=== PATIENT | male | born 1945 | race Caucasian/White ===

== ENCOUNTER 2018-08-06 15:07 | Inpatient (IN) | payer MEDICARE ==
[2018-08-06 15:28] LABS: Glucose,Whole Blood 68 mg/dL (75-99)
[2018-08-06] MEDS ORDERED: IPRATROPIUM-ALBUTEROL 3 ML NEB INHALATION STA (17:17)
[2018-08-06 17:49] LABS: ALT 26 U/L (21-72); AST 19 U/L (17-59); Albumin 4.3 g/dL (3.5-5.0); Alkaline Phosphatase 93 U/L (38-126); Anion Gap 7 mmol/L; Blood Urea Nitrogen 16 mg/dL (9-20); Carbon Dioxide 31 mmol/L (22-30); Chloride 102 mmol/L (98-107); Glucose 88 mg/dL (74-99); Lipase 58 U/L (23-300); Potassium 4.2 mmol/L (3.5-5.1); Sodium 140 mmol/L (137-145); Total Bilirubin 0.4 mg/dL (0.2-1.3); Total Protein 6.8 g/dL (6.3-8.2)
--- NOTE | 2018-08-06 17:56 | XR ---
EXAMINATION TYPE: XR chest 2V DATE OF EXAM: 08/06/2018 COMPARISON: 03/21/2017 HISTORY: Short of breath TECHNIQUE: Frontal and lateral views of the chest are obtained. FINDINGS: Heart is normal. Lungs are clear of consolidation. There is pulmonary hyperinflation. Ther e is multilevel thoracic vertebroplasty. There are no hilar masses. Mediastinum is normal. IMPRESSION: COPD. No acute lung disease. No change compared to old exam.
[2018-08-06 18:02] LABS: Basophils # (A) 0.1 k/uL (0-0.2); Basophils % (A) 1 %; Eosinophils # (A) 0.1 k/uL (0-0.7); Eosinophils % (A) 1 %; HCT 43.7 % (39.0-53.0); HGB 13.4 gm/dL (13.0-17.5); Hypochromasia Slight; Lymphocytes # (A) 1.6 k/uL (1.0-4.8); Lymphocytes % (A) 13 %; MCH 24.8 pg (25.0-35.0); MCHC 30.8 g/dL (31.0-37.0); MCV 80.5 fL (80.0-100.0); Mean Platelet Volume 7.2; Monocytes # (A) 0.6 k/uL (0-1.0); Monocytes % (A) 5 %; Neutrophils # (A) 9.4 k/uL (1.3-7.7); Neutrophils % (A) 79 %; Platelet Count 326 k/uL (150-450); RBC 5.42 m/uL (4.30-5.90); RDW 14.4 % (11.5-15.5); WBC 11.8 k/uL (3.8-10.6)
[2018-08-06 18:21] LABS: INR 0.9 (<1.2); Partial Thromboplastin Time 22.2 sec (22.0-30.0); Prothrombin Time 9.6 sec (9.0-12.0)
--- NOTE | 2018-08-06 19:37 | CT ---
EXAMINATION TYPE: CT abdomen pelvis w con DATE OF EXAM: 08/06/2018 COMPARISON: 05/10/2015 HISTORY: Abdominal pain and difficulty breathing. CT DLP: 1064.3 mGycm Automated exposure control for dose reduction was used. TECHNIQUE: Helical acquisition of images was performed from the lung bases through the pelvis. CONTRAST: Performed without Oral Contrast and with IV Contrast, patient injected with 100ml mL of Isovue 300. FINDINGS: Lung bases are clear. There is no pleural effusion. Heart size is normal. There is no pericardial eff usion. Liver shows no focal defect. Gallbladder appears normal. There is no pancreatic mass. Spleen a ppears normal. Stomach appears normal. There is no adrenal mass. Kidneys show satisfactory contrast opacification. There is 3 mm calculus interpolar left kidney. Ther e is no hydronephrosis. There is no retroperitoneal adenopathy. There is 1.5 cm cortical cyst anterio r right kidney. Ureters are not dilated. Abdominal aorta is atheromatous. Bladder distends smoothly. Prostate is enlarged and measures 5.5 cm with calcification. There is no inguinal hernia. There is no evidence of a pelvic mass. There is no free fluid. There are a few sigmoid diverticula. There is no sign of diverticulitis. There is no mesenteric edema. There is no ascites. Appendix appears normal. T here is broad-based umbilical hernia contains fat. There is no free air. There is no evidence of a sofya wel obstruction. There are some spondylotic changes in the lower lumbar spine. I see no bony destructive process. Ther e is no lumbar compression fracture. Abdominal aorta is atheromatous. IMPRESSION: NONOBSTRUCTING SMALL LEFT RENAL CALCULUS. NO SIGN OF ACUTE ABDOMEN AND PELVIS. NORMAL APPENDIX. NO AD VERSE CHANGE COMPARED TO OLD EXAM. ENLARGED PROSTATE.
--- NOTE | 2018-08-06 19:51 | ED ---
SOB HPI - General Chief Complaint: Shortness of Breath Stated Complaint: Abd Pain, Diff Breathing Time Seen by Provider: 08/06/18 16:40 Source: patient, family Mode of arrival: ambulatory Limitations: no limitations - History of Present Illness Initial Comments: The patient is a 73-year-old male who presents to the emergency department with complaint of shortness of breath. The patient was seen and Dr. Saenz's office earlier today for rectal bleeding. The patient admits to having dark, black stools for the past 3 months. His primary care physician did recommend that he have laboratory studies drawn. He was provided with a prescription and told to go over to the hospital for draw. The patient arrived to the outpatient lab and began having extreme exertional shortness of breath. He does have a history of COPD and is on 2 L of oxygen all times. States his breathing has been gradually getting worse over the past few days. He has production of thick white sputum. He denies any fevers, chills, rigors, nausea or vomiting. He denies hemoptysis, chest pain or chest palpitations. He has been using his nebulizer as directed without improvement. He denies a history of congestive heart failure. Denies lower extremity swelling. The staff at the outpatient lab called Dr. Saenz's office and they recommended that he go to the emergency room for admission. He denies a ripping or tearing sensation to his back. Does admit to abdominal cramping especially in the left lower quadrant. He denies hematochezia. Denies changes in his urination to include dysuria, hematuria or difficulty voiding. There are no other alleviating, precipitating or modifying factors. - Related Data Home Medications Medication Instructions Recorded Confirmed Albuterol Inhaler [Ventolin Hfa 2 puff INHALATION RT-Q4H PRN 12/14/14 05/10/15 Inhaler] Budesonide-Formot 160-4.5 Mcg 2 puff INHALATION RT-BID 12/14/14 05/10/15 [Symbicort 160-4.5 Mcg Inhaler] Theophylline 12 Hour [Gurmeet-Dur] 200 mg PO BID 12/14/14 05/10/15 Tiotropium 18 Mcg/Puff [Spiriva] 1 puff INHALATION RT-DAILY 12/14/14 05/10/15 predniSONE 5 mg PO BID 12/14/14 05/10/15 Ergocalciferol [Vitamin D2 50,000 unit PO ROBLES 05/10/15 05/10/15 (DRISDOL)] Multivit-Mins/Iron/Folic/Lycop 1 tab PO DAILY 05/10/15 05/10/15 [Centrum Men's Tablet] Previous Rx's Medication Instructions Recorded Bisacodyl [Dulcolax] 5 mg PO DAILY #20 tablet. 05/11/15 Allergies Allergy/AdvReac Type Severity Reaction Status Date / Time No Known Allergies Allergy Verified 05/10/15 12:01 Review of Systems ROS Statement: Those systems with pertinent positive or pertinent negative responses have been documented in the HPI. ROS Other: All systems not noted in ROS Statement are negative. Past Medical History Past Medical History: COPD, CVA/TIA, GERD/Reflux, Myocardial Infarction ([place]), Pneumonia Additional Past Medical History / Comment(s): back problems - pulled lumbar muscles (40years ago), Ct abdomen 12/04 for abdominal pain Last Myocardial Infarction Date:: 2011 History of Any Multi-Drug Resistant Organisms: None Reported Additional Past Surgical History / Comment(s): left index finger surgery Past Anesthesia/Blood Transfusion Reactions: No Reported Reaction Past Psychological History: Depression Smoking Status: Former smoker Past Alcohol Use History: None Reported Past Drug Use History: None Reported - Past Family History Mother Family Medical History: Diabetes Mellitus General Exam Limitations: no limitations General appearance: alert, in no apparent distress, anxious Head exam: Present: atraumatic, normocephalic, normal inspection Eye exam: Present: normal appearance, PERRL, EOMI. Absent: scleral icterus, conjunctival injection, periorbital swelling ENT exam: Present: normal exam, mucous membranes moist Neck exam: Present: normal inspection. Absent: tenderness, meningismus, lymphadenopathy Respiratory exam: Present: wheezes, decreased breath sounds, prolonged expiratory. Absent: respiratory distress, rales, rhonchi, stridor Cardiovascular Exam: Present: normal rhythm, tachycardia, normal heart sounds, other (No lower extremity edema). Absent: systolic murmur, diastolic murmur, rubs, gallop, clicks GI/Abdominal exam: Present: soft, normal bowel sounds. Absent: distended, tenderness, guarding, rebound, rigid Extremities exam: Present: normal inspection, full ROM, normal capillary refill. Absent: tenderness, pedal edema, joint swelling, calf tenderness Back exam: Present: normal inspection Neurological exam: Present: alert, oriented X3, CN II-XII intact Psychiatric exam: Present: normal affect, normal mood Skin exam: Present: warm, dry, intact, normal color. Absent: rash Course Vital Signs 08/06/18 08/06/18 08/06/18 15:19 17:36 18:03 Temperature 97.7 F Pulse Rate 102 H 108 H Respiratory 20 22 Rate Blood Pressure 146/72 O2 Sat by Pulse 95 Oximetry 08/06/18 08/06/18 08/06/18 18:11 19:08 21:04 Temperature Pulse Rate 108 H 117 H 99 Respiratory 22 18 Rate Blood Pressure 169/85 144/81 O2 Sat by Pulse 95 96 Oximetry 08/06/18 22:03 Temperature 98.1 F Pulse Rate 100 Respiratory 22 Rate Blood Pressure 142/92 O2 Sat by Pulse 95 Oximetry Procedures - Stool Hemoccult Hemoccult result: negative Medical Decision Making - Medical Decision Making The patient was seen by myself. He was placed into room 9. He is hooked to continuous pulse ox and cardiac monitoring. A 12-lead EKG was performed. The patient is provided with a DuoNeb breathing treatment, 125 mg of Solu-Medrol and 1 g of magnesium. I did recommend laboratory studies. The patient is sent for a chest x-ray. I also recommended a CT of the patient's abdomen due to his reported rectal bleeding. A rectal exam was performed and demonstrated no gross blood. Upon return results I did discuss them with the patient. I did discuss the diagnosis, differential and treatment options. Due to the patient's respiratory insufficiency, I did recommend admission to the hospital for continued DuoNeb breathing treatment and steroids. The patient did agree to this. I did call and discussed the case with Dr. Walters. He did accept admission of the patient. Bridging orders were placed. The patient's home medications cannot be verified. The patient was transported to floor in stable condition - Differential Diagnosis Daily exacerbation of COPD, tracheobronchitis, sinus tachycardia - Lab Data Result diagrams: 08/06/18 17:01 08/06/18 17:01 Lab Results 08/06/18 08/06/18 08/06/18 Range/Units 15:25 17:01 17:01 WBC 11.8 H (3.8-10.6) k/uL RBC 5.42 (4.30-5.90) m/uL Hgb 13.4 (13.0-17.5) gm/dL Hct 43.7 (39.0-53.0) % MCV 80.5 (80.0-100.0) fL MCH 24.8 L (25.0-35.0) pg MCHC 30.8 L (31.0-37.0) g/dL RDW 14.4 (11.5-15.5) % Plt Count 326 (150-450) k/uL Neutrophils % 79 % Lymphocytes % 13 % Monocytes % 5 % Eosinophils % 1 % Basophils % 1 % Neutrophils # 9.4 H (1.3-7.7) k/uL Lymphocytes # 1.6 (1.0-4.8) k/uL Monocytes # 0.6 (0-1.0) k/uL Eosinophils # 0.1 (0-0.7) k/uL Basophils # 0.1 (0-0.2) k/uL Hypochromasia Slight PT (9.0-12.0) sec INR (<1.2) APTT (22.0-30.0) sec Sodium 140 (137-145) mmol/L Potassium 4.2 (3.5-5.1) mmol/L Chloride 102 (98-107) mmol/L Carbon Dioxide 31 H (22-30) mmol/L Anion Gap 7 mmol/L BUN 16 (9-20) mg/dL Creatinine 0.87 (0.66-1.25) mg/dL Est GFR (CKD-EPI)AfAm >90 (>60 ml/min/1.73 sqM) Est GFR (CKD-EPI)NonAf 86 (>60 ml/min/1.73 sqM) Glucose 88 (74-99) mg/dL POC Glucose (mg/dL) 68 L (75-99) mg/dL POC Glu Portal Administrator ID [place], [place] Plasma Lactic Acid Brent (0.7-2.0) mmol/L Calcium 10.0 (8.4-10.2) mg/dL Total Bilirubin 0.4 (0.2-1.3) mg/dL AST 19 (17-59) U/L ALT 26 (21-72) U/L Alkaline Phosphatase 93 (38-126) U/L Troponin I (0.000-0.034) ng/mL NT-Pro-B Natriuret Pep pg/mL Total Protein 6.8 (6.3-8.2) g/dL Albumin 4.3 (3.5-5.0) g/dL Lipase 58 (23-300) U/L Stool Occult Blood (Negative) Blood Type Blood Type Confirm Blood Type Recheck Antibody Screen Spec Expiration Date 08/06/18 08/06/18 08/06/18 Range/Units 17:01 17:01 17:01 WBC (3.8-10.6) k/uL RBC (4.30-5.90) m/uL Hgb (13.0-17.5) gm/dL Hct (39.0-53.0) % MCV (80.0-100.0) fL MCH (25.0-35.0) pg MCHC (31.0-37.0) g/dL RDW (11.5-15.5) % Plt Count (150-450) k/uL Neutrophils % % Lymphocytes % % Monocytes % % Eosinophils % % Basophils % % Neutrophils # (1.3-7.7) k/uL Lymphocytes # (1.0-4.8) k/uL Monocytes # (0-1.0) k/uL Eosinophils # (0-0.7) k/uL Basophils # (0-0.2) k/uL Hypochromasia PT 9.6 (9.0-12.0) sec INR 0.9 (<1.2) APTT 22.2 (22.0-30.0) sec Sodium (137-145) mmol/L Potassium (3.5-5.1) mmol/L Chloride (98-107) mmol/L Carbon Dioxide (22-30) mmol/L Anion Gap mmol/L BUN (9-20) mg/dL Creatinine (0.66-1.25) mg/dL Est GFR (CKD-EPI)AfAm (>60 ml/min/1.73 sqM) Est GFR (CKD-EPI)NonAf (>60 ml/min/1.73 sqM) Glucose (74-99) mg/dL POC Glucose (mg/dL) (75-99) mg/dL POC Glu Portal Administrator ID Plasma Lactic Acid Brent (0.7-2.0) mmol/L Calcium (8.4-10.2) mg/dL Total Bilirubin (0.2-1.3) mg/dL AST (17-59) U/L ALT (21-72) U/L Alkaline Phosphatase (38-126) U/L Troponin I <0.012 (0.000-0.034) ng/mL NT-Pro-B Natriuret Pep 64 pg/mL Total Protein (6.3-8.2) g/dL Albumin (3.5-5.0) g/dL Lipase (23-300) U/L Stool Occult Blood (Negative) Blood Type Blood Type Confirm Blood Type Recheck Antibody Screen Spec Expiration Date 08/06/18 08/06/18 08/06/18 Range/Units 17:01 17:01 17:05 WBC (3.8-10.6) k/uL RBC (4.30-5.90) m/uL Hgb (13.0-17.5) gm/dL Hct (39.0-53.0) % MCV (80.0-100.0) fL MCH (25.0-35.0) pg MCHC (31.0-37.0) g/dL RDW (11.5-15.5) % Plt Count (150-450) k/uL Neutrophils % % Lymphocytes % % Monocytes % % Eosinophils % % Basophils % % Neutrophils # (1.3-7.7) k/uL Lymphocytes # (1.0-4.8) k/uL Monocytes # (0-1.0) k/uL Eosinophils # (0-0.7) k/uL Basophils # (0-0.2) k/uL Hypochromasia PT (9.0-12.0) sec INR (<1.2) APTT (22.0-30.0) sec Sodium (137-145) mmol/L Potassium (3.5-5.1) mmol/L Chloride (98-107) mmol/L Carbon Dioxide (22-30) mmol/L Anion Gap mmol/L BUN (9-20) mg/dL Creatinine (0.66-1.25) mg/dL Est GFR (CKD-EPI)AfAm (>60 ml/min/1.73 sqM) Est GFR (CKD-EPI)NonAf (>60 ml/min/1.73 sqM) Glucose (74-99) mg/dL POC Glucose (mg/dL) (75-99) mg/dL POC Glu Portal Administrator ID Plasma Lactic Acid Brent 1.1 (0.7-2.0) mmol/L Calcium (8.4-10.2) mg/dL Total Bilirubin (0.2-1.3) mg/dL AST (17-59) U/L ALT (21-72) U/L Alkaline Phosphatase (38-126) U/L Troponin I (0.000-0.034) ng/mL NT-Pro-B Natriuret Pep pg/mL Total Protein (6.3-8.2) g/dL Albumin (3.5-5.0) g/dL Lipase (23-300) U/L Stool Occult Blood (Negative) Blood Type O Positive Blood Type Confirm O Positive Blood Type Recheck CABO Indicated Antibody Screen NEGATIVE Spec Expiration Date 08/09/2018 - 230008/06/18 Range/Units 19:50 WBC (3.8-10.6) k/uL RBC (4.30-5.90) m/uL Hgb (13.0-17.5) gm/dL Hct (39.0-53.0) % MCV (80.0-100.0) fL MCH (25.0-35.0) pg MCHC (31.0-37.0) g/dL RDW (11.5-15.5) % Plt Count (150-450) k/uL Neutrophils % % Lymphocytes % % Monocytes % % Eosinophils % % Basophils % % Neutrophils # (1.3-7.7) k/uL Lymphocytes # (1.0-4.8) k/uL Monocytes # (0-1.0) k/uL Eosinophils # (0-0.7) k/uL Basophils # (0-0.2) k/uL Hypochromasia PT (9.0-12.0) sec INR (<1.2) APTT (22.0-30.0) sec Sodium (137-145) mmol/L Potassium (3.5-5.1) mmol/L Chloride (98-107) mmol/L Carbon Dioxide (22-30) mmol/L Anion Gap mmol/L BUN (9-20) mg/dL Creatinine (0.66-1.25) mg/dL Est GFR (CKD-EPI)AfAm (>60 ml/min/1.73 sqM) Est GFR (CKD-EPI)NonAf (>60 ml/min/1.73 sqM) Glucose (74-99) mg/dL POC Glucose (mg/dL) (75-99) mg/dL POC Glu Portal Administrator ID Plasma Lactic Acid Brent (0.7-2.0) mmol/L Calcium (8.4-10.2) mg/dL Total Bilirubin (0.2-1.3) mg/dL AST (17-59) U/L ALT (21-72) U/L Alkaline Phosphatase (38-126) U/L Troponin I (0.000-0.034) ng/mL NT-Pro-B Natriuret Pep pg/mL Total Protein (6.3-8.2) g/dL Albumin (3.5-5.0) g/dL Lipase (23-300) U/L Stool Occult Blood Negative (Negative) Blood Type Blood Type Confirm Blood Type Recheck Antibody Screen Spec Expiration Date - EKG Data -: EKG Interpreted by Me EKG Comments: EKG demonstrates a sinus tachycardia with a ventricular rate of 110. TN interval 162. QRS 74. QTC 438. No acute ST segment elevations or depressions concerning for ischemic changes. - Radiology Data Radiology results: report reviewed Chest x-ray demonstrates no acute process Disposition Clinical Impression: COPD exacerbation Disposition: ADMITTED IP TO THIS HOSP Condition: Stable Is patient prescribed a controlled substance at d/c from ED?: No Decision to Admit Reason: Admit from EC Decision Date: 08/06/18 Decision Time: 21:18
[2018-08-06] MEDS ORDERED: methylPREDNISolone SOD SUCCI 125 MG/2 ML VIAL IV STA (20:02)
[2018-08-06] MEDS ORDERED: MAGNESIUM SULFATE-D5W PMX 1 GM in DEXTROSE/WATER 1 100ML.BAG IVPB ONE (20:03)
[2018-08-06] MEDS ORDERED: NALOXONE 0.4 MG/ML 1 ML VIAL IV PRN (20:04)
[2018-08-07] MEDS: IPRATROPIUM-ALBUTEROL 3 ML NEB INHALATION SCH ×4 (07:51→19:17)
[2018-08-07] MEDS ORDERED: POLYETHYLENE GLYCOL 3350 17 GM POWD.PACK PO PRN (11:57)
[2018-08-07] MEDS ORDERED: predniSONE 20 MG TAB PO SCH (12:00)
[2018-08-07] MEDS: PANTOPRAZOLE 40 MG TABLET PO SCH (12:25)
[2018-08-07] MEDS: METOPROLOL SUCCINATE (ER) 25 MG TAB.ER.24H PO SCH (12:26)
[2018-08-07] MEDS: ACETAMINOPHEN TAB 325 MG TAB PO PRN (12:39)
--- NOTE | 2018-08-07 14:22 | P.CNPUL ---
History of Present Illness Consult date: 08/07/18 Requesting physician: Slivino Wlaters Reason for consult: dyspnea, cough, other Chief complaint: Acute exacerbation of COPD, shortness of breath, coughing, melanotic stools History of present illness: This is a 73-year-old white male patient with history of severe end-stage COPD with baseline FEV1 of 18% of predicted, with chronic hypoxemic respiratory failure, previous episodes of pneumonia, myocardial infarction, CVA/TIA, GERD/reflux, or murmur smoker, who has been passing melanotic stools. Patient follows with the [facility] system, and was supposed to undergo colonoscopy, and he saw Dr. Saenz yesterday on 08/06/2018 for pulmonary clearance for the procedure. However he was experiencing increased shortness of breath, cough, chest congestion, wheezing, and in view of his acute exacerbation of COPD, he was sent in for inpatient treatment. Patient was also having increased left lower abdominal quadrant tenderness, he has no umbilical hernia which has been increasingly tender. He wears oxygen on the regular basis, he is on maintenance dose of prednisone 5 mg daily, is on a combination of Symbicort, Spiriva, Pro- Air, Theophylline on the regular basis. Chest x-ray was completed and showed COPD, no acute lung disease. CT of abdomen and pelvis with contrast was completed and showed nonobstructive small left renal calculus, no sign of acute abdomen and pelvis, normal appendix, enlarged prostate, normal appendix. Lab work showed white blood cell count of 11.8, hemoglobin of 13.4, electrolytes and renal profile were unremarkable with CO2 slightly elevated at 31, proBNP was 64, troponin was negative 1, stool for occult blood was negative. Hemodynamics patient is stable, he is dyspneic with normal conversation, but no acute distress, denied any fever or chills. He is on 2 L of oxygen with a pulse ox of 93-97%, lung sounds are positive for diminished breath sounds, with diffuse wheezes and prolonged expiration. Review of Systems All systems: negative Constitutional: Denies chills, Denies fever Eyes: denies blurred vision, denies pain Ears, nose, mouth and throat: Denies headache, Denies sore throat Cardiovascular: Denies chest pain, Denies shortness of breath Respiratory: Reports congestion, Reports dyspnea, Reports home oxygen, Reports respiratory infections, Reports wheezing, Denies cough Gastrointestinal: Reports abdominal pain, Reports bloating, Reports melena, De nies diarrhea, Denies nausea, Denies vomiting Musculoskeletal: Denies myalgias Integumentary: Denies pruritus, Denies rash Neurological: Denies numbness, Denies weakness Psychiatric: Denies anxiety, Denies depression Endocrine: Denies fatigue, Denies weight change Past Medical History Past Medical History: COPD, CVA/TIA, GERD/Reflux, Myocardial Infarction ([place]), Pneumonia Additional Past Medical History / Comment(s): back problems - pulled lumbar muscles (40years ago), Ct abdomen 12/04 for abdominal pain Last Myocardial Infarction Date:: 2011 History of Any Multi-Drug Resistant Organisms: None Reported Past Surgical History: Back Surgery Additional Past Surgical History / Comment(s): left index finger surgery Past Anesthesia/Blood Transfusion Reactions: No Reported Reaction Past Psychological History: Depression Smoking Status: Former smoker Past Alcohol Use History: None Reported Past Drug Use History: None Reported - Past Family History Mother Family Medical History: Diabetes Mellitus Medications and Allergies Home Medications Medication Instructions Recorded Confirmed Type Albuterol Inhaler [Ventolin Hfa 2 puff INHALATION RT-Q4H PRN 12/14/14 08/07/18 History Inhaler] Budesonide-Formot 160-4.5 Mcg 2 puff INHALATION RT-BID 12/14/14 08/07/18 History [Symbicort 160-4.5 Mcg Inhaler] Tiotropium 18 Mcg/Puff [Spiriva] 1 puff INHALATION RT-DAILY 12/14/14 08/07/18 History predniSONE 5 mg PO DAILY 12/14/14 08/07/18 History Ergocalciferol [Vitamin D2 50,000 unit PO ROBLES 05/10/15 08/07/18 History (DRISDOL)] Albuterol Nebulized [Ventolin 2.5 mg INHALATION RT-Q4H PRN 08/07/18 08/07/18 History Nebulized] Aspirin EC [Ecotrin] 325 mg PO DAILY 08/07/18 08/07/18 History Atorvastatin [Lipitor] 20 mg PO HS 08/07/18 08/07/18 History Fluticasone Nasal [place] [Flonase 1 spray EA NOSTRIL BID 08/07/18 08/07/18 History Nasal [place]] Metoprolol Succinate [Toprol XL] 25 mg PO DAILY 08/07/18 08/07/18 History Omeprazole 20 mg PO DAILY 08/07/18 08/07/18 History Theophylline 24 Hour [Gurmeet-24] 400 mg PO DAILY 08/07/18 08/07/18 History Allergies Allergy/AdvReac Type Severity Reaction Status Date / Time No Known Allergies Allergy Verified 08/07/18 08:26 Physical Exam Vitals: Vital Signs Temp Pulse Pulse Resp BP BP Pulse Ox 08/07/18 11:11 104 H 08/07/18 11:03 106 H 08/07/18 08:05 100 08/07/18 07:53 104 H 08/07/18 06:59 97.7 F 98 16 169/89 93 L 08/07/18 01:21 97.8 F 99 16 131/77 97 08/06/18 22:38 98.0 F 101 H 16 159/87 97 08/06/18 22:03 98.1 F 100 22 142/92 95 08/06/18 21:04 99 18 144/81 96 08/06/18 19:08 117 H 22 169/85 95 08/06/18 18:11 108 H 08/06/18 18:03 108 H 08/06/18 17:36 22 08/06/18 15:19 97.7 F 102 H 20 146/72 95 Intake and Output 08/06/18 08/07/18 08/07/18 22:59 06:59 14:59 Intake Total 420 Output Total 550 Balance -550 420 Intake: Oral 420 Output: Urine 550 Other: Voiding Method Toilet Urinal Weight 79.379 kg GENERAL EXAM: Alert, pleasant, 73-year-old white male on 2 L of oxygen with a pulse ox of 93% with moderate conversational dyspnea, comfortable in no apparent distress. HEAD: Normocephalic/atraumatic. EYES: Normal reaction of pupils, equal size. Conjunctiva pink, sclera white. NOSE: Clear with pink turbinates. THROAT: No erythema or exudates. NECK: No masses, no JVD, no thyroid enlargement, no adenopathy. CHEST: No chest wall deformity. Symmetrical expansion. LUNGS: Equal air entry with decreased breath sounds, and diffuse wheezes CVS: Regular rate and rhythm, normal S1 and S2, no gallops, no murmurs, no rubs ABDOMEN: Soft, nontender. No hepatosplenomegaly, normal bowel sounds, no guarding or rigidity. EXTREMITIES: No clubbing, no edema, no cyanosis, 2+ pulses and upper and lower extremities. MUSCULOSKELETAL: Muscle strength and tone normal. SPINE: No scoliosis or deformity SKIN: No rashes CENTRAL NERVOUS SYSTEM: Alert and oriented -3. No focal deficits, tone is normal in all 4 extremities. PSYCHIATRIC: Alert and oriented -3. Appropriate affect. Intact judgment and insight. Results - Laboratory Findings CBC and BMP: 08/06/18 17:01 08/06/18 17:01 PT/INR, D-dimer PT 9.6 sec (9.0-12.0) 08/06/18 17: INR 0.9 (<1.2) 08/06/18 17:01 Abnormal lab findings: Abnormal Labs 08/06/18 08/06/18 08/06/18 15:25 17:01 17:01 WBC 11.8 H MCH 24.8 L MCHC 30.8 L Neutrophils # 9.4 H Carbon Dioxide 31 H POC Glucose (mg/dL) 68 L - Diagnostic Findings Chest x-ray: report reviewed, image reviewed Additional studies: CT of the abdomen and pelvis reviewed Assessment and Plan Plan: Assessment: #1. Acute exacerbation of chronic obstructive pulmonary disease, chest x-ray did not show focal pneumonia #2. History of recent melanotic stools, and patient was undergoing evaluation for outpatient colonoscopy #3. Severe COPD, with chronic hypoxemic respiratory failure with the underlying FEV1 of 18% of predicted, prednisone dependent #4. Former smoker #5. Previous episodes of pneumonia #6. History myocardial infarction #7. GERD/reflux Plan: We'll continue with IV steroids, Pulmicort, Perforomist, DuoNeb nebulized treatments, we will add oral antibiotics, chest x-ray has been reviewed with Dr. Freeman, did not show any evidence of focal pneumonia, patient will be treated for acute exacerbation of COPD. We'll consult GI service for evaluation of a history of recent GI bleeding. Stool was negative, hemodynamically patient is stable, does have some tenderness in the left lower quadrant, and umbilical hernia tenderness. Results of the CT of abdomen and pelvis have been reviewed. We'll continue to follow and make further recommendations I performed a history & physical examination of the patient and discussed their management with my nurse practitioner, Janie Davidson. I reviewed the nurse practitioner's note and agree with the documented findings and plan of care. Lung sounds are positive for diffuse wheezes throughout the lung piña. The fi ndings and the impression was discussed with the patient. I attest to the documentation by the nurse practitioner. Time with Patient: Greater than 30
[2018-08-07] MEDS ORDERED: IPRATROPIUM-ALBUTEROL 3 ML NEB INHALATION PRN (14:24)
--- NOTE | 2018-08-07 15:43 | P.HPIM ---
History of Present Illness 73-year-old pleasant gentleman came in with complaints of shortness of breath patient does have a history of COPD severe endstage does use 2-3 L of onset at home patient is found to be in COPD exacerbation is significant wheezing was admitted with systemic steroids inhalational treatments. From neurology was consulted. Patient had a history of recent GI bleed. Patient was also complaining of pain in the. [place]- umblical area where he had an umbilical hernia. Patient also company of significant left lower quadrant abdominal pain which improved now no tenderness in that area probably related to constipation although patient moved his bowels yesterday occasionally gets constipated. Patient had a CAT scan of the abdomen which showed nonobstructive small left renal calculus which he may have passed now. Patient denied any orthopnea paroxysmal nocturnal dyspnea does not have any history of CHF quit smoking years ago doesn't have any evidence of pneumonia on the chest x-ray Review of Systems REVIEW OF SYSTEMS: CONSTITUTIONAL: No fever, no malaise, no fatigue. HEENT: No recent visual problems or hearing problems. Denied any sore throat. CARDIOVASCULAR: No chest pain, orthopnea, PND, no palpitations, no syncope. PULMONARY: no hemoptysis. GASTROINTESTINAL: No diarrhea, no nausea, no vomiting. NEUROLOGICAL: No headaches, no weakness, no numbness. HEMATOLOGICAL: Denies any bleeding or petechiae. GENITOURINARY: Denies any burning micturition, frequency, or urgency. MUSCULOSKELETAL/RHEUMATOLOGICAL: Denies any joint pain, swelling, or any muscle pain. ENDOCRINE: Denies any polyuria or polydipsia. The rest of the 14-point review of systems is negative. Past Medical History Past Medical History: COPD, CVA/TIA, GERD/Reflux, Myocardial Infarction ([place]), Pneumonia Additional Past Medical History / Comment(s): back problems - pulled lumbar muscles (40years ago), Ct abdomen 12/04 for abdominal pain Last Myocardial Infarction Date:: 2011 History of Any Multi-Drug Resistant Organisms: None Reported Past Surgical History: Back Surgery Additional Past Surgical History / Comment(s): left index finger surgery Past Anesthesia/Blood Transfusion Reactions: No Reported Reaction Past Psychological History: Depression Smoking Status: Former smoker Past Alcohol Use History: None Reported Past Drug Use History: None Reported - Past Family History Mother Family Medical History: Diabetes Mellitus Medications and Allergies Home Medications Medication Instructions Recorded Confirmed Type Albuterol Inhaler [Ventolin Hfa 2 puff INHALATION RT-Q4H PRN 12/14/14 08/07/18 History Inhaler] Budesonide-Formot 160-4.5 Mcg 2 puff INHALATION RT-BID 12/14/14 08/07/18 History [Symbicort 160-4.5 Mcg Inhaler] Tiotropium 18 Mcg/Puff [Spiriva] 1 puff INHALATION RT-DAILY 12/14/14 08/07/18 History predniSONE 5 mg PO DAILY 12/14/14 08/07/18 History Ergocalciferol [Vitamin D2 50,000 unit PO ROBLES 05/10/15 08/07/18 History (DRISDOL)] Albuterol Nebulized [Ventolin 2.5 mg INHALATION RT-Q4H PRN 08/07/18 08/07/18 History Nebulized] Aspirin EC [Ecotrin] 325 mg PO DAILY 08/07/18 08/07/18 History Atorvastatin [Lipitor] 20 mg PO HS 08/07/18 08/07/18 History Fluticasone Nasal [place] [Flonase 1 spray EA NOSTRIL BID 08/07/18 08/07/18 History Nasal [place]] Metoprolol Succinate [Toprol XL] 25 mg PO DAILY 08/07/18 08/07/18 History Omeprazole 20 mg PO DAILY 08/07/18 08/07/18 History Theophylline 24 Hour [Gurmeet-24] 400 mg PO DAILY 08/07/18 08/07/18 History Allergies Allergy/AdvReac Type Severity Reaction Status Date / Time No Known Allergies Allergy Verified 08/07/18 08:26 Physical Exam Vitals: Vital Signs Temp Pulse Pulse Resp BP BP Pulse Ox 08/07/18 15:06 96 08/07/18 14:37 97.5 F L 92 14 100/48 97 08/07/18 11:11 104 H 08/07/18 11:03 106 H 08/07/18 08:05 100 08/07/18 07:53 104 H 08/07/18 06:59 97.7 F 98 16 169/89 93 L 08/07/18 01:21 97.8 F 99 16 131/77 97 08/06/18 22:38 98.0 F 101 H 16 159/87 97 08/06/18 22:03 98.1 F 100 22 142/92 95 08/06/18 21:04 99 18 144/81 96 08/06/18 19:08 117 H 22 169/85 95 08/06/18 18:11 108 H 08/06/18 18:03 108 H 08/06/18 17:36 22 Intake and Output 08/07/18 08/07/18 08/07/18 06:59 14:59 22:59 Intake Total 660 Output Total 550 Balance -550 660 Intake: Oral 660 Output: Urine 550 Other: Voiding Method Toilet Urinal # Voids 2 PHYSICAL EXAMINATION: GENERAL: The patient is alert and oriented x3, not in any acute distress. Well developed, well nourished. HEENT: Pupils are round and equally reacting to light. EOMI. No scleral icterus. No conjunctival pallor. Normocephalic, atraumatic. No pharyngeal erythema. No thyromegaly. CARDIOVASCULAR: S1 and S2 present. No murmurs, rubs, or gallops. PULMONARY: Significant expiratory wheezing mildly decreased air entry into bilateral lung piña ABDOMEN: Soft, distended minimal tenderness in the left lower quadrant) medical area bowel sounds are sluggish MUSCULOSKELETAL: No joint swelling or deformity. EXTREMITIES: No cyanosis, clubbing, or pedal edema. NEUROLOGICAL: Gross neurological examination did not reveal any focal deficits. SKIN: No rashes. Results CBC & Chem 7: 08/06/18 17:01 08/06/18 17:01 Labs: Abnormal Lab Results - Last 24 Hours (Table) 08/06/18 08/06/18 Range/Units 17:01 17:01 WBC 11.8 H (3.8-10.6) k/uL MCH 24.8 L (25.0-35.0) pg MCHC 30.8 L (31.0-37.0) g/dL Neutrophils # 9.4 H (1.3-7.7) k/uL Carbon Dioxide 31 H (22-30) mmol/L Thrombosis Risk Factor Assmnt - Choose All That Apply Any of the Below Risk Factors Present?: Yes Each Factor Represents 1 point: Abnormal pulmonary function (COPD) Other Risk Factors: Yes Each Risk Factor Represents 2 Points: Age 61-74 years Thrombosis Risk Factor Assessment Total Risk Factor Score: 3 Thrombosis Risk Factor Assessment Level: Moderate Risk Assessment and Plan Plan: -Acute on chronic hypercapnic respiratory failure secondary to COPD exacerbation continue thoughts and support continue systemic steroids inhalational treatments . -Abdominal pain probably secondary to renal stone which he may have passed patient will be treated for constipation as 10 evidence of diverticulitis -Mild periumbilical pain conservative management patient does not appear to have incarcerated hernia -Coronary artery disease Gastroesophageal reflux disease. Patient will need pharmacologic GI as well as DVT prophylaxis
[2018-08-07] MEDS: methylPREDNISolone SOD SUCCI 125 MG/2 ML VIAL IV SCH ×2 (17:04→23:52)
[2018-08-07] MEDS: AZITHROMYCIN 500 MG TAB PO SCH (17:04)
[2018-08-07] MEDS: HEPARIN SODIUM,PORCINE 5,000 UNIT/ML 1 ML VIAL SQ SCH ×2 (17:05→23:52)
[2018-08-07] MEDS: BUDESONIDE 1 MG/2 ML NEBU INHALATION SCH (19:17)
[2018-08-07] MEDS: FORMOTEROL FUMARATE 20 MCG/2 ML NEBU INHALATION SCH (19:17)
[2018-08-07] MEDS ORDERED: SYMBICORT 160-4.5 MCG INHALER INHALATION SCH (20:00)
[2018-08-07] MEDS: ATORVASTATIN 20 MG TAB PO SCH (20:17)
[2018-08-08] MEDS: IPRATROPIUM-ALBUTEROL 3 ML NEB INHALATION SCH ×6 (00:17→20:42)
[2018-08-08] MEDS: methylPREDNISolone SOD SUCCI 125 MG/2 ML VIAL IV SCH ×2 (05:32→18:27)
[2018-08-08] MEDS: BUDESONIDE 1 MG/2 ML NEBU INHALATION SCH ×2 (08:10→20:42)
[2018-08-08] MEDS: FORMOTEROL FUMARATE 20 MCG/2 ML NEBU INHALATION SCH ×2 (08:10→20:42)
[2018-08-08] MEDS: HEPARIN SODIUM,PORCINE 5,000 UNIT/ML 1 ML VIAL SQ SCH ×2 (08:46→15:55)
[2018-08-08] MEDS: PANTOPRAZOLE 40 MG TABLET PO SCH (08:46)
[2018-08-08] MEDS: ASPIRIN 325 MG TAB PO SCH (08:46)
[2018-08-08] MEDS: METOPROLOL SUCCINATE (ER) 25 MG TAB.ER.24H PO SCH (08:46)
[2018-08-08] MEDS: THEOPHYLLINE 24 HOUR 400 MG CAP.ER.24H PO SCH (08:47)
[2018-08-08] MEDS: AZITHROMYCIN 500 MG TAB PO SCH (08:47)
[2018-08-08] MEDS: ACETAMINOPHEN TAB 325 MG TAB PO PRN (08:50)
--- NOTE | 2018-08-08 11:43 | P.CONS ---
History of Present Illness - Reason for Consult Consult date: 08/08/18 Abdominal pain history of melena Requesting physician: Ja Berry - Chief Complaint Shortness of breath abdominal pain - History of Present Illness 73-year-old male admitted with shortness of breath exacerbation of COPD periumbilical abdominal pain and rectal bleeding. Past medical history end- stage COPD O2 dependent. Patient states he was noticing some red tinged blood with his bowel movements over the past week in month with lower abdominal discomfort. He also reports having severe constipation. No history of EGD colonoscopy. CT abdomen nonobstructing small left renal calculus no sign of acute abdomen and pelvis. Normal appendix. Enlarged prostate. Broad-based umbilical hernia containing fat. No free air. No bowel obstruction. Scattered sigmoid d iverticula. Hemoglobin 13.4. White count 11.8. Platelets 326. INR 0.9. LFTs lipase within normal limits. Troponin less than 0.012. BUN 16. Creatinine 0.8. FOBT negative. Review of Systems Constitutional: Denies fever, chills, sweats, weight gain, or loss. HEENT: Negative for migraines, blurred vision or loss, earaches, drainage, tinnitus, oral mucosal lesions, dysphagia, or odynophagia. Cardiac: Negative for chest pain, arrhythmias, or palpitation. Respiratory: Positive for shortness of breath, denies hemoptysis, cough, or sputum production. Gastrointestinal: See HPI for pertinent findings. Genitourinary: Negative for hematuria, urgency, frequency, polyuria, dysuria, or penile discharge. Musculoskeletal: Negative for muscle aches, swelling, arthritis, and arthralgias. Neurologic: Negative for stroke or TIA. Endocrine: Negative for thyroid problems. Skin: Negative for rash or itching. Psychiatric: Negative history for depression and anxiety Past Medical History Past Medical History: COPD, CVA/TIA, GERD/Reflux, Myocardial Infarction ([place]), Pneumonia Additional Past Medical History / Comment(s): back problems - pulled lumbar muscles (40years ago), Ct abdomen 12/04 for abdominal pain Last Myocardial Infarction Date:: 2011 History of Any Multi-Drug Resistant Organisms: None Reported Past Surgical History: Back Surgery Additional Past Surgical History / Comment(s): left index finger surgery Past Anesthesia/Blood Transfusion Reactions: No Reported Reaction Past Psychological History: Depression Smoking Status: Former smoker Past Alcohol Use History: None Reported Past Drug Use History: None Reported - Past Family History Mother Family Medical History: Diabetes Mellitus Medications and Allergies Home Medications Medication Instructions Recorded Confirmed Type Albuterol Inhaler [Ventolin Hfa 2 puff INHALATION RT-Q4H PRN 12/14/14 08/07/18 History Inhaler] Budesonide-Formot 160-4.5 Mcg 2 puff INHALATION RT-BID 12/14/14 08/07/18 History [Symbicort 160-4.5 Mcg Inhaler] Tiotropium 18 Mcg/Puff [Spiriva] 1 puff INHALATION RT-DAILY 12/14/14 08/07/18 History predniSONE 5 mg PO DAILY 12/14/14 08/07/18 History Ergocalciferol [Vitamin D2 50,000 unit PO ROBLES 05/10/15 08/07/18 History (DRISDOL)] Albuterol Nebulized [Ventolin 2.5 mg INHALATION RT-Q4H PRN 08/07/18 08/07/18 History Nebulized] Aspirin EC [Ecotrin] 325 mg PO DAILY 08/07/18 08/07/18 History Atorvastatin [Lipitor] 20 mg PO HS 08/07/18 08/07/18 History Fluticasone Nasal [place] [Flonase 1 spray EA NOSTRIL BID 08/07/18 08/07/18 Histo ry Nasal [place]] Metoprolol Succinate [Toprol XL] 25 mg PO DAILY 08/07/18 08/07/18 History Omeprazole 20 mg PO DAILY 08/07/18 08/07/18 History Theophylline 24 Hour [[place]ur[place]-24] 400 mg PO DAILY 08/07/18 08/07/18 History Allergies Allergy/AdvReac Type Severity Reaction Status Date / Time No Known Allergies Allergy Verified 08/07/18 08:26 Physical Exam Vitals: Vital Signs Temp Pulse Pulse Resp BP Pulse Ox 08/08/18 08:39 86 08/08/18 08:29 84 08/08/18 08:19 84 08/08/18 07:45 97.6 F 82 18 114/61 97 08/08/18 04:27 100 08/08/18 04:03 96 08/08/18 01:07 97.6 F 102 H 19 130/75 96 08/08/18 00:37 104 H 08/08/18 00:17 104 H 08/07/18 19:41 100 08/07/18 19:32 100 08/07/18 19:29 97.6 F 99 16 148/68 97 08/07/18 19:20 98 08/07/18 15:06 96 08/07/18 14:37 97.5 F L 92 14 100/48 97 08/07/18 11:11 104 H 08/07/18 11:03 106 H Intake and Output 08/07/18 08/08/18 08/08/18 22:59 06:59 14:59 Intake Total 240 Balance 240 Intake: Oral 240 Other: Voiding Method Toilet # Voids 1 3 General appearance: The patient is alert, oriented, in no acute distress. HET: Head is normocephalic and atraumatic. Pupils are equal and reactive. Oropharynx is clear without lesions. Neck: Supple without lymphadenopathy. Trachea midline. Heart: S1 S2. Regular rate and rhythm. Lungs: No crackles or wheezes are heard. Diminished bilaterally in bases. Abdomen: Soft, nontender, nondistended with bowel sounds. Reducible umbilical hernia. No peritoneal signs. No palpable organomegaly or masses. Extremities: Normal skin color and turgor. No cyanosis, rash, ulceration, clubbing, or edema. Radial and pedal pulses are 2/4 bilaterally. Neurological: No focal deficits. Strength and sensation are grossly intact. Results CBC & Chem 7: 08/06/18 17:01 08/06/18 17:01 CT scan - abdomen: report reviewed (Dr. Deshpande) Assessment and Plan (1) COPD exacerbation Narrative/Plan: 73-year-old gentleman with a history of severe COPD O2 dependent admitted with exacerbation of abdominal pain with reports of rectal bleeding over the last 1-4 weeks with underlying colonic diverticular disease. Etiology of bleeding is unclear no history of EGD colonoscopy possible colonic diverticular bleeding exacerbated by constipation however underlying neoplasm bleeding AVM cannot be entirely excluded. Upper GI source felt to be less likely but cannot be excluded. Current Visit: Yes Status: Acute Code(s): J44.1 - CHRONIC OBSTRUCTIVE PULMONARY DISEASE W (ACUTE) EXACERBATION SNOMED Code(s): 027682257 (2) Abdominal pain Current Visit: No Status: Acute Code(s): R10.9 - UNSPECIFIED ABDOMINAL PAIN SNOMED Code(s): 24855646 Plan: 1. Continue present medical therapy. Avoid constipation stool softeners daily Senokot-S 2 tabs twice a day. Continue with Protonix daily. EGD colonoscopy was advised and discussed however patient will require a pulmonary clearance before proceeding accordingly. This can be pursued on an outpatient basis per pulmonary input. Thank you for this kind referral and the opportunity to participate in the care of your patient. This consultation was discussed with Dr. Deshpande. The impression and plan of care have been directed as dictated.
--- NOTE | 2018-08-08 13:29 | P.PN ---
Subjective Progress Note Date: 08/08/18 Principal diagnosis: Acute exacerbation of chronic obstructive pulmonary disease This is a 73-year-old white male patient with history of severe end-stage COPD with baseline FEV1 of 18% of predicted, with chronic hypoxemic respiratory failure, previous episodes of pneumonia, myocardial infarction, CVA/TIA, GERD/reflux, or murmur smoker, who has been passing melanotic stools. Patient follows with the [facility], and was supposed to undergo colonoscopy, and he saw Dr. Saenz yesterday on 08/06/2018 for pulmonary clearance for the procedure. However he was experiencing increased shortness of breath, cough, chest congestion, wheezing, and in view of his acute exacerbation of COPD, he was sent in for inpatient treatment. Patient was also having increased left lower abdomi nal quadrant tenderness, he has no umbilical hernia which has been increasingly tender. He wears oxygen on the regular basis, he is on maintenance dose of prednisone 5 mg daily, is on a combination of Symbicort, Spiriva, Pro-Air, Theophylline on the regular basis. Chest x-ray was completed and showed COPD, no acute lung disease. CT of abdomen and pelvis with contrast was completed and showed nonobstructive small left renal calculus, no sign of acute abdomen and pelvis, normal appendix, enlarged prostate, normal appendix. Lab work showed white blood cell count of 11.8, hemoglobin of 13.4, electrolytes and renal profile were unremarkable with CO2 slightly elevated at 31, proBNP was 64, tro ponin was negative 1, stool for occult blood was negative. Hemodynamics patient is stable, he is dyspneic with normal conversation, but no acute distress, denied any fever or chills. He is on 2 L of oxygen with a pulse ox of 93-97%, lung sounds are positive for diminished breath sounds, with diffuse wheezes and prolonged expiration. On 12 08/08/2018 patient seen in follow-up on medical surgical floor. She is awake and alert, in no acute distress, still quite dyspneic with conversation, has frequent coughing, diffuse wheezes bilaterally, he states he is feeling better, but on back to baseline, still quite dyspneic and bronchospastic. He has had no stools since his been admitted. No new blood work done today, hemodynamically patient remains stable. She has been evaluated by the GI se nilsa, please refer to her normal. For now patient is being treated for acute exacerbation of COPD. Objective - Vital Signs Vital signs: Vital Signs Temp 97.6 F 08/08/18 07:45 Pulse 86 08/08/18 11:45 Resp 18 08/08/18 08:46 BP 114/61 08/08/18 07:45 Pulse Ox 97 08/08/18 07:45 Intake & Output 08/07/18 08/08/18 08/08/18 18:59 06:59 18:59 Intake Total 900 Balance 900 Intake: Oral 900 Other: Voiding Method Toilet Toilet # Voids 2 3 - Exam GENERAL EXAM: Alert, pleasant, 73-year-old white male on 2 L of oxygen with a pulse ox of 93% with moderate conversational dyspnea, comfortable in no apparent distress. HEAD: Normocephalic/atraumatic. EYES: Normal reaction of pupils, equal size. Conjunctiva pink, sclera white. NOSE: Clear with pink turbinates. THROAT: No erythema or exudates. NECK: No masses, no JVD, no thyroid enlargement, no adenopathy. CHEST: No chest wall deformity. Symmetrical expansion. LUNGS: Equal air entry with decreased breath sounds, and diffuse wheezes CVS: Regular rate and rhythm, normal S1 and S2, no gallops, no murmurs, no rubs ABDOMEN: Soft, nontender. No hepatosplenomegaly, normal bowel sounds, no guarding or rigidity. EXTREMITIES: No clubbing, no edema, no cyanosis, 2+ pulses and upper and lower extremities. MUSCULOSKELETAL: Muscle strength and tone normal. SPINE: No scoliosis or deformity SKIN: No rashes CENTRAL NERVOUS SYSTEM: Alert and oriented -3. No focal deficits, tone is normal in all 4 extremities. PSYCHIATRIC: Alert and oriented -3. Appropriate affect. Intact judgment and insight. - Labs CBC & Chem 7: 08/06/18 17:01 08/06/18 17:01 Assessment and Plan Plan: Assessment: #1. Acute exacerbation of chronic obstructive pulmonary disease, chest x-ray did not show focal pneumonia #2. History of recent melanotic stools, and patient was undergoing evaluation for outpatient colonoscopy #3. Severe COPD, with chronic hypoxemic respiratory failure with the underlying FEV1 of 18% of predicted, prednisone dependent #4. Former smoker #5. Previous episodes of pneumonia #6. History myocardial infarction #7. GERD/reflux Plan: Continue with breathing treatments, IV steroids, will de-escalate the antibiotics down to just oral Zithromax, continue with Pulmicort and Perforomist. Still quite dyspneic and bronchospastic. No stool since he is been admitted, hemodynamically stable, has been evaluated by GI service, no active bleeding. As long as there is no active bleeding patient remains hemodynamically stable, no need for urgent colonoscopy right now. I performed a history & physical examination of the patient and discussed their management with my nurse practitioner, Janie Cedeño. I reviewed the nurse practitioner's note and agree with the documented findings and plan of care. Lung sounds are positive for diffuse wheezes throughout the lung piña. The findings and the impression was discussed with the patient. I attest to the documentation by the nurse practitioner. Time with Patient: Less than 30
[2018-08-08] MEDS: SENNOSIDES-DOCUSATE SODIUM 1 EACH TAB PO SCH ×2 (14:30→20:06)
--- NOTE | 2018-08-08 15:42 | P.PN ---
Subjective 73-year-old male was admitted the second to COPD exacerbation patient the still quite a bit short of breath more from his baseline is on 3 L of oxygen had couple episodes of dark stools because of gastric which gastric body evaluate the patient patient is already on Protonix. Patient had fairly normal stool today. Patient's IV steroids will be tapered down and patient will not require Rocephin's demise and will be continued. Abdominal pain improved Constitutional: Denied any fatigue denied any fever. Cardio vascular: denied any chest pain, palpitations Gastrointestinal denied any nausea vomiting Pulmonary: As mentioned in HPI Neurologic denied any new focal deficits All inpatient medications were reviewed and appropriate changes in these medications as dictated in the interval history and assessment and plan. Objective - Vital Signs Vital signs: Vital Signs Temp 97.6 F 08/08/18 07:45 Pulse 84 08/08/18 15:34 Resp 18 08/08/18 08:46 BP 114/61 08/08/18 07:45 Pulse Ox 97 08/08/18 07:45 Intake & Output 08/07/18 08/08/18 08/08/18 18:59 06:59 18:59 Intake Total 900 50 Balance 900 50 Intake: Intake, IV Titration 50 Amount cefTRIAXone 1 gm In 50 Sodium Chloride 0.9% 50 ml @ 100 mls/hr IVPB Q24HR [facility] Rx#:[id number] Oral 900 Other: Voiding Method Toilet Toilet # Voids 2 3 - Exam PHYSICAL EXAMINATION: GENERAL: The patient is alert and oriented x3, not in any acute distress. Well developed, well nourished. HEENT: Pupils are round and equally reacting to light. EOMI. No scleral icterus. No conjunctival pallor. Normocephalic, atraumatic. No pharyngeal erythema. No thyromegaly. CARDIOVASCULAR: S1 and S2 present. No murmurs, rubs, or gallops. PULMONARY: Significant expiratory wheezing mildly decreased air entry into bi lateral lung piña ABDOMEN: Soft, distended minimal tenderness in the left lower quadrant) medical area bowel sounds are sluggish MUSCULOSKELETAL: No joint swelling or deformity. EXTREMITIES: No cyanosis, clubbing, or pedal edema. NEUROLOGICAL: Gross neurological examination did not reveal any focal deficits. SKIN: No rashes. - Labs CBC & Chem 7: 08/06/18 17:01 08/06/18 17:01 Assessment and Plan Plan: -Acute on chronic hypercapnic respiratory failure secondary to COPD exacerbation continue thoughts and support continue systemic steroids inhalational treatments. -Abdominal pain probably secondary to renal stone which he may have passed patient will be treated for constipation, no evidence of diverticulitis -Couple episodes of dark stools does not appear to be GI bleed rather I believe it secondary to constipation -Mild periumbilical pain conservative management patient does not appear to have incarcerated hernia -Coronary artery disease Gastroesophageal reflux disease. Patient will need pharmacologic GI as well as DVT prophylaxis
[2018-08-08] MEDS: methylPREDNISolone SOD SUCCI 40 MG/ML 1 ML VIAL IV SCH (20:06)
[2018-08-08] MEDS: ATORVASTATIN 20 MG TAB PO SCH (20:06)
[2018-08-09] MEDS: IPRATROPIUM-ALBUTEROL 3 ML NEB INHALATION SCH ×6 (00:09→19:25)
[2018-08-09] MEDS: HEPARIN SODIUM,PORCINE 5,000 UNIT/ML 1 ML VIAL SQ SCH ×3 (00:24→16:29)
[2018-08-09] MEDS: ACETAMINOPHEN TAB 325 MG TAB PO PRN ×2 (04:37→08:10)
[2018-08-09] MEDS: PANTOPRAZOLE 40 MG TABLET PO SCH (08:06)
[2018-08-09] MEDS: AZITHROMYCIN 500 MG TAB PO SCH (08:07)
[2018-08-09] MEDS: ASPIRIN 325 MG TAB PO SCH (08:07)
[2018-08-09] MEDS: THEOPHYLLINE 24 HOUR 400 MG CAP.ER.24H PO SCH (08:07)
[2018-08-09] MEDS: SENNOSIDES-DOCUSATE SODIUM 1 EACH TAB PO SCH ×2 (08:07→21:05)
[2018-08-09] MEDS: methylPREDNISolone SOD SUCCI 40 MG/ML 1 ML VIAL IV SCH ×2 (08:07→21:05)
[2018-08-09] MEDS: METOPROLOL SUCCINATE (ER) 25 MG TAB.ER.24H PO SCH (08:07)
[2018-08-09] MEDS: BUDESONIDE 1 MG/2 ML NEBU INHALATION SCH ×2 (08:28→19:25)
[2018-08-09] MEDS: FORMOTEROL FUMARATE 20 MCG/2 ML NEBU INHALATION SCH ×2 (08:28→19:25)
--- NOTE | 2018-08-09 11:53 | P.PN ---
Subjective Progress Note Date: 08/09/18 Principal diagnosis: Abdominal pain recent blood in stool Feels well. No abdominal pain. Passing bowel movements. No bleeding. Objective - Vital Signs Vital signs: Vital Signs Temp 97.5 F L 08/09/18 07:29 Pulse 94 08/09/18 08:50 Resp 16 08/09/18 08:00 BP 110/61 08/09/18 07:29 Pulse Ox 97 08/09/18 08:28 Intake & Output 08/08/18 08/09/18 08/09/18 18:59 06:59 18:59 Intake Total 50 450 250 Balance 50 450 250 Intake: Intake, IV Titration 50 Amount cefTRIAXone 1 gm In 50 Sodium Chloride 0.9% 50 ml @ 100 mls/hr IVPB Q24HR [facility] Rx#:[id number] Oral 450 250 Other: Voiding Method Toilet Toilet Toilet # Voids 3 3 - Exam General appearance: The patient is alert, oriented, in no acute distress. HET: Head is normocephalic and atraumatic. Pupils are equal and reactive. O ropharynx is clear without lesions. Neck: Supple without lymphadenopathy. Trachea midline. Heart: S1 S2. Regular rate and rhythm. Lungs: No dimension bases bilaterally. Abdomen: Soft, nontender, nondistended with bowel sounds. No peritoneal signs. No palpable organomegaly or masses. Extremities: Normal skin color and turgor. No cyanosis, rash, ulceration, clubbing, or edema. Radial and pedal pulses are 2/4 bilaterally. Neurological: No focal deficits. Strength and sensation are grossly intact. - Labs CBC & Chem 7: 08/06/18 17:01 08/06/18 17:01 Assessment and Plan (1) COPD exacerbation Narrative/Plan: 73-year-old gentleman with a history of severe COPD O2 dependent admitted with exacerbation of abdominal pain with reports of rectal bleeding over the last 1-4 weeks with underlying colonic diverticular disease. Etiology of bleeding is unclear no history of EGD colonoscopy possible colonic diverticular bleeding exacerbated by constipation however underlying neoplasm bleeding AVM cannot be entirely excluded. Upper GI source felt to be less likely but cannot be excluded. Current Visit: Yes Status: Acute Code(s): J44.1 - CHRONIC OBSTRUCTIVE PULMONARY DISEASE W (ACUTE) EXACERBATION SNOMED Code(s): 004375424 (2) Abdominal pain Current Visit: No Status: Acute Code(s): R10.9 - UNSPECIFIED ABDOMINAL PAIN SNOMED Code(s): 28892736 Plan: 1. Agreeable for discharge. Case was discussed with hand frame surgical elastic knitter Dr. Berry we'll proceed with outpatient endoscopic evaluation. Return to office in 2-3 weeks for reevaluation. Senokot-S 2 tabs daily or 1 tab twice daily for bowel regularity. Avoid constipation. Assessment and plan a care discussed with Dr. Deshpande
--- NOTE | 2018-08-09 13:06 | P.PN ---
Subjective Progress Note Date: 08/09/18 Principal diagnosis: Acute exacerbation of chronic obstructive pulmonary disease This is a 73-year-old white male patient with history of severe end-stage COPD with baseline FEV1 of 18% of predicted, with chronic hypoxemic respiratory failure, previous episodes of pneumonia, myocardial infarction, CVA/TIA, GERD/reflux, or murmur smoker, who has been passing melanotic stools. Patient follows with the [facility], and was supposed to undergo colonoscopy, and he saw Dr. Saenz yesterday on 08/06/2018 for pulmonary clearance for the procedure. However he was experiencing increased shortness of breath, cough, chest congestion, wheezing, and in view of his acute exacerbation of COPD, he was sent in for inpatient treatment. Patient was also having increased left lower abdomi nal quadrant tenderness, he has no umbilical hernia which has been increasingly tender. He wears oxygen on the regular basis, he is on maintenance dose of prednisone 5 mg daily, is on a combination of Symbicort, Spiriva, Pro-Air, Theophylline on the regular basis. Chest x-ray was completed and showed COPD, no acute lung disease. CT of abdomen and pelvis with contrast was completed and showed nonobstructive small left renal calculus, no sign of acute abdomen and pelvis, normal appendix, enlarged prostate, normal appendix. Lab work showed white blood cell count of 11.8, hemoglobin of 13.4, electrolytes and renal profile were unremarkable with CO2 slightly elevated at 31, proBNP was 64, tro ponin was negative 1, stool for occult blood was negative. Hemodynamics patient is stable, he is dyspneic with normal conversation, but no acute distress, denied any fever or chills. He is on 2 L of oxygen with a pulse ox of 93-97%, lung sounds are positive for diminished breath sounds, with diffuse wheezes and prolonged expiration. On 08/08/2018 patient seen in follow-up on medical surgical floor. She is awake and alert, in no acute distress, still quite dyspneic with conversation, has frequent coughing, diffuse wheezes bilaterally, he states he is feeling better, but on back to baseline, still quite dyspneic and bronchospastic. He has had no stools since his been admitted. No new blood work done today, hemodynamically patient remains stable. She has been evaluated by the GI se nilsa, please refer to her normal. For now patient is being treated for acute exacerbation of COPD. On 08/09/2018 patient seen in follow-up. Patient is improving, sound doing much better on today's exam, lung sounds are diminished, with minimal wheezing, patient's had one bowel movement this morning, and he stated he was normal color, brown with no melena or bright red blood. No new labs today, hemodynamically patient is stable. He is on 2 L of oxygen, with pulse ox of 97%, afebrile. Patient was evaluated by GI service, and patient has had no active bleeding, no plans for colonoscopy right now Objective - Vital Signs Vital signs: Vital Signs Temp 97.5 F L 08/09/18 07:29 Pulse 92 08/09/18 12:10 Resp 16 08/09/18 08:00 BP 110/61 08/09/18 07:29 Pulse Ox 97 08/09/18 08:28 Intake & Output 08/08/18 08/09/18 08/09/18 18:59 06:59 18:59 Intake Total 50 450 250 Balance 50 450 250 Intake: Intake, IV Titration 50 Amount cefTRIAXone 1 gm In 50 Sodium Chloride 0.9% 50 ml @ 100 mls/hr IVPB Q24HR [facility] Rx#:[id number] Oral 450 250 Other: Voiding Method Toilet Toilet Toilet # Voids 3 3 - Exam GENERAL EXAM: Alert, pleasant, 73-year-old white male on 2 L of oxygen with a pulse ox of 93% with moderate conversational dyspnea, comfortable in no apparent distress. HEAD: Normocephalic/atraumatic. EYES: Normal reaction of pupils, equal size. Conjunctiva pink, sclera white. NOSE: Clear with pink turbinates. THROAT: No erythema or exudates. NECK: No masses, no JVD, no thyroid enlargement, no adenopathy. CHEST: No chest wall deformity. Symmetrical expansion. LUNGS: Equal air entry with decreased breath sounds, and minimal wheezes CVS: Regular rate and rhythm, normal S1 and S2, no gallops, no murmurs, no rubs ABDOMEN: Soft, nontender. No hepatosplenomegaly, normal bowel sounds, no guardi ng or rigidity. EXTREMITIES: No clubbing, no edema, no cyanosis, 2+ pulses and upper and lower extremities. MUSCULOSKELETAL: Muscle strength and tone normal. SPINE: No scoliosis or deformity SKIN: No rashes CENTRAL NERVOUS SYSTEM: Alert and oriented -3. No focal deficits, tone is normal in all 4 extremities. PSYCHIATRIC: Alert and oriented -3. Appropriate affect. Intact judgment and insight. - Labs CBC & Chem 7: 08/06/18 17:01 08/06/18 17:01 Assessment and Plan Plan: Assessment: #1. Acute exacerbation of chronic obstructive pulmonary disease, chest x-ray did not show focal pneumonia #2. History of recent melanotic stools, and patient was undergoing evaluation for outpatient colonoscopy #3. Severe COPD, with chronic hypoxemic respiratory failure with the underlying FEV1 of 18% of predicted, prednisone dependent #4. Former smoker #5. Previous episodes of pneumonia #6. History myocardial infarction #7. GERD/reflux Plan: We'll continue with current medical treatment, patient is improving, less dyspneic and bronchospastic, no signs of active bleeding, hemodynamically patient remains stable, no fever or chills, from pulmonary perspective patient could be considered for discharge home today. I performed a history & physical examination of the patient and discussed their management with my nurse practitioner, Janie Cedeño. I reviewed the nurse practitioner's note and agree with the documented findings and plan of care. Lung sounds are positive for diffuse wheezes throughout the lung piña. The findings and the impression was discussed with the patient. I attest to the documentation by the nurse practitioner. Time with Patient: Less than 30
--- NOTE | 2018-08-09 15:12 | P.PN ---
Subjective 73-year-old male was admitted the second to COPD exacerbation patient the still quite a bit short of breath more from his baseline is on 3 L of oxygen had couple episodes of dark stools because of gastric which gastric body evaluate the patient patient is already on Protonix. Patient had fairly normal stool today. Patient's IV steroids will be tapered down and patient will not require Rocephin's demise and will be continued. Abdominal pain improved. 08/09/2018 No evidence of GI bleed at this time patient will undergo screening colonoscopy as an outpatient. Patient wanted to go home feels better but the there is very barely a minimal air movement and patient gets easily winded upon ambulation because of which have a living will benefit from one more day of hospitalization. Constitutional: Denied any fatigue denied any fever. Cardio vascular: denied any chest pain, palpitations Gastrointestinal denied any nausea vomiting Pulmonary: As mentioned in HPI Neurologic denied any new focal deficits All inpatient medications were reviewed and appropriate changes in these medications as dictated in the interval history and assessment and plan. Objective - Vital Signs Vital signs: Vital Signs Temp 97.5 F L 08/09/18 07:29 Pulse 92 08/09/18 12:10 Resp 16 08/09/18 08:00 BP 110/61 08/09/18 07:29 Pulse Ox 97 08/09/18 08:28 Intake & Output 08/08/18 08/09/18 08/09/18 18:59 06:59 18:59 Intake Total 50 450 250 Balance 50 450 250 Intake: Intake, IV Titration 50 Amount cefTRIAXone 1 gm In 50 Sodium Chloride 0.9% 50 ml @ 100 mls/hr IVPB Q24HR [facility] Rx#:[id number] Oral 450 250 Other: Voiding Method Toilet Toilet Toilet # Voids 3 3 - Exam PHYSICAL EXAMINATION: GENERAL: The patient is alert and oriented x3, not in any acute distress. Well developed, well nourished. HEENT: Pupils are round and equally reacting to light. EOMI. No scleral icterus. No conjunctival pallor. Normocephalic, atraumatic. No pharyngeal erythema. No thyromegaly. CARDIOVASCULAR: S1 and S2 present. No murmurs, rubs, or gallops. PULMONARY: There is no wheezing but significantly limited air entry into bilateral lung piña ABDOMEN: Soft, distended minimal tenderness in the left lower quadrant) medical area bowel sounds are sluggish MUSCULOSKELETAL: No joint swelling or deformity. EXTREMITIES: No cyanosis, clubbing, or pedal edema. NEUROLOGICAL: Gross neurological examination did not reveal any focal deficits. SKIN: No rashes. - Labs CBC & Chem 7: 08/06/18 17:01 08/06/18 17:01 Assessment and Plan Plan: -Acute on chronic hypercapnic respiratory failure secondary to COPD exacerbation continue thoughts and support continue systemic steroids inhalational treatment s. -Abdominal pain probably secondary to renal stone which he may have passed patient was treated for constipation had bowel movements. -Couple episodes of dark stools does not appear to be GI bleed rather I believe it secondary to constipation -Mild periumbilical pain conservative management patient does not appear to have incarcerated hernia -Coronary artery disease Gastroesophageal reflux disease. Patient will need pharmacologic GI as well as DVT prophylaxis
[2018-08-09] MEDS: ATORVASTATIN 20 MG TAB PO SCH (21:05)
[2018-08-10] MEDS: IPRATROPIUM-ALBUTEROL 3 ML NEB INHALATION SCH ×4 (00:22→11:09)
[2018-08-10] MEDS: HEPARIN SODIUM,PORCINE 5,000 UNIT/ML 1 ML VIAL SQ SCH ×2 (00:28→07:42)
[2018-08-10] MEDS: ACETAMINOPHEN TAB 325 MG TAB PO PRN ×2 (00:28→07:46)
[2018-08-10] MEDS: BUDESONIDE 1 MG/2 ML NEBU INHALATION SCH (07:15)
[2018-08-10] MEDS: FORMOTEROL FUMARATE 20 MCG/2 ML NEBU INHALATION SCH (07:15)
[2018-08-10] MEDS: METOPROLOL SUCCINATE (ER) 25 MG TAB.ER.24H PO SCH (07:40)
[2018-08-10] MEDS: AZITHROMYCIN 500 MG TAB PO SCH (07:40)
[2018-08-10] MEDS: THEOPHYLLINE 24 HOUR 400 MG CAP.ER.24H PO SCH (07:40)
[2018-08-10] MEDS: methylPREDNISolone SOD SUCCI 40 MG/ML 1 ML VIAL IV SCH (07:40)
[2018-08-10] MEDS: ASPIRIN 325 MG TAB PO SCH (07:40)
[2018-08-10] MEDS: SENNOSIDES-DOCUSATE SODIUM 1 EACH TAB PO SCH (07:40)
[2018-08-10] MEDS: PANTOPRAZOLE 40 MG TABLET PO SCH (07:40)
[2018-08-10 08:06] VITALS: BP 109/51; RESP 17; TEMP 98.5
[2018-08-10 11:23] VITALS: PULSE 88
--- NOTE | 2018-08-10 13:49 | P.DS ---
Providers Date of admission: 08/08/18 16:11 Attending physician: Silvino Walters Consults: 08/07/18 12:08 Consult Physician Routine Consulting Provider: Griselda Hatch Consult Reason/Comments: COPD Do you want consulting provider notified?: Yes Primary care physician: [facility] Hospital Course: Patient was not discharged yesterday because of social issues and placement issues. 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. No significant change in her overall clinical condition. PHYSICAL EXAMINATION: GENERAL: The patient is alert and oriented x2, not in any acute distress. Thin built elderly female HEENT: Pupils are round and equally reacting to light. EOMI. No scleral icterus. No conjunctival pallor. Normocephalic, atraumatic. No pharyngeal erythema. No thyromegaly. CARDIOVASCULAR: S1 and S2 present. No murmurs, rubs, or gallops. PULMONARY: Chest is clear to auscultation, no wheezing or crackles. ABDOMEN: Soft, nontender, nondistended, normoactive bowel sounds. No palpable organomegaly. MUSCULOSKELETAL: No joint swelling or deformity. EXTREMITIES: No cyanosis, clubbing, or pedal edema. NEUROLOGICAL: Gross neurological examination did not reveal any focal deficits. Patient has significant edema significant memory deficits more so than her baseline as per the family SKIN: No rashes. 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 -Generalized deconditioning and weakness secondary to her infection along with advanced dementia and age related muscle atrophy patient can continue her vitamin D and calcium supplementation as an outpatient and will obtain physical therapy and occupational therapy consultation. -History of CVA TIA in the past but patient is not on aspirin and a statin, because of her age probably that is appropriate not to be in these medications -Hypothyroidism: Continue with levothyroxine CODE STATUS: DO NOT RESUSCITATE Patient Condition at Discharge: Stable Plan - Discharge Summary New Discharge Prescriptions: New Sennosides-Docusate Sodium [Senokot-S] 2 tab PO DAILY #60 tablet predniSONE 10 mg PO DAILY #30 tab Continue Albuterol Inhaler [Ventolin Hfa Inhaler] 2 puff INHALATION RT-Q4H PRN PRN Reason: Dyspnea Tiotropium 18 Mcg/Puff [Spiriva] 1 puff INHALATION RT-DAILY Budesonide-Formot 160-4.5 Mcg [Symbicort 160-4.5 Mcg Inhaler] 2 puff INHALATION RT-BID predniSONE 5 mg PO DAILY Ergocalciferol [Vitamin D2 (DRISDOL)] 50,000 unit PO ROBLES Theophylline 24 Hour [Gurmeet-24] 400 mg PO DAILY Atorvastatin [Lipitor] 20 mg PO HS Metoprolol Succinate [Toprol XL] 25 mg PO DAILY Aspirin EC [Ecotrin] 325 mg PO DAILY Albuterol Nebulized [Ventolin Nebulized] 2.5 mg INHALATION RT-Q4H PRN PRN Reason: Shortness Of Breath Fluticasone Nasal Sherwood [Flonase Nasal Sherwood] 1 spray EA NOSTRIL BID Omeprazole 20 mg PO DAILY Discharge Medication List Albuterol Inhaler [Ventolin Hfa Inhaler] 2 puff INHALATION RT-Q4H PRN 12/14/14 [History] Budesonide-Formot 160-4.5 Mcg [Symbicort 160-4.5 Mcg Inhaler] 2 puff INHALATION RT-BID 12/14/14 [History] Tiotropium 18 Mcg/Puff [Spiriva] 1 puff INHALATION RT-DAILY 12/14/14 [History] predniSONE 5 mg PO DAILY 12/14/14 [History] Ergocalciferol [Vitamin D2 (DRISDOL)] 50,000 unit PO ROBLES 05/10/15 [History] Albuterol Nebulized [Ventolin Nebulized] 2.5 mg INHALATION RT-Q4H PRN 08/07/18 [History] Aspirin EC [Ecotrin] 325 mg PO DAILY 08/07/18 [History] Atorvastatin [Lipitor] 20 mg PO HS 08/07/18 [History] Fluticasone Nasal Sherwood [Flonase Nasal Sherwood] 1 spray EA NOSTRIL BID 08/07/18 [History] Metoprolol Succinate [Toprol XL] 25 mg PO DAILY 08/07/18 [History] Omeprazole 20 mg PO DAILY 08/07/18 [History] Theophylline 24 Hour [Gurmeet-24] 400 mg PO DAILY 08/07/18 [History] Sennosides-Docusate Sodium [Senokot-S] 2 tab PO DAILY #60 tablet 08/09/18 [Rx] predniSONE 10 mg PO DAILY #30 tab 08/10/18 [Rx] Follow up Appointment(s)/Referral(s): Griselda Hatch MD [STAFF PHYSICIAN] - 1 Week Steven Deshpande MD [STAFF PHYSICIAN] - 08/24/18 12:00 pm [facility],Clinic [Primary Care Provider] - 1-2 days
--- NOTE | 2018-08-10 14:07 | P.PN ---
Subjective Progress Note Date: 08/10/18 Principal diagnosis: Acute exacerbation of chronic obstructive pulmonary disease This is a 73-year-old white male patient with history of severe end-stage COPD with baseline FEV1 of 18% of predicted, with chronic hypoxemic respiratory failure, previous episodes of pneumonia, myocardial infarction, CVA/TIA, GERD/reflux, or murmur smoker, who has been passing melanotic stools. Patient follows with the [place] system, and was supposed to undergo colonoscopy, and he saw Dr. Saenz yesterday on 08/06/2018 for pulmonary clearance for the procedure. However he was experiencing increased shortness of breath, cough, chest congestion, wheezing, and in view of his acute exacerbation of COPD, he was sent in for inpatient treatment. Patient was also having increased left lower abdomi nal quadrant tenderness, he has no umbilical hernia which has been increasingly tender. He wears oxygen on the regular basis, he is on maintenance dose of prednisone 5 mg daily, is on a combination of Symbicort, Spiriva, Pro-Air, Theophylline on the regular basis. Chest x-ray was completed and showed COPD, no acute lung disease. CT of abdomen and pelvis with contrast was completed and showed nonobstructive small left renal calculus, no sign of acute abdomen and pelvis, normal appendix, enlarged prostate, normal appendix. Lab work showed white blood cell count of 11.8, hemoglobin of 13.4, electrolytes and renal profile were unremarkable with CO2 slightly elevated at 31, proBNP was 64, tro ponin was negative 1, stool for occult blood was negative. Hemodynamics patient is stable, he is dyspneic with normal conversation, but no acute distress, denied any fever or chills. He is on 2 L of oxygen with a pulse ox of 93-97%, lung sounds are positive for diminished breath sounds, with diffuse wheezes and prolonged expiration. On 08/08/2018 patient seen in follow-up on medical surgical floor. She is awake and alert, in no acute distress, still quite dyspneic with conversation, has frequent coughing, diffuse wheezes bilaterally, he states he is feeling better, but on back to baseline, still quite dyspneic and bronchospastic. He has had no stools since his been admitted. No new blood work done today, hemodynamically patient remains stable. She has been evaluated by the GI se nilsa, please refer to her normal. For now patient is being treated for acute exacerbation of COPD. On 08/09/2018 patient seen in follow-up. Patient is improving, sound doing much better on today's exam, lung sounds are diminished, with minimal wheezing, patient's had one bowel movement this morning, and he stated he was normal color, brown with no melena or bright red blood. No new labs today, hemodynamically patient is stable. He is on 2 L of oxygen, with pulse ox of 97%, afebrile. Patient was evaluated by GI service, and patient has had no active bleeding, no plans for colonoscopy right now On 08/10/2018 patient seen in follow-up on medical surgical floor. He is resting in bed, still dyspneic with conversation, and exertional, but no acute distress, lung sounds reveal some rales at the bases, overall she is less bronchospastic process admission. Vital signs are stable, no fever or chills, hemodynamically patient is stable, there has been no melanotic stools, no hematemesis, he is on 2 L of oxygen his pulse ox of 97%, no new labs, no new chest x-rays, patient has been treated with a combination of IV steroids, nebulized bronchodilators, theophylline, and empiric antibiotics, he is improving, GI service is not planned and on any urgent colonoscopy at this time, they will follow the patient on an outpatient basis. Objective - Vital Signs Vital signs: Vital Signs Temp 98.5 F 08/10/18 07:00 Pulse 88 08/10/18 11:22 Resp 17 08/10/18 07:00 BP 109/51 08/10/18 07:00 Pulse Ox 97 08/10/18 07:15 Intake & Output 08/09/18 08/10/18 08/10/18 18:59 06:59 18:59 Intake Total 1330 300 Balance 1330 300 Intake: Oral 1330 300 Other: Voiding Method Toilet Toilet # Voids 1 1 - Exam GENERAL EXAM: Alert, pleasant, 73-year-old white male on 2 L of oxygen with a pulse ox of 93% with moderate conversational dyspnea, comfortable in no apparent distress. HEAD: Normocephalic/atraumatic. EYES: Normal reaction of pupils, equal size. Conjunctiva pink, sclera white. NOSE: Clear with pink turbinates. THROAT: No erythema or exudates. NECK: No masses, no JVD, no thyroid enlargement, no adenopathy. CHEST: No chest wall deformity. Symmetrical expansion. LUNGS: Equal air entry with decreased breath sounds, no rales at the bases, no wheezing CVS: Regular rate and rhythm, normal S1 and S2, no gallops, no murmurs, no rubs ABDOMEN: Soft, nontender. No hepatosplenomegaly, normal bowel sounds, no guarding or rigidity. EXTREMITIES: No clubbing, no edema, no cyanosis, 2+ pulses and upper and lower extremities. MUSCULOSKELETAL: Muscle strength and tone normal. SPINE: No scoliosis or deformity SKIN: No rashes CENTRAL NERVOUS SYSTEM: Alert and oriented -3. No focal deficits, tone is normal in all 4 extremities. PSYCHIATRIC: Alert and oriented -3. Appropriate affect. Intact judgment and insight. - Labs CBC & Chem 7: 08/06/18 17:01 08/06/18 17:01 Assessment and Plan Plan: Assessment: #1. Acute exacerbation of chronic obstructive pulmonary disease, chest x-ray did not show focal pneumonia #2. History of recent melanotic stools, and patient was undergoing evaluation for outpatient colonoscopy #3. Severe COPD, with chronic hypoxemic respiratory failure with the underlying FEV1 of 18% of predicted, prednisone dependent #4. Former smoker #5. Previous episodes of pneumonia #6. History myocardial infarction #7. GERD/reflux Plan: Patient remains stable, he continues to improve, still has some dyspnea, especially with exertion, patient recovers well, patient has oxygen and nebulized treatments at home, patient could be considered for discharge home today, on oral course of antibiotics, steroids, he can resume his Symbicort, and Spiriva, he can continue his theophylline. He can follow up with Dr. Saenz in the office next week. I performed a history & physical examination of the patient and discussed their management with my nurse practitioner, Janie Cedeño. I reviewed the nurse practitioner's note and agree with the documented findings and plan of care. Lung sounds are positive for diffuse wheezes throughout the lung piña. The findings and the impression was discussed with the patient. I attest to the documentation by the nurse practitioner. Time with Patient: Less than 30
== END 2018-08-10 15:32 | disposition home or self-care (01) | DRG 190 ==
LOC: EC 15:07 → 4SSUR 21:49 → OBSVTOIN 08-08 16:11
PROVIDERS: ADMIT Internal Medicine; ATTEND Internal Medicine
DX: J44.1 Chronic obstructive pulmonary disease with (acute) exacerbation (principal); J96.21 Acute and chronic respiratory failure with hypoxia; J96.22 Acute and chronic respiratory failure with hypercapnia; K62.5 Hemorrhage of anus and rectum; F32.9 Major depressive disorder, single episode, unspecified; I25.10 Atherosclerotic heart disease of native coronary artery without angina pectoris; K21.9 Gastro-esophageal reflux disease without esophagitis; K42.9 Umbilical hernia without obstruction or gangrene; N20.0 Calculus of kidney; R10.33 Periumbilical pain; K57.30 Diverticulosis of large intestine without perforation or abscess without bleeding; K59.00 Constipation, unspecified; N40.0 Benign prostatic hyperplasia without lower urinary tract symptoms; Z99.81 Dependence on supplemental oxygen; I25.2 Old myocardial infarction; Z79.51 Long term (current) use of inhaled steroids; Z79.82 Long term (current) use of aspirin; Z79.899 Other long term (current) drug therapy; Z83.3 Family history of diabetes mellitus; Z87.891 Personal history of nicotine dependence; Z86.73 Personal history of transient ischemic attack (TIA), and cerebral infarction without residual deficits; Z87.01 Personal history of pneumonia (recurrent)
CPT/HCPCS: 36415; 71046; 74177; 80053; 82272; 83605; 83690; 83880; 84484; 85025; 85610; 85730; 86850; 86900; 86901; 93005; 94640; 94760; 96365; 96375; 99285

== ENCOUNTER 2021-11-15 10:05 | Inpatient (IN) | payer MEDICARE ==
--- NOTE | 2021-11-15 10:24 | ED ---
General Adult HPI - General Chief complaint: Shortness of Breath Stated complaint: SOB Time Seen by Provider: 11/15/21 10:07 Source: patient, EMS, RN notes reviewed, old records reviewed Mode of arrival: EMS Limitations: no limitations - History of Present Illness Initial comments: 76-year-old male presenting with increased dyspnea over the past several days. Patient has history of oxygen dependent COPD. He follows regularly with pulmonology. He states over the past several days he's had increased dyspnea. Denies chest pain. Denies measured fever. He was transported by EMS after and found to be hypoxic. He was placed on CPAP, given albuterol, Atrovent and 125 mg of Solu-Medrol during transport. He was reported in moderate to severe distr ess upon EMS arrival. - Related Data Home Medications Medication Instructions Recorded Confirmed Albuterol Inhaler [Ventolin Hfa 2 puff INHALATION RT-QID PRN 12/14/14 11/15/21 Inhaler] Tiotropium 18 Mcg/Puff [Spiriva] 2 puff INHALATION RT-DAILY 12/14/14 11/15/21 predniSONE 5 mg PO DAILY 12/14/14 11/15/21 Ergocalciferol [Vitamin D2 50,000 unit PO ROBLES 05/10/15 11/15/21 (DRISDOL)] Aspirin EC [Ecotrin] 325 mg PO DAILY 08/07/18 11/15/21 Atorvastatin [Lipitor] 20 mg PO HS 08/07/18 11/15/21 Fluticasone Nasal [place] [Flonase 1 spray EA NOSTRIL BID 08/07/18 11/15/21 Nasal [place]] Metoprolol Succinate [Toprol XL] 25 mg PO DAILY 08/07/18 11/15/21 Omeprazole 20 mg PO DAILY 08/07/18 11/15/21 Theophylline 24 Hour [Gurmeet-24] 400 mg PO DAILY 08/07/18 11/15/21 Ferrous Sulfate [Feosol] 325 mg PO DAILY 11/15/21 11/15/21 Fluticasone Propion/Salmeterol 1 puff INHALATION RT-BID 11/15/21 11/15/21 [Fluticasone-Salmeterol 250-50] Naproxen [EC-Naprosyn] 500 mg PO BID 11/15/21 11/15/21 Sennosides-Docusate Sodium 1 tab PO DAILY 11/15/21 11/15/21 [Senokot-S] bisacodyL [Bisacodyl] 5 mg PO DAILY 11/15/21 11/15/21 methocarbamoL [Methocarbamol] 500 mg PO TID 11/15/21 11/15/21 Allergies Allergy/AdvReac Type Severity Reaction Status Date / Time No Known Allergies Allergy Verified 11/15/21 11:22 Review of Systems ROS Statement: Those systems with pertinent positive or pertinent negative responses have been documented in the HPI. ROS Other: All systems not noted in ROS Statement are negative. Past Medical History Past Medical History: COPD, CVA/TIA, GERD/Reflux, Myocardial Infarction ([place]), Pneumonia Additional Past Medical History / Comment(s): back problems - pulled lumbar muscles (40years ago), Ct abdomen 12/04 for abdominal pain Last Myocardial Infarction Date:: 2011 History of Any Multi-Drug Resistant Organisms: None Reported Past Surgical History: Back Surgery Additional Past Surgical History / Comment(s): left index finger surgery Past Anesthesia/Blood Transfusion Reactions: No Reported Reaction Past Psychological History: Depression Smoking Status: Former smoker Past Alcohol Use History: None Reported Past Drug Use History: None Reported - Past Family History Mother Family Medical History: Diabetes Mellitus General Exam Limitations: no limitations General appearance: alert, in distress Head exam: Present: atraumatic, normocephalic Eye exam: Present: normal appearance, PERRL ENT exam: Present: normal exam Neck exam: Present: normal inspection. Absent: tenderness, meningismus Respiratory exam: Present: respiratory distress, decreased breath sounds Cardiovascular Exam: Present: regular rate, normal rhythm GI/Abdominal exam: Present: soft, distended. Absent: tenderness, guarding Extremities exam: Present: normal inspection, normal capillary refill. Absent: pedal edema Neurological exam: Present: alert, oriented X3, CN II-XII intact. Absent: motor sensory deficit Psychiatric exam: Present: normal affect, normal mood Skin exam: Present: warm, dry, intact. Absent: cyanosis, diaphoretic Course Vital Signs 11/15/21 11/15/21 10:07 11:41 Temperature 97.7 F 98.4 F Pulse Rate 89 73 Respiratory 18 18 Rate Blood Pressure 135/109 133/79 O2 Sat by Pulse 100 94 L Oximetry EKG Findings - EKG Comments: EKG Findings:: EKG: Sinus rhythm rate of 84, GA interval 173, QRS duration 81, QTC 380, no ST segment elevation. Medical Decision Making - Medical Decision Making 76-year-old male with end-stage COPD presenting with increased dyspnea and cough. Patient was placed on CPAP by paramedics for hypoxia. He is somewhat improved upon arrival. He had been given steroids, albuterol Atrovent during transport. No fever. Chest x-ray shows COPD with developing infiltrate. He started on IV antibiotics and continued on IV steroids. He will be admitted to Dr. Antonio with Dr. Hatch on consult. - Lab Data Result diagrams: 11/15/21 10:38 11/15/21 10:38 Lab Results 11/15/21 11/15/21 11/15/21 Range/Units 10:38 10:38 10:38 WBC 8.9 (3.8-10.6) k/uL RBC 5.03 (4.30-5.90) m/uL Hgb 12.5 L (13.0-17.5) gm/dL Hct 40.4 (39.0-53.0) % MCV 80.3 (80.0-100.0) fL MCH 24.8 L (25.0-35.0) pg MCHC 30.9 L (31.0-37.0) g/dL RDW 14.9 (11.5-15.5) % Plt Count 306 (150-450) k/uL MPV 7.5 Neutrophils % 72 % Lymphocytes % 19 % Monocytes % 4 % Eosinophils % 2 % Basophils % 1 % Neutrophils # 6.4 (1.3-7.7) k/uL Lymphocytes # 1.7 (1.0-4.8) k/uL Monocytes # 0.4 (0-1.0) k/uL Eosinophils # 0.1 (0-0.7) k/uL Basophils # 0.1 (0-0.2) k/uL Hypochromasia Marked PT 10.0 (9.0-12.0) sec INR 0.9 (<1.2) APTT 22.0 (22.0-30.0) sec Sodium 140 (137-145) mmol/L Potassium 4.7 (3.5-5.1) mmol/L Chloride 106 (98-107) mmol/L Carbon Dioxide 27 (22-30) mmol/L Anion Gap 7 mmol/L BUN 22 H (9-20) mg/dL Creatinine 0.86 (0.66-1.25) mg/dL Est GFR (CKD-EPI)AfAm >90 (>60 ml/min/1.73 sqM) Est GFR (CKD-EPI)NonAf 84 (>60 ml/min/1.73 sqM) Glucose 107 H (74-99) mg/dL Plasma Lactic Acid Brent (0.7-2.0) mmol/L Calcium 9.0 (8.4-10.2) mg/dL Magnesium 2.0 (1.6-2.3) mg/dL Total Bilirubin 0.4 (0.2-1.3) mg/dL AST 23 (17-59) U/L ALT 17 (4-49) U/L Alkaline Phosphatase 69 (38-126) U/L Total Protein 6.4 (6.3-8.2) g/dL Albumin 3.8 (3.5-5.0) g/dL 11/15/21 Range/Units 10:38 WBC (3.8-10.6) k/uL RBC (4.30-5.90) m/uL Hgb (13.0-17.5) gm/dL Hct (39.0-53.0) % MCV (80.0-100.0) fL MCH (25.0-35.0) pg MCHC (31.0-37.0) g/dL RDW (11.5-15.5) % Plt Count (150-450) k/uL MPV Neutrophils % % Lymphocytes % % Monocytes % % Eosinophils % % Basophils % % Neutrophils # (1.3-7.7) k/uL Lymphocytes # (1.0-4.8) k/uL Monocytes # (0-1.0) k/uL Eosinophils # (0-0.7) k/uL Basophils # (0-0.2) k/uL Hypochromasia PT (9.0-12.0) sec INR (<1.2) APTT (22.0-30.0) sec Sodium (137-145) mmol/L Potassium (3.5-5.1) mmol/L Chloride (98-107) mmol/L Carbon Dioxide (22-30) mmol/L Anion Gap mmol/L BUN (9-20) mg/dL Creatinine (0.66-1.25) mg/dL Est GFR (CKD-EPI)AfAm (>60 ml/min/1.73 sqM) Est GFR (CKD-EPI)NonAf (>60 ml/min/1.73 sqM) Glucose (74-99) mg/dL Plasma Lactic Acid Brent 1.1 (0.7-2.0) mmol/L Calcium (8.4-10.2) mg/dL Magnesium (1.6-2.3) mg/dL Total Bilirubin (0.2-1.3) mg/dL AST (17-59) U/L ALT (4-49) U/L Alkaline Phosphatase (38-126) U/L Total Protein (6.3-8.2) g/dL Albumin (3.5-5.0) g/dL Critical Care Time Critical Care Time: Yes Total Critical Care Time: 35 Disposition Clinical Impression: COPD exacerbation, Community acquired pneumonia Disposition: ADMITTED IP TO THIS HOSP Condition: Stable Is patient prescribed a controlled substance at d/c from ED?: No Referrals: Keven Cardona MD [Primary Care Provider] - 1-2 days Time of Disposition: 11:48
[2021-11-15] MEDS ORDERED: ACETAMINOPHEN TAB 500 MG TAB PO STA (10:50)
[2021-11-15 10:58] LABS: INR 0.9 (<1.2)
--- NOTE | 2021-11-15 10:58 | XR ---
EXAMINATION TYPE: XR chest 2V DATE OF EXAM: 11/15/2021 COMPARISON: 08/06/2018 HISTORY: 76-year-old male shortness of breath, difficulty breathing TECHNIQUE: AP and lateral views FINDINGS: Heart normal size. Mild atherosclerotic arch calcifications. Pulmonary vasculature within normal limi ts. Mild patchy right lower lung opacity. Some additional patchy left basilar opacity. Hyperinflation . No pleural effusion. Vertebroplasty change at 3 levels in the upper third thoracic spine. IMPRESSION: COPD and patchy bibasilar areas of atelectasis or scarring. Densities are slightly increased. Correla te with patient's symptoms to exclude some underlying infiltrate.
[2021-11-15 11:00] LABS: Basophils # (A) 0.1 k/uL (0-0.2); Basophils % (A) 1 %; Eosinophils # (A) 0.1 k/uL (0-0.7); Eosinophils % (A) 2 %; HCT 40.4 % (39.0-53.0); HGB 12.5 gm/dL (13.0-17.5); Hypochromasia Marked; Lymphocytes # (A) 1.7 k/uL (1.0-4.8); Lymphocytes % (A) 19 %; MCH 24.8 pg (25.0-35.0); MCHC 30.9 g/dL (31.0-37.0); MCV 80.3 fL (80.0-100.0); Mean Platelet Volume 7.5; Monocytes # (A) 0.4 k/uL (0-1.0); Monocytes % (A) 4 %; Neutrophils # (A) 6.4 k/uL (1.3-7.7); Neutrophils % (A) 72 %; Platelet Count 306 k/uL (150-450); RBC 5.03 m/uL (4.30-5.90); RDW 14.9 % (11.5-15.5); WBC 8.9 k/uL (3.8-10.6)
[2021-11-15 11:17] LABS: ALT 17 U/L (4-49); AST 23 U/L (17-59); African American GFR (CKD) >90 (>60 ml/min/1.73 sqM); Albumin 3.8 g/dL (3.5-5.0); Alkaline Phosphatase 69 U/L (38-126); Anion Gap 7 mmol/L; Blood Urea Nitrogen 22 mg/dL (9-20); Carbon Dioxide 27 mmol/L (22-30); Chloride 106 mmol/L (98-107); Glucose 107 mg/dL (74-99); Non-African American GFR(CKD) 84 (>60 ml/min/1.73 sqM); Potassium 4.7 mmol/L (3.5-5.1); Sodium 140 mmol/L (137-145); Total Bilirubin 0.4 mg/dL (0.2-1.3); Total Protein 6.4 g/dL (6.3-8.2)
[2021-11-15] MEDS ORDERED: IPRATROPIUM-ALBUTEROL 3 ML NEB INHALATION PRN (11:45)
[2021-11-15] MEDS ORDERED: NALOXONE 0.4 MG/ML 1 ML VIAL IVP PRN (11:45)
[2021-11-15] MEDS ORDERED: cefTRIAXone IN SWFI 1,000 MG/10 ML SYRINGE IVP STA (11:46)
[2021-11-15] MEDS ORDERED: AZITHROMYCIN 500 MG in SODIUM CHLORIDE 0.9% 250 ML IVPB STA (11:46)
[2021-11-15] MEDS ORDERED: IPRATROPIUM-ALBUTEROL 3 ML NEB INHALATION SCH (12:00)
[2021-11-15] MEDS: methylPREDNISolone SOD SUCCI 125 MG/2 ML VIAL IV SCH ×2 (12:40→17:32)
[2021-11-15] MEDS: FORMOTEROL FUMARATE 20 MCG/2 ML NEBU INHALATION SCH ×3 (15:28→20:07)
[2021-11-15] MEDS: BUDESONIDE 1 MG/2 ML NEBU INHALATION SCH ×3 (15:28→20:08)
[2021-11-15] MEDS: IPRATROPIUM-ALBUTEROL 3 ML NEB INHALATION SCH ×4 (15:29→23:57)
[2021-11-15] MEDS: HYDROcodone/APAP 5-325MG 1 EACH TAB PO PRN (16:32)
[2021-11-15] MEDS: methocarbamoL 500 MG TAB PO SCH (16:32)
[2021-11-15] MEDS: ENOXAPARIN 40 MG/0.4 ML SYRINGE SQ SCH (16:33)
--- NOTE | 2021-11-15 16:52 | P.HPIM ---
History of Present Illness H&P Date: 11/15/21 Chief Complaint: Short of breath This is a very pleasant 76-year-old patient who follows with Dr. Cardona. Chronic stable medical conditions include GERD, prior DC, arthritis, GERD, home oxygen 2 L. Patient is chronically short of breath and symptoms have been progressively getting worse. More so in the last 24 hours. Significant short of breath. Wheezing. Has a cough with some thick sputum. Appetite is fair. No edema. Able to walk up to about 50 steps. Gets easily exhausted. Also has been experiencing some chest pressure feels like his previous DC. Sometimes pain goes to his jaw. Even at rest. Given all these symptoms decided to come in. Review of systems: GEN.: Tired EYES: None HEENT: None NECK: None RESPIRATORY: As above CARDIOVASCULAR: As above GASTROINTESTINAL: None GENITOURINARY: None MUSCULOSKELETAL: Joint pains LYMPHATICS: None HEMATOLOGICAL: None PSYCHIATRY: Bit anxious NEUROLOGICAL: None Past medical history to include: COPD, home oxygen 2 L, GERD, DC, back problems, Social history: Lives with the partner called and. Smoked a pack a day for about 53 years stopped about 8 years ago. 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 Family history: Diabetes Physical examination: VITAL SIGNS: 97.9, 77, 18, 105/69, 98% on 2 L GENERAL: BMI 25.8, reclining in bed, awake short of breath. EYES: Pupils equal. Conjunctiva normal. HEENT: External appearance of nose and ears normal, oral cavity grossly normal. NECK: JVD not raised; masses not palpable. HEART: First and second heart sounds are normal; no edema. LUNGS: Respiratory rate increased, exercise 3 muscles are working, not able to speak in full sentences,; decreased breath sounds, prolonged expiration and wheezing. ABDOMEN: Soft, nontender, liver spleen not palpable, no masses palpable. PSYCH: Alert and oriented x3; mood and affect anxiousl. MUSCULOSKELETAL:No Clubbing/cyanosis;muscles-grossly intact NEUROLOGICAL: Cranial nerves grossly intact; no facial asymmetry, power and sensation grossly intact. LYMPHATICS: No lymph nodes palpable in the axilla and neck INVESTIGATIONS, reviewed in the clinical context: EKG tracing personally reviewed by me-normal sinus rhythm, rate 84. Chest x-ray film personally reviewed by me-possible basilar infiltrate. Hyperinflation. White count 8.9 hemoglobin 12.5 platelets 306 potassium 4.7 creatinine 0.86 Assessment and plan: -Acute severe COPD exacerbation in a prior smoker, chronically steroid dependent Prednisone 5 mg daily at home DuoNeb every 4, IV Solu-Medrol, nebulized Pulmicort, Perforomist -Bilateral patchy pneumonia suspected gram-negative organism IV ceftriaxone -Chronic hypoxic respiratory failure secondary to COPD Home oxygen 2 L -Acute on chronic medical debility from underlying COPD -Possible unstable angina in a patient with prior DC Seizure troponin. 2-D echocardiogram. Consult cardiology telemetry. -CAD with a prior history of DC Toprol-XL, Lipitor, aspirin -GERD Omeprazole -Chronic low back pain from arthritis Methocarbamol Serial cardiac enzymes. Aspirin, beta osiris. Telemetry. 2-D echocardiogram. Consult pulmonary. Consult cardiology. Discussed with patient. DuoNeb. IV and nebulized steroids. Perforomist. IV ceftriaxone Past Medical History Past Medical History: COPD, CVA/TIA, GERD/Reflux, Myocardial Infarction ([place]), Pneumonia Additional Past Medical History / Comment(s): back problems - pulled lumbar muscles (40years ago), Ct abdomen 12/04 for abdominal pain Last Myocardial Infarction Date:: 2011 History of Any Multi-Drug Resistant Organisms: None Reported Past Surgical History: Back Surgery Additional Past Surgical History / Comment(s): left index finger surgery Past Anesthesia/Blood Transfusion Reactions: No Reported Reaction Past Psychological History: Depression Smoking Status: Former smoker Past Alcohol Use History: None Reported Past Drug Use History: None Reported - Past Family History Mother Family Medical History: Diabetes Mellitus Medications and Allergies Home Medications Medication Instructions Recorded Confirmed Type Albuterol Inhaler [Ventolin Hfa 2 puff INHALATION RT-QID PRN 12/14/14 11/15/21 History Inhaler] Tiotropium 18 Mcg/Puff [Spiriva] 2 puff INHALATION RT-DAILY 12/14/14 11/15/21 History predniSONE 5 mg PO DAILY 12/14/14 11/15/21 History Ergocalciferol [Vitamin D2 50,000 unit PO ROBLES 05/10/15 11/15/21 History (DRISDOL)] Aspirin EC [Ecotrin] 325 mg PO DAILY 08/07/18 11/15/21 History Atorvastatin [Lipitor] 20 mg PO HS 08/07/18 11/15/21 History Fluticasone Nasal [place] [Flonase 1 spray EA NOSTRIL BID 08/07/18 11/15/21 History Nasal [place]] Metoprolol Succinate [Toprol XL] 25 mg PO DAILY 08/07/18 11/15/21 History Omeprazole 20 mg PO DAILY 08/07/18 11/15/21 History Theophylline 24 Hour [[place]-24] 400 mg PO DAILY 08/07/18 11/15/21 History Ferrous Sulfate [Feosol] 325 mg PO DAILY 11/15/21 11/15/21 History Fluticasone Propion/Salmeterol 1 puff INHALATION RT-BID 11/15/21 11/15/21 History [Fluticasone-Salmeterol 250-50] Naproxen [EC-Naprosyn] 500 mg PO BID 11/15/21 11/15/21 History Sennosides-Docusate Sodium 1 tab PO DAILY 11/15/21 11/15/21 History [Senokot-S] bisacodyL [Bisacodyl] 5 mg PO DAILY 11/15/21 11/15/21 History methocarbamoL [Methocarbamol] 500 mg PO TID 11/15/21 11/15/21 History Allergies Allergy/AdvReac Type Severity Reaction Status Date / Time No Known Allergies Allergy Verified 11/15/21 11:22 Physical Exam Vitals: Vital Signs Temp Pulse Resp BP Pulse Ox 11/15/21 15:50 97 11/15/21 15:37 85 11/15/21 15:36 82 11/15/21 15:29 88 95 11/15/21 14:14 87 18 106/60 99 11/15/21 13:15 90 11/15/21 13:04 90 11/15/21 12:25 97.9 F 77 18 105/69 98 11/15/21 11:41 98.4 F 73 18 133/79 94 L 11/15/21 10:07 97.7 F 89 18 135/109 100 Intake and Output 11/15/21 11/15/21 11/15/21 06:59 14:59 22:59 Other: Weight 83.915 kg Results CBC & Chem 7: 11/15/21 10:38 11/15/21 10:38 Labs: Abnormal Lab Results - Last 24 Hours (Table) 11/15/21 11/15/21 Range/Units 10:38 10:38 Hgb 12.5 L (13.0-17.5) gm/dL MCH 24.8 L (25.0-35.0) pg MCHC 30.9 L (31.0-37.0) g/dL BUN 22 H (9-20) mg/dL Glucose 107 H (74-99) mg/dL
[2021-11-15] MEDS ORDERED: ATORVASTATIN 20 MG TAB PO SCH (21:00)
[2021-11-16] MEDS: NAPROXEN 250 MG TAB PO SCH ×3 (00:18→21:44)
[2021-11-16] MEDS: methocarbamoL 500 MG TAB PO SCH ×4 (00:19→21:44)
[2021-11-16] MEDS: methylPREDNISolone SOD SUCCI 125 MG/2 ML VIAL IV SCH ×4 (00:20→16:57)
[2021-11-16] MEDS: IPRATROPIUM-ALBUTEROL 3 ML NEB INHALATION SCH ×6 (03:45→23:47)
[2021-11-16] MEDS: HYDROcodone/APAP 5-325MG 1 EACH TAB PO PRN ×2 (03:56→12:44)
[2021-11-16] MEDS ORDERED: METOPROLOL SUCCINATE (ER) 25 MG TAB.ER.24H PO SCH (09:00)
[2021-11-16] MEDS: BUDESONIDE 1 MG/2 ML NEBU INHALATION SCH ×2 (09:22→21:05)
[2021-11-16] MEDS: FORMOTEROL FUMARATE 20 MCG/2 ML NEBU INHALATION SCH ×2 (09:22→21:05)
--- NOTE | 2021-11-16 10:03 | CA ---
Transthoracic Echo Report Name: Pasquale Haney Age: 76 Gender: M : 1945 Exam Date: 11/16/2021 08:13 Exam Location: [facility] Ht (in): 71 Wt (lb): 185 Ordering Physician: Isra Antonio MD Attending/Referring Phys: Activated Sludge Operator Jessica Calles RDCS Procedure CPT: Indications: Chest Pain Cardiac Hx: Copd Technical Quality: Technically difficult study Contrast 1: Lumason Total Dose (mL): 1 Contrast 2: Total Dose (mL): MEASUREMENTS (Male / Female) Normal Values 2D ECHO LV Diastolic Diameter PLAX 3.6 cm 4.2 - 5.9 / 3.9 - 5.3 cm LV Systolic Diameter PLAX 1.6 cm IVS Diastolic Thickness 1.2 cm 0.6 - 1.0 / 0.6 - 0.9 cm LVPW Diastolic Thickness 1.4 cm 0.6 - 1.0 / 0.6 - 0.9 cm LV Relative Wall Thickness 0.7 DOPPLER MV Area PHT 8.1 cm??? MR Peak Velocity 102.5 cm/s MR Peak Gradient 4.2 mmHg Mitral E Point Velocity 101.7 cm/s Mitral A Point Velocity 58.0 cm/s Mitral E to A Ratio 1.8 MV Deceleration Time 93.1 ms TR Peak Velocity 105.1 cm/s TR Peak Gradient 4.4 mmHg Right Ventricular Systolic Press 9.2 mmHg FINDINGS Left Ventricle Mildly increased septal wall thickness. Left ventricular ejection fraction is estimated at 55-60 %. Left ventricular cavity size normal. Right Ventricle Right ventricle not well visualized. Right Atrium Right atrium not well visualized. Left Atrium Left atrium not well visualized. Mitral Valve Mild mitral regurgitation. Aortic Valve Structurally normal aortic valve without significant sclerosis or stenosis. There is no aortic regurgitation. Tricuspid Valve Structurally normal tricuspid valve without significant stenosis. Pulmonary artery systolic pressure is normal. Mild tricuspid regurgitation. Pulmonic Valve Structurally normal pulmonic valve without significant stenosis. There is no pulmonic regurgitation. Pericardium Normal pericardium without effusion. Aorta Normal aortic root dimension. CONCLUSIONS Mild LVH with preserved systolic function Technically difficult study with suboptimal acoustic windows Contrast echo used Previewed by: Dr. Shar Gaytan MD (Electronically Signed) Final Date: 16 November 2021 10:02
[2021-11-16] MEDS: PANTOPRAZOLE 40 MG TABLET PO SCH (10:19)
[2021-11-16] MEDS: bisacodyL 5 MG TABLET.DR PO SCH (10:19)
[2021-11-16] MEDS: ENOXAPARIN 40 MG/0.4 ML SYRINGE SQ SCH (10:19)
[2021-11-16] MEDS: FERROUS SULFATE 325 MG TAB PO SCH (10:27)
[2021-11-16] MEDS: ASPIRIN 325 MG TAB PO SCH (10:27)
[2021-11-16] MEDS: THEOPHYLLINE 24 HOUR 400 MG CAP.ER.24H PO SCH (10:27)
[2021-11-16] MEDS: SENNOSIDES-DOCUSATE SODIUM 1 EACH TAB PO SCH (10:27)
--- NOTE | 2021-11-16 11:42 | P.CRDCN ---
History of Present Illness History of present illness: HISTORY OF PRESENT ILLNESS: This is a 76-year-old male with a past medical history significant for COPD. 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 We have been asked to see the patient in consultation for chest pain. Patient examined at the bedside. Patient states yesterday he had a very brief episode of chest pain. He states the pain was on the left side of his chest and lasted for about two seconds and then went away on its own. He denies any further episodes of chest pain. * EKG reveals sinus mechanism with no signs of acute ischemia * Chest xray COPD and patchy bibasilar areas of atelectasis or scarring. Densities are slightly increased. * Laboratory data: WBC 8.9. Hemoglobin 12.5. Platelet count 306. Sodium 140. Potassium 4.7. BUN 22. Creatinine 0.86. Troponin negative 2. * Current home cardiac medications include aspirin 325 mg daily * Echocardiogram completed reveals ejection fraction 55-60%, mild MR, mild TR REVIEW OF SYSTEMS: At the time of my exam: CONSTITUTIONAL: Denies fever or chills. HEENT: Denies blurred vision, vision changes, or eye pain. Denies hemoptysis CARDIOVASCULAR: Denies chest pain. Denies orthopnea. Denies PND. Denies palpitations RESPIRATORY: Denies shortness of breath. GASTROINTESTINAL: Denies abdominal pain. Denies nausea or vomiting. HEMATOLOGIC: Denies bleeding disorders. GENITOURINARY: Denies any blood in urine. SKIN: Denies pruitis. Denies rash. PHYSICAL EXAM: VITAL SIGNS: Reviewed. GENERAL: Well-developed in no acute distress. HEENT: Head is normocephalic. Pupils are equal, round. Sclerae anicteric. Mucous membranes of the mouth are moist. Neck supple. No JVD or thyromegaly LUNGS: Respirations even and unlabored. Lungs diminished. HEART: Regular rate and rhythm. S1 and S2 heard. ABDOMEN: Soft. Nondistended. Nontender. EXTREMITIES: Normal range of motion. No clubbing or cyanosis. Peripheral pulses intact. No lower extremity edema NEUROLOGIC: Awake and alert. Oriented x 3. ASSESSMENT: Chest pain, atypical, troponin negative x 2 COPD exacerbation PLAN: An acute coronary event has been ruled out 2D echo obtained and reviewed Begin Pravachol 20mg at HS. Check lipid panel. Patient is currently stable from a cardiac standpoint with no further inpatient recommendations from a cardiology perspective Patient may be discharged home and follow up in the office post discharge. Nurse practitioner note has been reviewed by physician. Signing provider agrees with the documented findings, assessment, and plan of care. Past Medical History Past Medical History: COPD, CVA/TIA, GERD/Reflux, Myocardial Infarction ([place]), Pneumonia Additional Past Medical History / Comment(s): back problems - pulled lumbar muscles (40years ago), Ct abdomen 12/04 for abdominal pain Last Myocardial Infarction Date:: 2011 History of Any Multi-Drug Resistant Organisms: None Reported Past Surgical History: Back Surgery Additional Past Surgical History / Comment(s): left index finger surgery Past Anesthesia/Blood Transfusion Reactions: No Reported Reaction Smoking Status: Former smoker - Past Family History Mother Family Medical History: Diabetes Mellitus Medications and Allergies Home Medications Medication Instructions Recorded Confirmed Type Albuterol Inhaler [Ventolin Hfa 2 puff INHALATION RT-QID PRN 12/14/14 11/15/21 History Inhaler] Tiotropium 18 Mcg/Puff [Spiriva] 2 puff INHALATION RT-DAILY 12/14/14 11/15/21 History predniSONE 5 mg PO DAILY 12/14/14 11/15/21 History Ergocalciferol [Vitamin D2 50,000 unit PO ROBLES 05/10/15 11/15/21 History (DRISDOL)] Aspirin EC [Ecotrin] 325 mg PO DAILY 08/07/18 11/15/21 History Fluticasone Nasal [place] [Flonase 1 spray EA NOSTRIL BID 08/07/18 11/15/21 History Nasal [place]] Omeprazole 20 mg PO DAILY 08/07/18 11/15/21 History Theophylline 24 Hour [[place]ur[place]-24] 400 mg PO DAILY 08/07/18 11/15/21 History Ferrous Sulfate [Feosol] 325 mg PO DAILY 11/15/21 11/15/21 History Fluticasone Propion/Salmeterol 1 puff INHALATION RT-BID 11/15/21 11/15/21 History [Fluticasone-Salmeterol 250-50] Naproxen [EC-Naprosyn] 500 mg PO BID 11/15/21 11/15/21 History Sennosides-Docusate Sodium 1 tab PO DAILY 11/15/21 11/15/21 History [Senokot-S] bisacodyL [Bisacodyl] 5 mg PO DAILY 11/15/21 11/15/21 History methocarbamoL [Methocarbamol] 500 mg PO TID 11/15/21 11/15/21 History Allergies Allergy/AdvReac Type Severity Reaction Status Date / Time atorvastatin AdvReac nausea, Verified 11/15/21 22:08 stomach pain, vomiting metoprolol [From Toprol XL] AdvReac nausea, Verified 11/15/21 22:08 stomach pain, vomiting Physical Exam Vitals: Vital Signs Temp Pulse Pulse Resp BP BP Pulse Ox 11/16/21 09:23 100 11/16/21 03:57 106 H 11/16/21 03:46 108 H 11/16/21 01:53 97.2 F L 104 H 19 121/70 93 L 11/16/21 00:07 109 H 11/15/21 23:57 112 H 11/15/21 20:36 113 H 11/15/21 20:29 114 H 11/15/21 20:27 115 H 11/15/21 20:10 105 H 99 11/15/21 20:00 20 11/15/21 17:36 114 H 18 136/81 96 11/15/21 15:50 97 11/15/21 15:37 85 11/15/21 15:36 82 11/15/21 15:29 88 95 11/15/21 14:14 87 18 106/60 99 11/15/21 14:00 98.1 F 116 H 15 130/75 96 11/15/21 13:15 90 11/15/21 13:04 90 11/15/21 12:25 97.9 F 77 18 105/69 98 11/15/21 11:41 98.4 F 73 18 133/79 94 L 11/15/21 10:07 97.7 F 89 18 135/109 100 Intake and Output 11/15/21 11/16/21 11/16/21 22:59 06:59 14:59 Output Total 0 Balance 0 Output: Urine 0 Other: Voiding Method Toilet # Voids 1 Weight 83.915 kg Results 11/15/21 10:38 11/15/21 10:38 Cardiac Enzymes 08/01/22 08/01/22 08/01/22 Range/Units 10:38 17:03 19:39 AST 23 (17-59) U/L Troponin I <0.012 <0.012 (0.000-0.034) ng/mL Coagulation 11/15/21 Range/Units 10:38 PT 10.0 (9.0-12.0) sec APTT 22.0 (22.0-30.0) sec CBC 11/15/21 Range/Units 10:38 WBC 8.9 (3.8-10.6) k/uL RBC 5.03 (4.30-5.90) m/uL Hgb 12.5 L (13.0-17.5) gm/dL Hct 40.4 (39.0-53.0) % Plt Count 306 (150-450) k/uL Comprehensive Metabolic Panel 11/15/21 Range/Units 10:38 Sodium 140 (137-145) mmol/L Potassium 4.7 (3.5-5.1) mmol/L Chloride 106 (98-107) mmol/L Carbon Dioxide 27 (22-30) mmol/L BUN 22 H (9-20) mg/dL Creatinine 0.86 (0.66-1.25) mg/dL Glucose 107 H (74-99) mg/dL Calcium 9.0 (8.4-10.2) mg/dL AST 23 (17-59) U/L ALT 17 (4-49) U/L Alkaline Phosphatase 69 (38-126) U/L Total Protein 6.4 (6.3-8.2) g/dL Albumin 3.8 (3.5-5.0) g/dL Current Medications Generic Name Dose Route Start Last Admin Trade Name Freq PRN Reason Stop Dose Admin Hydrocodone Bitart/Acetaminophen 1 each 11/15/21 11:45 11/16/21 03:56 Hydrocodone/Apap 5-325mg 1 Each Tab PO 1 each Q6HR PRN Administration Moderate to Severe Pain Albuterol/Ipratropium 3 ml 11/15/21 11:45 Ipratropium-Albuterol 3 Ml Neb INHALATION RT-Q2H PRN Shortness Of Breath Or Wheezing Albuterol/Ipratropium 3 ml 11/15/21 14:45 11/16/21 09:22 Ipratropium-Albuterol 3 Ml Neb INHALATION 3 ml RT-Q4H BRANDI Administration Aspirin 325 mg 11/16/21 09:00 Aspirin 325 Mg Tab PO DAILY [facility] Bisacodyl 5 mg 11/16/21 09:00 Bisacodyl 5 Mg Tablet.Dr PO DAILY [facility] Budesonide 1 mg 11/15/21 14:43 11/16/21 09:22 Budesonide 1 Mg/2 Ml Nebu INHALATION 1 mg RT-BID BRANDI Administration Enoxaparin Sodium 40 mg 11/15/21 15:15 11/15/21 16:33 Enoxaparin 40 Mg/0.4 Ml Syringe SQ 40 mg DAILY BRANDI Administration Ergocalciferol 1,250 mcg 11/21/21 09:00 Ergocalciferol 1,250 Mcg (50,000 Iu) Capsule PO ROBLES [facility] Ferrous Sulfate 325 mg 11/16/21 09:00 Ferrous Sulfate 325 Mg Tab PO DAILY [facility] Formoterol Fumarate 20 mcg 11/15/21 14:43 11/16/21 09:22 Formoterol Fumarate 20 Mcg/2 Ml Nebu INHALATION 20 mcg RT-BID BRANDI Administration Ceftriaxone Sodium 1 gm/ 50 mls @ 100 mls/hr 11/15/21 21:00 11/16/21 09:02 Sodium Chloride IVPB 100 mls/hr Q12HR BRANDI Administration Protocol Methocarbamol 500 mg 11/15/21 16:00 11/16/21 00:19 Methocarbamol 500 Mg Tab PO 500 mg TID BRANDI Administration Methylprednisolone Sodium Succinate 60 mg 11/15/21 12:00 11/16/21 06:09 Methylprednisolone Sod Succi 125 Mg/2 Ml Vial IV 60 mg Q6HR BRANDI Administration Naloxone HCl 0.2 mg 11/15/21 11:45 Naloxone 0.4 Mg/Ml 1 Ml Vial IVP Q2M PRN Opioid Reversal Naproxen 500 mg 11/15/21 21:00 11/16/21 00:18 Naproxen 250 Mg Tab PO 500 mg BID BRANDI Administration Pantoprazole Sodium 40 mg 11/16/21 07:30 Pantoprazole 40 Mg Tablet PO AC-BRKFST [facility] Senna/Docusate Sodium 1 each 11/16/21 09:00 Sennosides-Docusate Sodium 1 Each Tab PO DAILY [facility] Theophylline 400 mg 11/16/21 09:00 Theophylline 24 Hour 400 Mg Cap.Er.24h PO DAILY [facility] Intake and Output 0811/16/21 11/16/21 22:59 06:59 14:59 Output Total 0 Balance 0 Output: Urine 0 Other: Voiding Method Toilet # Voids 1 Weight 83.915 kg 11/15/21 10:38 11/15/21 10:38
--- NOTE | 2021-11-16 14:30 | P.CNPUL ---
History of Present Illness Consult date: 11/16/21 Requesting physician: Isra Antonio Reason for consult: dyspnea, COPD, hypoxemia, abnormal CXR/CT Chief complaint: Shortness of breath. History of present illness: Pulmonary consult dated 11/16/2021. 76-year-old male who presented to the emergency department on November 15, complaining of increasing shortness of breath. That had been going on for a couple days prior to admission. The patient does have a history of oxygen- dependent COPD, and sees my partner, for his COPD. In addition to shortness of breath, he missed a chest congestion, tightness, wheezing, and cough, without phlegm production. He was brought in by EMS. He was placed on CPAP initially, and given breathing treatments with albuterol sulfate and ipratropium bromide. In addition, he received some IV Solu-Medrol. Currently, he is on 2 L nasal cannula. Is not receiving any IV fluids. He has a very low pro-calcitonin level. He currently does not smoke. White count is 8.9, hemoglobin 12.5, hematocrit 40.4, and platelet count 306,000. Sodium, potassium, chloride, CO2, and anion gap are all normal. BUN is 22, with a creatinine of 0.86. Troponins are negative 2. Chest x-ray shows changes of COPD, and some bibasilar atelectasis. Review of Systems REVIEW OF SYSTEMS: CONSTITUTIONAL: [Negative.] NEUROLOGIC: [ Negative.] HEENT: [ Negative.] CARDIAC: [Negative.] PULMONARY: Shortness of breath, chest tightness, wheezing and nonproductive cough. GI: [Negative.] : [Negative.] RHEUMATOLOGIC: [ Negative.] IMMUNOLOGIC: [ Negative.] ENDOCRINE: [Negative. ] DERMATOLOGIC: [Negative.] Past Medical History Past Medical History: COPD, CVA/TIA, GERD/Reflux, Myocardial Infarction ([place]), Pneumonia Additional Past Medical History / Comment(s): back problems - pulled lumbar muscles (40years ago), Ct abdomen 12/04 for abdominal pain Last Myocardial Infarction Date:: 2011 History of Any Multi-Drug Resistant Organisms: None Reported Past Surgical History: Back Surgery Additional Past Surgical History / Comment(s): left index finger surgery Past Anesthesia/Blood Transfusion Reactions: No Reported Reaction Smoking Status: Former smoker - Past Family History Mother Family Medical History: Diabetes Mellitus Medications and Allergies Home Medications Medication Instructions Recorded Confirmed Type Albuterol Inhaler [Ventolin Hfa 2 puff INHALATION RT-QID PRN 12/14/14 11/15/21 History Inhaler] Tiotropium 18 Mcg/Puff [Spiriva] 2 puff INHALATION RT-DAILY 12/14/14 11/15/21 History predniSONE 5 mg PO DAILY 12/14/14 11/15/21 History Ergocalciferol [Vitamin D2 50,000 unit PO ROBLES 05/10/15 11/15/21 History (DRISDOL)] Aspirin EC [Ecotrin] 325 mg PO DAILY 08/07/18 11/15/21 History Fluticasone Nasal [place] [Flonase 1 spray EA NOSTRIL BID 08/07/18 11/15/21 History Nasal [place]] Omeprazole 20 mg PO DAILY 08/07/18 11/15/21 History Theophylline 24 Hour [[place]urmeet-24] 400 mg PO DAILY 08/07/18 11/15/21 History Ferrous Sulfate [Feosol] 325 mg PO DAILY 11/15/21 11/15/21 History Fluticasone Propion/Salmeterol 1 puff INHALATION RT-BID 11/15/21 11/15/21 History [Fluticasone-Salmeterol 250-50] Naproxen [EC-Naprosyn] 500 mg PO BID 11/15/21 11/15/21 History Sennosides-Docusate Sodium 1 tab PO DAILY 11/15/21 11/15/21 History [Senokot-S] bisacodyL [Bisacodyl] 5 mg PO DAILY 11/15/21 11/15/21 History methocarbamoL [Methocarbamol] 500 mg PO TID 11/15/21 11/15/21 History Allergies Allergy/AdvReac Type Severity Reaction Status Date / Time atorvastatin AdvReac nausea, Verified 11/15/21 22:08 stomach pain, vomiting metoprolol [From Toprol XL] AdvReac nausea, Verified 11/15/21 22:08 stomach pain, vomiting Physical Exam Osteopathic Statement: *. No significant issues noted on an osteopathic structural exam other than those noted in the History and Physical/Consult. Vitals: Vital Signs Temp Pulse Pulse Resp BP BP Pulse Ox 11/16/21 13:43 97.8 F 117 H 20 135/67 97 11/16/21 13:02 100 11/16/21 12:51 100 11/16/21 09:39 100 11/16/21 09:38 100 11/16/21 09:23 100 11/16/21 08:00 97.7 F 106 H 18 130/65 98 11/16/21 03:57 106 H 11/16/21 03:46 108 H 11/16/21 01:53 97.2 F L 104 H 19 121/70 93 L 11/16/21 00:07 109 H 11/15/21 23:57 112 H 11/15/21 20:36 113 H 11/15/21 20:29 114 H 11/15/21 20:27 115 H 11/15/21 20:10 105 H 99 11/15/21 20:00 20 11/15/21 17:36 114 H 18 136/81 96 11/15/21 15:50 97 11/15/21 15:37 85 11/15/21 15:36 82 11/15/21 15:29 88 95 Intake and Output 11/15/21 11/16/21 11/16/21 22:59 06:59 14:59 Output Total 0 Balance 0 Output: Urine 0 Other: Voiding Method Toilet # Voids 1 Weight 83.915 kg No acute distress, oriented 3. No respiratory distress, conversational dyspnea, or audible wheezing, or use of accessory muscles. HEENT examination is grossly unremarkable. Neck supple. Full range of motion. No adenopathy thyromegaly or neck vein distention. Cardiovascular examination reveals regular rhythm rate. S1-S2 normal. No S3 or S4. No discernible murmur noted. Heart sounds are distant. Heart rate 100 bpm. Lungs reveal scattered bilateral expiratory rhonchi and expiratory wheezes. Breath sounds are equal bilaterally. Slight prolongation on forced maneuver. No crackles. Abdomen soft bowel sounds are heard. No masses or tenderness. Extremities are intact. No cyanosis clubbing or edema. Skin is without rash or lesion. Neurologic examination is brief but nonfocal. Results - Laboratory Findings CBC and BMP: 11/15/21 10:38 11/15/21 10:38 PT/INR, D-dimer PT 10.0 sec (9.0-12.0) 11/15/21 10:38 INR 0.9 (<1.2) 11/15/21 10:38 Abnormal lab findings: Abnormal Labs 11/15/21 11/15/21 10:38 10:38 Hgb 12.5 L MCH 24.8 L MCHC 30.9 L BUN 22 H Glucose 107 H - Diagnostic Findings Chest x-ray: image reviewed Assessment and Plan Assessment: Acute exacerbation of COPD, without mimi pneumonia. Prior history of heavy tobacco use. History of CVA. History of GERD. History of myocardial infarction. History of depression. Plan: Plan dated 11/16/2021. I don't believe the patient needs antibiotics at this time. They should be discontinued. The patient should be getting doing nebs, 4 times a day and when necessary, Solu-Medrol, and Symbicort or a combination of Pulmicort and formoterol. The patient could likely be discharged in 24 hours or so. In fact, in the room today, the patient states that he is ready to be discharged. His primary problem is shortness of breath on exertion. He should follow with my partner after discharge. Prognosis is guarded. Time with Patient: Greater than 30
[2021-11-16 14:52] LABS: Chol/HDL Ratio 3.15 Ratio; LDL Cholesterol,Calculated 98.4 mg/dL (0.0-131.0)
--- NOTE | 2021-11-16 18:35 | P.PN ---
Progress Note - Text Progress Note Date: 11/16/21 Chief Complaint: Short of breath This is a very pleasant 76-year-old patient who follows with Dr. Cardona. Chronic stable medical conditions include GERD, prior DC, arthritis, GERD, home oxygen 2 L. Patient is chronically short of breath and symptoms have been progressively getting worse. More so in the last 24 hours. Significant short of breath. Wheezing. Has a cough with some thick sputum. Appetite is fair. No edema. Able to walk up to about 50 steps. Gets easily exhausted. Also has been experiencing some chest pressure feels like his previous DC. Sometimes pain goes to his jaw. Even at rest. Given all these symptoms decided to come in. Admitted with acute COPD exacerbation, pneumonia, chest pain. Bronchodilators, steroids, started on ceftriaxone. November 16: Breathing better. Sitting at edge bed. Cough. Oral intake better. Seen by pulmonary Dr. Gonzalez. Antibiotics discontinued. Seen by cardiology. Did not feel he needs any further workup. Currently. Active Medications Hydrocodone Bitart/Acetaminophen (Hydrocodone/Apap 5-325mg 1 Each Tab) 1 each PO Q6HR PRN PRN Reason: Moderate to Severe Pain Last Admin: 11/16/21 12:44 Dose: 1 each Albuterol/Ipratropium (Ipratropium-Albuterol 3 Ml Neb) 3 ml INHALATION RT-Q2H PRN PRN Reason: Shortness Of Breath Or Wheezing Albuterol/Ipratropium (Ipratropium-Albuterol 3 Ml Neb) 3 ml INHALATION RT-Q4H [facility] Last Admin: 11/16/21 16:20 Dose: 3 ml Aspirin (Aspirin 325 Mg Tab) 325 mg PO DAILY [facility] Last Admin: 11/16/21 10:27 Dose: 325 mg Bisacodyl (Bisacodyl 5 Mg Tablet.) 5 mg PO DAILY [facility] Last Admin: 11/16/21 10:19 Dose: 5 mg Budesonide (Budesonide 1 Mg/2 Ml Nebu) 1 mg INHALATION RT-BID [facility] Last Admin: 11/16/21 09:22 Dose: 1 mg Enoxaparin Sodium (Enoxaparin 40 Mg/0.4 Ml Syringe) 40 mg SQ DAILY [facility] Last Admin: 11/16/21 10:19 Dose: 40 mg Ergocalciferol (Ergocalciferol 1,250 Mcg (50,000 Iu) Capsule) 1,250 mcg PO ROBLES [facility] Ferrous Sulfate (Ferrous Sulfate 325 Mg Tab) 325 mg PO DAILY [facility] Last Admin: 11/16/21 10:27 Dose: 325 mg Formoterol Fumarate (Formoterol Fumarate 20 Mcg/2 Ml Nebu) 20 mcg INHALATION RT-BID [facility] Last Admin: 11/16/21 09:22 Dose: 20 mcg Methocarbamol (Methocarbamol 500 Mg Tab) 500 mg PO TID [facility] Last Admin: 11/16/21 16:58 Dose: 500 mg Methylprednisolone Sodium Succinate (Methylprednisolone Sod Succi 125 Mg/2 Ml Vial) 60 mg IV Q6HR [facility] Last Admin: 11/16/21 16:57 Dose: 60 mg Naloxone HCl (Naloxone 0.4 Mg/Ml 1 Ml Vial) 0.2 mg IVP Q2M PRN PRN Reason: Opioid Reversal Naproxen (Naproxen 250 Mg Tab) 500 mg PO BID [facility] Last Admin: 11/16/21 10:19 Dose: 500 mg Pantoprazole Sodium (Pantoprazole 40 Mg Tablet) 40 mg PO AC-BRKFST [facility] Last Admin: 11/16/21 10:19 Dose: 40 mg Pravastatin Sodium (Pravastatin Sodium 20 Mg Tab) 20 mg PO HS [facility] Senna/Docusate Sodium (Sennosides-Docusate Sodium 1 Each Tab) 1 each PO DAILY [facility] Last Admin: 11/16/21 10:27 Dose: 1 each Theophylline (Theophylline 24 Hour 400 Mg Cap.Er.24h) 400 mg PO DAILY [facility] Last Admin: 11/16/21 10:27 Dose: 400 mg Past medical history to include: COPD, home oxygen 2 L, GERD, DC, back problems, Social history: Lives with the partner called and. Smoked a pack a day for about 53 years stopped about 8 years ago. 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 Family history: Diabetes Physical examination: VITAL SIGNS: 97.8, 104, 20, 135-67, 97% on 2 L GENERAL: Sitting edge of the bed, breathing better EYES: Pupils equal. Conjunctiva normal. HEENT: External appearance of nose and ears normal, oral cavity grossly normal. NECK: JVD not raised; masses not palpable. HEART: First and second heart sounds are normal; no edema. LUNGS: Respiratory rate increased, decreased breath sounds, prolonged expiration and wheezing. ABDOMEN: Soft, nontender, liver spleen not palpable, no masses palpable. PSYCH: Alert and oriented x3; mood and affect anxiousl. MUSCULOSKELETAL:No Clubbing/cyanosis;muscles-grossly intact INVESTIGATIONS, reviewed in the clinical context: 2-D echocardiogram: EF 55-60%. LDL 98.4 pro-calcitonin 0.04 EKG tracing personally reviewed by me-normal sinus rhythm, rate 84. Chest x-ray film personally reviewed by me-possible basilar infiltrate. Hyperinflation. White count 8.9 hemoglobin 12.5 platelets 306 potassium 4.7 creatinine 0.86 Assessment and plan: -Acute severe COPD exacerbation in a prior smoker, chronically steroid dependent Prednisone 5 mg daily at home DuoNeb every 4, IV Solu-Medrol, nebulized Pulmicort, Perforomist -Pneumonia ruled out. Antibiotics discontinued. Pro-calcitonin 0.04 -Chronic hypoxic respiratory failure secondary to COPD Home oxygen 2 L -Acute on chronic medical debility from underlying COPD -Possible unstable angina in a patient with prior DC Seizure troponin. 2-D echocardiogram. Consult cardiology telemetry. -CAD with a prior history of DC Toprol-XL, Lipitor, aspirin -GERD Omeprazole -Chronic low back pain from arthritis Methocarbamol Patient seen by pulmonary: Antibiotics discontinued not felt of pneumonia. Bronchodilators choice to continue. Seen by cardiology No further workup currently. Cutback Solu-Medrol.
[2021-11-16] MEDS: PRAVASTATIN SODIUM 20 MG TAB PO SCH (21:44)
[2021-11-17] MEDS: methylPREDNISolone SOD SUCCI 40 MG/ML 1 ML VIAL IV SCH ×3 (00:38→16:34)
[2021-11-17] MEDS: IPRATROPIUM-ALBUTEROL 3 ML NEB INHALATION SCH ×5 (03:40→20:20)
[2021-11-17] MEDS: PANTOPRAZOLE 40 MG TABLET PO SCH (07:53)
[2021-11-17] MEDS: FERROUS SULFATE 325 MG TAB PO SCH (07:53)
[2021-11-17] MEDS: ASPIRIN 325 MG TAB PO SCH (07:53)
[2021-11-17] MEDS: SENNOSIDES-DOCUSATE SODIUM 1 EACH TAB PO SCH (07:53)
[2021-11-17] MEDS: ENOXAPARIN 40 MG/0.4 ML SYRINGE SQ SCH (07:53)
[2021-11-17] MEDS: bisacodyL 5 MG TABLET.DR PO SCH (07:53)
[2021-11-17] MEDS: methocarbamoL 500 MG TAB PO SCH ×3 (07:54→20:58)
[2021-11-17] MEDS: HYDROcodone/APAP 5-325MG 1 EACH TAB PO PRN (07:54)
[2021-11-17] MEDS: NAPROXEN 250 MG TAB PO SCH ×2 (07:54→20:57)
[2021-11-17] MEDS: THEOPHYLLINE 24 HOUR 400 MG CAP.ER.24H PO SCH (07:54)
[2021-11-17] MEDS: FORMOTEROL FUMARATE 20 MCG/2 ML NEBU INHALATION SCH ×4 (08:14→20:20)
[2021-11-17] MEDS: BUDESONIDE 1 MG/2 ML NEBU INHALATION SCH ×2 (08:14→20:20)
--- NOTE | 2021-11-17 12:19 | P.PN ---
Subjective Progress Note Date: 11/17/21 Principal diagnosis: COPD exacerbation. Pulmonary consult dated 11/16/2021. 76-year-old male who presented to the emergency department on November 15, complaining of increasing shortness of breath. That had been going on for a couple days prior to admission. The patient does have a history of oxygen- dependent COPD, and sees my partner, for his COPD. In addition to shortness of breath, he missed a chest congestion, tightness, wheezing, and cough, without phlegm production. He was brought in by EMS. He was placed on CPAP initially, and given breathing treatments with albuterol sulfate and ipratropium bromide. In addition, he received some IV Solu-Medrol. Currently, he is on 2 L nasal cannula. Is not receiving any IV fluids. He has a very low pro-calcitonin level. He currently does not smoke. White count is 8.9, hemoglobin 12.5, hematocrit 40.4, and platelet count 306,000. Sodium, potassium, chloride, CO2, and anion gap are all normal. BUN is 22, with a creatinine of 0.86. Troponins are negative 2. Chest x-ray shows changes of COPD, and some bibasilar atelectasis. Progress note dated 11/17/2021. This is a 76-year-old male with a history of COPD, who I saw yesterday in consultation. The patient does see my partner in the office. He has severe ox ygen-dependent COPD. Today, he was sitting on the side of the bed complaining about being short of breath. He had noisy respirations. He also apparently complained of a nosebleed. He's not receiving any IV fluids. He is on 2 L of oxygen. There is no audible wheezing. No new labs today. Objective - Vital Signs Vital signs: Vital Signs Temp 98.3 F 11/17/21 07:21 Pulse 102 H 11/17/21 12:14 Resp 15 11/17/21 07:21 BP 145/71 11/17/21 07:21 Pulse Ox 95 11/17/21 08:15 FiO2 Intake & Output 11/16/21 11/17/21 11/17/21 18:59 06:59 18:59 Intake Total 1080 Balance 1080 Intake: Oral 1080 Other: Voiding Method Toilet Toilet Toilet # Voids 3 - Exam No acute distress, oriented 3. No audible wheezing, or use of accessory muscles. The patient's breathing is noisy. HEENT examination is grossly unremarkable. Neck supple. Full range of motion. No adenopathy thyromegaly or neck vein distention. Cardiovascular examination reveals regular rhythm rate. S1-S2 normal. No S3 or S4. No discernible murmur noted. Heart sounds are distant. Heart rate 97 bpm. Lungs reveal scattered bilateral expiratory rhonchi and expiratory wheezes. Breath sounds are equal bilaterally. Slight prolongation on forced maneuver. No crackles. Saturations are 96%. Abdomen soft bowel sounds are heard. No masses or tenderness. Extremities are intact. No cyanosis clubbing or edema. Skin is without rash or lesion. Neurologic examination is brief but nonfocal. - Labs CBC & Chem 7: 11/15/21 10:38 11/15/21 10:38 Labs: Microbiology - Last 24 Hours (Table) 11/15/21 10:35 Blood Culture - Preliminary Blood No Growth after 24 hours 11/15/21 10:19 Blood Culture - Preliminary Blood No Growth after 24 hours Assessment and Plan Assessment: Acute exacerbation of COPD, without mimi pneumonia. Prior history of heavy tobacco use. History of CVA. History of GERD. History of myocardial infarction. History of depression. Plan: Plan dated 11/16/2021. I don't believe the patient needs antibiotics at this time. They should be discontinued. The patient should be getting doing nebs, 4 times a day and when necessary, Solu-Medrol, and Symbicort or a combination of Pulmicort and formoterol. The patient could likely be discharged in 24 hours or so. In fact, in the room today, the patient states that he is ready to be discharged. His primary problem is shortness of breath on exertion. He should follow with my partner after discharge. Prognosis is guarded. Plan dated 11/17/2021. The patient's on appropriate medications at this time including albuterol sulfate and ipratropium bromide breathing treatments, 4 times a day and when nec essary, Solu-Medrol, and Pulmicort/formoterol. We will continue to follow and make recommendations were appropriate. The patient is also on theophylline. Yesterday when I saw the patient, I did not think he needed any antibiotics. The patient's overall prognosis is guarded. He will follow with my partner once he is discharged. Time with Patient: Less than 30
--- NOTE | 2021-11-17 16:40 | P.PN ---
Progress Note - Text Progress Note Date: 11/17/21 Chief Complaint: Short of breath This is a very pleasant 76-year-old patient who follows with Dr. Cardona. Chronic stable medical conditions include GERD, prior [place], arthritis, GERD, home oxygen 2 L. Patient is chronically short of breath and symptoms have been progressively getting worse. More so in the last 24 hours. Significant short of breath. Wheezing. Has a cough with some thick sputum. Appetite is fair. No edema. Able to walk up to about 50 steps. Gets easily exhausted. Also has been experiencing some chest pressure feels like his previous [place]. Sometimes pain goes to his jaw. Even at rest. Given all these symptoms decided to come in. Admitted with acute COPD exacerbation, pneumonia, chest pain. Bronchodilators, steroids, started on ceftriaxone. November 16: Breathing better. Sitting at edge bed. Cough. Oral intake better. Seen by pulmonary Dr. Gonzalez. Antibiotics discontinued. Seen by cardiology. Did not feel he needs any further workup. Currently. November 17: Short of breath. Able to expectorate some. Wheezing. Oral intake fair. Tired. Discussed Active Medications Hydrocodone Bitart/Acetaminophen (Hydrocodone/Apap 5-325mg 1 Each Tab) 1 each PO Q6HR PRN PRN Reason: Moderate to Severe Pain Last Admin: 11/17/21 07:54 Dose: 1 each Albuterol/Ipratropium (Ipratropium-Albuterol 3 Ml Neb) 3 ml INHALATION RT-Q2H PRN PRN Reason: Shortness Of Breath Or Wheezing Albuterol/Ipratropium (Ipratropium-Albuterol 3 Ml Neb) 3 ml INHALATION RT-Q4H [facility] Last Admin: 11/17/21 15:57 Dose: 3 ml Aspirin (Aspirin 325 Mg Tab) 325 mg PO DAILY [facility] Last Admin: 11/17/21 07:53 Dose: 325 mg Bisacodyl (Bisacodyl 5 Mg Tablet.) 5 mg PO DAILY [facility] Last Admin: 11/17/21 07:53 Dose: 5 mg Budesonide (Budesonide 1 Mg/2 Ml Nebu) 1 mg INHALATION RT-BID [facility] Last Admin: 11/17/21 08:14 Dose: 1 mg Enoxaparin Sodium (Enoxaparin 40 Mg/0.4 Ml Syringe) 40 mg SQ DAILY [facility] Last Admin: 11/17/21 07:53 Dose: 40 mg Ergocalciferol (Ergocalciferol 1,250 Mcg (50,000 Iu) Capsule) 1,250 mcg PO ROBLES [facility] Ferrous Sulfate (Ferrous Sulfate 325 Mg Tab) 325 mg PO DAILY [facility] Last Admin: 11/17/21 07:53 Dose: 325 mg Formoterol Fumarate (Formoterol Fumarate 20 Mcg/2 Ml Nebu) 20 mcg INHALATION RT-BID [facility] Last Admin: 11/17/21 09:13 Dose: 20 mcg Methocarbamol (Methocarbamol 500 Mg Tab) 500 mg PO TID [facility] Last Admin: 11/17/21 16:34 Dose: 500 mg Methylprednisolone Sodium Succinate (Methylprednisolone Sod Succi 40 Mg/Ml 1 Ml Vial) 40 mg IV Q8HR [facility] Last Admin: 11/17/21 16:34 Dose: 40 mg Naloxone HCl (Naloxone 0.4 Mg/Ml 1 Ml Vial) 0.2 mg IVP Q2M PRN PRN Reason: Opioid Reversal Naproxen (Naproxen 250 Mg Tab) 500 mg PO BID [facility] Last Admin: 11/17/21 07:54 Dose: 500 mg Pantoprazole Sodium (Pantoprazole 40 Mg Tablet) 40 mg PO AC-BRKFST [facility] Last Admin: 11/17/21 07:53 Dose: 40 mg Pravastatin Sodium (Pravastatin Sodium 20 Mg Tab) 20 mg PO HS [facility] Last Admin: 11/16/21 21:44 Dose: 20 mg Senna/Docusate Sodium (Sennosides-Docusate Sodium 1 Each Tab) 1 each PO DAILY [facility] Last Admin: 11/17/21 07:53 Dose: 1 each Theophylline (Theophylline 24 Hour 400 Mg Cap.Er.24h) 400 mg PO DAILY [facility] Last Admin: 11/17/21 07:54 Dose: 400 mg Past medical history to include: COPD, home oxygen 2 L, GERD, [place], back problems, Social history: Lives with the partner called and. Smoked a pack a day for about 53 years stopped about 8 years ago. 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 Family history: Diabetes Physical examination: VITAL SIGNS: 97.5, 120, 14, 1 28 x 64, 96% on 2 L GENERAL: Sitting edge of the bed, some shortness of breath EYES: Pupils equal. Conjunctiva normal. HEENT: External appearance of nose and ears normal, oral cavity grossly normal. NECK: JVD not raised; masses not palpable. HEART: First and second heart sounds are normal; no edema. LUNGS: Respiratory rate increased, decreased breath sounds, prolonged expiration and wheezing. ABDOMEN: Soft, nontender, liver spleen not palpable, no masses palpable. PSYCH: Alert and oriented x3; mood and affect anxiousl. MUSCULOSKELETAL:No Clubbing/cyanosis;muscles-grossly intact INVESTIGATIONS, reviewed in the clinical context: 2-D echocardiogram: EF 55-60%. LDL 98.4 pro-calcitonin 0.04 EKG tracing personally reviewed by me-normal sinus rhythm, rate 84. Chest x-ray film personally reviewed by me-possible basilar infiltrate. Hyperinflation. White count 8.9 hemoglobin 12.5 platelets 306 potassium 4.7 creatinine 0.86 Assessment and plan: -Acute severe COPD exacerbation in a prior smoker, chronically steroid dependent: Slow to respond Prednisone 5 mg daily at home DuoNeb every 4, IV Solu-Medrol, nebulized Pulmicort, Perforomist -Pneumonia ruled out. Antibiotics discontinued. Pro-calcitonin 0.04 -Chronic hypoxic respiratory failure secondary to COPD Home oxygen 2 L -Acute on chronic medical debility from underlying COPD -Anterior chest wall pain. Seen by cardiology. Not for any further inpatient workup.. -CAD with a prior history of [place] Toprol-XL, Lipitor, aspirin -GERD Omeprazole -Chronic low back pain from arthritis Methocarbamol Continue bronchodilators, DuoNeb, other medications. Discussed with patient. Increase activity.
[2021-11-17] MEDS: PARoxetine 20 MG TAB PO SCH (17:15)
[2021-11-17] MEDS: PRAVASTATIN SODIUM 20 MG TAB PO SCH (20:58)
[2021-11-18] MEDS: methylPREDNISolone SOD SUCCI 40 MG/ML 1 ML VIAL IV SCH ×3 (01:13→16:58)
[2021-11-18] MEDS: IPRATROPIUM-ALBUTEROL 3 ML NEB INHALATION SCH ×7 (01:33→23:55)
[2021-11-18] MEDS: BUDESONIDE 1 MG/2 ML NEBU INHALATION SCH ×2 (07:44→20:49)
[2021-11-18] MEDS: FORMOTEROL FUMARATE 20 MCG/2 ML NEBU INHALATION SCH ×2 (07:44→20:49)
[2021-11-18] MEDS: PANTOPRAZOLE 40 MG TABLET PO SCH (08:43)
[2021-11-18] MEDS: bisacodyL 5 MG TABLET.DR PO SCH (11:30)
[2021-11-18] MEDS: ASPIRIN 325 MG TAB PO SCH (11:30)
[2021-11-18] MEDS: ENOXAPARIN 40 MG/0.4 ML SYRINGE SQ SCH (11:31)
[2021-11-18] MEDS: FERROUS SULFATE 325 MG TAB PO SCH (11:32)
[2021-11-18] MEDS: methocarbamoL 500 MG TAB PO SCH ×3 (11:32→20:23)
[2021-11-18] MEDS: NAPROXEN 250 MG TAB PO SCH ×2 (11:32→20:23)
[2021-11-18] MEDS: PARoxetine 20 MG TAB PO SCH (11:34)
[2021-11-18] MEDS: THEOPHYLLINE 24 HOUR 400 MG CAP.ER.24H PO SCH (11:34)
--- NOTE | 2021-11-18 14:40 | P.PN ---
Subjective Progress Note Date: 11/18/21 Principal diagnosis: COPD exacerbation. Pulmonary consult dated 11/16/2021. 76-year-old male who presented to the emergency department on November 15, complaining of increasing shortness of breath. That had been going on for a couple days prior to admission. The patient does have a history of oxygen- dependent COPD, and sees my partner, for his COPD. In addition to shortness of breath, he missed a chest congestion, tightness, wheezing, and cough, without phlegm production. He was brought in by EMS. He was placed on CPAP initially, and given breathing treatments with albuterol sulfate and ipratropium bromide. In addition, he received some IV Solu-Medrol. Currently, he is on 2 L nasal cannula. Is not receiving any IV fluids. He has a very low pro-calcitonin level. He currently does not smoke. White count is 8.9, hemoglobin 12.5, hematocrit 40.4, and platelet count 306,000. Sodium, potassium, chloride, CO2, and anion gap are all normal. BUN is 22, with a creatinine of 0.86. Troponins are negative 2. Chest x-ray shows changes of COPD, and some bibasilar atelectasis. Progress note dated 11/17/2021. This is a 76-year-old male with a history of COPD, who I saw yesterday in consultation. The patient does see my partner in the office. He has severe ox ygen-dependent COPD. Today, he was sitting on the side of the bed complaining about being short of breath. He had noisy respirations. He also apparently complained of a nosebleed. He's not receiving any IV fluids. He is on 2 L of oxygen. There is no audible wheezing. No new labs today. Progress note dated 11/18/2021. 76-year-old male with history of COPD. The patient is currently on 3 L nasal cannula. Is not receiving any IV fluids. He was sleeping when I first came into the room, and was in no apparent distress. The patient is improving day by day. He still has shortness of breath particularly on exertion. He is coughing a bit, but not producing any phlegm. No new labs today. Blood cultures are negative. No new chest x-ray today. Objective - Vital Signs Vital signs: Vital Signs Temp 98.4 F 08/04/22 12:44 Pulse 132 H 11/18/21 12:44 Resp 20 11/18/21 01:30 BP 148/85 11/18/21 12:44 Pulse Ox 96 11/18/21 12:44 FiO2 Intake & Output 11/17/21 11/18/21 11/18/21 18:59 06:59 18:59 Intake Total 472 Balance 472 Intake: Oral 472 Other: Voiding Method Toilet Toilet # Voids 4 # Bowel Movements 1 - Exam No acute distress, oriented 3. No audible wheezing, or use of accessory musc les. The patient's breathing is improved. HEENT examination is grossly unremarkable. Neck supple. Full range of motion. No adenopathy thyromegaly or neck vein distention. Cardiovascular examination reveals regular rhythm rate. S1-S2 normal. No S3 or S4. No discernible murmur noted. Heart sounds are distant. Heart rate 100 bpm. Lungs reveal scattered bilateral expiratory rhonchi and expiratory wheezes. Breath sounds are equal bilaterally. Slight prolongation on forced maneuver. N o crackles. Saturations are 96%. Abdomen soft bowel sounds are heard. No masses or tenderness. Extremities are intact. No cyanosis clubbing or edema. Skin is without rash or lesion. Neurologic examination is brief but nonfocal. - Labs CBC & Chem 7: 11/15/21 10:38 11/15/21 10:38 Labs: Microbiology - Last 24 Hours (Table) 11/15/21 10:35 Blood Culture - Preliminary Blood No Growth after 72 hours 11/15/21 10:19 Blood Culture - Preliminary Blood No Growth after 72 hours Assessment and Plan Assessment: Acute exacerbation of COPD, without mimi pneumonia. Prior history of heavy tobacco use. History of CVA. History of GERD. History of myocardial infarction. History of depression. Plan: Plan dated 11/16/2021. I don't believe the patient needs antibiotics at this time. They should be discontinued. The patient should be getting doing nebs, 4 times a day and when necessary, Solu-Medrol, and Symbicort or a combination of Pulmicort and formoterol. The patient could likely be discharged in 24 hours or so. In fact, in the room today, the patient states that he is ready to be discharged. His primary problem is shortness of breath on exertion. He should follow with my partner after discharge. Prognosis is guarded. Plan dated 11/17/2021. The patient's on appropriate medications at this time including albuterol sulfate and ipratropium bromide breathing treatments, 4 times a day and when necessary, Solu-Medrol, and Pulmicort/formoterol. We will continue to follow and make recommendations were appropriate. The patient is also on theophylline. Yesterday when I saw the patient, I did not think he needed any antibiotics. The patient's overall prognosis is guarded. He will follow with my partner once he is discharged. Plan dated 11/18/2021. The patient's on all appropriate medications including albuterol sulfate and ipratropium bromide, 4 times a day and when necessary, IV Solu-Medrol, theophy lline, Pulmicort/formoterol updrafts twice a day, among the rest of his normal and usual medications. The patient is currently not on any antibiotic. His pro-calcitonin level was quite low. We will continue to follow make recommendations were appropriate. Prognosis is certainly guarded. Time with Patient: Less than 30
--- NOTE | 2021-11-18 18:04 | P.PN ---
Progress Note - Text Progress Note Date: 11/18/21 Chief Complaint: Short of breath This is a very pleasant 76-year-old patient who follows with Dr. Cardona. Chronic stable medical conditions include GERD, prior [place], arthritis, GERD, home oxygen 2 L. Patient is chronically short of breath and symptoms have been progressively getting worse. More so in the last 24 hours. Significant short of breath. Wheezing. Has a cough with some thick sputum. Appetite is fair. No edema. Able to walk up to about 50 steps. Gets easily exhausted. Also has been experiencing some chest pressure feels like his previous [place]. Sometimes pain goes to his jaw. Even at rest. Given all these symptoms decided to come in. Admitted with acute COPD exacerbation, pneumonia, chest pain. Bronchodilators, steroids, started on ceftriaxone. November 16: Breathing better. Sitting at edge bed. Cough. Oral intake better. Seen by pulmonary Dr. Gonzalez. Antibiotics discontinued. Seen by cardiology. Did not feel he needs any further workup. Currently. November 17: Short of breath. Able to expectorate some. Wheezing. Oral intake fair. Tired. Discussed November 18: Sitting of edge bed. Eating. Some improvement in breathing. Less tired. Increase activity. Does feel a bit better. Active Medications Hydrocodone Bitart/Acetaminophen (Hydrocodone/Apap 5-325mg 1 Each Tab) 1 each PO Q6HR PRN PRN Reason: Moderate to Severe Pain Last Admin: 11/17/21 07:54 Dose: 1 each Albuterol/Ipratropium (Ipratropium-Albuterol 3 Ml Neb) 3 ml INHALATION RT-Q2H PRN PRN Reason: Shortness Of Breath Or Wheezing Last Admin: 11/18/21 05:15 Dose: 3 ml Albuterol/Ipratropium (Ipratropium-Albuterol 3 Ml Neb) 3 ml INHALATION RT-Q4H [facility] Last Admin: 11/18/21 16:09 Dose: 3 ml Aspirin (Aspirin 325 Mg Tab) 325 mg PO DAILY [facility] Last Admin: 11/18/21 11:30 Dose: 325 mg Bisacodyl (Bisacodyl 5 Mg Tablet.) 5 mg PO DAILY [facility] Last Admin: 11/18/21 11:30 Dose: 5 mg Budesonide (Budesonide 1 Mg/2 Ml Nebu) 1 mg INHALATION RT-BID [facility] Last Admin: 11/18/21 07:44 Dose: 1 mg Enoxaparin Sodium (Enoxaparin 40 Mg/0.4 Ml Syringe) 40 mg SQ DAILY [facility] Last Admin: 11/18/21 11:31 Dose: 40 mg Ergocalciferol (Ergocalciferol 1,250 Mcg (50,000 Iu) Capsule) 1,250 mcg PO ROBLES [facility] Ferrous Sulfate (Ferrous Sulfate 325 Mg Tab) 325 mg PO DAILY [facility] Last Admin: 11/18/21 11:32 Dose: 325 mg Formoterol Fumarate (Formoterol Fumarate 20 Mcg/2 Ml Nebu) 20 mcg INHALATION RT-BID [facility] Last Admin: 11/18/21 07:44 Dose: 20 mcg Methocarbamol (Methocarbamol 500 Mg Tab) 500 mg PO TID [facility] Last Admin: 11/18/21 16:58 Dose: 500 mg Methylprednisolone Sodium Succinate (Methylprednisolone Sod Succi 40 Mg/Ml 1 Ml Vial) 40 mg IV Q8HR [facility] Last Admin: 11/18/21 16:58 Dose: 40 mg Naloxone HCl (Naloxone 0.4 Mg/Ml 1 Ml Vial) 0.2 mg IVP Q2M PRN PRN Reason: Opioid Reversal Naproxen (Naproxen 250 Mg Tab) 500 mg PO BID [facility] Last Admin: 11/18/21 11:32 Dose: 500 mg Pantoprazole Sodium (Pantoprazole 40 Mg Tablet) 40 mg PO AC-BRKFST [facility] Last Admin: 11/18/21 08:43 Dose: 40 mg Paroxetine HCl (Paroxetine 20 Mg Tab) 20 mg PO DAILY [facility] Last Admin: 11/18/21 11:34 Dose: 20 mg Pravastatin Sodium (Pravastatin Sodium 20 Mg Tab) 20 mg PO HS [facility] Last Admin: 11/17/21 20:58 Dose: 20 mg Senna/Docusate Sodium (Sennosides-Docusate Sodium 1 Each Tab) 1 each PO DAILY [facility] Last Admin: 11/17/21 07:53 Dose: 1 each Theophylline (Theophylline 24 Hour 400 Mg Cap.Er.24h) 400 mg PO DAILY [facility] Last Admin: 11/18/21 11:34 Dose: 400 mg Past medical history to include: COPD, home oxygen 2 L, GERD, [place], back problems, Social history: Lives with the partner called and. Smoked a pack a day for about 53 years stopped about 8 years ago. 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 Family history: Diabetes Physical examination: VITAL SIGNS: 98.4, 110, 16, 140/85, 96% on 2 L GENERAL: Sitting edge of the bed, eating, drinking a bit better EYES: Pupils equal. Conjunctiva normal. HEENT: External appearance of nose and ears normal, oral cavity grossly normal. NECK: JVD not raised; masses not palpable. HEART: First and second heart sounds are normal; no edema. LUNGS: Respiratory rate increased, decreased breath sounds, prolonged expiration ABDOMEN: Soft, nontender, liver spleen not palpable, no masses palpable. PSYCH: Alert and oriented x3; mood and affect anxiousl. MUSCULOSKELETAL:No Clubbing/cyanosis;muscles-grossly intact INVESTIGATIONS, reviewed in the clinical context: 2-D echocardiogram: EF 55-60%. LDL 98.4 pro-calcitonin 0.04 EKG tracing personally reviewed by me-normal sinus rhythm, rate 84. Chest x-ray film personally reviewed by me-possible basilar infiltrate. Hyperinflation. White count 8.9 hemoglobin 12.5 platelets 306 potassium 4.7 creatinine 0.86 Assessment and plan: -Acute severe COPD exacerbation in a prior smoker, chronically steroid dependent: Slow to respond Prednisone 5 mg daily at home DuoNeb every 4, IV Solu-Medrol, nebulized Pulmicort, Perforomist -Pneumonia ruled out. Antibiotics discontinued. Pro-calcitonin 0.04 -Chronic hypoxic respiratory failure secondary to COPD Home oxygen 2 L -Acute on chronic medical debility from underlying COPD -Anterior chest wall pain. Seen by cardiology. Not for any further inpatient workup.. -CAD with a prior history of [place] Toprol-XL, Lipitor, aspirin -GERD Omeprazole -Chronic low back pain from arthritis Methocarbamol bronchodilators, DuoNeb, IV Solu-Medrol. Discussed with patient.
[2021-11-18] MEDS: PRAVASTATIN SODIUM 20 MG TAB PO SCH (20:23)
[2021-11-18 22:36] VITALS: RESP 18
[2021-11-19] MEDS: methylPREDNISolone SOD SUCCI 40 MG/ML 1 ML VIAL IV SCH ×2 (01:17→08:05)
[2021-11-19] MEDS: IPRATROPIUM-ALBUTEROL 3 ML NEB INHALATION SCH ×3 (04:00→12:02)
[2021-11-19] MEDS: ENOXAPARIN 40 MG/0.4 ML SYRINGE SQ SCH (08:05)
[2021-11-19] MEDS: methocarbamoL 500 MG TAB PO SCH (08:05)
[2021-11-19] MEDS: NAPROXEN 250 MG TAB PO SCH (08:05)
[2021-11-19] MEDS: bisacodyL 5 MG TABLET.DR PO SCH (08:06)
[2021-11-19] MEDS: FERROUS SULFATE 325 MG TAB PO SCH (08:06)
[2021-11-19] MEDS: PARoxetine 20 MG TAB PO SCH (08:06)
[2021-11-19] MEDS: ASPIRIN 325 MG TAB PO SCH (08:06)
[2021-11-19] MEDS: SENNOSIDES-DOCUSATE SODIUM 1 EACH TAB PO SCH (08:06)
[2021-11-19] MEDS: PANTOPRAZOLE 40 MG TABLET PO SCH (08:06)
[2021-11-19] MEDS: THEOPHYLLINE 24 HOUR 400 MG CAP.ER.24H PO SCH (08:06)
[2021-11-19] MEDS: BUDESONIDE 1 MG/2 ML NEBU INHALATION SCH (09:04)
[2021-11-19] MEDS: FORMOTEROL FUMARATE 20 MCG/2 ML NEBU INHALATION SCH (09:04)
[2021-11-19] MEDS ORDERED: predniSONE 20 MG TAB PO SCH (10:30)
--- NOTE | 2021-11-19 12:05 | P.PN ---
Subjective Progress Note Date: 11/19/21 Principal diagnosis: Shortness of breath On November 19, 2021, patient seen in follow-up on medical surgical floor. He is awake and alert, in no acute distress, he is on 2 L of oxygen satting 97%, he is breathing easier, vital signs have been stable. His chest x-ray showed COPD with patchy bibasilar atelectasis. Patient remains on inhaled and nebulized bronchodilators, IV Solu-Medrol, and theophylline. he is clinically improving. No complaints of worsening dyspnea or cough, no chest discomfort. Vital signs have been stable. Objective - Vital Signs Vital signs: Vital Signs Temp 97.7 F 11/19/21 07:00 Pulse 108 H 11/19/21 07:00 Resp 18 11/19/21 07:00 BP 128/61 11/19/21 07:00 Pulse Ox 97 11/19/21 07:00 FiO2 Intake & Output 11/18/21 11/19/21 11/19/21 18:59 06:59 18:59 Intake Total 300 300 Balance 300 300 Intake: Oral 300 300 Other: # Voids 1 3 - Exam GENERAL EXAM: Alert, very pleasant, 76-year-old white male, 2 L of oxygen pulse ox of 97%, comfortable in no apparent distress. HEAD: Normocephalic/atraumatic. EYES: Normal reaction of pupils, equal size. Conjunctiva pink, sclera white. NOSE: Clear with pink turbinates. THROAT: No erythema or exudates. NECK: No masses, no JVD, no thyroid enlargement, no adenopathy. CHEST: No chest wall deformity. Symmetrical expansion. LUNGS: Equal air entry with no crackles, wheeze, rhonchi or dullness. CVS: Regular rate and rhythm, normal S1 and S2, no gallops, no murmurs, no rubs ABDOMEN: Soft, nontender. No hepatosplenomegaly, normal bowel sounds, no guarding or rigidity. EXTREMITIES: No clubbing, no edema, no cyanosis, 2+ pulses and upper and lower extremities. MUSCULOSKELETAL: Muscle strength and tone normal. SPINE: No scoliosis or deformity SKIN: No rashes CENTRAL NERVOUS SYSTEM: Alert and oriented -3. No focal deficits, tone is normal in all 4 extremities. PSYCHIATRIC: Alert and oriented -3. Appropriate affect. Intact judgment and insight. - Labs CBC & Chem 7: 11/15/21 10:38 11/15/21 10:38 Labs: Microbiology - Last 24 Hours (Table) 11/15/21 10:35 Blood Culture - Preliminary Blood No Growth after 72 hours 11/15/21 10:19 Blood Culture - Preliminary Blood No Growth after 72 hours Assessment and Plan Plan: Assessment: #1. Acute exacerbation of COPD, without mimi pneumonia #2. History of heavy tobacco use #3. History of CVA #4. History of GERD #5. History of myocardial infarction #6. History of depression Plan: Patient is improving Vital signs have been stable We'll DC Pulmicort and formoterol, start patient on Symbicort twice daily IV steroids can be converted to oral prednisone From pulmonary perspective he is clear for discharge home Outpatient follow-up with Dr. Saenz in the office in 7-10 days I have personally seen and examined the patient, performed the documentation and the assessment and plan as written. Number of minutes spent on the visit: [10] Time with Patient: Less than 30
[2021-11-19 13:42] VITALS: BP 153/62; PULSE 120; TEMP 98
[2021-11-19] MEDS ORDERED: SYMBICORT 160-4.5 MCG INHALER INHALATION SCH (20:00)
--- NOTE | 2021-11-19 21:02 | P.DS ---
Providers Date of admission: 11/15/21 11:45 Expected date of discharge: 11/19/21 Attending physician: Isra Antonio Consults: 11/15/21 11:45 Consult Physician Routine Consulting Provider: Griselda Hatch Consult Reason/Comments: COPD, PNA Do you want consulting provider notified?: Yes [facility] Course: Chief Complaint: Short of breath This is a very pleasant 76-year-old patient who follows with Dr. Cardona. Chronic stable medical conditions include GERD, prior AR, arthritis, GERD, home oxygen 2 L. Patient is chronically short of breath and symptoms have been progressively getting worse. More so in the last 24 hours. Significant short of breath. Wheezing. Has a cough with some thick sputum. Appetite is fair. No edema. Able to walk up to about 50 steps. Gets easily exhausted. Also has been experiencing some chest pressure feels like his previous AR. Sometimes pain goes to his jaw. Even at rest. Given all these symptoms decided to come in. Admitted with acute COPD exacerbation, pneumonia, chest pain. Bronchodilators, steroids, started on ceftriaxone. November 2: Breathing better. Sitting at edge bed. Cough. Oral intake better. Seen by pulmonary Dr. Gonzalez. Antibiotics discontinued. Seen by cardiology. Did not feel he needs any further workup. Currently. November 3: Short of breath. Able to expectorate some. Wheezing. Oral intake fair. Tired. Discussed November 18: Sitting of edge bed. Eating. Some improvement in breathing. Less tired. Increase activity. Does feel a bit better. November 5: Feeling better. Discussed with patient. Will be discharged on tapering steroids. Also nebulizer for DuoNeb. Questions answered. Reminded about smoking. Follow with pulmonary Discussion and discharge planning more than 35 minutes Past medical history to include: COPD, home oxygen 2 L, GERD, AR, back problems, Social history: Lives with the partner called and. Smoked a pack a day for about 53 years stopped about 8 years ago. 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 Family history: Diabetes Physical examination: VITAL SIGNS: 98, 110, 18, 1 53 x 62, 96% GENERAL: Sitting edge of the bed, more comfortable EYES: Pupils equal. Conjunctiva normal. HEENT: External appearance of nose and ears normal, oral cavity grossly normal. NECK: JVD not raised; masses not palpable. HEART: First and second heart sounds are normal; no edema. LUNGS: Respiratory rate increased, decreased breath sounds, ABDOMEN: Soft, nontender, liver spleen not palpable, no masses palpable. PSYCH: Alert and oriented x3; mood and affect anxiousl. MUSCULOSKELETAL:No Clubbing/cyanosis;muscles-grossly intact INVESTIGATIONS, reviewed in the clinical context: 2-D echocardiogram: EF 55-60%. LDL 98.4 pro-calcitonin 0.04 EKG tracing personally reviewed by me-normal sinus rhythm, rate 84. Chest x-ray film personally reviewed by me-possible basilar infiltrate. Hyperinflation. White count 8.9 hemoglobin 12.5 platelets 306 potassium 4.7 creatinine 0.86 Assessment and plan: -Acute severe COPD exacerbation in a prior smoker, chronically steroid dependent: Prednisone 5 mg daily at home DuoNeb every 4, IV Solu-Medrol, nebulized Pulmicort, Perforomist. Discharged on tapering steroids, nebulizer -Pneumonia ruled out. Antibiotics discontinued. Pro-calcitonin 0.04 -Chronic hypoxic respiratory failure secondary to COPD Home oxygen 2 L -Acute on chronic medical debility from underlying COPD -Anterior chest wall pain. Seen by cardiology. Not for any further inpatient workup.. -CAD with a prior history of AR Toprol-XL, Lipitor, aspirin -GERD Omeprazole -Chronic low back pain from arthritis Methocarbamol Disposition: Home Plan - Discharge Summary Discharge Rx Participant: Yes New Discharge Prescriptions: New Pravastatin Sodium [Pravachol] 20 mg PO HS #30 tab predniSONE 10 mg PO DAILY #30 tab Aspirin 81 mg PO DAILY #30 tab Ipratropium-Albuterol Nebulize [Duoneb 0.5 mg-3 mg/3 ml Soln] 3 ml INHALATION RT-Q4H PRN #50 each PRN Reason: Wheezing PARoxetine [Paxil] 20 mg PO DAILY #30 tab Continue Albuterol Inhaler [Ventolin Hfa Inhaler] 2 puff INHALATION RT-QID PRN PRN Reason: Dyspnea Tiotropium 18 Mcg/Puff [Spiriva] 2 puff INHALATION RT-DAILY predniSONE 5 mg PO DAILY Ergocalciferol [Vitamin D2 (DRISDOL)] 50,000 unit PO ROBLES Theophylline 24 Hour [Gurmeet-24] 400 mg PO DAILY Omeprazole 20 mg PO DAILY methocarbamoL [Methocarbamol] 500 mg PO TID Naproxen [EC-Naprosyn] 500 mg PO BID bisacodyL [Bisacodyl] 5 mg PO DAILY Ferrous Sulfate [Iron (65 MG Elemental)] 325 mg PO DAILY Fluticasone Propion/Salmeterol [Fluticasone-Salmeterol 250-50] 1 puff INHALATION RT-BID Sennosides-Docusate Sodium [Senokot-S] 1 tab PO DAILY Discontinued Aspirin EC [Ecotrin] 325 mg PO DAILY Fluticasone Nasal [place] [Flonase Nasal [place]] 1 spray EA NOSTRIL BID Discharge Medication List Albuterol Inhaler [Ventolin Hfa Inhaler] 2 puff INHALATION RT-QID PRN 12/14/14 [History] Tiotropium 18 Mcg/Puff [Spiriva] 2 puff INHALATION RT-DAILY 12/14/14 [History] predniSONE 5 mg PO DAILY 12/14/14 [History] Ergocalciferol [Vitamin D2 (DRISDOL)] 50,000 unit PO ROBLES 05/10/15 [History] Omeprazole 20 mg PO DAILY 08/07/18 [History] Theophylline 24 Hour [Gurmeet-24] 400 mg PO DAILY 08/07/18 [History] Ferrous Sulfate [Iron (65 MG Elemental)] 325 mg PO DAILY 11/15/21 [History] Fluticasone Propion/Salmeterol [Fluticasone-Salmeterol 250-50] 1 puff INHALATION RT-BID 11/15/21 [History] Naproxen [EC-Naprosyn] 500 mg PO BID 11/15/21 [History] Sennosides-Docusate Sodium [Senokot-S] 1 tab PO DAILY 11/15/21 [History] bisacodyL [Bisacodyl] 5 mg PO DAILY 11/15/21 [History] methocarbamoL [Methocarbamol] 500 mg PO TID 11/15/21 [History] Aspirin 81 mg PO DAILY #30 tab 11/19/21 [Rx] Ipratropium-Albuterol Nebulize [Duoneb 0.5 mg-3 mg/3 ml Soln] 3 ml INHALATION RT-Q4H PRN #50 each 11/19/21 [Rx] PARoxetine [Paxil] 20 mg PO DAILY #30 tab 11/19/21 [Rx] Pravastatin Sodium [Pravachol] 20 mg PO HS #30 tab 11/19/21 [Rx] predniSONE 10 mg PO DAILY #30 tab 11/19/21 [Rx] Follow up Appointment(s)/Referral(s): Griselda Hatch MD [STAFF PHYSICIAN] - 12/14/21 2:00 pm Jocy Langley [NON-STAFF] - 1-2 Days Keven Cardona MD [Primary Care Provider] - 1-2 days (Called and left a message for them to call with appointment time. ) Patient Instructions/Handouts: COPD (Chronic Obstructive Pulmonary Disease) (DC) Discharge Disposition: HOME SELF-CARE
[2021-11-21] MEDS ORDERED: ERGOCALCIFEROL 1,250 MCG (50,000 IU) CAPSULE PO SCH (09:00)
== END 2021-11-19 15:22 | disposition home or self-care (01) | DRG 191 ==
LOC: EC 10:05 → 4SSUR 11:45
PROVIDERS: ADMIT Hospitalist; ATTEND Hospitalist
PROC: 5A09357 Assistance with Respiratory Ventilation, Less than 24 Consecutive Hours, Continuous Positive Airway Pressure (ICD-10-PCS; principal; 2021-11-15)
DX: J44.1 Chronic obstructive pulmonary disease with (acute) exacerbation (principal); I25.110 Atherosclerotic heart disease of native coronary artery with unstable angina pectoris; J96.11 Chronic respiratory failure with hypoxia; J98.11 Atelectasis; R56.9 Unspecified convulsions; F32.A Depression, unspecified; K21.9 Gastro-esophageal reflux disease without esophagitis; R53.81 Other malaise; I25.10 Atherosclerotic heart disease of native coronary artery without angina pectoris; G89.29 Other chronic pain; M47.9 Spondylosis, unspecified; R04.0 Epistaxis; Z99.81 Dependence on supplemental oxygen; I25.2 Old myocardial infarction; Z87.891 Personal history of nicotine dependence; Z79.52 Long term (current) use of systemic steroids; Z79.51 Long term (current) use of inhaled steroids; Z79.899 Other long term (current) drug therapy; Z79.82 Long term (current) use of aspirin; Z79.1 Long term (current) use of non-steroidal anti-inflammatories (NSAID); Z86.73 Personal history of transient ischemic attack (TIA), and cerebral infarction without residual deficits; Z88.8 Allergy status to other drugs, medicaments and biological substances; Z87.01 Personal history of pneumonia (recurrent); Z83.3 Family history of diabetes mellitus
CPT/HCPCS: 36415; 71046; 80053; 80061; 83605; 83735; 84145; 84484; 85025; 85610; 85730; 87040; 93005; 93306; 94640; 94667; 94760; 99291

== ENCOUNTER 2022-01-07 18:26 | Inpatient (IN) | payer MEDICARE ==
--- NOTE | 2022-01-07 18:51 | ED ---
General Adult HPI - General Chief complaint: Chest Pain Stated complaint: Chest pain Time Seen by Provider: 01/07/22 18:30 Source: patient Mode of arrival: ambulatory Limitations: no limitations - History of Present Illness Initial comments: Dictation was produced using [employer] dictation software. please excuse any grammatical, word or spelling errors. Chief Complaint: 77-year-old male presents emergency department for chest pain or shortness of breath History of Present Illness: 77-year-old male he has multiple comorbidities pres ents here in emergency department for 1-2 days of chest pain or shortness of breath. Patient has history of COPD he wears home oxygen. Patient denies any fever. No cough. States that the pain is like an ache to his right lower chest. Nonradiating not associated with diaphoresis. Denies any abdominal pain. No diarrhea. The ROS documented in this emergency department record has been reviewed and confirmed by me. Those systems with pertinent positive or negative responses have been documented in the HPI. All other systems are other negative and/or noncontributory. PHYSICAL EXAM: General Impression: Alert and oriented x3, not in acute distress HEENT: Normocephalic atraumatic, extra-ocular movements intact, pupils equal and reactive to light bilaterally, mucous membranes moist. Cardiovascular: Heart regular rate and rhythm Chest: Able to complete full sentences, no retractions, no tachypnea Abdomen: abdomen soft, non-tender, non-distended, no organomegaly Musculoskeletal: Pulses present and equal in all extremities, no peripheral edema Motor: no focal deficits noted Neurological: CN II-XII grossly intact, no focal motor or sensory deficits noted Skin: Intact with no visualized rashes Psych: Normal affect and mood ED course: 77-year-old male presents emergency department for chest pain and shortness of breath. His symptoms are atypical with typical features. Vital si gns upon arrival are within acceptable limits. Patient is in the 90% on 2 L nasal cannula. Heart rate is 114, blood pressure is normal. Patient not in significant distress. EKG shows no signs of ischemia or infarction. Laboratory evaluation obtained. CBC unremarkable. Hemoglobin stable, no leukocytosis. Coag panel is negative. D-dimer is elevated 1.12. Metabolic panel, abdominal labs normal. Cardiac enzymes normal. Chest x-ray shows no acute processes. CT angiography of the chest did not show any evidence of pulmonary embolisms. No other acute processes noted. Clinical presentation concerning for ACS. Patient be admitted with consultation to cardiology and cardiac monitoring. Patient given aspirin EKG interpretation: Ventricular rate, sinus tachycardia,. 173, care is 84, QTC 368. No ME prolongation, no QTC prolongation, no ST or T-wave changes noted. Overall, this EKG is unremarkable - Related Data Home Medications Medication Instructions Recorded Confirmed Albuterol Inhaler [Ventolin Hfa 2 puff INHALATION RT-QID PRN 12/14/14 01/07/22 Inhaler] Tiotropium 18 Mcg/Puff [Spiriva] 2 puff INHALATION RT-DAILY 12/14/14 01/07/22 predniSONE 5 mg PO DAILY 12/14/14 01/07/22 Ergocalciferol [Vitamin D2 50,000 unit PO ROBLES 05/10/15 01/07/22 (DRISDOL)] Omeprazole 20 mg PO DAILY 08/07/18 01/07/22 Theophylline 24 Hour [Gurmeet-24] 400 mg PO DAILY 08/07/18 01/07/22 Ferrous Sulfate [Iron (65 MG 325 mg PO DAILY 11/15/21 01/07/22 Elemental)] Fluticasone Propion/Salmeterol 1 puff INHALATION RT-BID 11/15/21 01/07/22 [Fluticasone-Salmeterol 250-50] Naproxen [EC-Naprosyn] 500 mg PO BID 11/15/21 01/07/22 Sennosides-Docusate Sodium 1 tab PO DAILY 11/15/21 01/07/22 [Senokot-S] bisacodyL [Bisacodyl] 5 mg PO DAILY 11/15/21 01/07/22 methocarbamoL [Methocarbamol] 500 mg PO TID 11/15/21 01/07/22 Budesonide-Formot 160-4.5 Mcg 2 puff INHALATION DIRECTED 01/07/22 01/07/22 [Symbicort 160-4.5 Mcg Inhaler] Ciclopirox Olamine [Loprox 0.77% 1 applic TOPICAL BID PRN 01/07/22 01/07/22 cream] Previous Rx's Medication Instructions Recorded Aspirin 81 mg PO DAILY #30 tab 11/19/21 Ipratropium-Albuterol Nebulize 3 ml INHALATION RT-Q4H PRN #50 each 11/19/21 [Duoneb 0.5 mg-3 mg/3 ml Soln] Pravastatin Sodium [Pravachol] 20 mg PO HS #30 tab 11/19/21 Allergies Allergy/AdvReac Type Severity Reaction Status Date / Time atorvastatin AdvReac nausea, Verified 01/07/22 21:26 stomach pain, vomiting metoprolol [From Toprol XL] AdvReac nausea, Verified 01/07/22 21:26 stomach pain, vomiting Review of Systems ROS Statement: Those systems with pertinent positive or pertinent negative responses have been documented in the HPI. ROS Other: All systems not noted in ROS Statement are negative. Past Medical History Past Medical History: COPD, CVA/TIA, GERD/Reflux, Myocardial Infarction ([place]), Pneumonia Additional Past Medical History / Comment(s): back problems - pulled lumbar muscles (40years ago), Ct abdomen 12/04 for abdominal pain Last Myocardial Infarction Date:: 2011 History of Any Multi-Drug Resistant Organisms: None Reported Past Surgical History: Back Surgery Additional Past Surgical History / Comment(s): left index finger surgery Past Anesthesia/Blood Transfusion Reactions: No Reported Reaction Past Psychological History: Depression Smoking Status: Former smoker Past Alcohol Use History: None Reported Past Drug Use History: None Reported - Past Family History Mother Family Medical History: Diabetes Mellitus General Exam Limitations: no limitations Course Vital Signs 01/07/22 18:28 Temperature 98 F Pulse Rate 114 H Respiratory 22 Rate Blood Pressure 148/100 O2 Sat by Pulse 100 Oximetry Medical Decision Making - Lab Data Result diagrams: 01/07/22 18:47 01/07/22 18:47 Lab Results 01/07/22 01/07/22 01/07/22 Range/Units 18:47 18:47 18:47 WBC 9.4 (3.8-10.6) k/uL RBC 4.97 (4.30-5.90) m/uL Hgb 12.2 L (13.0-17.5) gm/dL Hct 40.0 (39.0-53.0) % MCV 80.5 (80.0-100.0) fL MCH 24.5 L (25.0-35.0) pg MCHC 30.4 L (31.0-37.0) g/dL RDW 15.1 (11.5-15.5) % Plt Count 296 (150-450) k/uL MPV 7.0 Neutrophils % 71 % Lymphocytes % 18 % Monocytes % 5 % Eosinophils % 2 % Basophils % 1 % Neutrophils # 6.6 (1.3-7.7) k/uL Lymphocytes # 1.7 (1.0-4.8) k/uL Monocytes # 0.5 (0-1.0) k/uL Eosinophils # 0.2 (0-0.7) k/uL Basophils # 0.1 (0-0.2) k/uL Hypochromasia Marked PT 9.6 (9.0-12.0) sec INR 0.9 (<1.2) APTT 22.1 (22.0-30.0) sec D-Dimer 1.12 H (<0.60) mg/L FEU Sodium 138 (137-145) mmol/L Potassium 4.1 (3.5-5.1) mmol/L Chloride 100 (98-107) mmol/L Carbon Dioxide 28 (22-30) mmol/L Anion Gap 10 mmol/L BUN 19 (9-20) mg/dL Creatinine 0.80 (0.66-1.25) mg/dL Est GFR (CKD-EPI)AfAm >90 (>60 ml/min/1.73 sqM) Est GFR (CKD-EPI)NonAf 87 (>60 ml/min/1.73 sqM) Glucose 91 (74-99) mg/dL Calcium 8.9 (8.4-10.2) mg/dL Magnesium 1.8 (1.6-2.3) mg/dL Total Bilirubin 0.6 (0.2-1.3) mg/dL AST 18 (17-59) U/L ALT 14 (4-49) U/L Alkaline Phosphatase 76 (38-126) U/L Troponin I (0.000-0.034) ng/mL NT-Pro-B Natriuret Pep pg/mL Total Protein 6.1 L (6.3-8.2) g/dL Albumin 3.9 (3.5-5.0) g/dL 01/07/22 01/07/22 Range/Units 18:47 18:47 WBC (3.8-10.6) k/uL RBC (4.30-5.90) m/uL Hgb (13.0-17.5) gm/dL Hct (39.0-53.0) % MCV (80.0-100.0) fL MCH (25.0-35.0) pg MCHC (31.0-37.0) g/dL RDW (11.5-15.5) % Plt Count (150-450) k/uL MPV Neutrophils % % Lymphocytes % % Monocytes % % Eosinophils % % Basophils % % Neutrophils # (1.3-7.7) k/uL Lymphocytes # (1.0-4.8) k/uL Monocytes # (0-1.0) k/uL Eosinophils # (0-0.7) k/uL Basophils # (0-0.2) k/uL Hypochromasia PT (9.0-12.0) sec INR (<1.2) APTT (22.0-30.0) sec D-Dimer (<0.60) mg/L FEU Sodium (137-145) mmol/L Potassium (3.5-5.1) mmol/L Chloride (98-107) mmol/L Carbon Dioxide (22-30) mmol/L Anion Gap mmol/L BUN (9-20) mg/dL Creatinine (0.66-1.25) mg/dL Est GFR (CKD-EPI)AfAm (>60 ml/min/1.73 sqM) Est GFR (CKD-EPI)NonAf (>60 ml/min/1.73 sqM) Glucose (74-99) mg/dL Calcium (8.4-10.2) mg/dL Magnesium (1.6-2.3) mg/dL Total Bilirubin (0.2-1.3) mg/dL AST (17-59) U/L ALT (4-49) U/L Alkaline Phosphatase (38-126) U/L Troponin I <0.012 (0.000-0.034) ng/mL NT-Pro-B Natriuret Pep 46 pg/mL Total Protein (6.3-8.2) g/dL Albumin (3.5-5.0) g/dL Disposition Clinical Impression: Chest pain Disposition: ADMITTED IP TO THIS HOSP Condition: Fair Referrals: Keven Cardona MD [Primary Care Provider] - 1-2 days Decision Time: 21:52
[2022-01-07 18:54] LABS: Basophils # (A) 0.1 k/uL (0-0.2); Basophils % (A) 1 %; Eosinophils # (A) 0.2 k/uL (0-0.7); Eosinophils % (A) 2 %; HGB 12.2 gm/dL (13.0-17.5); Hypochromasia Marked; Lymphocytes # (A) 1.7 k/uL (1.0-4.8); Lymphocytes % (A) 18 %; MCH 24.5 pg (25.0-35.0); MCHC 30.4 g/dL (31.0-37.0); MCV 80.5 fL (80.0-100.0); Monocytes # (A) 0.5 k/uL (0-1.0); Monocytes % (A) 5 %; Neutrophils # (A) 6.6 k/uL (1.3-7.7); Neutrophils % (A) 71 %; Platelet Count 296 k/uL (150-450); RBC 4.97 m/uL (4.30-5.90); RDW 15.1 % (11.5-15.5); WBC 9.4 k/uL (3.8-10.6)
--- NOTE | 2022-01-07 19:04 | XR ---
EXAMINATION TYPE: XR chest 2V DATE OF EXAM: 01/07/2022 COMPARISON: 11/15/2021 HISTORY: Shortness of breath TECHNIQUE: Frontal and lateral views of the chest are obtained. FINDINGS: Scattered senescent parenchymal changes noted. Hyperinflation compatible with COPD. No evidence for infiltrate. No evidence for atelectasis. Heart size is stable. Mediastinal structures are stable and grossly unremarkable. No evidence for hilar prominence. Degenerative changes dorsal spine. . Vertebroplasty changes noted. IMPRESSION: 1. No evidence for acute pulmonary disease.
[2022-01-07 19:07] LABS: ALT 14 U/L (4-49); AST 18 U/L (17-59); African American GFR (CKD) >90 (>60 ml/min/1.73 sqM); Albumin 3.9 g/dL (3.5-5.0); Alkaline Phosphatase 76 U/L (38-126); Anion Gap 10 mmol/L; Blood Urea Nitrogen 19 mg/dL (9-20); Calcium 8.9 mg/dL (8.4-10.2); Carbon Dioxide 28 mmol/L (22-30); Chloride 100 mmol/L (98-107); Glucose 91 mg/dL (74-99); Magnesium 1.8 mg/dL (1.6-2.3); Non-African American GFR(CKD) 87 (>60 ml/min/1.73 sqM); Potassium 4.1 mmol/L (3.5-5.1); Sodium 138 mmol/L (137-145); Total Bilirubin 0.6 mg/dL (0.2-1.3); Total Protein 6.1 g/dL (6.3-8.2)
[2022-01-07 19:13] LABS: INR 0.9 (<1.2); Partial Thromboplastin Time 22.1 sec (22.0-30.0); Prothrombin Time 9.6 sec (9.0-12.0)
--- NOTE | 2022-01-07 20:52 | CT ---
EXAMINATION TYPE: CT angio chest DATE OF EXAM: 01/07/2022 COMPARISON: none HISTORY: Elevated D-Dimer. SOB. HX of PR and TIA/CVA CT DLP: 489.3 mGycm CONTRAST: CT chest with contrast and 3D reconstruction with MIP imaging is performed with IV Contrast, patient injected with 100cc mL of Isovue 370. Contrast-enhanced CT of the chest was performed through the course of the pulmonary arteries with melyssa g and mediastinal window settings submitted. 3D reconstruction with MIP imaging was also performed. PULMONARY ARTERIES: The pulmonary arteries and their major tributaries are patent. I do not see kapil dence for sizable filling defect to suggest pulmonary embolic process. LUNGS: The lungs are clear and free of infiltrate. No evidence for atelectasis. No pulmonary nodule or mass is detected. No pleural effusion. MEDIASTINUM: Thoracic aorta is of normal caliber,however, evaluation is limited given timing of the contrast bolus. If there is concern for thoracic aortic pathology consider ZULEYKA. Correlate clinicall y . The heart is not enlarged. No evidence for mediastinal mass. No mediastinal lymph nodes greater than 1cm. HILAR STRUCTURES: No evidence for mass. No hilar lymph nodes greater than 1 cm. UPPER ABDOMEN: No significant abnormality is seen. IMPRESSION: 1. No evidence for Pulmonary embolism at this time.
[2022-01-07] MEDS ORDERED: oxyCODONE-APAP 10-325MG 1 EACH TAB PO STA (21:48)
[2022-01-07] MEDS ORDERED: ASPIRIN 81 MG PO STA (21:48)
[2022-01-07] MEDS ORDERED: NITROGLYCERIN SL TABS 0.4 MG TAB SUBLINGUAL PRN (21:49)
[2022-01-08] MEDS ORDERED: ALBUTEROL NEBULIZED 2.5 MG/3 ML INHALATION PRN (00:04)
[2022-01-08] MEDS ORDERED: IPRATROPIUM-ALBUTEROL 3 ML NEB INHALATION PRN (00:04)
[2022-01-08] MEDS ORDERED: SYMBICORT 160-4.5 MCG INHALER INHALATION SCH ×2 (00:15→08:00)
[2022-01-08] MEDS: IPRATROPIUM 0.5 MG/2.5 ML NEBU INHALATION SCH ×2 (07:21→11:13)
[2022-01-08] MEDS ORDERED: SYMBICORT 80-4.5 MCG INHALER INHALATION SCH (08:00)
[2022-01-08] MEDS: methocarbamoL 500 MG TAB PO SCH ×3 (08:45→19:22)
[2022-01-08] MEDS: FERROUS SULFATE 325 MG TAB PO SCH (08:45)
[2022-01-08] MEDS: THEOPHYLLINE 24 HOUR 400 MG CAP.ER.24H PO SCH (08:45)
[2022-01-08] MEDS: ASPIRIN 81 MG PO SCH (08:45)
[2022-01-08] MEDS: PANTOPRAZOLE 40 MG TABLET PO SCH (08:46)
[2022-01-08] MEDS: NAPROXEN 250 MG TAB PO SCH ×2 (08:46→19:22)
[2022-01-08] MEDS: bisacodyL 5 MG TABLET.DR PO SCH (08:46)
[2022-01-08] MEDS: SENNOSIDES-DOCUSATE SODIUM 1 EACH TAB PO SCH (08:46)
[2022-01-08] MEDS ORDERED: CLOTRIMAZOLE 1% CREAM 30 GM TUBE TOPICAL PRN (09:00)
[2022-01-08] MEDS ORDERED: ASPIRIN 325 MG TAB PO SCH (09:00)
[2022-01-08] MEDS ORDERED: predniSONE 5 MG TAB PO SCH (09:00)
[2022-01-08 10:36] LABS: Chol/HDL Ratio 3.83 Ratio; LDL Cholesterol,Calculated 93.6 mg/dL (0.0-131.0)
[2022-01-08] MEDS: LORATADINE-PSEUDOEPH 5-120 MG 1 EACH TAB.ER.12H PO SCH ×2 (13:35→19:22)
--- NOTE | 2022-01-08 14:37 | P.CRDCN ---
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 He has a history of COPD, oxygen dependent, hyperlipidemia, obstructive sleep apnea for which he is on CPAP but has been having issues with this over the last several weeks, and prior nicotine dependence. He was here and November of this year at which time he had an echocardiogram that showed preserved LV systolic function. He presented this admission with mostly complaints of shortness of breath that had been worsening over the last 3 weeks. He also complains of intermittent nausea and abdominal bloating and right mid back pain that he describes as a stiffness. We were consulted to see the patient for evaluation of chest pain. The patient denies any symptoms of chest pain. Troponins have been negative 3. EKG on admission shows sinus tachycardi a with no ST-T wave abnormalities indicative of ischemia, unchanged compared to previous EKG. Chest x-ray admission showed no evidence for acute cardiopulmonary disease. D-dimer was elevated and a CT of the chest was negative for pulmonary embolism. Vital signs have been stable he's been afebrile. Upon examination the patient is sitting up at the site of the bed. He currently feels his breathing is essentially at his baseline until he gets up and moves and he feels quite short of breath. His activity at home is quite limited due to his breathing. He does complain of some mild nausea since Having his treatment this morning and feels it's related to albuterol. Continues to complain of a stiffness in his right mid back. Complains of some mild positional dizziness at times. No syncope. Complains of palpitations with activity when he is feeling short of breath. Past Medical History Past Medical History: COPD, CVA/TIA, GERD/Reflux, Myocardial Infarction ([place]), Pneumonia Additional Past Medical History / Comment(s): back problems - pulled lumbar muscles (40years ago), Ct abdomen 12/04 for abdominal pain Last Myocardial Infarction Date:: 2011 History of Any Multi-Drug Resistant Organisms: None Reported Past Surgical History: Back Surgery Additional Past Surgical History / Comment(s): left index finger surgery Past Anesthesia/Blood Transfusion Reactions: No Reported Reaction Past Psychological History: Depression Smoking Status: Former smoker Past Alcohol Use History: None Reported Past Drug Use History: None Reported - Past Family History Mother Family Medical History: Diabetes Mellitus Medications and Allergies Home Medications Medication Instructions Recorded Confirmed Type Albuterol Inhaler [Ventolin Hfa 2 puff INHALATION RT-QID PRN 12/14/14 01/07/22 History Inhaler] Tiotropium 18 Mcg/Puff [Spiriva] 2 puff INHALATION RT-DAILY 12/14/14 01/07/22 History predniSONE 5 mg PO DAILY 12/14/14 01/07/22 History Ergocalciferol [Vitamin D2 50,000 unit PO ROBLES 05/10/15 01/07/22 History (DRISDOL)] Omeprazole 20 mg PO DAILY 08/07/18 01/07/22 History Theophylline 24 Hour [Gurmeet-24] 400 mg PO DAILY 08/07/18 01/07/22 History Ferrous Sulfate [Iron (65 MG 325 mg PO DAILY 11/15/21 01/07/22 History Elemental)] Fluticasone Propion/Salmeterol 1 puff INHALATION RT-BID 11/15/21 01/07/22 History [Fluticasone-Salmeterol 250-50] Naproxen [EC-Naprosyn] 500 mg PO BID 11/15/21 01/07/22 History Sennosides-Docusate Sodium 1 tab PO DAILY 11/15/21 01/07/22 History [Senokot-S] bisacodyL [Bisacodyl] 5 mg PO DAILY 11/15/21 01/07/22 History methocarbamoL [Methocarbamol] 500 mg PO TID 11/15/21 01/07/22 History Aspirin 81 mg PO DAILY #30 tab 11/19/21 01/07/22 Rx Ipratropium-Albuterol Nebulize 3 ml INHALATION RT-Q4H PRN #50 each 11/19/21 01/07/22 Rx [Duoneb 0.5 mg-3 mg/3 ml Soln] Pravastatin Sodium [Pravachol] 20 mg PO HS #30 tab 11/19/21 01/07/22 Rx Budesonide-Formot 160-4.5 Mcg 2 puff INHALATION DIRECTED 01/07/22 01/07/22 History [Symbicort 160-4.5 Mcg Inhaler] Ciclopirox Olamine [Loprox 0.77% 1 applic TOPICAL BID PRN 01/07/22 01/07/22 History cream] Allergies Allergy/AdvReac Type Severity Reaction Status Date / Time atorvastatin AdvReac nausea, Verified 01/07/22 21:26 stomach pain, vomiting metoprolol [From Toprol XL] AdvReac nausea, Verified 01/07/22 21:26 stomach pain, vomiting Physical Exam Vitals: Vital Signs Temp Pulse Pulse Resp BP BP Pulse Ox 01/08/22 07:32 84 01/08/22 07:24 80 01/08/22 07:00 96.8 F L 85 20 132/67 98 01/08/22 02:03 97.7 F 65 17 108/64 100 01/07/22 23:30 97.9 F 89 17 106/54 98 01/07/22 22:51 98.1 F 01/07/22 21:56 118 H 19 122/75 94 L 01/07/22 18:28 98 F 114 H 22 148/100 100 Intake and Output 01/07/22 01/08/22 01/08/22 22:59 06:59 14:59 Other: Voiding Method Toilet # Voids 1 Weight 83.915 kg 83.915 kg PHYSICAL EXAMINATION: This is a 77-year-old male in no apparent distress at the time of my examination. VITAL SIGNS: Blood pressure 132/67, heart rate 85, respirations 20, temp 96.8F axillary. Patient is 98 % on 2 L via nasal cannula. HEENT: Head is atraumatic, normocephalic. Pupils are equal, round. Sclerae anicteric. Conjunctivae are clear. Mucous membranes of the mouth are moist. Neck is supple. There is no elevated jugular venous pressure. No carotid bruit is heard. CHEST EXAMINATION: Lungs reveal diminished air entry bilaterally with faint expiratory wheezing. Respirations even and nonlabored. HEART EXAMINATION: Heart regular, positive S1 and S2. No S3. No S4. ABDOMEN: Soft, nontender, mild distention noted. Bowel sounds are heard. No organomegaly noted. EXTREMITIES: 2+ peripheral pulses with no evidence of peripheral edema and no calf tenderness noted. NEUROLOGIC EXAMINATION: Patient is awake, alert and oriented x3. Results 01/07/22 18:47 01/07/22 18:47 Cardiac Enzymes 01/07/22 01/07/22 01/07/22 Range/Units 18:47 18:47 22:28 AST 18 (17-59) U/L Troponin I <0.012 <0.012 (0.000-0.034) ng/mL 01/08/22 Range/Units 00:25 AST (17-59) U/L Troponin I <0.012 (0.000-0.034) ng/mL Coagulation 01/07/22 Range/Units 18:47 PT 9.6 (9.0-12.0) sec APTT 22.1 (22.0-30.0) sec Lipids 01/07/22 Range/Units 18:47 Triglycerides 208.00 H (0.00-149.00) mg/dL Cholesterol 183.00 (0.00-200.00) mg/dL HDL Cholesterol 47.80 (40.00-60.00) mg/dL Cholesterol/HDL Ratio 3.83 Ratio CBC 01/07/22 Range/Units 18:47 WBC 9.4 (3.8-10.6) k/uL RBC 4.97 (4.30-5.90) m/uL Hgb 12.2 L (13.0-17.5) gm/dL Hct 40.0 (39.0-53.0) % Plt Count 296 (150-450) k/uL Comprehensive Metabolic Panel 01/07/22 Range/Units 18:47 Sodium 138 (137-145) mmol/L Potassium 4.1 (3.5-5.1) mmol/L Chloride 100 (98-107) mmol/L Carbon Dioxide 28 (22-30) mmol/L BUN 19 (9-20) mg/dL Creatinine 0.80 (0.66-1.25) mg/dL Glucose 91 (74-99) mg/dL Calcium 8.9 (8.4-10.2) mg/dL AST 18 (17-59) U/L ALT 14 (4-49) U/L Alkaline Phosphatase 76 (38-126) U/L Total Protein 6.1 L (6.3-8.2) g/dL Albumin 3.9 (3.5-5.0) g/dL Current Medications Generic Name Dose Route Start Last Admin Trade Name Freq PRN Reason Stop Dose Admin Albuterol/Ipratropium 3 ml 01/08/22 00:04 Ipratropium-Albuterol 3 Ml Neb INHALATION RT-Q4H PRN Wheezing Aspirin 81 mg 01/08/22 09:00 01/08/22 08:45 Aspirin 81 Mg PO 81 mg DAILY BRANDI Administration Bisacodyl 5 mg 01/08/22 09:00 01/08/22 08:46 Bisacodyl 5 Mg Tablet.Dr PO 5 mg DAILY BRANDI Administration Budesonide/Formoterol Fumarate 2 puff 01/08/22 08:00 01/08/22 07:21 Symbicort 160-4.5 Mcg Inhaler INHALATION 2 puff RT-BID BRANDI Administration Clotrimazole 1 applic 01/08/22 09:00 Clotrimazole 1% Cream 30 Gm Tube TOPICAL BID PRN RINGWORM, LEFT LEG Ergocalciferol 50,000 mcg 01/09/22 09:00 Ergocalciferol 1,250 Mcg (50,000 Iu) Capsule PO ROBLES [facility] Ferrous Sulfate 325 mg 01/08/22 09:00 01/08/22 08:45 Ferrous Sulfate 325 Mg Tab PO 325 mg DAILY BRANDI Administration Ipratropium [place] 0.5 mg 01/08/22 08:00 01/08/22 07:21 Ipratropium 0.5 Mg/2.5 Ml Nebu INHALATION 0.5 mg RT-QID BRANDI Administration Methocarbamol 500 mg 01/08/22 09:00 01/08/22 08:45 Methocarbamol 500 Mg Tab PO 500 mg TID BRANDI Administration Naproxen 500 mg 01/08/22 09:00 01/08/22 08:46 Naproxen 250 Mg Tab PO 500 mg BID [facility] Administration Nitroglycerin 0.4 mg 01/07/22 21:49 Nitroglycerin Sl Tabs 0.4 Mg Tab SUBLINGUAL Q5M PRN Chest Pain Pantoprazole Sodium 40 mg 01/08/22 07:30 01/08/22 08:46 Pantoprazole 40 Mg Tablet PO 40 mg AC-BRKFST BRANDI Administration Pravastatin Sodium 20 mg 01/08/22 21:00 Pravastatin Sodium 20 Mg Tab PO HS BRANDI Prednisone 5 mg 01/08/22 09:00 01/08/22 08:45 Prednisone 5 Mg Tab PO 5 mg DAILY [facility] Administration Senna/Docusate Sodium 1 each 01/08/22 09:00 01/08/22 08:46 Sennosides-Docusate Sodium 1 Each Tab PO 1 each DAILY BRANDI Administration Theophylline 400 mg 01/08/22 09:00 01/08/22 08:45 Theophylline 24 Hour 400 Mg Cap.Er.24h PO 400 mg DAILY BRANDI Administration Intake and Output 01/07/22 01/08/22 01/08/22 22:59 06:59 14:59 Other: Voiding Method Toilet # Voids 1 Weight 83.915 kg 83.915 kg 01/07/22 18:47 01/07/22 18:47 Assessment and Plan Assessment: #1 worsening shortness of breath and dyspnea on exertion over the last 3 weeks, likely related to underlying COPD and issues with CPAP #2 right mid back pain does not seem to be cardiac in nature, troponins negative 3, no ischemic changes noted on EKG #3 hyperlipidemia #4 nausea Plan: From cardiology perspective and acute coronary event has been ruled out. Symptoms appear to be respiratory in nature. At this time there is no need for further inpatient cardiac workup. Patient will be seen in the office as an outpatient by Dr. Gaytan for further evaluation. 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 Patient was seen and examined.
[2022-01-08] MEDS: BUDESONIDE 1 MG/2 ML NEBU INHALATION SCH ×2 (15:36→19:03)
[2022-01-08] MEDS: IPRATROPIUM-ALBUTEROL 3 ML NEB INHALATION SCH ×4 (15:37→23:05)
[2022-01-08] MEDS: FORMOTEROL FUMARATE 20 MCG/2 ML NEBU INHALATION SCH ×2 (15:37→19:03)
--- NOTE | 2022-01-08 16:57 | P.HPIM ---
History of Present Illness H&P Date: 01/08/22 Chief Complaint: Short of breath History of presenting complaint This is a very pleasant 76-year-old patient who follows with Dr. Cardona. Chronic stable medical conditions include GERD, prior [place], arthritis, GERD, home oxygen 2 L. At baseline short of breath . Patient presents with worsening short of breath. Appetite is fair. No fever no chills. No edema. It has some pain in the right shoulder blade. Intermittent. Possibly related to body movement. Short of breath at rest. Some wheezing Review of systems: GEN.: Tired EYES: None HEENT: None NECK: None RESPIRATORY: As above CARDIOVASCULAR: As above GASTROINTESTINAL: None GENITOURINARY: None MUSCULOSKELETAL: Joint pains LYMPHATICS: None HEMATOLOGICAL: None PSYCHIATRY: Bit anxious NEUROLOGICAL: None Past medical history to include: COPD, home oxygen 2 L, GERD, [place], back problems, Social history: Lives with the partner Jalyn Smoked a pack a day for about 53 years stopped about 2013. 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 Family history: Diabetes Physical examination: VITAL SIGNS: 96.8, 85, 20, 132/67, 98% on 2 L GENERAL: BMI 25.8, sitting of the edge of the bed, short of breath EYES: Pupils equal. Conjunctiva normal. HEENT: External appearance of nose and ears normal, oral cavity grossly normal. NECK: JVD not raised; masses not palpable. HEART: First and second heart sounds are normal; no edema. LUNGS: Respiratory rate increased, decreased breath sounds, prolonged expiration and wheezing. ABDOMEN: Soft, nontender, liver spleen not palpable, no masses palpable. PSYCH: Alert and oriented x3; mood and affect anxious MUSCULOSKELETAL:No Clubbing/cyanosis;muscles-grossly intact NEUROLOGICAL: Cranial nerves grossly intact; no facial asymmetry, power and sensation grossly intact. LYMPHATICS: No lymph nodes palpable in the axilla and neck INVESTIGATIONS, reviewed in the clinical context: WBC 9.4 hemoglobin 12.2 platelets 26 sodium 138 potassium 4.1 creatinine 0.80 Troponin I 3 negative EKG tracing personally reviewed by me-sinus tachycardia Chest x-ray film personally reviewed by me-hyperinflation Chest CT: Negative for PE Assessment and plan: -Acute severe COPD exacerbation in a prior smoker, chronically steroid dependent: DuoNeb every 4, IV Solu-Medrol, nebulized Pulmicort, Perforomist. Discharged on tapering steroids, nebulizer -Chronic hypoxic respiratory failure secondary to COPD Home oxygen 2 L -chronic medical debility from underlying COPD -Posterior chest wall pain. Cardiology consulted -CAD with a prior history of [place] Toprol-XL, Lipitor, aspirin -GERD Omeprazole -Chronic low back pain from arthritis Methocarbamol DuoNeb, nebulized Pulmicort, IV Solu-Medrol. Home medications. Cardiology consulted. Discussed with patient. Given the complexity and severity of patient's condition expect the patient to be in the hospital at least for 2 overnights Past Medical History Past Medical History: COPD, CVA/TIA, GERD/Reflux, Myocardial Infarction ([place]), Pneumonia Additional Past Medical History / Comment(s): back problems - pulled lumbar muscles (40years ago), Ct abdomen 12/04 for abdominal pain Last Myocardial Infarction Date:: 2011 History of Any Multi-Drug Resistant Organisms: None Reported Past Surgical History: Back Surgery Additional Past Surgical History / Comment(s): left index finger surgery Past Anesthesia/Blood Transfusion Reactions: No Reported Reaction Past Psychological History: Depression Smoking Status: Former smoker Past Alcohol Use History: None Reported Past Drug Use History: None Reported - Past Family History Mother Family Medical History: Diabetes Mellitus Medications and Allergies Home Medications Medication Instructions Recorded Confirmed Type Albuterol Inhaler [Ventolin Hfa 2 puff INHALATION RT-QID PRN 12/14/14 01/07/22 History Inhaler] Tiotropium 18 Mcg/Puff [Spiriva] 2 puff INHALATION RT-DAILY 12/14/14 01/07/22 History predniSONE 5 mg PO DAILY 12/14/14 01/07/22 History Ergocalciferol [Vitamin D2 50,000 unit PO ROBLES 05/10/15 01/07/22 History (DRISDOL)] Omeprazole 20 mg PO DAILY 08/07/18 01/07/22 History Theophylline 24 Hour [[place]ur[place]-24] 400 mg PO DAILY 08/07/18 01/07/22 History Ferrous Sulfate [Iron (65 MG 325 mg PO DAILY 11/15/21 01/07/22 History Elemental)] Fluticasone Propion/Salmeterol 1 puff INHALATION RT-BID 11/15/21 01/07/22 History [Fluticasone-Salmeterol 250-50] Naproxen [EC-Naprosyn] 500 mg PO BID 11/15/21 01/07/22 History Sennosides-Docusate Sodium 1 tab PO DAILY 11/15/21 01/07/22 History [Senokot-S] bisacodyL [Bisacodyl] 5 mg PO DAILY 11/15/21 01/07/22 History methocarbamoL [Methocarbamol] 500 mg PO TID 11/15/21 01/07/22 History Aspirin 81 mg PO DAILY #30 tab 11/19/21 01/07/22 Rx Ipratropium-Albuterol Nebulize 3 ml INHALATION RT-Q4H PRN #50 each 11/19/21 01/07/22 Rx [Duoneb 0.5 mg-3 mg/3 ml Soln] Pravastatin Sodium [Pravachol] 20 mg PO HS #30 tab 11/19/21 01/07/22 Rx Budesonide-Formot 160-4.5 Mcg 2 puff INHALATION DIRECTED 01/07/22 01/07/22 History [Symbicort 160-4.5 Mcg Inhaler] Ciclopirox Olamine [Loprox 0.77% 1 applic TOPICAL BID PRN 01/07/22 01/07/22 History cream] Allergies Allergy/AdvReac Type Severity Reaction Status Date / Time atorvastatin AdvReac nausea, Verified 01/07/22 21:26 stomach pain, vomiting metoprolol [From Toprol XL] AdvReac nausea, Verified 01/07/22 21:26 stomach pain, vomiting Physical Exam Vitals: Vital Signs Temp Pulse Pulse Resp BP BP Pulse Ox 01/08/22 15:52 92 01/08/22 15:38 90 01/08/22 14:02 97.1 F L 93 18 136/70 98 01/08/22 11:24 88 01/08/22 11:14 88 01/08/22 07:32 84 01/08/22 07:24 80 01/08/22 07:00 96.8 F L 85 20 132/67 98 01/08/22 02:03 97.7 F 65 17 108/64 100 01/07/22 23:30 97.9 F 89 17 106/54 98 01/07/22 22:51 98.1 F 01/07/22 21:56 118 H 19 122/75 94 L 01/07/22 18:28 98 F 114 H 22 148/100 100 Intake and Output 01/08/22 01/08/22 01/08/22 06:59 14:59 22:59 Intake Total 240 Balance 240 Intake: Oral 240 Other: Voiding Method Toilet # Voids 1 1 Weight 83.915 kg Results CBC & Chem 7: 01/07/22 18:47 01/07/22 18:47 Labs: Abnormal Lab Results - Last 24 Hours (Table) 01/07/22 01/07/22 01/07/22 Range/Units 18:47 18:47 18:47 Hgb 12.2 L (13.0-17.5) gm/dL MCH 24.5 L (25.0-35.0) pg MCHC 30.4 L (31.0-37.0) g/dL D-Dimer 1.12 H (<0.60) mg/L FEU Total Protein 6.1 L (6.3-8.2) g/dL Triglycerides (0.00-149.00) mg/dL VLDL Cholesterol, Calc (5.00-40.00) mg/dL 01/07/22 Range/Units 18:47 Hgb (13.0-17.5) gm/dL MCH (25.0-35.0) pg MCHC (31.0-37.0) g/dL D-Dimer (<0.60) mg/L FEU Total Protein (6.3-8.2) g/dL Triglycerides 208.00 H (0.00-149.00) mg/dL VLDL Cholesterol, Calc 41.60 H (5.00-40.00) mg/dL
[2022-01-08] MEDS: methylPREDNISolone SOD SUCCI 40 MG/ML 1 ML VIAL IV SCH (17:12)
[2022-01-08] MEDS: PRAVASTATIN SODIUM 20 MG TAB PO SCH (19:22)
[2022-01-08] MEDS: ACETAMINOPHEN TAB 325 MG TAB PO PRN (19:26)
[2022-01-09] MEDS: methylPREDNISolone SOD SUCCI 40 MG/ML 1 ML VIAL IV SCH ×3 (00:05→16:05)
[2022-01-09] MEDS: IPRATROPIUM-ALBUTEROL 3 ML NEB INHALATION SCH ×6 (03:08→23:27)
[2022-01-09] MEDS: BUDESONIDE 1 MG/2 ML NEBU INHALATION SCH ×2 (07:02→18:53)
[2022-01-09] MEDS: FORMOTEROL FUMARATE 20 MCG/2 ML NEBU INHALATION SCH ×2 (07:02→18:53)
[2022-01-09] MEDS: ACETAMINOPHEN TAB 325 MG TAB PO PRN ×2 (07:27→16:10)
[2022-01-09] MEDS: PANTOPRAZOLE 40 MG TABLET PO SCH (07:27)
[2022-01-09] MEDS ORDERED: ERGOCALCIFEROL 1,250 MCG (50,000 IU) CAPSULE PO SCH (09:00)
[2022-01-09] MEDS: bisacodyL 5 MG TABLET.DR PO SCH (09:13)
[2022-01-09] MEDS: NAPROXEN 250 MG TAB PO SCH ×2 (09:13→19:15)
[2022-01-09] MEDS: FERROUS SULFATE 325 MG TAB PO SCH (09:13)
[2022-01-09] MEDS: SENNOSIDES-DOCUSATE SODIUM 1 EACH TAB PO SCH (09:13)
[2022-01-09] MEDS: LORATADINE-PSEUDOEPH 5-120 MG 1 EACH TAB.ER.12H PO SCH ×2 (09:14→19:15)
[2022-01-09] MEDS: methocarbamoL 500 MG TAB PO SCH ×3 (09:14→19:16)
[2022-01-09] MEDS: ASPIRIN 81 MG PO SCH (09:14)
[2022-01-09] MEDS: THEOPHYLLINE 24 HOUR 400 MG CAP.ER.24H PO SCH (09:15)
--- NOTE | 2022-01-09 12:26 | P.PN ---
Progress Note - Text Progress Note Date: 01/09/22 Chief Complaint: Short of breath History of presenting complaint This is a very pleasant 76-year-old patient who follows with Dr. Cardona. Chronic stable medical conditions include GERD, prior [place], arthritis, GERD, home oxygen 2 L. At baseline short of breath . Patient presents with worsening short of breath. Appetite is fair. No fever no chills. No edema. It has some pain in the right shoulder blade. Intermittent. Possibly related to body movement. Short of b reath at rest. Some wheezing Admitted with severe COPD exacerbation. [place] Perforomist, steroids. December: Slight improvement in shortness of breath. Eating some. Tired. Have the patient sit up on a chair. Continue incentive spirometry. Active Medications Acetaminophen (Acetaminophen Tab 325 Mg Tab) 650 mg PO Q6HR PRN PRN Reason: Fever and/ or Mild Pain Last Admin: 01/09/22 07:27 Dose: 650 mg Albuterol/Ipratropium (Ipratropium-Albuterol 3 Ml Neb) 3 ml INHALATION RT-Q4H PRN PRN Reason: Wheezing Albuterol/Ipratropium (Ipratropium-Albuterol 3 Ml Neb) 3 ml INHALATION RT-Q4H [facility] Last Admin: 01/09/22 11:02 Dose: 3 ml Aspirin (Aspirin 81 Mg) 81 mg PO DAILY [facility] Last Admin: 01/09/22 09:14 Dose: 81 mg Bisacodyl (Bisacodyl 5 Mg Tablet.) 5 mg PO DAILY [facility] Last Admin: 01/09/22 09:13 Dose: 5 mg Budesonide (Budesonide 1 Mg/2 Ml Nebu) 1 mg INHALATION RT-BID [facility] Last Admin: 01/09/22 07:02 Dose: 1 mg Clotrimazole (Clotrimazole 1% Cream 30 Gm Tube) 1 applic TOPICAL BID PRN PRN Reason: RINGWORM, LEFT LEG Ergocalciferol (Ergocalciferol 1,250 Mcg (50,000 Iu) Capsule) 50,000 mcg PO ROBLES [facility] Last Admin: 01/09/22 09:14 Dose: 50,000 mcg Ferrous Sulfate (Ferrous Sulfate 325 Mg Tab) 325 mg PO DAILY [facility] Last Admin: 01/09/22 09:13 Dose: 325 mg Formoterol Fumarate (Formoterol Fumarate 20 Mcg/2 Ml Nebu) 20 mcg INHALATION RT-BID [facility] Last Admin: 01/09/22 07:02 Dose: 20 mcg Loratadine/Pseudoephedrine Sulfate (Loratadine-Pseudoeph 5-120 Mg 1 Each Tab.Er.12h) 1 each PO Q12HR [facility] Last Admin: 01/09/22 09:14 Dose: 1 each Methocarbamol (Methocarbamol 500 Mg Tab) 500 mg PO TID [facility] Last Admin: 01/09/22 09:14 Dose: 500 mg Methylprednisolone Sodium Succinate (Methylprednisolone Sod Succi 40 Mg/Ml 1 Ml Vial) 40 mg IV Q8HR [facility] Last Admin: 01/09/22 07:27 Dose: 40 mg Naproxen (Naproxen 250 Mg Tab) 500 mg PO BID [facility] Last Admin: 01/09/22 09:13 Dose: 500 mg Nitroglycerin (Nitroglycerin Sl Tabs 0.4 Mg Tab) 0.4 mg SUBLINGUAL Q5M PRN PRN Reason: Chest Pain Pantoprazole Sodium (Pantoprazole 40 Mg Tablet) 40 mg PO AC-BRKFST [facility] Last Admin: 01/09/22 07:27 Dose: 40 mg Pravastatin Sodium (Pravastatin Sodium 20 Mg Tab) 20 mg PO HS [facility] Last Admin: 01/08/22 19:22 Dose: 20 mg Senna/Docusate Sodium (Sennosides-Docusate Sodium 1 Each Tab) 1 each PO DAILY [facility] Last Admin: 01/09/22 09:13 Dose: 1 each Theophylline (Theophylline 24 Hour 400 Mg Cap.Er.24h) 400 mg PO DAILY [facility] Last Admin: 01/09/22 09:15 Dose: 400 mg Past medical history to include: COPD, home oxygen 2 L, GERD, [place], back problems, Social history: Lives with the partner Jalyn Smoked a pack a day for about 53 years stopped about 2013. 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 Family history: Diabetes Physical examination: VITAL SIGNS: 97.7, 92, 18, 131/79, 100% on 2 L GENERAL: Laying in bed, tired, short of breath EYES: Pupils equal. Conjunctiva normal. HEENT: External appearance of nose and ears normal, oral cavity grossly normal. NECK: JVD not raised; masses not palpable. HEART: First and second heart sounds are normal; no edema. LUNGS: Respiratory rate increased, decreased breath sounds, prolonged expiration ABDOMEN: Soft, nontender, liver spleen not palpable, no masses palpable. PSYCH: Alert and oriented x3; mood and affect anxious MUSCULOSKELETAL:No Clubbing/cyanosis;muscles-grossly intact INVESTIGATIONS, reviewed in the clinical context: WBC 9.4 hemoglobin 12.2 platelets 26 sodium 138 potassium 4.1 creatinine 0.80 Troponin I 3 negative EKG tracing personally reviewed by me-sinus tachycardia Chest x-ray film personally reviewed by me-hyperinflation Chest CT: Negative for PE Assessment and plan: -Acute severe COPD exacerbation in a prior smoker, chronically steroid dependent: Slow to respond DuoNeb every 4, IV Solu-Medrol, nebulized Pulmicort, Perforomist. -Chronic hypoxic respiratory failure secondary to COPD Home oxygen 2 L -chronic medical debility from underlying COPD -Posterior chest wall pain. Cardiology consulted. No further workup -CAD with a prior history of [place] Toprol-XL, Lipitor, aspirin -GERD Omeprazole -Chronic low back pain from arthritis Methocarbamol DuoNeb, nebulized Pulmicort, IV Solu-Medrol. Has a patient sit up in a chair. Incentive spirometry.
--- NOTE | 2022-01-09 13:34 | P.CNPUL ---
History of Present Illness Consult date: 01/09/22 Reason for consult: dyspnea, COPD History of present illness: 77-year-old male patient admitted to the hospital because of worsening shortness of breath. He is known to have COPD and obstructive sleep apnea and is an ex- smoker. He shortness of breath gradually came on over the past 3 weeks. He will also having intermittent nausea and abdominal bloating and some chest pain. Cardiology was involved in regards to the chest pain. Troponins were negative. EKG showed sinus tachycardia without any acute ischemic changes. The chest x- ray showed no acute cardio normally process. D-dimer was elevated at 1.12. Based on that, a CTA of the chest was done and came back negative for pulmonary embolism, and the patient's lungs are essentially clear. For now, the patient is on bronchodilators with DuoNeb nebulized treatment [id number]. The patient was started on IV Solu Medrol. The patient on Symbicort and Spiriva on outpatient basis and finally grams of prednisone regarding his COPD and uses Ventolin rescue inhaler mastoids basis. Noted the patient's COPD is advanced and the patient has an FEV1 of 18% of predicted and the patient has chronic hypoxic respiratory failure and he has had previous hospitalization for pneumonia is a pulmonary related complications. He has a mechanical oxygen at 2 L per minute nasal cannula. Patient is an ex-smoker and the patient has been fully vaccinated for COVID 19 and needs another booster shot Review of Systems Constitutional: Denies weight loss, denies fatigue, no night sweats, no fever, no chills. Cardiovascular: Denies palpitations, denied chest pain or chest pressure, denies any edema. GI: Denies nausea vomiting abdominal pain diarrhea or constipation. Genitourinary: Denies dysuria, frequency, or urgency. Neurologic: Denies weakness, confusion, dizziness, or numbness. Musculoskeletal: chronic back pain and history of compression fractures Endocrine: No polydipsia, no polyuria, no heat or cold sensitivity. Pulmonary: As noted in HPI, dyspnea upon any exertion or any activity intermittent cough and wheezing, good days and bad days. Hematologic: No clotting bleeding or bruising. Psychiatric: Symptoms of anxiety, no depression. Past Medical History Past Medical History: COPD, CVA/TIA, GERD/Reflux, Myocardial Infarction (MD), Pneumonia Additional Past Medical History / Comment(s): back problems - pulled lumbar muscles (40years ago), Ct abdomen 12/04 for abdominal pain Last Myocardial Infarction Date:: 2011 History of Any Multi-Drug Resistant Organisms: None Reported Past Surgical History: Back Surgery Additional Past Surgical History / Comment(s): left index finger surgery Past Anesthesia/Blood Transfusion Reactions: No Reported Reaction Past Psychological History: Depression Smoking Status: Former smoker Past Alcohol Use History: None Reported Past Drug Use History: None Reported - Past Family History Mother Family Medical History: Diabetes Mellitus Medications and Allergies Home Medications Medication Instructions Recorded Confirmed Type Albuterol Inhaler [Ventolin Hfa 2 puff INHALATION RT-QID PRN 12/14/14 01/07/22 H istory Inhaler] Tiotropium 18 Mcg/Puff [Spiriva] 2 puff INHALATION RT-DAILY 12/14/14 01/07/22 History predniSONE 5 mg PO DAILY 12/14/14 01/07/22 History Ergocalciferol [Vitamin D2 50,000 unit PO ROBLES 05/10/15 01/07/22 History (DRISDOL)] Omeprazole 20 mg PO DAILY 08/07/18 01/07/22 History Theophylline 24 Hour [Gurmeet-24] 400 mg PO DAILY 08/07/18 01/07/22 History Ferrous Sulfate [Iron (65 MG 325 mg PO DAILY 11/15/21 01/07/22 History Elemental)] Fluticasone Propion/Salmeterol 1 puff INHALATION RT-BID 11/15/21 01/07/22 History [Fluticasone-Salmeterol 250-50] Naproxen [EC-Naprosyn] 500 mg PO BID 11/15/21 01/07/22 History Sennosides-Docusate Sodium 1 tab PO DAILY 11/15/21 01/07/22 History [Senokot-S] bisacodyL [Bisacodyl] 5 mg PO DAILY 11/15/21 01/07/22 History methocarbamoL [Methocarbamol] 500 mg PO TID 11/15/21 01/07/22 History Aspirin 81 mg PO DAILY #30 tab 11/19/21 01/07/22 Rx Ipratropium-Albuterol Nebulize 3 ml INHALATION RT-Q4H PRN #50 each 11/19/21 01/07/22 Rx [Duoneb 0.5 mg-3 mg/3 ml Soln] Pravastatin Sodium [Pravachol] 20 mg PO HS #30 tab 11/19/21 01/07/22 Rx Budesonide-Formot 160-4.5 Mcg 2 puff INHALATION DIRECTED 01/07/22 01/07/22 History [Symbicort 160-4.5 Mcg Inhaler] Ciclopirox Olamine [Loprox 0.77% 1 applic TOPICAL BID PRN 01/07/22 01/07/22 History cream] Allergies Allergy/AdvReac Type Severity Reaction Status Date / Time atorvastatin AdvReac nausea, Verified 01/07/22 21:26 stomach pain, vomiting metoprolol [From Toprol XL] AdvReac nausea, Verified 01/07/22 21:26 stomach pain, vomiting Physical Exam Vitals: Vital Signs Temp Pulse Pulse Resp BP Pulse Ox 01/09/22 12:56 97.9 F 111 H 18 105/65 95 01/09/22 11:13 89 01/09/22 11:02 88 01/09/22 07:24 94 01/09/22 07:13 92 01/09/22 07:12 92 01/09/22 07:02 92 01/09/22 07:00 97.7 F 119 H 18 131/79 100 01/09/22 03:19 100 01/09/22 03:08 100 01/09/22 02:04 97.4 F L 114 H 17 142/71 98 01/08/22 23:13 104 H 01/08/22 23:05 100 01/08/22 21:05 99 01/08/22 20:00 98.1 F 110 H 18 144/84 100 01/08/22 19:22 99 01/08/22 19:11 94 01/08/22 19:10 94 01/08/22 19:04 92 01/08/22 15:52 92 01/08/22 15:38 90 01/08/22 14:02 97.1 F L 93 18 136/70 98 Intake and Output 01/08/22 01/09/22 01/09/22 22:59 06:59 14:59 Intake Total 240 240 Balance 240 240 Intake: Oral 240 240 Other: Voiding Method Toilet Toilet # Voids 1 1 Physical exam revealed a 76-year-old white male in no distress. Resting comfortably in bed on 2 L of O2 nasal cannula. The patient's body mass index is 25.8 Head exam was generally normal. There was no scleral icterus or corneal arcus. Mucous membranes were moist. HEENT: Anicteric sclerae, pink and moist conjunctivae. Extraocular movements intact, pupils are reactive to light they are round and equal. External inspection of ears and nose showed normal mucosa. Oral mucosa, soft and hard palate tongue and posterior pharynx are intact Neck: Supple no neck masses, no JVD, no thyroid enlargement, no adenopathy. Lungs: Symmetrical expansion, diminished breath sounds at the bases , No crackles, no rhonchi, no wheezes. CVS: Regular rate and rhythm, normal S1 and S2, no gallops, no murmur, no rubs. Abdomen: Soft, nontender, no megaly, no rebound, no guarding, positive bowel sounds. Extremities: No clubbing, no edema, no cyanosis, 2+ pulses in upper and lower extremities. Musculoskeletal: Muscle strength and tone normal. Neurologic: Alert and oriented 3, normal affect, no focal neurologic deficits. Lymphatics: No lymphadenopathy Psychiatric: Normal mood affect and mental status examination. Examination of the skin revealed no evidence of significant rashes, suspicious appearing nevi or other concerning lesions. Results - Laboratory Findings CBC and BMP: 01/07/22 18:47 01/07/22 18:47 PT/INR, D-dimer PT 9.6 sec (9.0-12.0) 01/07/22 18:47 INR 0.9 (<1.2) 01/07/22 18:47 D-Dimer 1.12 mg/L FEU (<0.60) H 01/07/22 18:47 Abnormal lab findings: Abnormal Labs 01/07/22 01/07/22 01/07/22 18:47 18:47 18:47 Hgb 12.2 L MCH 24.5 L MCHC 30.4 L D-Dimer 1.12 H Total Protein 6.1 L Triglycerides VLDL Cholesterol, Calc 01/07/22 18:47 Hgb MCH MCHC D-Dimer Total Protein Triglycerides 208.00 H VLDL Cholesterol, Calc 41.60 H - Diagnostic Findings Chest x-ray: image reviewed CT scan - chest: image reviewed Assessment and Plan Plan: Acute exacerbation of severe COPD, hospitalized for worsening shortness of breath. Chest x-rays clear and a CT angiogram showed no evidence of any pulmonary embolism or pneumonia Advanced COPD with an FEV1 of 18% of predicted at baseline mentally on examination of Symbicort and Spiriva and theophylline and the 5 mg of prednisone a daily basis, the patient is oxygen dependent at 2 L Chronic hypoxic respiratory failure on O2 at 2 L Chest pain, nonspecific, not related to acute coronary event Coronary artery disease with previous [place] Obstructive sleep apnea, not utilizing any from a CPAP Chronic pain Hyperlipidemia Previous history of TIA Plan Continue DuoNeb the right seems [id number] Continue IV Solu-Medrol Patient maintained on Symbicort Spiriva on outpatient basis in combination with theophylline. Theophylline will be resumed Prognosis poor Cardiology consultation We'll follow
[2022-01-09] MEDS: PRAVASTATIN SODIUM 20 MG TAB PO SCH (19:16)
[2022-01-09] MEDS: SIMETHICONE 80 MG CHEWABLE PO SCH (21:22)
[2022-01-10] MEDS: methylPREDNISolone SOD SUCCI 40 MG/ML 1 ML VIAL IV SCH ×3 (00:18→16:56)
[2022-01-10] MEDS: IPRATROPIUM-ALBUTEROL 3 ML NEB INHALATION SCH ×6 (03:43→23:14)
[2022-01-10] MEDS: FORMOTEROL FUMARATE 20 MCG/2 ML NEBU INHALATION SCH ×2 (07:32→19:22)
[2022-01-10] MEDS: BUDESONIDE 1 MG/2 ML NEBU INHALATION SCH ×2 (07:32→19:22)
[2022-01-10] MEDS: LORATADINE-PSEUDOEPH 5-120 MG 1 EACH TAB.ER.12H PO SCH ×2 (08:33→20:10)
[2022-01-10] MEDS: bisacodyL 5 MG TABLET.DR PO SCH (08:34)
[2022-01-10] MEDS: SIMETHICONE 80 MG CHEWABLE PO SCH ×4 (08:35→20:11)
[2022-01-10] MEDS: ASPIRIN 81 MG PO SCH (08:36)
[2022-01-10] MEDS: NAPROXEN 250 MG TAB PO SCH ×2 (08:36→20:11)
[2022-01-10] MEDS: ALPRAZolam 0.25 MG TAB PO PRN ×2 (08:38→17:00)
[2022-01-10] MEDS: methocarbamoL 500 MG TAB PO SCH ×3 (08:42→20:12)
[2022-01-10] MEDS: THEOPHYLLINE 24 HOUR 400 MG CAP.ER.24H PO SCH (08:43)
[2022-01-10] MEDS: SENNOSIDES-DOCUSATE SODIUM 1 EACH TAB PO SCH (08:45)
[2022-01-10] MEDS: FERROUS SULFATE 325 MG TAB PO SCH (08:45)
[2022-01-10] MEDS: PANTOPRAZOLE 40 MG TABLET PO SCH (08:45)
--- NOTE | 2022-01-10 09:59 | P.PN ---
Subjective Progress Note Date: 01/10/22 Principal diagnosis: Acute exacerbation of severe COPD 77-year-old male patient admitted to the hospital because of worsening shortness of breath. He is known to have COPD and obstructive sleep apnea and is an ex- smoker. He shortness of breath gradually came on over the past 3 weeks. He will also having intermittent nausea and abdominal bloating and some chest pain. Cardiology was involved in regards to the chest pain. Troponins were negative. EKG showed sinus tachycardia without any acute ischemic changes. The chest x- ray showed no acute cardio normally process. D-dimer was elevated at 1.12. Based on that, a CTA of the chest was done and came back negative for pulmonary embolism, and the patient's lungs are essentially clear. For now, the patient is on bronchodilators with DuoNeb nebulized treatment [id number]. The patient was started on IV Solu Medrol. The patient on Symbicort and Spiriva on outpatient basis and finally grams of prednisone regarding his COPD and uses Ventolin rescue inhaler mastoids basis. Noted the patient's COPD is advanced and the patient has an FEV1 of 18% of predicted and the patient has chronic hypoxic respiratory failure and he has had previous hospitalization for pneumonia is a pulmonary related complications. He has a mechanical oxygen at 2 L per minute nasal cannula. Patient is an ex-smoker and the patient has been fully vaccinated for COVID 19 and needs another booster shot Reevaluated today on 01/10/22, patient continues to have shortness of breath, intermittent episodes of cough and wheezing, some vague chest discomfort. Seen by cardiology, felt his pain to be noncardiac. Patient clearly has severe underlying COPD is basically end-stage his FEV1 is no more than 18%. Patient is on bronchodilators as ordered yesterday by Dr. Reynoso, I believe the patient is improving but I'm not expecting significant improvement since the patient basically has severe end-stage COPD to begin with. Pro-calcitonin level was normal 0.07 Objective - Vital Signs Vital signs: Vital Signs Temp 98.2 F 01/10/22 08:00 Pulse 134 H 01/10/22 08:01 Resp 20 01/10/22 08:00 BP 159/78 01/10/22 08:00 Pulse Ox 96 01/10/22 08:00 FiO2 Intake & Output 01/09/22 01/10/22 01/10/22 18:59 06:59 18:59 Intake Total 480 Balance 480 Intake: Oral 480 Other: Voiding Method Toilet # Voids 1 1 - Exam Physical Exam: Revealed 77-year-old white male noted to be slightly dyspneic, intermittent cough. Head: Atraumatic, normocephalic. HEENT:[Neck is supple.] [No neck masses.] [No thyromegaly.] [No JVD.] Chest: Scattered wheezing on forced expiratory maneuver bilaterally. Cardiac Exam: [Normal S1 and S2, no S3 gallop, no murmur.] Abdomen: [Soft, nontender, no megaly, no rebound, no guarding, normal bowel sounds.] Extremities: [No clubbing, no edema, no cyanosis.] Neurological Exam: [No focal neurologic deficit.] Alert oriented 3 Psychiatric: Normal mood affect and normal mental status examination. Skin: No rashes - Labs CBC & Chem 7: 01/07/22 18:47 01/07/22 18:47 Assessment and Plan Assessment: Impression: Acute on chronic hypoxic respiratory failure Acute exacerbation of COPD Atypical chest pain History of underlying coronary artery disease and previous [place] History of obstructive sleep apnea, noncompliant with CPAP Chronic pain syndrome Dyslipidemia Severe underlying COPD, end-stage, FEV1 of 18%. Recommendation: Continue DuoNeb Continue IV Solu-Medrol Continue Symbicort Continue theophylline Consider discharge planning in the next 24 hours and follow-up on outpatient basis. Overall prognosis is extremely poor considering the severity of his COPD. Time with Patient: Less than 30
--- NOTE | 2022-01-10 18:41 | P.PN ---
Progress Note - Text Progress Note Date: 01/10/22 Chief Complaint: Short of breath History of presenting complaint This is a very pleasant 76-year-old patient who follows with Dr. Cardona. Chronic stable medical conditions include GERD, prior CT, arthritis, GERD, home oxygen 2 L. At baseline short of breath . Patient presents with worsening short of breath. Appetite is fair. No fever no chills. No edema. It has some pain in the right shoulder blade. Intermittent. Possibly related to body movement. Short of b reath at rest. Some wheezing Admitted with severe COPD exacerbation. [place] Perforomist, steroids. January 09: Slight improvement in shortness of breath. Eating some. Tired. Have the patient sit up on a chair. Continue incentive spirometry. January 10: Patient wheezing more. Anxious. Sitting at the edge of the bed. Eating fair. Xanax small dose added when necessary. Reassured. Sinus tachycardia on EKG. Active Medications Acetaminophen (Acetaminophen Tab 325 Mg Tab) 650 mg PO Q6HR PRN PRN Reason: Fever and/ or Mild Pain Last Admin: 01/09/22 16:10 Dose: 650 mg Albuterol/Ipratropium (Ipratropium-Albuterol 3 Ml Neb) 3 ml INHALATION RT-Q4H PRN PRN Reason: Wheezing Albuterol/Ipratropium (Ipratropium-Albuterol 3 Ml Neb) 3 ml INHALATION RT-Q4H [facility] Last Admin: 01/10/22 16:01 Dose: 3 ml Alprazolam (Alprazolam 0.25 Mg Tab) 0.25 mg PO TID PRN PRN Reason: Anxiety Last Admin: 01/10/22 17:00 Dose: 0.25 mg Aspirin (Aspirin 81 Mg) 81 mg PO DAILY [facility] Last Admin: 01/10/22 08:36 Dose: 81 mg Bisacodyl (Bisacodyl 5 Mg Tablet.Dr) 5 mg PO DAILY [facility] Last Admin: 01/10/22 08:34 Dose: 5 mg Budesonide (Budesonide 1 Mg/2 Ml Nebu) 1 mg INHALATION RT-BID [facility] Last Admin: 01/10/22 07:32 Dose: 1 mg Clotrimazole (Clotrimazole 1% Cream 30 Gm Tube) 1 applic TOPICAL BID PRN PRN Reason: RINGWORM, LEFT LEG Ergocalciferol (Ergocalciferol 1,250 Mcg (50,000 Iu) Capsule) 50,000 mcg PO ROBLES [facility] Last Admin: 01/09/22 09:14 Dose: 50,000 mcg Ferrous Sulfate (Ferrous Sulfate 325 Mg Tab) 325 mg PO DAILY [facility] Last Admin: 01/10/22 08:45 Dose: 325 mg Formoterol Fumarate (Formoterol Fumarate 20 Mcg/2 Ml Nebu) 20 mcg INHALATION RT-BID [facility] Last Admin: 01/10/22 07:32 Dose: 20 mcg Loratadine/Pseudoephedrine Sulfate (Loratadine-Pseudoeph 5-120 Mg 1 Each Tab.Er.12h) 1 each PO Q12HR [facility] Last Admin: 01/10/22 08:33 Dose: 1 each Methocarbamol (Methocarbamol 500 Mg Tab) 500 mg PO TID [facility] Last Admin: 01/10/22 16:56 Dose: 500 mg Methylprednisolone Sodium Succinate (Methylprednisolone Sod Succi 40 Mg/Ml 1 Ml Vial) 40 mg IV Q8HR [facility] Last Admin: 01/10/22 16:56 Dose: 40 mg Naproxen (Naproxen 250 Mg Tab) 500 mg PO BID [facility] Last Admin: 01/10/22 08:36 Dose: 500 mg Nitroglycerin (Nitroglycerin Sl Tabs 0.4 Mg Tab) 0.4 mg SUBLINGUAL Q5M PRN PRN Reason: Chest Pain Pantoprazole Sodium (Pantoprazole 40 Mg Tablet) 40 mg PO AC-BRKFST [facility] Last Admin: 01/10/22 08:45 Dose: 40 mg Pravastatin Sodium (Pravastatin Sodium 20 Mg Tab) 20 mg PO HS [facility] Last Admin: 01/09/22 19:16 Dose: 20 mg Senna/Docusate Sodium (Sennosides-Docusate Sodium 1 Each Tab) 1 each PO DAILY [facility] Last Admin: 01/10/22 08:45 Dose: 1 each Simethicone (Simethicone 80 Mg Chewable) 40 mg PO QID [facility] Last Admin: 01/10/22 16:56 Dose: 40 mg Theophylline (Theophylline 24 Hour 400 Mg Cap.Er.24h) 400 mg PO DAILY [facility] Last Admin: 01/10/22 08:43 Dose: 400 mg Past medical history to include: COPD, home oxygen 2 L, GERD, CT, back problems, Social history: Lives with the partner Jalyn Smoked a pack a day for about 53 years stopped about 2013. 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 Family history: Diabetes Physical examination: VITAL SIGNS: Afebrile, 124, 18, 140/74, 98% on 2 L GENERAL: Sitting at the edge of the bed tired, short of breath EYES: Pupils equal. Conjunctiva normal. HEENT: External appearance of nose and ears normal, oral cavity grossly normal. NECK: JVD not raised; masses not palpable. HEART: First and second heart sounds are normal; no edema. LUNGS: Accessory muscles working, not able to speak in full sentences, Respiratory rate increased, decreased breath sounds, prolonged expiration ABDOMEN: Soft, nontender, liver spleen not palpable, no masses palpable. PSYCH: Alert and oriented x3; mood and affect very anxious MUSCULOSKELETAL:No Clubbing/cyanosis;muscles-grossly intact INVESTIGATIONS, reviewed in the clinical context: January 10: Pro-calcitonin 0.07 WBC 9.4 hemoglobin 12.2 platelets 26 sodium 138 potassium 4.1 creatinine 0.80 Troponin I 3 negative EKG tracing personally reviewed by me-sinus tachycardia Chest x-ray film personally reviewed by me-hyperinflation Chest CT: Negative for PE Assessment and plan: -Acute severe COPD exacerbation in a prior smoker, chronically steroid dependent: Worsening DuoNeb every 4, IV Solu-Medrol, nebulized Pulmicort, Perforomist. -Chronic hypoxic respiratory failure secondary to COPD Home oxygen 2 L -Sinus tachycardia from uncontrolled respiratory status and patient being on theophylline. Lopressor 12.5 by mouth 3 times a day. -chronic medical debility from underlying COPD -Posterior chest wall pain. Cardiology consulted. No further workup -Anxiety uncontrolled Start Paxil 20 mg daily. 6 when necessary -CAD with a prior history of CT , Lipitor, aspirin -GERD Omeprazole -Chronic low back pain from arthritis Methocarbamol DuoNeb, nebulized Pulmicort, IV Solu-Medrol. To continue. Add Xanax 0.25 every 8 when necessary for anxiety. Lopressor 12.5 by mouth 3 times a day. Patient reassured. Paxil 20 mg a day.
[2022-01-10] MEDS: PARoxetine 20 MG TAB PO SCH (20:11)
[2022-01-10] MEDS: METOPROLOL TARTRATE 12.5 MG TAB PO SCH ×2 (20:11→22:44)
[2022-01-10] MEDS: PRAVASTATIN SODIUM 20 MG TAB PO SCH (20:12)
[2022-01-11] MEDS: methylPREDNISolone SOD SUCCI 40 MG/ML 1 ML VIAL IV SCH ×2 (00:02→09:38)
[2022-01-11] MEDS: IPRATROPIUM-ALBUTEROL 3 ML NEB INHALATION SCH ×3 (03:08→11:13)
[2022-01-11 05:04] VITALS: RESP 19
[2022-01-11 07:28] VITALS: BP 108/71; TEMP 97.6
[2022-01-11] MEDS: BUDESONIDE 1 MG/2 ML NEBU INHALATION SCH (07:34)
[2022-01-11] MEDS: FORMOTEROL FUMARATE 20 MCG/2 ML NEBU INHALATION SCH (07:34)
[2022-01-11] MEDS ORDERED: predniSONE 20 MG TAB PO SCH (09:00)
[2022-01-11] MEDS: methocarbamoL 500 MG TAB PO SCH (09:12)
[2022-01-11] MEDS: SIMETHICONE 80 MG CHEWABLE PO SCH (09:12)
[2022-01-11] MEDS: FERROUS SULFATE 325 MG TAB PO SCH ×2 (09:12→09:18)
[2022-01-11] MEDS: LORATADINE-PSEUDOEPH 5-120 MG 1 EACH TAB.ER.12H PO SCH (09:12)
[2022-01-11] MEDS: METOPROLOL TARTRATE 12.5 MG TAB PO SCH (09:13)
[2022-01-11] MEDS: ASPIRIN 81 MG PO SCH (09:13)
[2022-01-11] MEDS: THEOPHYLLINE 24 HOUR 400 MG CAP.ER.24H PO SCH (09:13)
[2022-01-11] MEDS: NAPROXEN 250 MG TAB PO SCH (09:13)
[2022-01-11] MEDS: SENNOSIDES-DOCUSATE SODIUM 1 EACH TAB PO SCH (09:14)
[2022-01-11] MEDS: PANTOPRAZOLE 40 MG TABLET PO SCH (09:14)
[2022-01-11] MEDS: bisacodyL 5 MG TABLET.DR PO SCH (09:14)
[2022-01-11] MEDS: PARoxetine 20 MG TAB PO SCH (09:14)
[2022-01-11 11:25] VITALS: PULSE 112
--- NOTE | 2022-01-11 13:15 | P.PN ---
Subjective Progress Note Date: 01/11/22 77-year-old male patient admitted to the hospital because of worsening shortness of breath. He is known to have COPD and obstructive sleep apnea and is an ex- smoker. He shortness of breath gradually came on over the past 3 weeks. He will also having intermittent nausea and abdominal bloating and some chest pain. Cardiology was involved in regards to the chest pain. Troponins were negative. EKG showed sinus tachycardia without any acute ischemic changes. The chest x- ray showed no acute cardio normally process. D-dimer was elevated at 1.12. Based on that, a CTA of the chest was done and came back negative for pulmonary embolism, and the patient's lungs are essentially clear. For now, the patient is on bronchodilators with DuoNeb nebulized treatment [id number]. The patient was started on IV Solu Medrol. The patient on Symbicort and Spiriva on outpatient basis and finally grams of prednisone regarding his COPD and uses Ventolin rescue inhaler mastoids basis. Noted the patient's COPD is advanced and the patient has an FEV1 of 18% of predicted and the patient has chronic hypoxic respiratory failure and he has had previous hospitalization for pneumonia is a pulmonary related complications. He has a mechanical oxygen at 2 L per minute nasal cannula. Patient is an ex-smoker and the patient has been fully vaccinated for COVID 19 and needs another booster shot Reevaluated today on 01/10/22, patient continues to have shortness of breath, intermittent episodes of cough and wheezing, some vague chest discomfort. Seen by cardiology, felt his pain to be noncardiac. Patient clearly has severe underlying COPD is basically end-stage his FEV1 is no more than 18%. Patient is on bronchodilators as ordered yesterday by Dr. Reynoso, I believe the patient is improving but I'm not expecting significant improvement since the patient basically has severe end-stage COPD to begin with. Pro-calcitonin level was normal 0.07 The patient is seen today 01/11/2022 in follow-up on the regular medical floor. He is currently sitting bedside. Awake and alert in no acute distress. Maintaining O2 saturations in the 90s on 2 L/m per nasal cannula. He remains tachycardic. Troponins were negative 3. ProBNP 46. Pro-calcitonin 0.07. He is continued on DuoNeb inhalations, Pulmicort and performance inhalations, IV Solu-Medrol. Remains on theophylline. Objective - Vital Signs Vital signs: Vital Signs Temp 97.6 F 01/11/22 07:21 Pulse 112 H 01/11/22 11:25 Resp 19 01/11/22 07:21 BP 108/71 01/11/22 07:21 Pulse Ox 96 01/11/22 07:21 FiO2 Intake & Output 01/10/22 01/11/22 01/11/22 18:59 06:59 18:59 Intake Total 360 Balance 360 Intake: Oral 360 Other: Voiding Method Toilet Toilet # Voids 1 1 - Exam Physical exam revealed a 76-year-old male in no distress. Resting comfortably in bed on 2 L of O2 nasal cannula. Head exam was generally normal. There was no scleral icterus or corneal arcus. Mucous membranes were moist. HEENT: Anicteric sclerae, pink and moist conjunctivae. Extraocular movements intact, pupils are reactive to light they are round and equal. External inspection of ears and nose showed normal mucosa. Oral mucosa, soft and hard palate tongue and posterior pharynx are intact Neck: Supple no neck masses, no JVD, no thyroid enlargement, no adenopathy. Lungs: Symmetrical expansion, diminished breath sounds at the bases , No crackles, no rhonchi, no wheezes. CVS: Regular rate and rhythm, normal S1 and S2, no gallops, no murmur, no rubs. Abdomen: Soft, nontender, no megaly, no rebound, no guarding, positive bowel sounds. Extremities: No clubbing, no edema, no cyanosis, 2+ pulses in upper and lower extremities. Musculoskeletal: Muscle strength and tone normal. Neurologic: Alert and oriented 3, normal affect, no focal neurologic deficits. Lymphatics: No lymphadenopathy Psychiatric: Normal mood affect and mental status examination. Examination of the skin revealed no evidence of significant rashes, suspicious appearing nevi or other concerning lesions. - Labs CBC & Chem 7: 01/07/22 18:47 01/07/22 18:47 Assessment and Plan Assessment: Acute exacerbation of severe COPD, hospitalized for worsening shortness of breath. Chest x-rays clear and a CT angiogram showed no evidence of any pulmon arlene embolism or pneumonia Advanced COPD with an FEV1 of 18% of predicted at baseline mentally on ex amination of Symbicort and Spiriva and theophylline and the 5 mg of prednisone a daily basis, the patient is oxygen dependent at 2 L Chronic hypoxic respiratory failure on O2 at 2 L Chest pain, nonspecific, not related to acute coronary event Coronary artery disease with previous [place] Obstructive sleep apnea, not utilizing any from a CPAP Chronic pain Hyperlipidemia Previous history of TIA Plan: The patient was seen and evaluated Improved and back to his baseline Overall prognosis is poor FEV1 value 18% of predicted, oxygen dependent Cleared for discharge from the pulmonary status Complete a prednisone taper starting at 40 mg daily for 4 days Resume his home pulmonary medications Follow-up in the office in 1 week I have personally seen and examined the patient, performed the documentation and the assessment and plan as written. Number of minutes spent on the visit: 10.
--- NOTE | 2022-01-11 15:39 | P.DS ---
Providers Date of admission: 01/09/22 10:34 Expected date of discharge: 01/11/22 Attending physician: Isra Antonio Consults: 01/07/22 21:49 Consult Physician Urgent Consulting Provider: Berry Smart Consult Reason/Comments: chest pain Do you want consulting provider notified?: Yes 01/09/22 12:24 Consult Physician Routine Consulting Provider: Jared Reynoso Consult Reason/Comments: COPD Do you want consulting provider notified?: Yes Primary care physician: Keven [facility] Course: Chief Complaint: Short of breath History of presenting complaint This is a very pleasant 76-year-old patient who follows with Dr. Cardona. Chronic stable medical conditions include GERD, prior [place], arthritis, GERD, home oxygen 2 L. At baseline short of breath . Patient presents with worsening short of breath. Appetite is fair. No fever no chills. No edema. It has some pain in the right shoulder blade. Intermittent. Possibly related to body movement. Short of breath at rest. Some wheezing Admitted with severe COPD exacerbation. [place] Perforomist, steroids. January 09: Slight improvement in shortness of breath. Eating some. Tired. Have the patient sit up on a chair. Continue incentive spirometry. January 10: Patient wheezing more. Anxious. Sitting at the edge of the bed. Eating fair. Xanax small dose added when necessary. Reassured. Sinus tachycardia on EKG. January 11: Short of breath with activity. Discussed with Dr. Hatch from pulmonary to home patient is well-known. Patient to be discharged on predniso ne. Patient has rather advanced end-stage COPD. Prednisone taper. Discussed with patient. DuoNeb 4 home. Biaxin was added for anxiety yesterday. Lopressor 4 sinus tachycardia. Patient to follow-up with Dr. Hatch Discussion and discharge planning more than 35 minutes Past medical history to include: COPD, home oxygen 2 L, GERD, [place], back problems, Social history: Lives with the partner Jalyn Smoked a pack a day for about 53 years stopped about 2013. 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 Family history: Diabetes Physical examination: VITAL SIGNS: 97.6, 120, 19, 100 with 71, 96% on 2 L GENERAL: tired, short of breath EYES: Pupils equal. Conjunctiva normal. HEENT: External appearance of nose and ears normal, oral cavity grossly normal. NECK: JVD not raised; masses not palpable. HEART: First and second heart sounds are normal; no edema. LUNGS: Respiratory rate increased, decreased breath sounds, prolonged expiration ABDOMEN: Soft, nontender, liver spleen not palpable, no masses palpable. PSYCH: Alert and oriented x3; mood and affect , anxious MUSCULOSKELETAL:No Clubbing/cyanosis;muscles-grossly intact INVESTIGATIONS, reviewed in the clinical context: January 10: Pro-calcitonin 0.07 WBC 9.4 hemoglobin 12.2 platelets 26 sodium 138 potassium 4.1 creatinine 0.80 Troponin I 3 negative EKG tracing personally reviewed by me-sinus tachycardia Chest x-ray film personally reviewed by me-hyperinflation Chest CT: Negative for PE Assessment and plan: -Acute severe COPD exacerbation in a prior smoker, chronically steroid dependent: DuoNeb every 4, IV Solu-Medrol, nebulized Pulmicort, Perforomist. -Chronic hypoxic respiratory failure secondary to COPD Home oxygen 2 L -Sinus tachycardia from uncontrolled respiratory status and patient being on theophylline. Lopressor 12.5 by mouth 3 times a day. -chronic medical debility from underlying COPD -Posterior chest wall pain. Cardiology consulted. No further workup -Anxiety uncontrolled Paxil 20 mg daily. -CAD with a prior history of [place] , Lipitor, aspirin -GERD Omeprazole -Chronic low back pain from arthritis Methocarbamol Disposition: Home Plan - Discharge Summary New Discharge Prescriptions: New Metoprolol Tartrate [Lopressor] 12.5 mg PO TID #90 tab PARoxetine [Paxil] 20 mg PO DAILY #30 tab Ipratropium-Albuterol Nebulize [Duoneb 0.5 mg-3 mg/3 ml Soln] 3 ml INHALATION RT-Q4H #120 each predniSONE 10 mg PO DAILY #30 tab Continue Albuterol Inhaler [Ventolin Hfa Inhaler] 2 puff INHALATION RT-QID PRN PRN Reason: Dyspnea Ergocalciferol [Vitamin D2 (DRISDOL)] 50,000 unit PO ROBLES Theophylline 24 Hour [Gurmeet-24] 400 mg PO DAILY Omeprazole 20 mg PO DAILY methocarbamoL [Methocarbamol] 500 mg PO TID Naproxen [EC-Naprosyn] 500 mg PO BID Pravastatin Sodium [Pravachol] 20 mg PO HS #30 tab Ciclopirox Olamine [Loprox 0.77% cream] 1 applic TOPICAL BID PRN PRN Reason: RINGWORM, LEFT LEG bisacodyL [Bisacodyl] 5 mg PO DAILY Ferrous Sulfate [Iron (65 MG Elemental)] 325 mg PO DAILY Fluticasone Propion/Salmeterol [Fluticasone-Salmeterol 250-50] 1 puff INHALATION RT-BID Sennosides-Docusate Sodium [Senokot-S] 1 tab PO DAILY Aspirin 81 mg PO DAILY #30 tab Ipratropium-Albuterol Nebulize [Duoneb 0.5 mg-3 mg/3 ml Soln] 3 ml INHALATION RT-Q4H PRN #50 each PRN Reason: Wheezing Budesonide-Formot 160-4.5 Mcg [Symbicort 160-4.5 Mcg Inhaler] 2 puff INHALATION DIRECTED Discontinued Tiotropium 18 Mcg/Puff [Spiriva] 2 puff INHALATION RT-DAILY No Action predniSONE 5 mg PO DAILY Discharge Medication List Albuterol Inhaler [Ventolin Hfa Inhaler] 2 puff INHALATION RT-QID PRN 12/14/14 [History] predniSONE 5 mg PO DAILY 12/14/14 [History] Ergocalciferol [Vitamin D2 (DRISDOL)] 50,000 unit PO ROBLES 05/10/15 [History] Omeprazole 20 mg PO DAILY 08/07/18 [History] Theophylline 24 Hour [Gurmeet-24] 400 mg PO DAILY 08/07/18 [History] Ferrous Sulfate [Iron (65 MG Elemental)] 325 mg PO DAILY 11/15/21 [History] Fluticasone Propion/Salmeterol [Fluticasone-Salmeterol 250-50] 1 puff INHALATION RT-BID 11/15/21 [History] Naproxen [EC-Naprosyn] 500 mg PO BID 11/15/21 [History] Sennosides-Docusate Sodium [Senokot-S] 1 tab PO DAILY 11/15/21 [History] bisacodyL [Bisacodyl] 5 mg PO DAILY 11/15/21 [History] methocarbamoL [Methocarbamol] 500 mg PO TID 11/15/21 [History] Aspirin 81 mg PO DAILY #30 tab 11/19/21 [Rx] Ipratropium-Albuterol Nebulize [Duoneb 0.5 mg-3 mg/3 ml Soln] 3 ml INHALATION RT-Q4H PRN #50 each 11/19/21 [Rx] Pravastatin Sodium [Pravachol] 20 mg PO HS #30 tab 11/19/21 [Rx] Budesonide-Formot 160-4.5 Mcg [Symbicort 160-4.5 Mcg Inhaler] 2 puff INHALATION DIRECTED 01/07/22 [History] Ciclopirox Olamine [Loprox 0.77% cream] 1 applic TOPICAL BID PRN 01/07/22 [History] Ipratropium-Albuterol Nebulize [Duoneb 0.5 mg-3 mg/3 ml Soln] 3 ml INHALATION RT-Q4H #120 each 01/11/22 [Rx] Metoprolol Tartrate [Lopressor] 12.5 mg PO TID #90 tab 01/11/22 [Rx] PARoxetine [Paxil] 20 mg PO DAILY #30 tab 01/11/22 [Rx] predniSONE 10 mg PO DAILY #30 tab 01/11/22 [Rx] Follow up Appointment(s)/Referral(s): Griselda Hatch MD [STAFF PHYSICIAN] - 01/19/22 2:30 pm Keven Cardona MD [Primary Care Provider] - 1-2 days (PLEASE CALL AND SCHEDULE APPOINTMENT.) Patient Instructions/Handouts: Metoprolol (By mouth), Prednisone (By mouth), Paroxetine (By mouth), Ipratropium/Albuterol (By breathing), COPD (Chronic Obstructive Pulmonary Disease) (DC) Activity/Diet/Wound Care/Special Instructions: activity as tolerated heart healthy diet
[2022-01-16] MEDS ORDERED: ERGOCALCIFEROL 1,250 MCG (50,000 IU) CAPSULE PO SCH (09:00)
== END 2022-01-11 13:09 | disposition home or self-care (01) | DRG 190 ==
LOC: EC 18:26 → 6NMEDSUR 21:49 → OBSVTOIN 01-09 10:34
PROVIDERS: ADMIT Hospitalist; ATTEND Hospitalist
DX: J44.1 Chronic obstructive pulmonary disease with (acute) exacerbation (principal); J96.21 Acute and chronic respiratory failure with hypoxia; I25.10 Atherosclerotic heart disease of native coronary artery without angina pectoris; E11.9 Type 2 diabetes mellitus without complications; G47.33 Obstructive sleep apnea (adult) (pediatric); K21.9 Gastro-esophageal reflux disease without esophagitis; M19.90 Unspecified osteoarthritis, unspecified site; R00.0 Tachycardia, unspecified; B35.4 Tinea corporis; F41.9 Anxiety disorder, unspecified; R07.89 Other chest pain; G89.4 Chronic pain syndrome; M54.50 Low back pain, unspecified; E78.5 Hyperlipidemia, unspecified; F32.A Depression, unspecified; Z91.19 Patient's noncompliance with other medical treatment and regimen; I25.2 Old myocardial infarction; Z99.81 Dependence on supplemental oxygen; Z88.8 Allergy status to other drugs, medicaments and biological substances; Z79.899 Other long term (current) drug therapy; Z79.51 Long term (current) use of inhaled steroids; Z79.82 Long term (current) use of aspirin; Z86.73 Personal history of transient ischemic attack (TIA), and cerebral infarction without residual deficits; Z87.891 Personal history of nicotine dependence; Z87.01 Personal history of pneumonia (recurrent); Z83.3 Family history of diabetes mellitus; Z79.52 Long term (current) use of systemic steroids; Z88.2 Allergy status to sulfonamides
CPT/HCPCS: 36415; 71046; 71275; 80053; 80061; 83735; 83880; 84145; 84484; 85025; 85379; 85610; 85730; 93005; 94640; 99285

== ENCOUNTER 2022-05-04 18:08 | Inpatient (IN) | payer MEDICARE ==
[2022-05-04] MEDS ORDERED: IPRATROPIUM 0.5 MG/2.5 ML NEBU INHALATION STA ×2 (18:15→21:52)
[2022-05-04] MEDS ORDERED: ALBUTEROL NEBULIZED 2.5 MG/3 ML INHALATION STA ×2 (18:15→21:52)
[2022-05-04 18:43] LABS: VBG PH 7.33 (7.31-7.41)
[2022-05-04 18:50] LABS: Basophils # (A) 0.1 k/uL (0-0.2); Basophils % (A) 1 %; Eosinophils # (A) 0.2 k/uL (0-0.7); Eosinophils % (A) 2 %; HCT 40.8 % (39.0-53.0); HGB 12.4 gm/dL (13.0-17.5); Hypochromasia Moderate; Lymphocytes # (A) 1.9 k/uL (1.0-4.8); Lymphocytes % (A) 19 %; MCH 23.8 pg (25.0-35.0); MCHC 30.4 g/dL (31.0-37.0); MCV 78.3 fL (80.0-100.0); Mean Platelet Volume 7.4; Monocytes # (A) 0.4 k/uL (0-1.0); Monocytes % (A) 4 %; Neutrophils # (A) 7.5 k/uL (1.3-7.7); Neutrophils % (A) 73 %; Platelet Count 351 k/uL (150-450); RBC 5.21 m/uL (4.30-5.90); RDW 14.8 % (11.5-15.5); WBC 10.3 k/uL (3.8-10.6)
[2022-05-04 19:04] LABS: African American GFR (CKD) >90 (>60 ml/min/1.73 sqM); Albumin 4.2 g/dL (3.5-5.0); Blood Urea Nitrogen 18 mg/dL (9-20); Carbon Dioxide 33 mmol/L (22-30); Chloride 101 mmol/L (98-107); Glucose 134 mg/dL (74-99); Non-African American GFR(CKD) 83 (>60 ml/min/1.73 sqM); Total Bilirubin 0.5 mg/dL (0.2-1.3); Total Protein 6.7 g/dL (6.3-8.2)
[2022-05-04 19:16] LABS: ALT 22 U/L (4-49); AST 21 U/L (17-59); Alkaline Phosphatase 69 U/L (38-126); Anion Gap 6 mmol/L; Calcium 10.1 mg/dL (8.4-10.2); Lipase 52 U/L (23-300); Magnesium 1.8 mg/dL (1.6-2.3); Potassium 4.4 mmol/L (3.5-5.1); Sodium 140 mmol/L (137-145)
[2022-05-04] MEDS ORDERED: NALOXONE 0.4 MG/ML 1 ML VIAL IV PRN (19:43)
--- NOTE | 2022-05-04 19:58 | ED ---
General Adult HPI - General Chief complaint: Shortness of Breath Stated complaint: SOB, chest pain Source: patient Mode of arrival: EMS Limitations: no limitations - History of Present Illness Initial comments: This is a 77-year-old male with a past medical history including COPD and hypertension presented emergency department for increasing shortness of breath. The patient presented via EMS on CPAP. The patient stated that he had increased work of breathing today and could not catch his breath. The patient stated that he went to bed last night and tried to "let this CPAP do it's thing" however stated that it did not help so he called EMS for evaluation. Via EMS, the p atient did receive 2 DuoNeb treatments as well as 125 mg a site Medrol. On arrival, the patient stated that his symptoms did improve however still is having shortness of breath or difficulty breathing. The patient denied any other acute pain or complaints and denied any chest pain. The patient was resting in bed with tachypnea on CPAP but not complaining of any other acute pain or complaints. - Related Data Home Medications Medication Instructions Recorded Confirmed Albuterol Inhaler [Ventolin Hfa 2 puff INHALATION RT-QID PRN 12/14/14 01/07/22 Inhaler] predniSONE 5 mg PO DAILY 12/14/14 01/07/22 Ergocalciferol [Vitamin D2 50,000 unit PO ROBLES 05/10/15 01/07/22 (DRISDOL)] Omeprazole 20 mg PO DAILY 08/07/18 01/07/22 Theophylline 24 Hour [Gurmeet-24] 400 mg PO DAILY 08/07/18 01/07/22 Ferrous Sulfate [Iron (65 MG 325 mg PO DAILY 11/15/21 01/07/22 Elemental)] Fluticasone Propion/Salmeterol 1 puff INHALATION RT-BID 11/15/21 01/07/22 [Fluticasone-Salmeterol 250-50] Naproxen [EC-Naprosyn] 500 mg PO BID 11/15/21 01/07/22 Sennosides-Docusate Sodium 1 tab PO DAILY 11/15/21 01/07/22 [Senokot-S] bisacodyL [Bisacodyl] 5 mg PO DAILY 11/15/21 01/07/22 methocarbamoL [Methocarbamol] 500 mg PO TID 11/15/21 01/07/22 Ciclopirox Olamine [Loprox 0.77% 1 applic TOPICAL BID PRN 01/07/22 01/07/22 cream] Fluticasone Nasal [place] [Flonase 1 spray EA NOSTRIL BID PRN 05/04/22 05/04/22 Nasal [place]] Morphine Sulfate [Morphine Sulfate 5 mg PO Q4H PRN 05/04/22 05/04/22 Oral Soln Concentrate] Ondansetron Odt [Zofran Odt] 4 mg PO Q4H PRN 05/04/22 05/04/22 Ondansetron [Zofran] 4 mg PO Q8H PRN 05/04/22 05/04/22 traZODone HCL [Desyrel] 25 - 50 mg PO HS PRN 05/04/22 05/04/22 Previous Rx's Medication Instructions Recorded Aspirin 81 mg PO DAILY #30 tab 11/19/21 Ipratropium-Albuterol Nebulize 3 ml INHALATION RT-Q4H PRN #50 each 11/19/21 [Duoneb 0.5 mg-3 mg/3 ml Soln] Pravastatin Sodium [Pravachol] 20 mg PO HS #30 tab 11/19/21 Metoprolol Tartrate [Lopressor] 12.5 mg PO TID #90 tab 01/11/22 PARoxetine [Paxil] 20 mg PO DAILY #30 tab 01/11/22 Allergies Allergy/AdvReac Type Severity Reaction Status Date / Time atorvastatin AdvReac nausea, Verified 01/07/22 21:26 stomach pain, vomiting metoprolol [From Toprol XL] AdvReac nausea, Verified 01/07/22 21:26 stomach pain, vomiting Review of Systems ROS Statement: Those systems with pertinent positive or pertinent negative responses have been documented in the HPI. ROS Other: All systems not noted in ROS Statement are negative. Past Medical History Past Medical History: COPD, CVA/TIA, GERD/Reflux, Myocardial Infarction ([place]), Pneumonia Additional Past Medical History / Comment(s): back problems - pulled lumbar muscles (40years ago), Ct abdomen 12/04 for abdominal pain Last Myocardial Infarction Date:: 2011 History of Any Multi-Drug Resistant Organisms: None Reported Past Surgical History: Back Surgery Additional Past Surgical History / Comment(s): left index finger surgery Past Anesthesia/Blood Transfusion Reactions: No Reported Reaction Past Psychological History: Depression Smoking Status: Former smoker Past Alcohol Use History: None Reported Past Drug Use History: None Reported - Past Family History Mother Family Medical History: Diabetes Mellitus General Exam Limitations: no limitations General appearance: alert, in distress (In mild distress secondary to respiratory distress and tachypnea.) Head exam: Present: atraumatic, normocephalic Eye exam: Present: normal appearance, PERRL Pupils: Present: normal accommodation ENT exam: Present: normal exam, normal oropharynx, mucous membranes moist Neck exam: Present: normal inspection, full ROM Respiratory exam: Present: normal lung sounds bilaterally Cardiovascular Exam: Present: normal rhythm, tachycardia GI/Abdominal exam: Present: soft, normal bowel sounds Extremities exam: Present: normal inspection, full ROM Back exam: Present: normal inspection, full ROM Neurological exam: Present: alert, oriented X3, CN II-XII intact Psychiatric exam: Present: normal affect, normal mood Skin exam: Present: warm, dry Course Vital Signs 05/04/22 05/04/22 05/04/22 18:20 18:26 18:28 Temperature Pulse Rate 130 H 130 H Respiratory 22 22 Rate Blood Pressure 139/93 O2 Sat by Pulse 93 L Oximetry Fraction of 50 Inspired Oxygen (FIO2) 05/04/22 05/04/22 05/04/22 18:29 18:30 18:42 Temperature 97.6 F Pulse Rate 100 124 H Respiratory 22 21 Rate Blood Pressure 139/104 O2 Sat by Pulse Oximetry Fraction of 50 Inspired Oxygen (FIO2) 05/04/22 05/04/22 18:49 19:34 Temperature Pulse Rate Respiratory 22 Rate Blood Pressure O2 Sat by Pulse Oximetry Fraction of 36 Inspired Oxygen (FIO2) EKG Findings - EKG Comments: EKG Findings:: An EKG was obtained and was interpreted by myself showing a rate of 126, CO interval 167, QRS duration of 81 and QTC of 372. This EKG showed a sinus tachycardia without any ST segment elevation or depression noted. The patient's tachycardia was likely secondary to the patient's increased work of breathing. Procedures - [place] Protocol (Time Out) Nurse: Ely Aleman Medical Decision Making - Medical Decision Making Was pt. sent in by a medical professional or institution (, PA, [employer], urgent care, hospital, or jail...) When possible be specific @ -No Did you speak to anyone other than the patient for history (EMS, parent, family, police, friend...)? What history was obtained from this source @ -No Did you review nursing and triage notes (agree or disagree)? Why? @ -I reviewed and agree with nursing and triage notes Were old charts reviewed (outside hosp., previous admission, EMS record, old EKG, old radiological studies, urgent care reports/EKG's, jail records)? Report findings @ -No old charts were reviewed Differential Diagnosis (chest pain, altered mental status, abdominal pain women, abdominal pain men, vaginal bleeding, weakness, fever, dyspnea, syncope, headache, dizziness, GI bleed, back pain, seizure, CVA, palpatations, mental health)? @ -COPD exacerbation, ACS EKG interpreted by me (3pts min.). @ -As above X-rays interpreted by me (1pt min.). @ -Chest x-ray was obtained and was interpreted by myself and did not show any acute pneumonia. CT interpreted by me (1pt min.). @ -None done U/S interpreted by me (1pt. min.). @ -None done What testing was considered but not performed or refused? (CT, X-rays, U/S, labs)? Why? @ -None What meds were considered but not given or refused? Why? @ -None Did you discuss the management of the patient with other professionals (professionals i.e. , PA, [employer], lab, RT, psych nurse, social human services assistants, television specialist, teacher, chief medical officer, patient case manager)? Give summary @ -Yes, admitting physician Was smoking cessation discussed for >3mins.? @ -No Was critical care preformed (if so, how long)? @ -No Were there social determinants of health that impacted care today? How? (Homelessness, low income, unemployed, alcoholism, drug addiction, transpo rtation, low edu. Level, literacy, decrease access to med. care, nursing home, rehab)? @ -No Was there de-escalation of care discussed even if they declined (Discuss DNR or withdrawal of care, Hospice)? DNR status @ -No What co-morbidities impacted this encounter? (DM, HTN, Smoking, COPD, CAD, Cancer, CVA, ARF, Chemo, Hep., AIDS, mental health diagnosis, sleep apnea, morbid obesity)? @ -COPD, hypertension Was patient admitted / discharged? Hospital course, mention meds given and route, prescriptions, significant lab abnormalities, going to OR and other pertinent info. @ -The patient was seen and evaluated emergency department. Physical exam, the patient had mild distress secondary to tachypnea and shortness of breath. The patient was continued on BiPAP with respiratory on arrival. Laboratory workup was within normal limits. D-dimer was pending at this time. Chest x-ray was obtained however and did not show any pneumonia. The patient did receive another breathing treatment emergency department and did well on BiPAP. The patient will be admitted for COPD exacerbation. The patient was accepted for admission by Dr. Antonio. The patient was agree with this plan and was admitted in stable condition. Undiagnosed new problem with uncertain prognosis? @ -No Drug Therapy requiring intensive monitoring for toxicity (Heparin, Nitro, Insulin, Cardizem)? @ -No Were any procedures done? @ -No Diagnosis/symptom? @ -COPD exacerbation on BiPAP Acute, or Chronic, or Acute on Chronic? @ -Acute Uncomplicated (without systemic symptoms) or Complicated (systemic symptoms)? @ -Uncomplicated Side effects of treatment? @ -No Exacerbation, Progression, or Severe Exacerbation? @ -Severe exacerbation Poses a threat to life or bodily function? How? (Chest pain, [place], [place], pneumonia, PE, COPD, DKA, ARF, appy, cholecystitis, CVA, Diverticulitis, Homicidal, Suicidal, threat to staff... and all critical care pts) @ -No - Lab Data Result diagrams: 05/04/22 18:30 05/04/22 18:30 Lab Results 05/04/22 05/04/22 05/04/22 Range/Units 18:30 18:30 18:30 WBC 10.3 (3.8-10.6) k/uL RBC 5.21 (4.30-5.90) m/uL Hgb 12.4 L (13.0-17.5) gm/dL Hct 40.8 (39.0-53.0) % MCV 78.3 L (80.0-100.0) fL MCH 23.8 L (25.0-35.0) pg MCHC 30.4 L (31.0-37.0) g/dL RDW 14.8 (11.5-15.5) % Plt Count 351 (150-450) k/uL MPV 7.4 Neutrophils % 73 % Lymphocytes % 19 % Monocytes % 4 % Eosinophils % 2 % Basophils % 1 % Neutrophils # 7.5 (1.3-7.7) k/uL Lymphocytes # 1.9 (1.0-4.8) k/uL Monocytes # 0.4 (0-1.0) k/uL Eosinophils # 0.2 (0-0.7) k/uL Basophils # 0.1 (0-0.2) k/uL Hypochromasia Moderate VBG pH (7.31-7.41) VBG pCO2 (37-51) mmHg VBG HCO3 (24-28) mmol/L Sodium 140 (137-145) mmol/L Potassium 4.4 (3.5-5.1) mmol/L Chloride 101 (98-107) mmol/L Carbon Dioxide 33 H (22-30) mmol/L Anion Gap 6 mmol/L BUN 18 (9-20) mg/dL Creatinine 0.88 (0.66-1.25) mg/dL Est GFR (CKD-EPI)AfAm >90 (>60 ml/min/1.73 sqM) Est GFR (CKD-EPI)NonAf 83 (>60 ml/min/1.73 sqM) Glucose 134 H (74-99) mg/dL Calcium 10.1 (8.4-10.2) mg/dL Magnesium 1.8 (1.6-2.3) mg/dL Total Bilirubin 0.5 (0.2-1.3) mg/dL AST 21 (17-59) U/L ALT 22 (4-49) U/L Alkaline Phosphatase 69 (38-126) U/L Troponin I <0.012 (0.000-0.034) ng/mL NT-Pro-B Natriuret Pep pg/mL Total Protein 6.7 (6.3-8.2) g/dL Albumin 4.2 (3.5-5.0) g/dL Lipase 52 (23-300) U/L 05/04/22 05/04/22 Range/Units 18:30 18:33 WBC (3.8-10.6) k/uL RBC (4.30-5.90) m/uL Hgb (13.0-17.5) gm/dL Hct (39.0-53.0) % MCV (80.0-100.0) fL MCH (25.0-35.0) pg MCHC (31.0-37.0) g/dL RDW (11.5-15.5) % Plt Count (150-450) k/uL MPV Neutrophils % % Lymphocytes % % Monocytes % % Eosinophils % % Basophils % % Neutrophils # (1.3-7.7) k/uL Lymphocytes # (1.0-4.8) k/uL Monocytes # (0-1.0) k/uL Eosinophils # (0-0.7) k/uL Basophils # (0-0.2) k/uL Hypochromasia VBG pH 7.33 (7.31-7.41) VBG pCO2 65 H (37-51) mmHg VBG HCO3 33 H (24-28) mmol/L Sodium (137-145) mmol/L Potassium (3.5-5.1) mmol/L Chloride (98-107) mmol/L Carbon Dioxide (22-30) mmol/L Anion Gap mmol/L BUN (9-20) mg/dL Creatinine (0.66-1.25) mg/dL Est GFR (CKD-EPI)AfAm (>60 ml/min/1.73 sqM) Est GFR (CKD-EPI)NonAf (>60 ml/min/1.73 sqM) Glucose (74-99) mg/dL Calcium (8.4-10.2) mg/dL Magnesium (1.6-2.3) mg/dL Total Bilirubin (0.2-1.3) mg/dL AST (17-59) U/L ALT (4-49) U/L Alkaline Phosphatase (38-126) U/L Troponin I (0.000-0.034) ng/mL NT-Pro-B Natriuret Pep 46 pg/mL Total Protein (6.3-8.2) g/dL Albumin (3.5-5.0) g/dL Lipase (23-300) U/L Critical Care Time Critical Care Time: Yes Total Critical Care Time: 32 Disposition Clinical Impression: COPD exacerbation Disposition: ADMITTED IP TO THIS HOSP Condition: Stable Is patient prescribed a controlled substance at d/c from ED?: No Referrals: Keven Cardona MD [Primary Care Provider] - 1-2 days Time of Disposition: 19:00 Decision to Admit Reason: Admit from EC Decision Date: 05/04/22 Decision Time: 19:00
--- NOTE | 2022-05-04 20:28 | XR ---
EXAMINATION TYPE: XR chest 1V DATE OF EXAM: 05/04/2022 6:52 PM COMPARISON: Chest radiographs from 01/07/2022, CTA chest 01/07/2022. TECHNIQUE: XR chest 1V Frontal view of the chest. CLINICAL INDICATION:Male, 77 years old with history of SOB; FINDINGS: Lungs/Pleura: There is no evidence of pleural effusion, focal consolidation, or pneumothorax. Scatte red senescent parenchymal changes. Pulmonary vascularity: Unremarkable. Heart/mediastinum: Cardiomediastinal silhouette is unremarkable. Atherosclerotic calcifications are seen in the aorta. Musculoskeletal: No acute osseous pathology. Multilevel vertebral augmentation changes. IMPRESSION: No acute cardiopulmonary disease/process.
[2022-05-04] MEDS: ACETAMINOPHEN TAB 500 MG TAB PO PRN (22:43)
[2022-05-04] MEDS ORDERED: MELATONIN 3 MG TABLET PO PRN (23:36)
[2022-05-04] MEDS ORDERED: ALBUTEROL NEBULIZED 2.5 MG/3 ML INHALATION PRN (23:36)
[2022-05-04] MEDS ORDERED: IPRATROPIUM BROMIDE EA NOSTRIL PRN (23:36)
[2022-05-04] MEDS: METOPROLOL TARTRATE 25 MG TAB PO SCH (23:52)
[2022-05-05] MEDS: ACETAMINOPHEN TAB 500 MG TAB PO PRN ×2 (04:15→16:45)
[2022-05-05] MEDS ORDERED: SYMBICORT 80-4.5 MCG INHALER INHALATION SCH (08:00)
[2022-05-05] MEDS: IPRATROPIUM-ALBUTEROL 3 ML NEB INHALATION PRN ×4 (08:32→20:54)
[2022-05-05] MEDS ORDERED: predniSONE 5 MG TAB PO SCH (09:00)
[2022-05-05] MEDS ORDERED: FUROSEMIDE 40 MG TAB PO PRN (09:00)
[2022-05-05] MEDS ORDERED: methocarbamoL 500 MG TAB PO PRN (09:00)
[2022-05-05] MEDS ORDERED: FLUTICASONE 50MCG/SPRAY NASAL 16GM EA NOSTRIL PRN (09:00)
[2022-05-05] MEDS: ESCITALOPRAM 10 MG TAB PO SCH (09:58)
[2022-05-05] MEDS: FERROUS SULFATE 325 MG TAB PO SCH (09:58)
[2022-05-05] MEDS: PANTOPRAZOLE 40 MG TABLET PO SCH (09:58)
[2022-05-05] MEDS: ASPIRIN 81 MG PO SCH (09:58)
[2022-05-05] MEDS: METOPROLOL TARTRATE 25 MG TAB PO SCH (09:58)
[2022-05-05] MEDS: THEOPHYLLINE 24 HOUR 400 MG CAP.ER.24H PO SCH (09:59)
[2022-05-05] MEDS: SENNOSIDES-DOCUSATE SODIUM 1 EACH TAB PO SCH (09:59)
[2022-05-05] MEDS ORDERED: LORazepam 1 MG TAB PO PRN (10:49)
[2022-05-05] MEDS ORDERED: ONDANSETRON ODT 4 MG TAB PO PRN (10:49)
[2022-05-05] MEDS ORDERED: HYOSCYAMINE SULFATE 0.125 MG TAB SL PRN (10:49)
[2022-05-05] MEDS: IPRATROPIUM 0.5 MG/2.5 ML NEBU INHALATION SCH ×4 (11:32→20:55)
[2022-05-05 12:24] LABS: Glucose,Whole Blood 117 mg/dL (70-110)
[2022-05-05] MEDS ORDERED: LACTULOSE 20 GM/30 ML CUP PO PRN (15:00)
[2022-05-05] MEDS ORDERED: CALCIUM CARBONATE 500 MG CHEWABLE PO PRN (15:00)
[2022-05-05] MEDS ORDERED: ONDANSETRON 4 MG/2 ML VIAL IVP PRN (15:00)
[2022-05-05] MEDS ORDERED: IPRATROPIUM BROMIDE 0.06% NASAL SPRAY (15 ML) EA NOSTRIL PRN (15:04)
--- NOTE | 2022-05-05 15:05 | P.HPIM ---
History of Present Illness H&P Date: 05/05/22 Chief Complaint: Short of breath This is a very pleasant 77-year-old patient who follows with Dr. Cardona. Chronic stable medical conditions include GERD, prior CT, arthritis, GERD, home oxygen 2 L. end-stage COPD baseline short of breath Presented to ER with increasing shortness of breath for 3 days. Cough with thick sputum. Not see the color. Some fever and chills. Decreased appetite tired rundown. Was put on a BiPAP. This morning settings include 12/6 last 30%. Initiate better. Review of systems: GEN.: Tired, fever or chills EYES: None HEENT: None NECK: None RESPIRATORY: As above CARDIOVASCULAR: None GASTROINTESTINAL: None GENITOURINARY: None MUSCULOSKELETAL: Joint pains LYMPHATICS: None HEMATOLOGICAL: None PSYCHIATRY: anxious NEUROLOGICAL: None Past medical history to include: End-stage COPD, home oxygen 2 L, GERD, CT, arthritis Social history: Lives with the partner Jalyn Smoked a pack a day for about 53 years stopped about 2013. 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 Family history: Diabetes Physical examination: VITAL SIGNS: 97.8, 103, 32, 132/71, 98% on BiPAP GENERAL: BMI 25.8, reclining in bed, short of breath EYES: Pupils equal. Conjunctiva normal. HEENT: External appearance of nose and ears normal, oral cavity grossly normal. NECK: JVD not raised; masses not palpable. HEART: First and second heart sounds are normal; no edema. LUNGS: Respiratory rate increased, decreased breath sounds, prolonged expiration and wheezing. Accessory muscles of working, not able to speak in full sentences ABDOMEN: Soft, nontender, liver spleen not palpable, no masses palpable. PSYCH: Alert and oriented x3; mood and affect anxious MUSCULOSKELETAL:No Clubbing/cyanosis;muscles-grossly intact NEUROLOGICAL: Cranial nerves grossly intact; no facial asymmetry, power and sensation grossly intact. LYMPHATICS: No lymph nodes palpable in the axilla and neck INVESTIGATIONS, reviewed in the clinical context: White count 10.3 hemoglobin 12.4 platelets 351 sodium 140 potassium 4.4 creatinine 0.8 date Troponin I less than 0.012 proBNP 46 EKG tracing personally reviewed by me-sinus tachycardia Chest x-ray film personally reviewed by me-hyperinflation. Prominent pulmonary artery. Assessment and plan: -Acute severe COPD exacerbation in a prior smoker, chronically steroid dependent: DuoNeb every 4, IV Solu-Medrol, nebulized Pulmicort, Perforomist. Theophylline -Acute tracheobronchitis Doxycycline -Acute on Chronic hypoxic respiratory failure secondary to COPD This morning on BiPAP. Home oxygen 2 L -Sinus tachycardia from uncontrolled respiratory status and patient being on theophylline. Lopressor -chronic medical debility from underlying COPD -Anxiety Lexapro -CAD with a prior history of CT , Pravachol aspirin -GERD Omeprazole -Chronic low back pain from arthritis Methocarbamol, -Full code Discussed with patient. On BiPAP. IV Solu-Medrol. Nebulized bronchodilators. Nebulized Pulmicort and Perforomist. Home medications resumed. I'll make a consult. Past Medical History Past Medical History: COPD, CVA/TIA, GERD/Reflux, Myocardial Infarction (CT), Pneumonia Additional Past Medical History / Comment(s): back problems - pulled lumbar muscles (40years ago), Ct abdomen 12/04 for abdominal pain Last Myocardial Infarction Date:: 2011 History of Any Multi-Drug Resistant Organisms: None Reported Past Surgical History: Back Surgery Additional Past Surgical History / Comment(s): left index finger surgery Past Anesthesia/Blood Transfusion Reactions: No Reported Reaction Past Psychological History: Depression Smoking Status: Former smoker Past Alcohol Use History: None Reported Past Drug Use History: None Reported - Past Family History Mother Family Medical History: Diabetes Mellitus Medications and Allergies Home Medications Medication Instructions Recorded Confirmed Type Albuterol Inhaler [Ventolin Hfa 2 puff INHALATION RT-QID PRN 12/14/14 05/04/22 History Inhaler] predniSONE 5 mg PO DAILY 12/14/14 05/04/22 History Ergocalciferol [Vitamin D2 50,000 unit PO Q7D 05/10/15 05/04/22 History (DRISDOL)] Omeprazole 20 mg PO DAILY 08/07/18 05/04/22 History Theophylline 24 Hour [[place]-24] 400 mg PO DAILY 08/07/18 05/04/22 History Ferrous Sulfate [Iron (65 MG 325 mg PO DAILY 11/15/21 05/04/22 History Elemental)] Fluticasone Propion/Salmeterol 1 puff INHALATION RT-BID 11/15/21 05/04/22 History [Fluticasone-Salmeterol 250-50] Naproxen [EC-Naprosyn] 500 mg PO BID PRN 11/15/21 05/04/22 History Sennosides-Docusate Sodium 1 tab PO DAILY 11/15/21 05/04/22 History [Senokot-S] bisacodyL [Bisacodyl] 5 mg PO DAILY PRN 11/15/21 05/04/22 History methocarbamoL [Methocarbamol] 500 mg PO TID PRN 11/15/21 05/04/22 History Aspirin 81 mg PO DAILY #30 tab 11/19/21 05/04/22 Rx Ipratropium-Albuterol Nebulize 3 ml INHALATION RT-Q4H PRN #50 each 11/19/21 05/04/22 Rx [Duoneb 0.5 mg-3 mg/3 ml Soln] Pravastatin Sodium [Pravachol] 20 mg PO HS #30 tab 11/19/21 05/04/22 Rx Ciclopirox Olamine [Loprox 0.77% 1 applic TOPICAL BID PRN 01/07/22 05/04/22 History cream] Escitalopram [Lexapro] 10 mg PO DAILY 05/04/22 05/04/22 History Fluticasone Nasal [place] [Flonase 1 spray EA NOSTRIL BID PRN 05/04/22 05/04/22 History Nasal [place]] Furosemide [Lasix] 40 mg PO DAILY PRN 05/04/22 05/04/22 History Haloperidol Oral Soln [Haldol Oral 1 mg PO Q4H PRN 05/04/22 05/04/22 History Soln] Hyoscyamine Sulfate [Levsin-Sl] 0.25 mg SL Q4H PRN 05/04/22 05/04/22 History Ipratropium [place] [Ipratropium 1 spray EA NOSTRIL TID PRN 05/04/22 05/04/22 History [place] 0.03%] LORazepam [Ativan] 1 mg PO TID PRN 05/04/22 05/04/22 History Melatonin 3 mg PO HS PRN 05/04/22 05/04/22 History Metoprolol Tartrate [Lopressor] 25 mg PO DAILY 05/04/22 05/04/22 History Morphine Sulfate [Morphine Sulfate 5 mg PO Q4H PRN 05/04/22 05/04/22 History Oral Soln Concentrate] Ondansetron Odt [Zofran Odt] 4 mg PO Q4H PRN 05/04/22 05/04/22 History Ondansetron [Zofran] 4 mg PO Q8H PRN 05/04/22 05/04/22 History Tiotropium 2.5 Mcg/Puff [Spiriva 2 puff INHALATION RT-DAILY 05/04/22 05/04/22 History Respimat 2.5 Mcg] traZODone HCL [Desyrel] 25 - 50 mg PO HS PRN 05/04/22 05/04/22 History Allergies Allergy/AdvReac Type Severity Reaction Status Date / Time atorvastatin AdvReac nausea, Verified 05/04/22 20:36 stomach pain, vomiting metoprolol [From Toprol XL] AdvReac nausea, Verified 05/04/22 20:36 stomach pain, vomiting Physical Exam Vitals: Vital Signs Temp Pulse Pulse Resp BP BP Pulse Ox 05/05/22 08:51 105 H 05/05/22 08:30 103 H 05/05/22 08:00 102 H 32 H 132/71 98 05/05/22 04:09 99 05/05/22 04:06 05/05/22 03:40 95 24 125/65 99 05/04/22 23:20 97.8 F 135 H 18 155/78 99 05/04/22 23:00 122 H 24 150/75 99 05/04/22 22:32 125 H 24 05/04/22 22:06 128 H 25 H 05/04/22 20:00 126 H 20 140/83 95 05/04/22 19:34 05/04/22 18:49 22 05/04/22 18:42 124 H 21 05/04/22 18:30 97.6 F 100 22 139/104 05/04/22 18:29 05/04/22 18:28 130 H 22 05/04/22 18:26 05/04/22 18:20 130 H 22 139/93 93 L FiO2 05/05/22 08:51 05/05/22 08:30 30 05/05/22 08:00 30 05/05/22 04:09 30 05/05/22 04:06 30 05/05/22 03:40 05/04/22 23:20 05/04/22 23:00 36 05/04/22 22:32 05/04/22 22:06 36 05/04/22 20:00 05/04/22 19:34 36 05/04/22 18:49 05/04/22 18:42 05/04/22 18:30 05/04/22 18:29 50 05/04/22 18:28 05/04/22 18:26 50 05/04/22 18:20 Intake and Output 05/04/22 05/05/22 05/05/22 22:59 06:59 14:59 Intake Total 180 Output Total 75 200 Balance -75 -200 180 Intake: Oral 180 Output: Urine 75 200 Other: Weight 83.915 kg 83.915 kg Results CBC & Chem 7: 05/04/22 18:30 05/04/22 18:30 Labs: Abnormal Lab Results - Last 24 Hours (Table) 05/04/22 05/04/22 05/04/22 Range/Units 18:30 18:30 18:33 Hgb 12.4 L (13.0-17.5) gm/dL MCV 78.3 L (80.0-100.0) fL MCH 23.8 L (25.0-35.0) pg MCHC 30.4 L (31.0-37.0) g/dL D-Dimer (<0.60) mg/L FEU VBG pCO2 65 H (37-51) mmHg VBG HCO3 33 H (24-28) mmol/L Carbon Dioxide 33 H (22-30) mmol/L Glucose 134 H (74-99) mg/dL 05/04/22 Range/Units 20:04 Hgb (13.0-17.5) gm/dL MCV (80.0-100.0) fL MCH (25.0-35.0) pg MCHC (31.0-37.0) g/dL D-Dimer 1.32 H (<0.60) mg/L FEU VBG pCO2 (37-51) mmHg VBG HCO3 (24-28) mmol/L Carbon Dioxide (22-30) mmol/L Glucose (74-99) mg/dL Thrombosis Risk Factor Assmnt - Choose All That Apply Any of the Below Risk Factors Present?: Yes Each Factor Represents 1 point: Abnormal pulmonary function (COPD), Obesity (BMI >25) Other Risk Factors: Yes Each Risk Factor Represents 3 Points: Age 75 years or older Other congenital or acquired thrombophilia - If yes, enter type in comment: No Thrombosis Risk Factor Assessment Total Risk Factor Score: 5 Thrombosis Risk Factor Assessment Level: High Risk
[2022-05-05] MEDS: bisacodyL 5 MG TABLET.DR PO PRN (16:39)
[2022-05-05] MEDS: methylPREDNISolone SOD SUCCI 40 MG/ML 1 ML VIAL IV SCH ×2 (16:39→23:22)
[2022-05-05] MEDS: ENOXAPARIN 40 MG/0.4 ML SYRINGE SQ SCH (16:40)
[2022-05-05] MEDS: DOXYCYCLINE 100 MG CAP PO SCH (16:44)
[2022-05-05] MEDS: METOPROLOL TARTRATE 12.5 MG TAB PO SCH (19:56)
[2022-05-05] MEDS: PRAVASTATIN SODIUM 20 MG TAB PO SCH (19:56)
[2022-05-05] MEDS: BUDESONIDE 1 MG/2 ML NEBU INHALATION SCH (20:54)
[2022-05-05] MEDS: FORMOTEROL FUMARATE 20 MCG/2 ML NEBU INHALATION SCH (20:54)
[2022-05-06] MEDS: IPRATROPIUM 0.5 MG/2.5 ML NEBU INHALATION SCH ×7 (00:20→23:27)
[2022-05-06] MEDS: IPRATROPIUM-ALBUTEROL 3 ML NEB INHALATION PRN ×5 (00:20→20:01)
[2022-05-06] MEDS: ACETAMINOPHEN TAB 500 MG TAB PO PRN ×2 (02:57→20:09)
[2022-05-06] MEDS: DOXYCYCLINE 100 MG CAP PO SCH (05:33)
[2022-05-06] MEDS: FORMOTEROL FUMARATE 20 MCG/2 ML NEBU INHALATION SCH ×2 (07:46→20:01)
[2022-05-06] MEDS: BUDESONIDE 1 MG/2 ML NEBU INHALATION SCH ×2 (07:46→20:01)
[2022-05-06] MEDS ORDERED: ERGOCALCIFEROL 1,250 MCG (50,000 IU) CAPSULE PO SCH (09:00)
[2022-05-06] MEDS: methylPREDNISolone SOD SUCCI 40 MG/ML 1 ML VIAL IV SCH ×3 (09:39→23:40)
[2022-05-06] MEDS: ASPIRIN 81 MG PO SCH (09:39)
[2022-05-06] MEDS: ENOXAPARIN 40 MG/0.4 ML SYRINGE SQ SCH (09:40)
[2022-05-06] MEDS: ESCITALOPRAM 10 MG TAB PO SCH (09:40)
[2022-05-06] MEDS: PANTOPRAZOLE 40 MG TABLET PO SCH (09:40)
[2022-05-06] MEDS: METOPROLOL TARTRATE 12.5 MG TAB PO SCH ×3 (09:40→21:44)
[2022-05-06] MEDS: FERROUS SULFATE 325 MG TAB PO SCH (09:40)
[2022-05-06] MEDS: SENNOSIDES-DOCUSATE SODIUM 1 EACH TAB PO SCH (09:41)
[2022-05-06] MEDS: THEOPHYLLINE 24 HOUR 400 MG CAP.ER.24H PO SCH (09:41)
--- NOTE | 2022-05-06 13:44 | P.CNPUL ---
History of Present Illness Consult date: 05/06/22 Requesting physician: Isra Antonio Reason for consult: dyspnea, cough, COPD, hypoxemia Chief complaint: Shortness of breath. History of present illness: Pulmonary consult dated 05/06/2022. 77-year-old male with a history of COPD, who presents to the emergency department on May 04, complaining of shortness of breath. The patient was brought in by EMS, on CPAP. The patient apparently could not catch his breath. Because he was getting worse and worse at home, the patient called EMS who brought him to the ER to be evaluated. Apparently he received some Solu-Medrol and breathing treatments in route. The patient was evaluated in the emergency department admitted with a diagnosis of COPD exacerbation. Currently, he's on 3 L. He uses home O2 at 2 L. He is not on any IV fluids. A BiPAP device is in his room with settings of 12/6 and 30%. The patient apparently sees one or both of my partners. White count 10.3, hemoglobin 12.4, hematocrit 40.8, and platelet count 351,000. Venous blood gases show pCO2 of 65 and a pH is 7.33. D-dimer was 1.32. Sodium 140, potassium 4.4, chlorides 101, CO2 33, BUN 18, creatinine 0.88. Pro-calcitonin level was 0.06. A chest x-ray was normal. Review of Systems REVIEW OF SYSTEMS: CONSTITUTIONAL: [Negative.] NEUROLOGIC: [ Negative.] HEENT: [ Negative.] CARDIAC: [Negative.] PULMONARY: Shortness of breath. GI: [Negative.] : [Negative.] RHEUMATOLOGIC: [ Negative.] IMMUNOLOGIC: [ Negative.] ENDOCRINE: [Negative. ] DERMATOLOGIC: [Negative.] Past Medical History Past Medical History: COPD, CVA/TIA, GERD/Reflux, Myocardial Infarction ([place]), Pneumonia Additional Past Medical History / Comment(s): back problems - pulled lumbar musc les (40years ago), Ct abdomen 12/04 for abdominal pain Last Myocardial Infarction Date:: 2011 History of Any Multi-Drug Resistant Organisms: None Reported Past Surgical History: Back Surgery Additional Past Surgical History / Comment(s): left index finger surgery Past Anesthesia/Blood Transfusion Reactions: No Reported Reaction Past Psychological History: Depression Smoking Status: Former smoker Past Alcohol Use History: None Reported Past Drug Use History: None Reported - Past Family History Mother Family Medical History: Diabetes Mellitus Medications and Allergies Home Medications Medication Instructions Recorded Confirmed Type Albuterol Inhaler [Ventolin Hfa 2 puff INHALATION RT-QID PRN 12/14/14 05/04/22 History Inhaler] predniSONE 5 mg PO DAILY 12/14/14 05/04/22 History Ergocalciferol [Vitamin D2 50,000 unit PO Q7D 05/10/15 05/04/22 History (DRISDOL)] Omeprazole 20 mg PO DAILY 08/07/18 05/04/22 History Theophylline 24 Hour [[place]-24] 400 mg PO DAILY 08/07/18 05/04/22 History Ferrous Sulfate [Iron (65 MG 325 mg PO DAILY 11/15/21 05/04/22 History Elemental)] Fluticasone Propion/Salmeterol 1 puff INHALATION RT-BID 11/15/21 05/04/22 History [Fluticasone-Salmeterol 250-50] Naproxen [EC-Naprosyn] 500 mg PO BID PRN 11/15/21 05/04/22 History Sennosides-Docusate Sodium 1 tab PO DAILY 11/15/21 05/04/22 History [Senokot-S] bisacodyL [Bisacodyl] 5 mg PO DAILY PRN 11/15/21 05/04/22 History methocarbamoL [Methocarbamol] 500 mg PO TID PRN 11/15/21 05/04/22 History Aspirin 81 mg PO DAILY #30 tab 11/19/21 05/04/22 Rx Ipratropium-Albuterol Nebulize 3 ml INHALATION RT-Q4H PRN #50 each 11/19/21 05/04/22 Rx [Duoneb 0.5 mg-3 mg/3 ml Soln] Pravastatin Sodium [Pravachol] 20 mg PO HS #30 tab 11/19/21 05/04/22 Rx Ciclopirox Olamine [Loprox 0.77% 1 applic TOPICAL BID PRN 01/07/22 05/04/22 History cream] Escitalopram [Lexapro] 10 mg PO DAILY 05/04/22 05/04/22 History Fluticasone Nasal [place] [Flonase 1 spray EA NOSTRIL BID PRN 05/04/22 05/04/22 History Nasal [place]] Furosemide [Lasix] 40 mg PO DAILY PRN 05/04/22 05/04/22 History Haloperidol Oral Soln [Haldol Oral 1 mg PO Q4H PRN 05/04/22 05/04/22 History Soln] Hyoscyamine Sulfate [Levsin-Sl] 0.25 mg SL Q4H PRN 05/04/22 05/04/22 History Ipratropium [place] [Ipratropium 1 spray EA NOSTRIL TID PRN 05/04/22 05/04/22 History [place] 0.03%] LORazepam [Ativan] 1 mg PO TID PRN 05/04/22 05/04/22 History Melatonin 3 mg PO HS PRN 05/04/22 05/04/22 History Metoprolol Tartrate [Lopressor] 25 mg PO DAILY 05/04/22 05/04/22 History Morphine Sulfate [Morphine Sulfate 5 mg PO Q4H PRN 05/04/22 05/04/22 History Oral Soln Concentrate] Ondansetron Odt [Zofran Odt] 4 mg PO Q4H PRN 05/04/22 05/04/22 History Ondansetron [Zofran] 4 mg PO Q8H PRN 05/04/22 05/04/22 History Tiotropium 2.5 Mcg/Puff [Spiriva 2 puff INHALATION RT-DAILY 05/04/22 05/04/22 History Respimat 2.5 Mcg] traZODone HCL [Desyrel] 25 - 50 mg PO HS PRN 05/04/22 05/04/22 History Allergies Allergy/AdvReac Type Severity Reaction Status Date / Time atorvastatin AdvReac nausea, Verified 05/04/22 20:36 stomach pain, vomiting metoprolol [From Toprol XL] AdvReac nausea, Verified 05/04/22 20:36 stomach pain, vomiting Physical Exam Osteopathic Statement: *. No significant issues noted on an osteopathic structural exam other than those noted in the History and Physical/Consult. Vitals: Vital Signs Temp Pulse Pulse Resp BP Pulse Ox FiO2 05/06/22 12:00 108 H 05/06/22 11:47 112 H 05/06/22 08:04 100 05/06/22 08:00 98.5 F 126 H 24 167/65 95 05/06/22 07:57 108 H 05/06/22 07:49 102 H 96 05/06/22 04:06 113 H 05/06/22 03:54 111 H 30 05/06/22 03:00 107 H 20 113/62 95 05/06/22 00:30 96 05/06/22 00:23 92 05/05/22 23:25 99 19 112/62 97 05/05/22 21:17 112 H 05/05/22 21:07 116 H 05/05/22 20:55 116 H 05/05/22 19:55 97.9 F 113 H 17 135/70 96 05/05/22 16:00 98.2 F 120 H 20 124/70 94 L 05/05/22 15:59 120 H 05/05/22 15:45 120 H 95 Intake and Output 05/05/22 05/06/22 05/06/22 22:59 06:59 14:59 Intake Total 180 Balance 180 Intake: Oral 180 Other: Voiding Method Urinal Urinal Urinal # Voids 1 # Bowel Movements 1 No acute distress, oriented 3. Currently on 3 L of oxygen. No conversational dyspnea or use of accessory muscles. HEENT examination is grossly unremarkable. Neck supple. Full range of motion. No adenopathy thyromegaly or neck vein distention. Cardiovascular examination reveals regular rhythm rate. S1-S2 normal. No S3 or S4. No discernible murmur noted. Heart sounds are distant. Heart rate 100 bpm. Lungs reveal severely diminished bilateral breath sounds. Scattered rhonchi and wheezes are noted. No crackles. Saturations are 95%. Breath sounds are equal bilaterally. Abdomen soft bowel sounds are heard. No masses or tenderness. Extremities are intact. No cyanosis clubbing or edema. Skin is without rash or lesion. Neurologic examination is brief but nonfocal. Results - Laboratory Findings CBC and BMP: 05/04/22 18:30 05/04/22 18:30 PT/INR, D-dimer D-Dimer 1.32 mg/L FEU (<0.60) H 05/04/22 20:04 Abnormal lab findings: Abnormal Labs 05/04/22 05/04/22 05/04/22 18:30 18:30 18:33 Hgb 12.4 L MCV 78.3 L MCH 23.8 L MCHC 30.4 L D-Dimer VBG pCO2 65 H VBG HCO3 33 H Carbon Dioxide 33 H Glucose 134 H POC Glucose (mg/dL) 05/04/22 05/05/22 20:04 12:23 Hgb MCV MCH MCHC D-Dimer 1.32 H VBG pCO2 VBG HCO3 Carbon Dioxide Glucose POC Glucose (mg/dL) 117 H - Diagnostic Findings Chest x-ray: image reviewed Assessment and Plan Assessment: Acute hypoxemic respiratory failure secondary to COPD exacerbation. Chronic hypoxemic respiratory failure, on home O2 at 2 L. History of CVA. History of GERD. History of myocardial infarction. History of chronic back pain. History of depression. Prior history of heavy tobacco use. Plan: Plan dated 05/06/2022. The patient's currently on Pulmicort 1 mg twice a day, along with formoterol 20 g twice a day. In addition, the patient is on doxycycline 100 mg twice a day. The patient's pro-calcitonin level is very low and doxycycline can be discontinued. The patient's also getting albuterol sulfate and ipratropium bromide breathing treatments, along with Solu-Medrol 40 mg every 8 hours. We will continue to follow make recommendations along the way. Prognosis is gu arded. Time with Patient: Greater than 30
--- NOTE | 2022-05-06 16:09 | P.PN ---
Progress Note - Text Progress Note Date: 05/06/22 Chief Complaint: Short of breath This is a very pleasant 77-year-old patient who follows with Dr. Cardona. Chronic stable medical conditions include GERD, prior [place], arthritis, GERD, home oxygen 2 L. end-stage COPD baseline short of breath Presented to ER with increasing shortness of breath for 3 days. Cough with thick sputum. Not see the color. Some fever and chills. Decreased appetite tired rundown. Was put on a BiPAP. This morning settings include 03/22 last 30%. Initiate better. Admitted with severe COPD exacerbation, acute tracheal bronchitis, acute hypoxic respiratory failure. Started on BiPAP. Nebulized bronchodilators. Steroids. Doxycycline. 05/06/2022: Patient sitting at edge of bed. Eating lunch. Breathing is better. Coughing some sputum. Seen by pulmonary. Dr. Berry. Doxycycline discontinued. Active Medications Acetaminophen (Acetaminophen Tab 500 Mg Tab) 1,000 mg PO Q6HR PRN PRN Reason: Fever and/ or Pain Last Admin: 05/06/22 02:57 Dose: 1,000 mg Albuterol/Ipratropium (Ipratropium-Albuterol 3 Ml Neb) 3 ml INHALATION RT-Q4H PRN PRN Reason: Wheezing Last Admin: 05/06/22 16:01 Dose: 3 ml Aspirin (Aspirin 81 Mg) 81 mg PO DAILY [facility] Last Admin: 05/06/22 09:39 Dose: 81 mg Bisacodyl (Bisacodyl 5 Mg Tablet.) 5 mg PO DAILY PRN PRN Reason: HOLD WITH LOOSE STOOL Last Admin: 05/05/22 16:39 Dose: 5 mg Budesonide (Budesonide 1 Mg/2 Ml Nebu) 1 mg INHALATION RT-BID [facility] Last Admin: 05/06/22 07:46 Dose: 1 mg Calcium Carbonate/Glycine (Calcium Carbonate 500 Mg Chewable) 1,000 mg PO Q4HR PRN PRN Reason: Dyspepsia Enoxaparin Sodium (Enoxaparin 40 Mg/0.4 Ml Syringe) 40 mg SQ DAILY [facility] Last Admin: 05/06/22 09:40 Dose: 40 mg Ergocalciferol (Ergocalciferol 1,250 Mcg (50,000 Iu) Capsule) 1,250 mcg PO Q7D@0900 [facility] Last Admin: 05/06/22 09:40 Dose: 1,250 mcg Escitalopram Oxalate (Escitalopram 10 Mg Tab) 10 mg PO DAILY [facility] Last Admin: 05/06/22 09:40 Dose: 10 mg Ferrous Sulfate (Ferrous Sulfate 325 Mg Tab) 325 mg PO DAILY [facility] Last Admin: 05/06/22 09:40 Dose: 325 mg Fluticasone Propionate (Fluticasone 50mcg/[place] Nasal 16gm) 1 spray EA NOSTRIL BID PRN PRN Reason: Allergy Symptoms Formoterol Fumarate (Formoterol Fumarate 20 Mcg/2 Ml Nebu) 20 mcg INHALATION RT-BID [facility] Last Admin: 05/06/22 07:46 Dose: 20 mcg Furosemide (Furosemide 40 Mg Tab) 40 mg PO DAILY PRN PRN Reason: Edema Haloperidol Lactate (Haloperidol Oral Soln 10 Mg/5 Ml Cup) 1 mg PO Q4H PRN PRN Reason: NAUSEA/AGITATION/RESTLESSNESS Hyoscyamine (Hyoscyamine Sulfate 0.125 Mg Tab) 0.25 mg SL Q4H PRN PRN Reason: CONGESTION Ipratropium [place] (Ipratropium 0.5 Mg/2.5 Ml Nebu) 0.5 mg INHALATION RT-Q4H [facility] Last Admin: 05/06/22 16:01 Dose: Not Given Ipratropium [place] (Ipratropium [place] 0.06% Nasal [place] (15 Ml)) 1 spray EA NOSTRIL TID PRN PRN Reason: Allergy Symptoms Lactulose (Lactulose 20 Gm/30 Ml Cup) 20 gm PO DAILY PRN PRN Reason: Constipation Lorazepam (Lorazepam 1 Mg Tab) 1 mg PO TID PRN PRN Reason: Anxiety Melatonin (Melatonin 3 Mg Tablet) 3 mg PO HS PRN PRN Reason: sleep Methocarbamol (Methocarbamol 500 Mg Tab) 500 mg PO TID PRN PRN Reason: Muscle Pain Methylprednisolone Sodium Succinate (Methylprednisolone Sod [place]cci 40 Mg/Ml 1 Ml Vial) 40 mg IV Q6HR [facility] Metoprolol Tartrate (Metoprolol Tartrate 12.5 Mg Tab) 12.5 mg PO TID [facility] Last Admin: 05/06/22 09:40 Dose: 12.5 mg Morphine Sulfate (Morphine Oral Soln 10 Mg/5 Ml Cup) 5 mg PO Q4H PRN PRN Reason: Pain Naloxone HCl (Naloxone 0.4 Mg/Ml 1 Ml Vial) 0.2 mg IV Q2M PRN PRN Reason: Opioid Reversal Ondansetron HCl (Ondansetron Odt 4 Mg Tab) 4 mg PO Q4H PRN PRN Reason: Nausea Ondansetron HCl (Ondansetron 4 Mg/2 Ml Vial) 4 mg IVP Q8HR PRN PRN Reason: Nausea And Vomiting Pantoprazole Sodium (Pantoprazole 40 Mg Tablet) 40 mg PO DAILY [facility] Last Admin: 05/06/22 09:40 Dose: 40 mg Pravastatin Sodium (Pravastatin Sodium 20 Mg Tab) 20 mg PO HS [facility] Last Admin: 05/05/22 19:56 Dose: 20 mg Senna/Docusate Sodium (Sennosides-Docusate Sodium 1 Each Tab) 1 each PO DAILY [facility] Last Admin: 05/06/22 09:41 Dose: 1 each Theophylline (Theophylline 24 Hour 400 Mg Cap.Er.24h) 400 mg PO DAILY [facility] Last Admin: 05/06/22 09:41 Dose: 400 mg Past medical history to include: End-stage COPD, home oxygen 2 L, GERD, [place], arthritis Social history: Lives with the partner Jalyn Smoked a pack a day for about 53 years stopped about 2013. 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 Family history: Diabetes Physical examination: VITAL SIGNS: 97.8, 117, 22, 150/66, 94% on 3 L GENERAL: Sitting at the edge of the bed, some shortness of breath EYES: Pupils equal. Conjunctiva normal. HEENT: External appearance of nose and ears normal, oral cavity grossly normal. NECK: JVD not raised; masses not palpable. HEART: First and second heart sounds are normal; no edema. LUNGS: Respiratory rate increased, decreased breath sounds, prolonged expiration and wheezing. ABDOMEN: Soft, nontender, liver spleen not palpable, no masses palpable. PSYCH: Alert and oriented x3; mood and affect anxious MUSCULOSKELETAL:No Clubbing/cyanosis;muscles-grossly intact INVESTIGATIONS, reviewed in the clinical context: Procalcitonin 0.06 White count 10.3 hemoglobin 12.4 platelets 351 sodium 140 potassium 4.4 creatinine 0.8 date Troponin I less than 0.012 proBNP 46 EKG tracing personally reviewed by me-sinus tachycardia Chest x-ray film personally reviewed by me-hyperinflation. Prominent pulmonary artery. Assessment and plan: -Acute severe COPD exacerbation in a prior smoker, chronically steroid dependent: : Slow to respond Atrovent every 4, IV Solu-Medrol, nebulized Pulmicort, Perforomist. Theophylline -Acute tracheobronchitis Doxycycline discontinued by pulmonary -Acute on Chronic hypoxic respiratory failure secondary to COPD: Better Initially in BiPAP now on 3 L Home oxygen 2 L -Sinus tachycardia from uncontrolled respiratory status and patient being on theophylline. Lopressor -chronic medical debility from underlying COPD -Anxiety Lexapro -CAD with a prior history of [place] , Pravachol aspirin -GERD Omeprazole -Chronic low back pain from arthritis Methocarbamol, -Full code
[2022-05-06] MEDS: bisacodyL 5 MG TABLET.DR PO PRN (20:10)
[2022-05-06] MEDS: PRAVASTATIN SODIUM 20 MG TAB PO SCH (21:44)
[2022-05-07] MEDS: IPRATROPIUM-ALBUTEROL 3 ML NEB INHALATION PRN ×7 (02:58→23:33)
[2022-05-07] MEDS: methylPREDNISolone SOD SUCCI 40 MG/ML 1 ML VIAL IV SCH ×4 (05:49→23:06)
[2022-05-07] MEDS: ACETAMINOPHEN TAB 500 MG TAB PO PRN (05:54)
[2022-05-07] MEDS: FORMOTEROL FUMARATE 20 MCG/2 ML NEBU INHALATION SCH ×2 (08:26→21:13)
[2022-05-07] MEDS: BUDESONIDE 1 MG/2 ML NEBU INHALATION SCH ×2 (08:26→21:13)
[2022-05-07] MEDS: IPRATROPIUM 0.5 MG/2.5 ML NEBU INHALATION SCH ×5 (08:27→23:37)
[2022-05-07] MEDS: ASPIRIN 81 MG PO SCH (09:18)
[2022-05-07] MEDS: ENOXAPARIN 40 MG/0.4 ML SYRINGE SQ SCH (09:18)
[2022-05-07] MEDS: PANTOPRAZOLE 40 MG TABLET PO SCH (09:18)
[2022-05-07] MEDS: ESCITALOPRAM 10 MG TAB PO SCH (09:18)
[2022-05-07] MEDS: SENNOSIDES-DOCUSATE SODIUM 1 EACH TAB PO SCH (09:18)
[2022-05-07] MEDS: METOPROLOL TARTRATE 12.5 MG TAB PO SCH ×3 (09:18→20:10)
[2022-05-07] MEDS: FERROUS SULFATE 325 MG TAB PO SCH (09:18)
[2022-05-07] MEDS: THEOPHYLLINE 24 HOUR 400 MG CAP.ER.24H PO SCH (09:18)
[2022-05-07] MEDS: MORPHINE ORAL SOLN 10 MG/5 ML CUP PO PRN (09:30)
--- NOTE | 2022-05-07 11:54 | P.PN ---
Subjective Progress Note Date: 05/07/22 77-year-old male with a history of COPD, who presents to the emergency department on May 04, complaining of shortness of breath. The patient was brought in by EMS, on CPAP. The patient apparently could not catch his breath. Because he was getting worse and worse at home, the patient called EMS who brought him to the ER to be evaluated. Apparently he received some Solu-Medrol and breathing treatments in route. The patient was evaluated in the emergency department admitted with a diagnosis of COPD exacerbation. Currently, he's on 3 L. He uses home O2 at 2 L. He is not on any IV fluids. A BiPAP device is in his room with settings of 12/6 and 30%. The patient apparently sees one or both of my partners. White count 10.3, hemoglobin 12.4, hematocrit 40.8, and platelet count 351,000. Venous blood gases show pCO2 of 65 and a pH is 7.33. D-dimer was 1.32. Sodium 140, potassium 4.4, chlorides 101, CO2 33, BUN 18, creatinine 0.88. Pro-calcitonin level was 0.06. A chest x-ray was normal. The patient is seen today 05/07/2022 in follow-up on the selective care unit. He is currently resting comfortably in bed. He had issues earlier this morning with worsening shortness of breath, cough and congestion. According to his nurse he has stated he wanted to be placed in hospice. He does not want life support. He had been maintaining O2 saturations in the mid 90s on 3 L/m per nasal cannula. He had developed tachypnea and tachycardia. He is currently on BiPAP 12/6 and 30% FiO2 and is more comfortable. Pro-calcitonin 0.06. He remains on DuoNeb inhalations, Pulmicort and Perforomist inhalations, IV Solu- Medrol. On oral diuretics. Lovenox for DVT prophylaxis. Ativan as needed. Objective - Vital Signs Vital signs: Vital Signs Temp 98.3 F 05/07/22 08:00 Pulse 104 H 05/07/22 08:48 Resp 28 H 05/07/22 08:00 BP 158/83 05/07/22 08:00 Pulse Ox 95 05/07/22 08:00 FiO2 30 05/07/22 08:27 Intake & Output 05/06/22 05/07/22 05/07/22 18:59 06:59 18:59 Intake Total 480 118 Output Total 750 600 Balance -270 -600 118 Intake: Oral 480 118 Output: Urine 750 600 Other: Voiding Method Urinal Urinal Urinal # Voids 3 2 - Exam GENERAL EXAM: Alert, anxious 77-year-old male, alternating 3 L nasal cannula with BiPAP 12/6 and 30% FiO2, comfortable in no apparent distress. HEAD: Normocephalic. EYES: Normal reaction of pupils, equal size. NOSE: Clear with pink turbinates. THROAT: No erythema or exudates. NECK: No masses, no JVD. CHEST: No chest wall deformity. LUNGS: Equal air entry with bilateral end expiratory wheeze, diminished. CVS: S1 and S2 normal with no audible murmur, regular rhythm. ABDOMEN: No hepatosplenomegaly, normal bowel sounds, no guarding or rigidity. SPINE: No scoliosis or deformity SKIN: No rashes CENTRAL NERVOUS SYSTEM: No focal deficits, tone is normal in all 4 extremities. EXTREMITIES: There is no peripheral edema. No clubbing, no cyanosis. Peripheral pulses are intact. - Labs CBC & Chem 7: 05/04/22 18:30 05/04/22 18:30 Assessment and Plan Assessment: Acute on chronic hypoxemic respiratory failure secondary to an acute exacerbation of chronic obstructive pulmonary disease. Procalcitonin 0.06. Chronic hypoxemic respiratory failure, on home O2 at 2 L. History of CVA. History of GERD. History of myocardial infarction. History of chronic back pain. History of depression. Prior history of heavy tobacco use. Plan: The patient was seen and evaluated Medications reviewed The patient has requested DO NOT RESUSCITATE/DO NOT INTUBATE CODE STATUS We'll continue with the current treatment plan for now He has voiced concern for possible hospice We'll await further direction from the patient We'll continue to follow I have personally seen and examined the patient, performed the documentation and the assessment and plan as written. Number of minutes spent on the visit: 10.
--- NOTE | 2022-05-07 16:40 | P.PN ---
Progress Note - Text Progress Note Date: 05/07/22 Chief Complaint: Short of breath This is a very pleasant 77-year-old patient who follows with Dr. Cardona. Chronic stable medical conditions include GERD, prior [place], arthritis, GERD, home oxygen 2 L. end-stage COPD baseline short of breath Presented to ER with increasing shortness of breath for 3 days. Cough with thick sputum. Not see the color. Some fever and chills. Decreased appetite tired rundown. Was put on a BiPAP. This morning settings include 12 last 30%. Initiate better. Admitted with severe COPD exacerbation, acute tracheal bronchitis, acute hypoxic respiratory failure. Started on BiPAP. Nebulized bronchodilators. Steroids. Doxycycline. 05/06/2022: Patient sitting at edge of bed. Eating lunch. Breathing is better. Coughing some sputum. Seen by pulmonary. Dr. Berry. Doxycycline discontinued. 05/07/2022: It was learned today that patient was at home with [facility]. Patient's significant other present the room. Patient had panic in bed called hospice team. Hospital team was unable to get any medications and patient has was sent to the hospital after they called 911. Had a lengthy talk with the patient's significant other. Agreeable to return home with hospice. Several questions answered. Nurses called [place] hospitalist who said that signed off the case. Hospice team is being reconsulted in the hospital. Patient tolerating diet. On nasal cannula. Shortness of breath. Able to answer questions. Active Medications Acetaminophen (Acetaminophen Tab 500 Mg Tab) 1,000 mg PO Q6HR PRN PRN Reason: Fever and/ or Pain Last Admin: 05/07/22 05:54 Dose: 1,000 mg Albuterol/Ipratropium (Ipratropium-Albuterol 3 Ml Neb) 3 ml INHALATION RT-Q4H PRN PRN Reason: Wheezing Last Admin: 05/07/22 11:52 Dose: 3 ml Aspirin (Aspirin 81 Mg) 81 mg PO DAILY [facility] Last Admin: 05/07/22 09:18 Dose: 81 mg Bisacodyl (Bisacodyl 5 Mg Tablet.) 5 mg PO DAILY PRN PRN Reason: HOLD WITH LOOSE STOOL Last Admin: 05/06/22 20:10 Dose: 5 mg Budesonide (Budesonide 1 Mg/2 Ml Nebu) 1 mg INHALATION RT-BID [facility] Last Admin: 05/07/22 08:26 Dose: 1 mg Calcium Carbonate/Glycine (Calcium Carbonate 500 Mg Chewable) 1,000 mg PO Q4HR PRN PRN Reason: Dyspepsia Enoxaparin Sodium (Enoxaparin 40 Mg/0.4 Ml Syringe) 40 mg SQ DAILY [facility] Last Admin: 05/07/22 09:18 Dose: 40 mg Ergocalciferol (Ergocalciferol 1,250 Mcg (50,000 Iu) Capsule) 1,250 mcg PO Q7D@0900 [facility] Last Admin: 05/06/22 09:40 Dose: 1,250 mcg Escitalopram Oxalate (Escitalopram 10 Mg Tab) 10 mg PO DAILY [facility] Last Admin: 05/07/22 09:18 Dose: 10 mg Ferrous Sulfate (Ferrous Sulfate 325 Mg Tab) 325 mg PO DAILY [facility] Last Admin: 05/07/22 09:18 Dose: 325 mg Fluticasone Propionate (Fluticasone 50mcg/[place] Nasal 16gm) 1 spray EA NOSTRIL BID PRN PRN Reason: Allergy Symptoms Formoterol Fumarate (Formoterol Fumarate 20 Mcg/2 Ml Nebu) 20 mcg INHALATION RT-BID [facility] Last Admin: 05/07/22 08:26 Dose: 20 mcg Furosemide (Furosemide 40 Mg Tab) 40 mg PO DAILY PRN PRN Reason: Edema Haloperidol Lactate (Haloperidol Oral Soln 10 Mg/5 Ml Cup) 1 mg PO Q4H PRN PRN Reason: NAUSEA/AGITATION/RESTLESSNESS Hyoscyamine (Hyoscyamine Sulfate 0.125 Mg Tab) 0.25 mg SL Q4H PRN PRN Reason: CONGESTION Ipratropium [place] (Ipratropium 0.5 Mg/2.5 Ml Nebu) 0.5 mg INHALATION RT-Q4H [facility] Last Admin: 05/07/22 11:33 Dose: Not Given Ipratropium [place] (Ipratropium [place] 0.06% Nasal [place] (15 Ml)) 1 spray EA NOSTRIL TID PRN PRN Reason: Allergy Symptoms Lactulose (Lactulose 20 Gm/30 Ml Cup) 20 gm PO DAILY PRN PRN Reason: Constipation Lorazepam (Lorazepam 1 Mg Tab) 1 mg PO TID PRN PRN Reason: Anxiety Last Admin: 05/06/22 23:56 Dose: 1 mg Melatonin (Melatonin 3 Mg Tablet) 3 mg PO HS PRN PRN Reason: sleep Methocarbamol (Methocarbamol 500 Mg Tab) 500 mg PO TID PRN PRN Reason: Muscle Pain Methylprednisolone Sodium Succinate (Methylprednisolone Sod Succi 40 Mg/Ml 1 Ml Vial) 40 mg IV Q6HR [facility] Last Admin: 05/07/22 05:49 Dose: 40 mg Metoprolol Tartrate (Metoprolol Tartrate 12.5 Mg Tab) 12.5 mg PO TID [facility] Last Admin: 05/07/22 09:18 Dose: 12.5 mg Morphine Sulfate (Morphine Oral Soln 10 Mg/5 Ml Cup) 5 mg PO Q4H PRN PRN Reason: Pain Naloxone HCl (Naloxone 0.4 Mg/Ml 1 Ml Vial) 0.2 mg IV Q2M PRN PRN Reason: Opioid Reversal Ondansetron HCl (Ondansetron Odt 4 Mg Tab) 4 mg PO Q4H PRN PRN Reason: Nausea Ondansetron HCl (Ondansetron 4 Mg/2 Ml Vial) 4 mg IVP Q8HR PRN PRN Reason: Nausea And Vomiting Pantoprazole Sodium (Pantoprazole 40 Mg Tablet) 40 mg PO DAILY [facility] Last Admin: 05/07/22 09:18 Dose: 40 mg Pravastatin Sodium (Pravastatin Sodium 20 Mg Tab) 20 mg PO HS [facility] Last Admin: 05/06/22 21:44 Dose: 20 mg Senna/Docusate Sodium (Sennosides-Docusate Sodium 1 Each Tab) 1 each PO DAILY [facility] Last Admin: 05/07/22 09:18 Dose: 1 each Theophylline (Theophylline 24 Hour 400 Mg Cap.Er.24h) 400 mg PO DAILY [facility] Last Admin: 05/07/22 09:18 Dose: 400 mg Past medical history to include: End-stage COPD, home oxygen 2 L, GERD, [place], arthritis Social history: Lives with the partner Jalyn Smoked a pack a day for about 53 years stopped about 2013. 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 Family history: Diabetes Physical examination: VITAL SIGNS: 98.3, 110, 26, 1 5083, 95% on 3 L GENERAL: Reclining in bed some shortness of breath EYES: Pupils equal. Conjunctiva normal. HEENT: External appearance of nose and ears normal, oral cavity grossly normal. NECK: JVD not raised; masses not palpable. HEART: First and second heart sounds are normal; no edema. LUNGS: Respiratory rate increased, decreased breath sounds, prolonged expiration and wheezing. ABDOMEN: Soft, nontender, liver spleen not palpable, no masses palpable. PSYCH: Alert and oriented x3; mood and affect anxious MUSCULOSKELETAL:No Clubbing/cyanosis;muscles-grossly intact INVESTIGATIONS, reviewed in the clinical context: Procalcitonin 0.06 White count 10.3 hemoglobin 12.4 platelets 351 sodium 140 potassium 4.4 creatinine 0.8 date Troponin I less than 0.012 proBNP 46 EKG tracing personally reviewed by me-sinus tachycardia Chest x-ray film personally reviewed by me-hyperinflation. Prominent pulmonary artery. Assessment and plan: -Acute severe COPD exacerbation in a prior smoker, chronically steroid dependent: : Slow to respond Atrovent every 4, IV Solu-Medrol, nebulized Pulmicort, Perforomist. Theophylline -Acute tracheobronchitis Doxycycline discontinued by pulmonary -Acute on Chronic hypoxic respiratory failure secondary to COPD: Better Initially in BiPAP now on 3 L Home oxygen 2 L -Sinus tachycardia from uncontrolled respiratory status and patient being on theophylline. Lopressor -chronic medical debility from underlying COPD -Anxiety Lexapro -CAD with a prior history of [place] , Pravachol aspirin -GERD Omeprazole -Chronic low back pain from arthritis Methocarbamol, -DO NOT RESUSCITATE Advance care planning: End-of-life care was discussed at length with the patient and the significant other the bedside. Had several questions. Answered. Patient is agreeable to go back home with hospice. [place] [facility] has signed off. Hospice team will be consulted. Patient does take his own medical decisions. Time spent for this 20 minutes
[2022-05-07] MEDS: PRAVASTATIN SODIUM 20 MG TAB PO SCH (20:10)
[2022-05-07] MEDS: HALOPERIDOL ORAL SOLN 10 MG/5 ML CUP PO PRN (20:58)
[2022-05-08] MEDS: IPRATROPIUM-ALBUTEROL 3 ML NEB INHALATION PRN ×6 (03:10→23:44)
[2022-05-08] MEDS: IPRATROPIUM 0.5 MG/2.5 ML NEBU INHALATION SCH ×6 (03:24→23:51)
[2022-05-08] MEDS: methylPREDNISolone SOD SUCCI 40 MG/ML 1 ML VIAL IV SCH ×4 (05:06→23:40)
[2022-05-08] MEDS: BUDESONIDE 1 MG/2 ML NEBU INHALATION SCH ×2 (08:17→20:25)
[2022-05-08] MEDS: FORMOTEROL FUMARATE 20 MCG/2 ML NEBU INHALATION SCH ×2 (08:17→20:25)
[2022-05-08] MEDS: MORPHINE ORAL SOLN 10 MG/5 ML CUP PO PRN ×2 (08:28→18:18)
[2022-05-08] MEDS: THEOPHYLLINE 24 HOUR 400 MG CAP.ER.24H PO SCH (08:28)
[2022-05-08] MEDS: FERROUS SULFATE 325 MG TAB PO SCH (08:28)
[2022-05-08] MEDS: ASPIRIN 81 MG PO SCH (08:28)
[2022-05-08] MEDS: ESCITALOPRAM 10 MG TAB PO SCH (08:28)
[2022-05-08] MEDS: SENNOSIDES-DOCUSATE SODIUM 1 EACH TAB PO SCH (08:28)
[2022-05-08] MEDS: METOPROLOL TARTRATE 12.5 MG TAB PO SCH ×3 (08:28→21:01)
[2022-05-08] MEDS: ENOXAPARIN 40 MG/0.4 ML SYRINGE SQ SCH (08:28)
[2022-05-08] MEDS: PANTOPRAZOLE 40 MG TABLET PO SCH (08:28)
--- NOTE | 2022-05-08 10:36 | P.PN ---
Subjective Progress Note Date: 05/08/22 77-year-old male with a history of COPD, who presents to the emergency department on May 04, complaining of shortness of breath. The patient was brought in by EMS, on CPAP. The patient apparently could not catch his breath. Because he was getting worse and worse at home, the patient called EMS who brought him to the ER to be evaluated. Apparently he received some Solu-Medrol and breathing treatments in route. The patient was evaluated in the emergency department admitted with a diagnosis of COPD exacerbation. Currently, he's on 3 L. He uses home O2 at 2 L. He is not on any IV fluids. A BiPAP device is in his room with settings of 12/6 and 30%. The patient apparently sees one or both of my partners. White count 10.3, hemoglobin 12.4, hematocrit 40.8, and platelet count 351,000. Venous blood gases show pCO2 of 65 and a pH is 7.33. D-dimer was 1.32. Sodium 140, potassium 4.4, chlorides 101, CO2 33, BUN 18, creatinine 0.88. Pro-calcitonin level was 0.06. A chest x-ray was normal. The patient is seen today 05/07/2022 in follow-up on the selective care unit. He is currently resting comfortably in bed. He had issues earlier this morning with worsening shortness of breath, cough and congestion. According to his nurse he has stated he wanted to be placed in hospice. He does not want life support. He had been maintaining O2 saturations in the mid 90s on 3 L/m per nasal cannula. He had developed tachypnea and tachycardia. He is currently on BiPAP 12/6 and 30% FiO2 and is more comfortable. Pro-calcitonin 0.06. He remains on DuoNeb inhalations, Pulmicort and Perforomist inhalations, IV Solu- Medrol. On oral diuretics. Lovenox for DVT prophylaxis. Ativan as needed. The patient is seen today 05/08/2021 in follow-up on the selective care unit. He is currently resting in bed. Awake and alert. Maintaining O2 saturations in the 90s on 3 L/m per nasal cannula. He did utilize the BiPAP last night 12/6 and 30% FiO2. Currently on 3 L nasal cannula. He is continued on DuoNeb inhalations, Pulmicort and Perforomist inhalations, IV Solu-Medrol. He is also on theophylline. Lovenox for DVT prophylaxis. No new labs today. Objective - Vital Signs Vital signs: Vital Signs Temp 98.0 F 05/08/22 08:00 Pulse 85 05/08/22 08:40 Resp 20 05/08/22 08:00 BP 128/75 05/08/22 08:00 Pulse Ox 98 05/08/22 08:00 FiO2 30 05/08/22 03:10 Intake & Output 05/07/22 05/08/22 05/08/22 18:59 06:59 18:59 Intake Total 658 480 Output Total 80 300 Balance 578 180 Intake: Oral 658 480 Output: Urine 80 300 Other: Voiding Method Urinal Urinal Urinal # Voids 3 - Exam GENERAL EXAM: Alert, 77-year-old male, alternating 3 L nasal cannula with BiPAP 12/6 and 30% FiO2, comfortable in no apparent distress. HEAD: Normocephalic. EYES: Normal reaction of pupils, equal size. NOSE: Clear with pink turbinates. THROAT: No erythema or exudates. NECK: No masses, no JVD. CHEST: No chest wall deformity. LUNGS: Equal air entry with bilateral end expiratory wheeze, diminished. CVS: S1 and S2 normal with no audible murmur, regular rhythm. ABDOMEN: No hepatosplenomegaly, normal bowel sounds, no guarding or rigidity. SPINE: No scoliosis or deformity SKIN: No rashes CENTRAL NERVOUS SYSTEM: No focal deficits, tone is normal in all 4 extremities. EXTREMITIES: There is no peripheral edema. No clubbing, no cyanosis. Peripheral pulses are intact. - Labs CBC & Chem 7: 05/04/22 18:30 05/04/22 18:30 Assessment and Plan Assessment: Acute on chronic hypoxemic respiratory failure secondary to an acute exacerbation of chronic obstructive pulmonary disease. Procalcitonin 0.06. Chronic hypoxemic respiratory failure, on home O2 at 2 L. History of CVA. History of GERD. History of myocardial infarction. History of chronic back pain. History of depression. Prior history of heavy tobacco use. Plan: The patient was seen and evaluated Medications reviewed We'll continue with the current treatment plan We'll continue to follow I have personally seen and examined the patient, performed the documentation and the assessment and plan as written. Number of minutes spent on the visit: 10.
[2022-05-08] MEDS: PRAVASTATIN SODIUM 20 MG TAB PO SCH (21:01)
[2022-05-08] MEDS: HALOPERIDOL ORAL SOLN 10 MG/5 ML CUP PO PRN (21:01)
--- NOTE | 2022-05-08 21:50 | P.PN ---
Progress Note - Text Progress Note Date: 05/08/22 Chief Complaint: Short of breath This is a very pleasant 77-year-old patient who follows with Dr. Cardona. Chronic stable medical conditions include GERD, prior [place], arthritis, GERD, home oxygen 2 L. end-stage COPD baseline short of breath Presented to ER with increasing shortness of breath for 3 days. Cough with thick sputum. Not see the color. Some fever and chills. Decreased appetite tired rundown. Was put on a BiPAP. This morning settings include 12/6 last 30%. Initiate better. Admitted with severe COPD exacerbation, acute tracheal bronchitis, acute hypoxic respiratory failure. Started on BiPAP. Nebulized bronchodilators. Steroids. Doxycycline. 05/06/2022: Patient sitting at edge of bed. Eating lunch. Breathing is better. Coughing some sputum. Seen by pulmonary. Dr. Berry. Doxycycline discontinued. 05/07/2022: It was learned today that patient was at home with [facility]. Patient's significant other present the room. Patient had panic in bed called hospice team. Hospital team was unable to get any medications and patient has was sent to the hospital after they called 911. Had a lengthy talk with the patient's significant other. Agreeable to return home with hospice. Several questions answered. Nurses called [place] hospitalist who said that signed off the case. Hospice team is being reconsulted in the hospital. Patient tolerating diet. On nasal cannula. Shortness of breath. Able to answer questions. May 08: Patient tolerated diet. Short of breath. [facility] will not be following the patient anymore. security sales manager to arrange another hospice company so patient can go home. Discussed with the nurse. Active Medications Acetaminophen (Acetaminophen Tab 500 Mg Tab) 1,000 mg PO Q6HR PRN PRN Reason: Fever and/ or Pain Last Admin: 05/07/22 05:54 Dose: 1,000 mg Albuterol/Ipratropium (Ipratropium-Albuterol 3 Ml Neb) 3 ml INHALATION RT-Q4H PRN PRN Reason: Wheezing Last Admin: 05/08/22 20:25 Dose: 3 ml Aspirin (Aspirin 81 Mg) 81 mg PO DAILY [facility] Last Admin: 05/08/22 08:28 Dose: 81 mg Bisacodyl (Bisacodyl 5 Mg ) 5 mg PO DAILY PRN PRN Reason: HOLD WITH LOOSE STOOL Last Admin: 05/06/22 20:10 Dose: 5 mg Budesonide (Budesonide 1 Mg/2 Ml Nebu) 1 mg INHALATION RT-BID [facility] Last Admin: 05/08/22 20:25 Dose: 1 mg Calcium Carbonate/Glycine (Calcium Carbonate 500 Mg Chewable) 1,000 mg PO Q4HR PRN PRN Reason: Dyspepsia Enoxaparin Sodium (Enoxaparin 40 Mg/0.4 Ml Syringe) 40 mg SQ DAILY [facility] Last Admin: 05/08/22 08:28 Dose: 40 mg Ergocalciferol (Ergocalciferol 1,250 Mcg (50,000 Iu) Capsule) 1,250 mcg PO Q7D@0900 [facility] Last Admin: 05/06/22 09:40 Dose: 1,250 mcg Escitalopram Oxalate (Escitalopram 10 Mg Tab) 10 mg PO DAILY [facility] Last Admin: 05/08/22 08:28 Dose: 10 mg Ferrous Sulfate (Ferrous Sulfate 325 Mg Tab) 325 mg PO DAILY [facility] Last Admin: 05/08/22 08:28 Dose: 325 mg Fluticasone Propionate (Fluticasone 50mcg/[place] Nasal 16gm) 1 spray EA NOSTRIL BID PRN PRN Reason: Allergy Symptoms Formoterol Fumarate (Formoterol Fumarate 20 Mcg/2 Ml Nebu) 20 mcg INHALATION RT-BID [facility] Last Admin: 05/08/22 20:25 Dose: 20 mcg Furosemide (Furosemide 40 Mg Tab) 40 mg PO DAILY PRN PRN Reason: Edema Haloperidol Lactate (Haloperidol Oral Soln 10 Mg/5 Ml Cup) 1 mg PO Q4H PRN PRN Reason: NAUSEA/AGITATION/RESTLESSNESS Last Admin: 05/08/22 21:01 Dose: 1 mg Hyoscyamine (Hyoscyamine Sulfate 0.125 Mg Tab) 0.25 mg SL Q4H PRN PRN Reason: CONGESTION Ipratropium [place] (Ipratropium 0.5 Mg/2.5 Ml Nebu) 0.5 mg INHALATION RT-Q4H [facility] Last Admin: 05/08/22 20:25 Dose: Not Given Ipratropium [place] (Ipratropium [place] 0.06% Nasal [place] (15 Ml)) 1 spray EA NOSTRIL TID PRN PRN Reason: Allergy Symptoms Lactulose (Lactulose 20 Gm/30 Ml Cup) 20 gm PO DAILY PRN PRN Reason: Constipation Lorazepam (Lorazepam 1 Mg Tab) 1 mg PO TID PRN PRN Reason: Anxiety Last Admin: 05/06/22 23:56 Dose: 1 mg Melatonin (Melatonin 3 Mg Tablet) 3 mg PO HS PRN PRN Reason: sleep Last Admin: 05/07/22 20:10 Dose: 3 mg Methocarbamol (Methocarbamol 500 Mg Tab) 500 mg PO TID PRN PRN Reason: Muscle Pain Methylprednisolone Sodium Succinate (Methylprednisolone Sod [place] 40 Mg/Ml 1 Ml Vial) 40 mg IV Q6HR [facility] Last Admin: 05/08/22 18:16 Dose: 40 mg Metoprolol Tartrate (Metoprolol Tartrate 12.5 Mg Tab) 12.5 mg PO TID [facility] Last Admin: 05/08/22 21:01 Dose: 12.5 mg Morphine Sulfate (Morphine Oral Soln 10 Mg/5 Ml Cup) 5 mg PO Q4H PRN PRN Reason: Pain Last Admin: 05/08/22 18:18 Dose: 5 mg Naloxone HCl (Naloxone 0.4 Mg/Ml 1 Ml Vial) 0.2 mg IV Q2M PRN PRN Reason: Opioid Reversal Ondansetron HCl (Ondansetron Odt 4 Mg Tab) 4 mg PO Q4H PRN PRN Reason: Nausea Ondansetron HCl (Ondansetron 4 Mg/2 Ml Vial) 4 mg IVP Q8HR PRN PRN Reason: Nausea And Vomiting Pantoprazole Sodium (Pantoprazole 40 Mg Tablet) 40 mg PO DAILY [facility] Last Admin: 05/08/22 08:28 Dose: 40 mg Pravastatin Sodium (Pravastatin Sodium 20 Mg Tab) 20 mg PO HS [facility] Last Admin: 05/08/22 21:01 Dose: 20 mg Senna/Docusate Sodium (Sennosides-Docusate Sodium 1 Each Tab) 1 each PO DAILY [facility] Last Admin: 05/08/22 08:28 Dose: 1 each Theophylline (Theophylline 24 Hour 400 Mg Cap.Er.24h) 400 mg PO DAILY [facility] Last Admin: 05/08/22 08:28 Dose: 400 mg Past medical history to include: End-stage COPD, home oxygen 2 L, GERD, [place], arthritis Social history: Lives with the partner Jalyn Smoked a pack a day for about 53 years stopped about 2013. 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 Family history: Diabetes Physical examination: VITAL SIGNS: 97.9, 101, 18, 1 32 x 62, 98% on 3 L GENERAL: Reclining in bed some shortness of breath EYES: Pupils equal. Conjunctiva normal. HEENT: External appearance of nose and ears normal, oral cavity grossly normal. NECK: JVD not raised; masses not palpable. HEART: First and second heart sounds are normal; no edema. LUNGS: Respiratory rate increased, decreased breath sounds, prolonged expiration and wheezing. ABDOMEN: Soft, nontender, liver spleen not palpable, no masses palpable. PSYCH: Alert and oriented x3; mood and affect anxious MUSCULOSKELETAL:No Clubbing/cyanosis;muscles-grossly intact INVESTIGATIONS, reviewed in the clinical context: Procalcitonin 0.06 White count 10.3 hemoglobin 12.4 platelets 351 sodium 140 potassium 4.4 creatinine 0.8 date Troponin I less than 0.012 proBNP 46 EKG tracing personally reviewed by me-sinus tachycardia Chest x-ray film personally reviewed by me-hyperinflation. Prominent pulmonary artery. Assessment and plan: -Acute severe COPD exacerbation in a prior smoker, chronically steroid dependent: : Slow to respond Atrovent every 4, IV Solu-Medrol, nebulized Pulmicort, Perforomist. Theophylline -Acute tracheobronchitis Doxycycline discontinued by pulmonary -Acute on Chronic hypoxic respiratory failure secondary to COPD: Better Initially in BiPAP now on 3 L Home oxygen 2 L -Sinus tachycardia from uncontrolled respiratory status and patient being on theophylline. Lopressor -chronic medical debility from underlying COPD -Anxiety Lexapro -CAD with a prior history of [place] , Pravachol aspirin -GERD Omeprazole -Chronic low back pain from arthritis Methocarbamol, -DO NOT RESUSCITATE Awaiting arrangement for new hospice companies that patient can return home with hospice. Patient takes his own decisions. I did discharge
[2022-05-09 03:30] VITALS: TEMP 97.8
[2022-05-09] MEDS: IPRATROPIUM-ALBUTEROL 3 ML NEB INHALATION PRN ×4 (03:40→16:02)
[2022-05-09] MEDS: IPRATROPIUM 0.5 MG/2.5 ML NEBU INHALATION SCH ×4 (03:40→16:02)
[2022-05-09] MEDS: methylPREDNISolone SOD SUCCI 40 MG/ML 1 ML VIAL IV SCH (05:02)
[2022-05-09] MEDS: FORMOTEROL FUMARATE 20 MCG/2 ML NEBU INHALATION SCH (07:39)
[2022-05-09] MEDS: BUDESONIDE 1 MG/2 ML NEBU INHALATION SCH (07:39)
--- NOTE | 2022-05-09 08:19 | P.PN ---
Subjective Progress Note Date: 05/09/22 77-year-old male with a history of COPD, who presents to the emergency department on May 04, complaining of shortness of breath. The patient was brought in by EMS, on CPAP. The patient apparently could not catch his breath. Because he was getting worse and worse at home, the patient called EMS who brought him to the ER to be evaluated. Apparently he received some Solu-Medrol and breathing treatments in route. The patient was evaluated in the emergency department admitted with a diagnosis of COPD exacerbation. Currently, he's on 3 L. He uses home O2 at 2 L. He is not on any IV fluids. A BiPAP device is in his room with settings of 12/6 and 30%. The patient apparently sees one or both of my partners. White count 10.3, hemoglobin 12.4, hematocrit 40.8, and platelet count 351,000. Venous blood gases show pCO2 of 65 and a pH is 7.33. D-dimer was 1.32. Sodium 140, potassium 4.4, chlorides 101, CO2 33, BUN 18, creatinine 0.88. Pro-calcitonin level was 0.06. A chest x-ray was normal. The patient is seen today 05/07/2022 in follow-up on the selective care unit. He is currently resting comfortably in bed. He had issues earlier this morning with worsening shortness of breath, cough and congestion. According to his nurse he has stated he wanted to be placed in hospice. He does not want life support. He had been maintaining O2 saturations in the mid 90s on 3 L/m per dalila al cannula. He had developed tachypnea and tachycardia. He is currently on BiPAP 12/6 and 30% FiO2 and is more comfortable. Pro-calcitonin 0.06. He remains on DuoNeb inhalations, Pulmicort and Perforomist inhalations, IV Solu- Medrol. On oral diuretics. Lovenox for DVT prophylaxis. Ativan as needed. The patient is seen today 05/08/2021 in follow-up on the selective care unit. He is currently resting in bed. Awake and alert. Maintaining O2 saturations in the 90s on 3 L/m per nasal cannula. He did utilize the BiPAP last night 12/6 and 30% FiO2. Currently on 3 L nasal cannula. He is continued on DuoNeb inhalations, Pulmicort and Perforomist inhalations, IV Solu-Medrol. He is also on theophylline. Lovenox for DVT prophylaxis. No new labs today. On today's evaluation of 05/09/2022, the patient is sitting up at the edge of the bed. He is calm and comfortable on 3 L of oxygen by nasal cannula. The patient is off the BiPAP this morning. Overnight, he used the BiPAP at pressure of 12/6 with an FiO2 of 30%. He remains on a combination of Perforomist and Pulmicort updrafts twice a day and he remains also on theophylline and IV Solu- Medrol. Chest x-ray showed no evidence of any pneumonia. Overnight, the patient had issues with urinary retention and painful urination. The patient was given a Calloway catheter in for now he has approximately 600 mL of urine output in the Calloway bag. No altered mentation. Breathing is very borderline and he has marked diminished breath sounds bilaterally. No new labs are available from today. Most recent pro-calcitonin level is down to 0.06. He is interested in hospice care. Objective - Vital Signs Vital signs: Vital Signs Temp 97.8 F 05/09/22 03:27 Pulse 107 H 05/09/22 08:04 Resp 20 05/09/22 03:27 BP 128/72 05/09/22 03:27 Pulse Ox 98 05/09/22 07:43 FiO2 30 05/09/22 03:40 Intake & Output 05/08/22 05/09/22 05/09/22 18:59 06:59 18:59 Intake Total 2160 540 Output Total 1520 580 Balance 640 -580 540 Intake: Oral 2160 540 Output: Urine 1520 580 Other: Voiding Method Urinal Indwelling Catheter - Exam GENERAL EXAM: Alert, 77-year-old male, alternating 3 L nasal cannula , comfortable in no apparent distress. HEAD: Normocephalic. EYES: Normal reaction of pupils, equal size. NOSE: Clear with pink turbinates. THROAT: No erythema or exudates. NECK: No masses, no JVD. CHEST: No chest wall deformity. LUNGS: Equal air entry with bilateral end expiratory wheeze, diminished. CVS: S1 and S2 normal with no audible murmur, regular rhythm. ABDOMEN: No hepatosplenomegaly, normal bowel sounds, no guarding or rigidity. SPINE: No scoliosis or deformity SKIN: No rashes CENTRAL NERVOUS SYSTEM: No focal deficits, tone is normal in all 4 extremities. EXTREMITIES: There is no peripheral edema. No clubbing, no cyanosis. Peripheral pulses are intact. - Labs CBC & Chem 7: 05/04/22 18:30 05/04/22 18:30 Assessment and Plan Plan: Acute on chronic hypoxemic respiratory failure secondary to an acute exacerbation of chronic obstructive pulmonary disease. Procalcitonin 0.06. Patient was supported with a combination of bronchodilators and steroids and BiPAP treatment and the patient is currently back in 3 L of O2 nasal cannula. He seems to be slightly more comfortable although the breathing is labored and the patient is using some limited access and muscles of breathing. He is able to speak short sentences. No altered mentation. This is an going back home with hospice. Chronic hypoxemic respiratory failure, on home O2 at 2 L. History of CVA. History of GERD. History of myocardial infarction. History of chronic back pain. History of depression. Prior history of heavy tobacco use. Plan: The patient was seen and evaluated Medications reviewed Discontinue the IV Solu-Medrol and put the patient a prednisone burst taper starting with 60 mg probably alleepm keep calloway in place We'll continue with the current treatment plan We'll continue to follow
[2022-05-09] MEDS: ENOXAPARIN 40 MG/0.4 ML SYRINGE SQ SCH (08:27)
[2022-05-09] MEDS: THEOPHYLLINE 24 HOUR 400 MG CAP.ER.24H PO SCH (08:27)
[2022-05-09] MEDS: METOPROLOL TARTRATE 12.5 MG TAB PO SCH (08:27)
[2022-05-09] MEDS: ESCITALOPRAM 10 MG TAB PO SCH (08:27)
[2022-05-09] MEDS: SENNOSIDES-DOCUSATE SODIUM 1 EACH TAB PO SCH (08:27)
[2022-05-09] MEDS: PANTOPRAZOLE 40 MG TABLET PO SCH (08:27)
[2022-05-09] MEDS: MORPHINE ORAL SOLN 10 MG/5 ML CUP PO PRN ×2 (08:27→16:22)
[2022-05-09] MEDS: FERROUS SULFATE 325 MG TAB PO SCH (08:27)
[2022-05-09] MEDS: ASPIRIN 81 MG PO SCH (08:27)
[2022-05-09] MEDS ORDERED: predniSONE 20 MG TAB PO SCH (09:00)
[2022-05-09 10:11] VITALS: BP 165/75
[2022-05-09 12:57] VITALS: BMI 25.7
[2022-05-09 16:19] VITALS: PULSE 101; RESP 22
--- NOTE | 2022-05-09 22:06 | P.DS ---
Providers Date of admission: 05/04/22 19:43 Expected date of discharge: 05/09/22 Attending physician: Isra Antonio Consults: 05/05/22 15:01 Consult Physician Routine Consulting Provider: Griselda Hatch Consult Reason/Comments: COPD Do you want consulting provider notified?: Yes Primary care physician: Keven Cardona [facility] Course: Chief Complaint: Short of breath This is a very pleasant 77-year-old patient who follows with Dr. Cardona. Chronic stable medical conditions include GERD, prior [place], arthritis, GERD, home oxygen 2 L. end-stage COPD baseline short of breath Presented to ER with increasing shortness of breath for 3 days. Cough with thick sputum. Not see the color. Some fever and chills. Decreased appetite tired rundown. Was put on a BiPAP. This morning settings include 12/6 last 30%. Initiate better. Admitted with severe COPD exacerbation, acute tracheal bronchitis, acute hypoxic respiratory failure. Started on BiPAP. Nebulized bronchodilators. Steroids. Doxycycline. 05/06/2022: Patient sitting at edge of bed. Eating lunch. Breathing is better. Coughing some sputum. Seen by pulmonary. Dr. Berry. Doxycycline disco ntinued. 05/07/2022: It was learned today that patient was at home with [facility]. Patient's significant other present the room. Patient had panic in bed called hospice team. Hospital team was unable to get any medications and patient has was sent to the hospital after they called 911. Had a lengthy talk with the patient's significant other. Agreeable to return home with hospice. Several questions answered. Nurses called [facility] hospitalist who said that signed off the case. Hospice team is being reconsulted in the hospital. Patient tolerating diet. On nasal cannula. Shortness of breath. Able to answer questions. May 08: Patient tolerated diet. Short of breath. [facility] will not be following the patient anymore. manufacturing area manager to arrange another hospice company so patient can go home. Discussed with the nurse. May 09: Short of breath. Tolerating diet. Ochoa placed because patient is extremely short of breath with urinating. It was discovered that patient's significant other had called the [place] instead of [facility] when patient became short of breath. [facility]: Patient will be reopened of [facility] at home. Discussed with patient. Discussed with nurse and case aide. Prednisone taper. Discussion and discharge planning more than 35 minutes Past medical history to include: End-stage COPD, home oxygen 2 L, GERD, [place], arthritis Social history: Lives with the partner Jalyn Smoked a pack a day for about 53 years stopped about 2013. 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 Family history: Diabetes Physical examination: VITAL SIGNS: A 7.8, 107, 22, 165/75, 94% on 3 L GENERAL: Sitting edge of the bed EYES: Pupils equal. Conjunctiva normal. HEENT: External appearance of nose and ears normal, oral cavity grossly normal. NECK: JVD not raised; masses not palpable. HEART: First and second heart sounds are normal; no edema. LUNGS: Respiratory rate increased, decreased breath sounds, prolonged expiration ABDOMEN: Soft, nontender, liver spleen not palpable, no masses palpable. PSYCH: Alert and oriented x3; mood and affect anxious MUSCULOSKELETAL:No Clubbing/cyanosis;muscles-grossly intact INVESTIGATIONS, reviewed in the clinical context: Procalcitonin 0.06 White count 10.3 hemoglobin 12.4 platelets 351 sodium 140 potassium 4.4 creatinine 0.8 date Troponin I less than 0.012 proBNP 46 EKG tracing personally reviewed by me-sinus tachycardia Chest x-ray film personally reviewed by me-hyperinflation. Prominent pulmonary artery. Assessment and plan: -Acute severe COPD exacerbation in a prior smoker, chronically steroid dependent: : Atrovent every 4, IV Solu-Medrol, nebulized Pulmicort, Perforomist. Theophylline Charge on DuoNeb, prednisone taper -Acute tracheobronchitis Doxycycline discontinued by pulmonary -Acute on Chronic hypoxic respiratory failure secondary to COPD: Better Initially in BiPAP now on 3 L Home oxygen 2 L -Sinus tachycardia from uncontrolled respiratory status and patient being on theophylline. Lopressor -chronic medical debility from underlying COPD -Anxiety Lexapro -CAD with a prior history of [place] , Pravachol aspirin -GERD Omeprazole -Chronic low back pain from arthritis Methocarbamol, -DO NOT RESUSCITATE Disposition: Home with [facility] Patient Condition at Discharge: Stable Plan - Discharge Summary New Discharge Prescriptions: New Ipratropium Nebulized [Atrovent Nebulized 0.2 MG/ML] 0.5 mg INHALATION RT-Q4H #100 ml predniSONE 10 mg PO DAILY #30 tab Continue Albuterol Inhaler [Ventolin Hfa Inhaler] 2 puff INHALATION RT-QID PRN PRN Reason: Dyspnea predniSONE 5 mg PO DAILY Ergocalciferol [Vitamin D2 (DRISDOL)] 50,000 unit PO Q7D Theophylline 24 Hour [Gurmeet-24] 400 mg PO DAILY Omeprazole 20 mg PO DAILY methocarbamoL [Methocarbamol] 500 mg PO TID PRN PRN Reason: Muscle Pain Naproxen [EC-Naprosyn] 500 mg PO BID PRN PRN Reason: Pain Pravastatin Sodium [Pravachol] 20 mg PO HS #30 tab Ciclopirox Olamine [Loprox 0.77% cream] 1 applic TOPICAL BID PRN PRN Reason: RINGWORM Ondansetron [Zofran] 4 mg PO Q8H PRN PRN Reason: Nausea Morphine Sulfate [Morphine Sulfate Oral Soln Concentrate] 5 mg PO Q4H PRN PRN Reason: Pain Ondansetron Odt [Zofran ODT] 4 mg PO Q4H PRN PRN Reason: Nausea LORazepam [Ativan] 1 mg PO TID PRN PRN Reason: Anxiety Ipratropium Schaller [Ipratropium Schaller 0.03%] 1 spray EA NOSTRIL TID PRN PRN Reason: Allergy Symptoms Haloperidol Oral Soln [Haldol Oral Soln] 1 mg PO Q4H PRN PRN Reason: NAUSEA/AGITATION/RESTLESSNESS bisacodyL [Bisacodyl] 5 mg PO DAILY PRN PRN Reason: HOLD WITH LOOSE STOOL Ferrous Sulfate [Iron (65 MG Elemental)] 325 mg PO DAILY Fluticasone Propion/Salmeterol [Fluticasone-Salmeterol 250-50] 1 puff INHALATION RT-BID Sennosides-Docusate Sodium [Senokot-S] 1 tab PO DAILY Aspirin 81 mg PO DAILY #30 tab Ipratropium-Albuterol Nebulize [Duoneb 0.5 mg-3 mg/3 ml Soln] 3 ml INHALATION RT-Q4H PRN #50 each PRN Reason: Wheezing Fluticasone Nasal [place] [Flonase Nasal [place]] 1 spray EA NOSTRIL BID PRN PRN Reason: Allergy Symptoms traZODone HCL [Desyrel] 25 - 50 mg PO HS PRN PRN Reason: SLEEP Melatonin 3 mg PO HS PRN PRN Reason: sleep Furosemide [Lasix] 40 mg PO DAILY PRN PRN Reason: Edema Hyoscyamine Sulfate [Levsin-Sl] 0.25 mg SL Q4H PRN PRN Reason: Congestion Metoprolol Tartrate [Lopressor] 25 mg PO DAILY Escitalopram [Lexapro] 10 mg PO DAILY Discontinued Tiotropium 2.5 Mcg/Puff [Spiriva Respimat 2.5 Mcg] 2 puff INHALATION RT-DAILY Discharge Medication List Albuterol Inhaler [Ventolin Hfa Inhaler] 2 puff INHALATION RT-QID PRN 12/14/14 [History] predniSONE 5 mg PO DAILY 12/14/14 [History] Ergocalciferol [Vitamin D2 (DRISDOL)] 50,000 unit PO Q7D 05/10/15 [History] Omeprazole 20 mg PO DAILY 08/07/18 [History] Theophylline 24 Hour [Gurmeet-24] 400 mg PO DAILY 08/07/18 [History] Ferrous Sulfate [Iron (65 MG Elemental)] 325 mg PO DAILY 11/15/21 [History] Fluticasone Propion/Salmeterol [Fluticasone-Salmeterol 250-50] 1 puff INHALATION RT-BID 11/15/21 [History] Naproxen [EC-Naprosyn] 500 mg PO BID PRN 11/15/21 [History] Sennosides-Docusate Sodium [Senokot-S] 1 tab PO DAILY 11/15/21 [History] bisacodyL [Bisacodyl] 5 mg PO DAILY PRN 11/15/21 [History] methocarbamoL [Methocarbamol] 500 mg PO TID PRN 11/15/21 [History] Aspirin 81 mg PO DAILY #30 tab 11/19/21 [Rx] Ipratropium-Albuterol Nebulize [Duoneb 0.5 mg-3 mg/3 ml Soln] 3 ml INHALATION RT-Q4H PRN #50 each 11/19/21 [Rx] Pravastatin Sodium [Pravachol] 20 mg PO HS #30 tab 11/19/21 [Rx] Ciclopirox Olamine [Loprox 0.77% cream] 1 applic TOPICAL BID PRN 01/07/22 [History] Escitalopram [Lexapro] 10 mg PO DAILY 05/04/22 [History] Fluticasone Nasal [place] [Flonase Nasal [place]] 1 spray EA NOSTRIL BID PRN 05/04/22 [History] Furosemide [Lasix] 40 mg PO DAILY PRN 05/04/22 [History] Haloperidol Oral Soln [Haldol Oral Soln] 1 mg PO Q4H PRN 05/04/22 [History] Hyoscyamine Sulfate [Levsin-Sl] 0.25 mg SL Q4H PRN 05/04/22 [History] Ipratropium Schaller [Ipratropium Schaller 0.03%] 1 spray EA NOSTRIL TID PRN 05/04/22 [History] LORazepam [Ativan] 1 mg PO TID PRN 05/04/22 [History] Melatonin 3 mg PO HS PRN 05/04/22 [History] Metoprolol Tartrate [Lopressor] 25 mg PO DAILY 05/04/22 [History] Morphine Sulfate [Morphine Sulfate Oral Soln Concentrate] 5 mg PO Q4H PRN 05/04/22 [History] Ondansetron Odt [Zofran ODT] 4 mg PO Q4H PRN 05/04/22 [History] Ondansetron [Zofran] 4 mg PO Q8H PRN 05/04/22 [History] traZODone HCL [Desyrel] 25 - 50 mg PO HS PRN 05/04/22 [History] Ipratropium Nebulized [Atrovent Nebulized 0.2 MG/ML] 0.5 mg INHALATION RT-Q4H #100 ml 05/09/22 [Rx] predniSONE 10 mg PO DAILY #30 tab 05/09/22 [Rx] Follow up Appointment(s)/Referral(s): Keven Cardona MD [Primary Care Provider] - 1-2 days Activity/Diet/Wound Care/Special Instructions: [facility] Discharge Disposition: HOME WITH HOSPICE
== END 2022-05-09 16:37 | disposition hospice, home (50) | DRG 190 ==
LOC: EC 18:08 → 3SCARD 19:43
PROVIDERS: ADMIT Hospitalist; ATTEND Hospitalist
DX: J44.1 Chronic obstructive pulmonary disease with (acute) exacerbation (principal); J96.21 Acute and chronic respiratory failure with hypoxia; J20.9 Acute bronchitis, unspecified; R00.0 Tachycardia, unspecified; R41.9 Unspecified symptoms and signs involving cognitive functions and awareness; K21.9 Gastro-esophageal reflux disease without esophagitis; M19.90 Unspecified osteoarthritis, unspecified site; G89.29 Other chronic pain; M54.50 Low back pain, unspecified; Z66 Do not resuscitate; I25.10 Atherosclerotic heart disease of native coronary artery without angina pectoris; I25.2 Old myocardial infarction; K59.00 Constipation, unspecified; F17.210 Nicotine dependence, cigarettes, uncomplicated; F32.A Depression, unspecified; F41.9 Anxiety disorder, unspecified; Z79.52 Long term (current) use of systemic steroids; Z79.899 Other long term (current) drug therapy; Z79.82 Long term (current) use of aspirin; Z86.73 Personal history of transient ischemic attack (TIA), and cerebral infarction without residual deficits; Z99.81 Dependence on supplemental oxygen; Z88.8 Allergy status to other drugs, medicaments and biological substances; Z87.01 Personal history of pneumonia (recurrent)
CPT/HCPCS: 36415; 71045; 80053; 82803; 83690; 83735; 83880; 84145; 84484; 85025; 85379; 93005; 94640; 94660; 94760; 99291

== ENCOUNTER 2023-03-31 16:24 | Emergency (ER) | payer MEDICARE, OTHER ==
[2023-03-31 16:49] VITALS: BP 139/105; PULSE 118; RESP 28; TEMP 98.2
[2023-03-31] MEDS ORDERED: MORPHINE SULFATE 4 MG/ML SYRINGE IV PRN (16:55)
[2023-03-31] MEDS ORDERED: NALOXONE 0.4 MG/ML 1 ML VIAL IV PRN (16:55)
[2023-03-31] MEDS ORDERED: ONDANSETRON 4 MG/2 ML VIAL IVP PRN (16:55)
--- NOTE | 2023-03-31 17:06 | ED ---
Recheck HPI - General Chief Complaint: Shortness of Breath Stated Complaint: Anxiety Time Seen by Provider: 03/31/23 16:33 Source: EMS, RN notes reviewed, old records reviewed Mode of arrival: EMS Limitations: no limitations - History of Present Illness Initial Comments: This is a 78-year-old female to the emergency department for evaluation. Patient is coming in from a mental status agitation and anxiety, altered mental status increasing agitation. Patient is brought in by EMS attempting to go to the bank and deposit money. Patient is becoming significantly paranoid about his currently on hospice MD Complaint: abnormal lab (altered, anxious, weak) -: days(s) Returns Today for: persistent/worsening pain related to initial visit Symptoms Since Prior Visit: worsening pain Context: planned re-check Associated Symptoms: none Treatments Prior to Arrival: other (0) - Related Data Home Medications Medication Instructions Recorded Confirmed Albuterol Inhaler [Ventolin Hfa 2 puff INHALATION RT-Q4H 12/14/14 03/31/23 Inhaler] Theophylline 24 Hour [Gurmeet-24] 400 mg PO DAILY 08/07/18 03/31/23 Acetaminophen Tab [Tylenol] 650 mg PO Q6H PRN 03/31/23 03/31/23 Fluticasone Nasal [place] [Flonase 1 spr EA NOSTRIL DAILY 03/31/23 03/31/23 Nasal [place]] Furosemide [Lasix] 40 mg PO DAILY 03/31/23 03/31/23 Lactulose 10 - 20 gm PO DAILY PRN 03/31/23 03/31/23 Loratadine 10 mg PO DAILY 03/31/23 03/31/23 Naproxen [Naprosyn] 500 mg PO BID 03/31/23 03/31/23 Omeprazole 20 mg PO BID 03/31/23 03/31/23 Ondansetron Odt [Zofran ODT] 4 mg PO Q6H PRN 03/31/23 03/31/23 predniSONE 10 mg PO DAILY 03/31/23 03/31/23 Previous Rx's Medication Instructions Recorded Ipratropium-Albuterol Nebulize 3 ml INHALATION RT-QID each 04/03/23 [Duoneb 0.5 mg-3 mg/3 ml Soln] LORazepam [Ativan] 0.5 mg PO Q4H PRN #12 tab 04/03/23 Morphine Sulfate [Morphine Sulfate 10 mg PO Q4H #10 ml 04/03/23 Oral Soln Concentrate] Allergies Allergy/AdvReac Type Severity Reaction Status Date / Time atorvastatin AdvReac nausea, Verified 03/31/23 18:46 stomach pain, vomiting metoprolol [From Toprol XL] AdvReac nausea, Verified 03/31/23 18:46 stomach pain, vomiting Review of Systems ROS Statement: Those systems with pertinent positive or pertinent negative responses have been documented in the HPI. ROS Other: All systems not noted in ROS Statement are negative. Past Medical History Past Medical History: COPD, CVA/TIA, GERD/Reflux, Myocardial Infarction ([place]), Pneumonia Additional Past Medical History / Comment(s): back problems - pulled lumbar muscles (40years ago), Ct abdomen 12/04 for abdominal pain Last Myocardial Infarction Date:: 2011 History of Any Multi-Drug Resistant Organisms: None Reported Past Surgical History: Back Surgery Additional Past Surgical History / Comment(s): left index finger surgery Past Anesthesia/Blood Transfusion Reactions: No Reported Reaction Past Psychological History: Depression Smoking Status: Former smoker Past Alcohol Use History: None Reported Past Drug Use History: None Reported - Past Family History Mother Family Medical History: Diabetes Mellitus General Exam Limitations: no limitations General appearance: alert, in no apparent distress, anxious Head exam: Present: atraumatic, normocephalic, normal inspection Eye exam: Present: normal appearance, PERRL, EOMI. Absent: scleral icterus, conjunctival injection, periorbital swelling ENT exam: Present: normal exam, mucous membranes moist Neck exam: Present: normal inspection. Absent: tenderness, meningismus, lymphadenopathy Respiratory exam: Present: normal lung sounds bilaterally. Absent: respiratory distress, wheezes, rales, rhonchi, stridor Cardiovascular Exam: Present: regular rate, normal rhythm, normal heart sounds. Absent: systolic murmur, diastolic murmur, rubs, gallop, clicks GI/Abdominal exam: Present: soft, normal bowel sounds. Absent: distended, tenderness, guarding, rebound, rigid Extremities exam: Present: normal inspection, full ROM, normal capillary refill. Absent: tenderness, pedal edema, joint swelling, calf tenderness Back exam: Present: normal inspection Neurological exam: Present: alert, oriented X3, CN II-XII intact Psychiatric exam: Present: normal affect, normal mood Skin exam: Present: warm, dry, intact, normal color. Absent: rash Course Vital Signs 03/31/23 16:28 Temperature 98.2 F Pulse Rate 118 H Respiratory 28 H Rate Blood Pressure 139/105 O2 Sat by Pulse 97 Oximetry - Reevaluation(s) Reevaluation #1: medical record is reviewed Reevaluation #2: patients symptoms are unchanged Consult with home hospice is placed Reevaluation #3: Informed of results and questions answered Reevaluation #4: 03/31/23 17:01 Was pt. sent in by a medical professional or institution (, [facility], TURNTABLE ENGINEER, urgent care, hospital, or half-way...) When possible be specific @ -no Did you speak to anyone other than the patient for history (EMS, parent, family, police, friend...)? What history was obtained from this source @ -no Did you review nursing and triage notes (agree or disagree)? Why? @ -agree Are old charts reviewed (outside hosp., previous admission, EMS record, old EKG, old radiological studies, urgent care reports/EKG's, half-way records)? Report findings @ -yes Differential Diagnosis (chest pain, altered mental status, abdominal pain women, abdominal pain men, vaginal bleeding, weakness, fever, dyspnea, syncope, headache, dizziness, GI bleed, back pain, seizure, CVA, palpatations, mental health, musculoskeletal)? @ -prior EKG interpreted by me (3pts min.). @ -no X-rays interpreted by me (1pt min.). @ -no CT interpreted by me (1pt min.). @ -no U/S interpreted by me (1pt. min.). @ -no What testing was considered but not performed or refused? (CT, X-rays, U/S, labs)? Why? @ -none What meds were considered but not given or refused? Why? @ -none Did you discuss the management of the patient with other professionals (professionals i.e. [facility] Abel, TURNTABLE ENGINEER, lab, RT, psych nurse, social psychologist, hypo splasher, teacher, armoured corps officer, supervisor case loading)? Give summary @ -no Was smoking cessation discussed for >3mins.? @ -no Was critical care preformed (if so, how long)? @ -no Were there social determinants of health that impacted care today? How? (Homelessness, low income, unemployed, alcoholism, drug addiction, transportation, low edu. Level, literacy, decrease access to med. care, correction, rehab)? @ -none Was there de-escalation of care discussed even if they declined (Discuss DNR or withdrawal of care, Hospice)? DNR status @ -no What co-morbidities impacted this encounter? (DM, HTN, Smoking, COPD, CAD, Cancer, CVA, ARF, Chemo, Hep., AIDS, mental health diagnosis, sleep apnea, morbid obesity)? @ -none Was patient admitted / discharged? Hospital course, mention meds given and route, prescriptions, significant lab abnormalities, going to OR and other pertinent info. @ - 78 male to the emergency department for evaluation by the hospital for transition to hospice care with significant anxiety and COPD Admitted Undiagnosed new problem with uncertain prognosis? @ -no Drug Therapy requiring intensive monitoring for toxicity (Heparin, Nitro, Insulin, Cardizem)? @ -no Were any procedures done? @ -no Diagnosis/symptom? @ -Anxiety, COPD, hospice Acute, or Chronic, or Acute on Chronic? @ -Acute Uncomplicated (without systemic symptoms) or Complicated (systemic symptoms)? @ -Complicated Side effects of treatment? @ -no Exacerbation, Progression, or Severe Exacerbation? @ -exacerbation Poses a threat to life or bodily function? How? (Chest pain, [place], [place], pneumonia, PE, COPD, DKA, ARF, appy, cholecystitis, CVA, Diverticulitis, Homicidal, Suicidal, threat to staff... and all critical care pts) @ -yes patient is end of life Medical Decision Making - Medical Decision Making 78 male to the emergency department for evaluation today. Patient presents today for evaluation regards to altered mental status this anxiety with low oxygen levels and transition to hospice care - EKG Data -: EKG Interpreted by Me (EKG is sinus 82 MI 168 QRS for 10 QTc 420) Disposition Clinical Impression: COPD exacerbation, Delusional thoughts, Altered mental status, Hypoxia, Weakness, Anxiety Disposition: ADMITTED IP TO THIS HOSP Condition: Serious Is patient prescribed a controlled substance at d/c from ED?: No Referrals: None,Stated [REFERRING] - 1-2 days Time of Disposition: 17:00
== END 2023-03-31 20:00 | disposition other institution (70) ==
LOC: EC 16:24 → SUPCPDRO 16:24 → EC 20:00
DX: J44.1 Chronic obstructive pulmonary disease with (acute) exacerbation (principal); F41.9 Anxiety disorder, unspecified; F22 Delusional disorders; R53.1 Weakness; R41.82 Altered mental status, unspecified; R09.02 Hypoxemia; K21.9 Gastro-esophageal reflux disease without esophagitis; I25.2 Old myocardial infarction; Z87.891 Personal history of nicotine dependence; Z86.59 Personal history of other mental and behavioral disorders; Z79.899 Other long term (current) drug therapy; Z88.8 Allergy status to other drugs, medicaments and biological substances
CPT/HCPCS: 99285

== ENCOUNTER 2023-03-31 17:04 | Inpatient (IN) | payer MEDICAID, OTHER ==
[2023-03-31] MEDS ORDERED: LORazepam 2 MG/ML INJ IV PRN (17:47)
[2023-03-31] MEDS ORDERED: ONDANSETRON 4 MG/2 ML VIAL IVP PRN (17:47)
[2023-03-31] MEDS ORDERED: ACETAMINOPHEN TAB 325 MG TAB PO PRN (17:47)
[2023-03-31] MEDS: MORPHINE ORAL SOLN 10 MG/5 ML CUP PO SCH ×2 (21:04→21:51)
[2023-03-31] MEDS: NAPROXEN 250 MG TAB PO SCH (21:43)
[2023-03-31] MEDS: LORazepam 0.5 MG TAB PO PRN (21:50)
[2023-03-31] MEDS: IPRATROPIUM-ALBUTEROL 3 ML NEB INHALATION SCH (23:03)
[2023-04-01] MEDS: MORPHINE ORAL SOLN 10 MG/5 ML CUP PO SCH ×6 (01:55→21:50)
[2023-04-01] MEDS: LORazepam 0.5 MG TAB PO PRN ×5 (01:55→21:50)
--- NOTE | 2023-04-01 05:22 | P.HPIM ---
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 During my interview with the patient is very pleasant he tells me the same story no family available at bedside he tells me that he set up with everyone around him telling him what he supposed to do you want to go to the bank to make some transactions and no one would let him go to the bank he got frustrated and he claims that the snow balled from there and ended up here due to agitation and yelling and screaming. He currently denies any abdominal pain any chest pain denies any trouble breathing he feels very comfortable. He reports some headache but otherwise denies any GI bleeding. He confirms that he is on hospice care he doesn't know for sure why he is on hospice care. Sometimes patient just avoids answering my questions and goes back to the story of the bank Patient was admitted from the ER for inpatient hospice care to control his symptoms review of systems Pertinent positives as noted in HPI. All other systems were reviewed and are negative on exam Constitutional: No acute distress, conversant, pleasant Eyes: Anicteric sclerae, moist conjunctiva, Pupils equal round reactive to light ENMT: NC/AT Oropharynx clear, no erythema, or exudates Neck: Supple, no masses, or JVD No carotid bruits No thyromegaly Lungs: Good breath sounds throughout no wheezing Clear to percussion Normal respiratory effort, no accessory muscle use Cardiovascular: Heart regular in rate and rhythm, No murmurs, gallops, or rubs No peripheral edema Abdominal: Soft Nontender, no guarding, rebound or rigidity Abdomen moving with respiration Normoactive bowel sounds Extremities: No digital cyanosis No clubbing Pedal pulses intact and symmetrical Radial pulses intact and symmetrical No calf tenderness Psychiatric: Alert and oriented to person, place Neuro Muscles Strength 5/5 in all 4 extremities Sensation to light touch grossly present throughout Cranial nerves II-XII grossly intact Past Medical History Past Medical History: COPD, CVA/TIA, GERD/Reflux, Myocardial Infarction (MS), Pneumonia Last Myocardial Infarction Date:: 2011 History of Any Multi-Drug Resistant Organisms: None Reported Past Surgical History: Back Surgery Additional Past Surgical History / Comment(s): left index finger surgery Past Anesthesia/Blood Transfusion Reactions: No Reported Reaction Past Psychological History: Anxiety, Depression Smoking Status: Former smoker Past Alcohol Use History: None Reported Past Drug Use History: None Reported - Past Family History Mother Family Medical History: Diabetes Mellitus Medications and Allergies Home Medications Medication Instructions Recorded Confirmed Type Albuterol Inhaler [Ventolin Hfa 2 puff INHALATION RT-Q4H 12/14/14 03/31/23 History Inhaler] Theophylline 24 Hour [Gurmeet-24] 400 mg PO DAILY 08/07/18 03/31/23 History Morphine Sulfate [Morphine Sulfate 10 mg PO Q4H 05/04/22 03/31/23 History Oral Soln Concentrate] LORazepam 0.5 mg PO Q4H PRN 06/13/22 03/31/23 History Acetaminophen Tab [Tylenol] 650 mg PO Q6H PRN 03/31/23 03/31/23 History Fluticasone Nasal [place] [Flonase 1 spr EA NOSTRIL DAILY 03/31/23 03/31/23 History Nasal [place]] Furosemide [Lasix] 40 mg PO DAILY 03/31/23 03/31/23 History Ipratropium-Albuterol Nebulize 3 ml INHALATION RT-TID 03/31/23 03/31/23 History [Duoneb 0.5 mg-3 mg/3 ml Soln] Lactulose 10 - 20 gm PO DAILY PRN 03/31/23 03/31/23 History Loratadine 10 mg PO DAILY 03/31/23 03/31/23 History Morphine Sulfate ER [Ms Contin] 30 mg PO BID 03/31/23 03/31/23 History Naproxen [Naprosyn] 500 mg PO BID 03/31/23 03/31/23 History Omeprazole 20 mg PO BID 03/31/23 03/31/23 History Ondansetron Odt [Zofran Odt] 4 mg PO Q6H PRN 03/31/23 03/31/23 History predniSONE 10 mg PO DAILY 03/31/23 03/31/23 History Allergies Allergy/AdvReac Type Severity Reaction Status Date / Time atorvastatin AdvReac nausea, Verified 03/31/23 18:46 stomach pain, vomiting metoprolol [From Toprol XL] AdvReac nausea, Verified 03/31/23 18:46 stomach pain, vomiting Physical Exam Vitals: Vital Signs Temp Pulse Resp BP BP Pulse Ox 04/01/23 01:40 97.2 F L 125 H 20 127/93 98 03/31/23 21:00 98.0 F 98 135/70 98 03/31/23 20:00 135 H 128/73 100 Intake and Output 03/31/23 03/31/23 04/01/23 14:59 22:59 06:59 Intake Total 1080 Output Total 250 Balance 830 Intake: Oral 1080 Output: Urine 250 Other: Voiding Method Toilet Urinal # Voids 1 Weight 86.18 kg Thrombosis Risk Factor Assmnt - Choose All That Apply Any of the Below Risk Factors Present?: No Other Risk Factors: Yes Each Risk Factor Represents 3 Points: Age 75 years or older Thrombosis Risk Factor Assessment Total Risk Factor Score: 3 Thrombosis Risk Factor Assessment Level: Moderate Risk Assessment and Plan Assessment: 78-year-old male with 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 coming in due to increased agitation and confusion discussed the case with the ED doctor and accepted the admission for inpatient hospice End-stage COPD on hospice care Inpatient hospice for symptom control Continue with Tylenol when necessary for pain or fever Continue with Lasix daily by mouth Continue with DuoNeb's as needed for shortness of breath Ativan when necessary for anxiety and agitation Oral morphine scheduled every 4 hours Zofran when necessary for nausea vomiting Continue Prednisone daily 10 mg Continue Theophylline daily CODE STATUS DO NOT RESUSCITATE DVT prophylaxis mechanical No blood work done during this ER visit due to patient being on hospice was brought in here for symptom control of agitation
[2023-04-01] MEDS: IPRATROPIUM-ALBUTEROL 3 ML NEB INHALATION SCH ×4 (07:28→18:12)
[2023-04-01] MEDS ORDERED: FUROSEMIDE 40 MG TAB PO SCH (09:00)
[2023-04-01] MEDS: PANTOPRAZOLE 40 MG TABLET PO SCH (10:25)
[2023-04-01] MEDS: THEOPHYLLINE 24 HOUR 400 MG CAP.ER.24H PO SCH (10:25)
[2023-04-01] MEDS: NAPROXEN 250 MG TAB PO SCH ×2 (10:26→20:39)
[2023-04-01] MEDS: predniSONE 10 MG TAB PO SCH (10:27)
[2023-04-01] MEDS: FUROSEMIDE 40 MG TAB PO SCH (10:58)
--- NOTE | 2023-04-01 13:28 | P.PN ---
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 also unable to take care of him at home. Currently more calm and stable. Hospice team following. Making arrangements for placement. Subjective: Patient seen and examined at bedside. No acute events over night. Pertinent positives and negatives as discussed above, a complete review of systems was performed and all other systems are negative. Vitals Signs Reviewed. General: nontoxic, no distress, appears at stated age Derm: warm, dry Head: atraumatic, normocephalic, symmetric Eyes: EOMI, no lid lag, anicteric sclera Mouth: no lip lesion, mucus membranes moist Cardiovascular: S1S2 reg, no murmur Lungs: CTA bilateral, no rhonchi, no rales , no accessory muscle use, supplemental oxygen Abdominal: soft, nontender to palpation, no guarding, no appreciable organomegaly Ext: no gross muscle atrophy, no edema, no contractures Neuro: CN II-XI grossly intact, no focal neuro deficits Psych: Alert, oriented 1, appropriate affect Data Reviewed Today: Pertinent Labs: No labs Imaging: No imaging Assessment and Plan: End-stage COPD Hospice care Acute on chronic encephalopathy -Continue supportive care with supplemental oxygen, and nebulizers -On oral morphine 10 mg every 4 hours, Tylenol 650 mg every 6 hours as needed, naproxen 500 mg twice a day -Continue prednisone 10 mg daily, Lasix 40 mg daily -theophylline 400 mg daily -Ativan oral and IV as needed DVT ppx: Not indicated Code status: No code Anticipated discharge place: Hospice placement Anticipated discharge time: Pending availability Objective - Vital Signs Vital signs: Vital Signs Temp 98.2 F 04/01/23 07:39 Pulse 70 04/01/23 11:33 Resp 18 04/01/23 07:39 BP 149/85 04/01/23 07:39 Pulse Ox 100 04/01/23 07:39 FiO2 Intake & Output 03/31/23 04/01/23 04/01/23 18:59 06:59 18:59 Intake Total 1620 Output Total 250 Balance 1370 Weight 86.18 kg 86.18 kg Intake: Oral 1620 Output: Urine 250 Other: Voiding Method Toilet Toilet Urinal Urinal # Voids 1
[2023-04-02] MEDS: LORazepam 0.5 MG TAB PO PRN ×6 (02:03→22:08)
[2023-04-02] MEDS: MORPHINE ORAL SOLN 10 MG/5 ML CUP PO SCH ×6 (02:03→22:08)
[2023-04-02] MEDS: IPRATROPIUM-ALBUTEROL 3 ML NEB INHALATION SCH ×4 (07:54→21:57)
[2023-04-02] MEDS: THEOPHYLLINE 24 HOUR 400 MG CAP.ER.24H PO SCH (09:35)
[2023-04-02] MEDS: FUROSEMIDE 40 MG TAB PO SCH (09:35)
[2023-04-02] MEDS: predniSONE 10 MG TAB PO SCH (09:35)
[2023-04-02] MEDS: NAPROXEN 250 MG TAB PO SCH ×2 (09:35→20:16)
[2023-04-02] MEDS: PANTOPRAZOLE 40 MG TABLET PO SCH (09:35)
--- NOTE | 2023-04-02 14:32 | P.PN ---
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 also unable to take care of him at home. Currently more calm and stable. Hospice team following. Making arrangements for placement. Likely tomorrow discharge. Subjective: Patient seen and examined at bedside. No acute events over night. Pertinent positives and negatives as discussed above, a complete review of systems was performed and all other systems are negative. Vitals Signs Reviewed. General: nontoxic, no distress, appears at stated age Derm: warm, dry Head: atraumatic, normocephalic, symmetric Eyes: EOMI, no lid lag, anicteric sclera Mouth: no lip lesion, mucus membranes moist Cardiovascular: S1S2 reg, no murmur Lungs: CTA bilateral, no rhonchi, no rales , no accessory muscle use, supplemental oxygen Abdominal: soft, nontender to palpation, no guarding, no appreciable organomegaly Ext: no gross muscle atrophy, no edema, no contractures Neuro: CN II-XI grossly intact, no focal neuro deficits Psych: Alert, oriented 3, appropriate affect Data Reviewed Today: Pertinent Labs: No labs Imaging: No imaging Assessment and Plan: End-stage COPD Hospice care Acute on chronic encephalopathy -Continue supportive care with supplemental oxygen, and nebulizers -On oral morphine 10 mg every 4 hours, Tylenol 650 mg every 6 hours as needed, naproxen 500 mg twice a day -Continue prednisone 10 mg daily, Lasix 40 mg daily -theophylline 400 mg daily -Ativan oral and IV as needed DVT ppx: Not indicated Code status: No code Anticipated discharge place: Hospice placement Anticipated discharge time: Tomorrow Objective - Vital Signs Vital signs: Vital Signs Temp 97.6 F 04/02/23 13:01 Pulse 114 H 04/02/23 13:01 Resp 20 04/02/23 13:01 BP 137/89 04/02/23 13:01 Pulse Ox 98 04/02/23 13:01 FiO2 Intake & Output 04/01/23 04/02/23 04/02/23 18:59 06:59 18:59 Output Total 200 Balance -200 Output: Urine 200 Other: Voiding Method Toilet Toilet Toilet Urinal Urinal Urinal # Voids 3 1 1
[2023-04-03] MEDS: MORPHINE ORAL SOLN 10 MG/5 ML CUP PO SCH ×4 (03:20→13:48)
[2023-04-03] MEDS: LORazepam 0.5 MG TAB PO PRN ×3 (05:18→13:48)
[2023-04-03] MEDS: IPRATROPIUM-ALBUTEROL 3 ML NEB INHALATION SCH ×3 (07:51→15:21)
[2023-04-03] MEDS: FUROSEMIDE 40 MG TAB PO SCH (09:31)
[2023-04-03] MEDS: THEOPHYLLINE 24 HOUR 400 MG CAP.ER.24H PO SCH (09:32)
[2023-04-03] MEDS: PANTOPRAZOLE 40 MG TABLET PO SCH (09:32)
[2023-04-03] MEDS: predniSONE 10 MG TAB PO SCH (09:32)
[2023-04-03] MEDS: NAPROXEN 250 MG TAB PO SCH (09:32)
--- NOTE | 2023-04-03 14:18 | P.DS ---
Providers Date of admission: 03/31/23 17:47 Expected date of discharge: 04/03/23 Attending physician: German Willis MD Primary care physician: Keven Cardona Hospital Course: Discharge Diagnosis: End-stage COPD Chronic hypoxic respiratory failure Hospice care Acute on chronic toxic metabolic encephalopathy Hospital Course: Patient is a 78-year-old male with end-stage COPD requiring supplemental oxygen on hospice care, coronary artery disease, and chronic back pain who presented to the hospital due to worsening confusion at home and inability to care for tiffanie patient at home. He was hospitalized and his confusion improved with holding his extended release morphine. Hospice was able to make arrangements for him to go to [facility] on hospice care and patient was subsequently discharged. Patient seen and examined at bedside. He has no complaints, breathing is hard but at his baseline. No chest pain or shortness of breath. Vital signs reviewed and stable. General: nontoxic, no distress, appears at stated age Cardiovascular: S1S2 reg, no murmur, positive posterior tibial pulse bilateral, Lungs: CTA bilateral, + 3 word conversation dyspnea, sternal retractions Abdominal: soft, nontender to palpation, no guarding, no appreciable organomegaly Ext: no gross muscle atrophy, no edema b/l lower extremities, no contractures Neuro: CN II-XI grossly intact, no focal neuro deficits Psych: Alert, oriented, appropriate affect A total of 25 minutes of time were spent preparing this complex discharge summary. Patient was discharged on 04/03/23. This dictation was prepared using [employer] voice recognition software. Though every attempt is made to correct errors during dictation some may still exist. Patient Condition at Discharge: Stable Plan - Discharge Summary Discharge Rx Participant: No New Discharge Prescriptions: New LORazepam [Ativan] 0.5 mg PO Q4H PRN #12 tab PRN Reason: Anxiety Ipratropium-Albuterol Nebulize [Duoneb 0.5 mg-3 mg/3 ml Soln] 3 ml INHALATION RT-QID each Continue Albuterol Inhaler [Ventolin Hfa Inhaler] 2 puff INHALATION RT-Q4H Theophylline 24 Hour [[place]-24] 400 mg PO DAILY predniSONE 10 mg PO DAILY Acetaminophen Tab [Tylenol] 650 mg PO Q6H PRN PRN Reason: Fever And/ Or Pain Omeprazole 20 mg PO BID Lactulose 10 - 20 gm PO DAILY PRN PRN Reason: Constipation Furosemide [Lasix] 40 mg PO DAILY Ondansetron Odt [Zofran ODT] 4 mg PO Q6H PRN PRN Reason: Nausea And Vomiting Naproxen [Naprosyn] 500 mg PO BID Loratadine 10 mg PO DAILY Fluticasone Nasal [place] [Flonase Nasal [place]] 1 spr EA NOSTRIL DAILY Morphine Sulfate [Morphine Sulfate Oral Soln Concentrate] 10 mg PO Q4H #10 ml Discontinued LORazepam 0.5 mg PO Q4H PRN PRN Reason: Anxiety Ipratropium-Albuterol Nebulize [Duoneb 0.5 mg-3 mg/3 ml Soln] 3 ml INHALATION RT-TID Morphine Sulfate ER [Ms Contin] 30 mg PO BID Discharge Medication List Albuterol Inhaler [Ventolin Hfa Inhaler] 2 puff INHALATION RT-Q4H 12/14/14 [History] Theophylline 24 Hour [[place]-24] 400 mg PO DAILY 08/07/18 [History] Acetaminophen Tab [Tylenol] 650 mg PO Q6H PRN 03/31/23 [History] Fluticasone Nasal [place] [Flonase Nasal [place]] 1 spr EA NOSTRIL DAILY 03/31/23 [History] Furosemide [Lasix] 40 mg PO DAILY 03/31/23 [History] Lactulose 10 - 20 gm PO DAILY PRN 03/31/23 [History] Loratadine 10 mg PO DAILY 03/31/23 [History] Naproxen [Naprosyn] 500 mg PO BID 03/31/23 [History] Omeprazole 20 mg PO BID 03/31/23 [History] Ondansetron Odt [Zofran ODT] 4 mg PO Q6H PRN 03/31/23 [History] predniSONE 10 mg PO DAILY 03/31/23 [History] Ipratropium-Albuterol Nebulize [Duoneb 0.5 mg-3 mg/3 ml Soln] 3 ml INHALATION RT-QID each 04/03/23 [Rx] LORazepam [Ativan] 0.5 mg PO Q4H PRN #12 tab 04/03/23 [Rx] Morphine Sulfate [Morphine Sulfate Oral Soln Concentrate] 10 mg PO Q4H #10 ml 04/03/23 [Rx] Follow up Appointment(s)/Referral(s): Keven Cardona MD [Primary Care Provider] - 1 Week Discharge Disposition: TRANSFER TO SNF/ECF
[2023-04-03 15:15] VITALS: BP 150/80; PULSE 118; RESP 16; TEMP 97.8
== END 2023-04-03 15:45 | DRG 951 ==
LOC: EC 17:04 → 5NMEDONC 17:47
PROVIDERS: ADMIT Student in an Organized Health Care Education/Training Program; ATTEND Student in an Organized Health Care Education/Training Program
PROC: 3E0F7SF Introduction of Other Gas into Respiratory Tract, Via Natural or Artificial Opening (ICD-10-PCS; principal; 2023-03-31)
DX: Z51.5 Encounter for palliative care (principal); G92.8 Other toxic encephalopathy; J96.11 Chronic respiratory failure with hypoxia; J44.9 Chronic obstructive pulmonary disease, unspecified; I25.2 Old myocardial infarction; I25.10 Atherosclerotic heart disease of native coronary artery without angina pectoris; F32.A Depression, unspecified; Z66 Do not resuscitate; G89.29 Other chronic pain; Z87.891 Personal history of nicotine dependence; Z79.899 Other long term (current) drug therapy
CPT/HCPCS: 94640

== ENCOUNTER 2023-04-10 14:52 | Observation (INO) | payer MEDICAID, MEDICARE ==
[2023-04-10] MEDS ORDERED: SODIUM CHLORIDE 0.9% 1,000 ML IV ONE (15:09)
--- NOTE | 2023-04-10 15:13 | ED ---
General Adult HPI - General Chief complaint: Altered Mental Status Stated complaint: Confusion Time Seen by Provider: 04/10/23 14:54 Source: patient, RN notes reviewed Mode of arrival: EMS Limitations: altered mental status - History of Present Illness Initial comments: Patient is a pleasant 78-year-old male presenting to the emergency Department with confusion. Patient does have reported dementia. Patient was reportedly more confused than normal this morning and was a little bit aggressive. Patient states he feels fine and has no complaints. - Related Data Home Medications Medication Instructions Recorded Confirmed Albuterol Inhaler [Ventolin Hfa 2 puff INHALATION RT-Q4H 12/14/14 03/31/23 Inhaler] Theophylline 24 Hour [Gurmeet-24] 400 mg PO DAILY 08/07/18 03/31/23 Acetaminophen Tab [Tylenol] 650 mg PO Q6H PRN 03/31/23 03/31/23 Fluticasone Nasal Colora [Flonase 1 spr EA NOSTRIL DAILY 03/31/23 03/31/23 Nasal Colora] Furosemide [Lasix] 40 mg PO DAILY 03/31/23 03/31/23 Lactulose 10 - 20 gm PO DAILY PRN 03/31/23 03/31/23 Loratadine 10 mg PO DAILY 03/31/23 03/31/23 Naproxen [Naprosyn] 500 mg PO BID 03/31/23 03/31/23 Omeprazole 20 mg PO BID 03/31/23 03/31/23 Ondansetron Odt [Zofran ODT] 4 mg PO Q6H PRN 03/31/23 03/31/23 predniSONE 10 mg PO DAILY 03/31/23 03/31/23 Previous Rx's Medication Instructions Recorded Ipratropium-Albuterol Nebulize 3 ml INHALATION RT-QID each 04/03/23 [Duoneb 0.5 mg-3 mg/3 ml Soln] LORazepam [Ativan] 0.5 mg PO Q4H PRN #12 tab 04/03/23 Morphine Sulfate [Morphine Sulfate 10 mg PO Q4H #10 ml 04/03/23 Oral Soln Concentrate] Allergies Allergy/AdvReac Type Severity Reaction Status Date / Time atorvastatin AdvReac nausea, Verified 04/10/23 15:02 stomach pain, vomiting metoprolol [From Toprol XL] AdvReac nausea, Verified 04/10/23 15:02 stomach pain, vomiting Review of Systems ROS Statement: Those systems with pertinent positive or pertinent negative responses have been documented in the HPI. ROS Other: All systems not noted in ROS Statement are negative. Constitutional: Denies: fever Eyes: Denies: eye pain Respiratory: Denies: cough, dyspnea Cardiovascular: Denies: chest pain Gastrointestinal: Denies: abdominal pain Musculoskeletal: Denies: back pain Past Medical History Past Medical History: COPD, CVA/TIA, GERD/Reflux, Myocardial Infarction (SC), Pneumonia Additional Past Medical History / Comment(s): back problems - pulled lumbar mu scles (40years ago), Ct abdomen 12/04 for abdominal pain Last Myocardial Infarction Date:: 2011 History of Any Multi-Drug Resistant Organisms: None Reported Past Surgical History: Back Surgery Additional Past Surgical History / Comment(s): left index finger surgery Past Anesthesia/Blood Transfusion Reactions: No Reported Reaction Past Psychological History: Anxiety, Depression Smoking Status: Former smoker Past Alcohol Use History: None Reported Past Drug Use History: None Reported - Past Family History Mother Family Medical History: Diabetes Mellitus General Exam Limitations: altered mental status General appearance: alert, in no apparent distress Head exam: Present: normocephalic Eye exam: Present: normal appearance ENT exam: Present: mucous membranes dry Neck exam: Present: normal inspection Respiratory exam: Present: normal lung sounds bilaterally Cardiovascular Exam: Present: regular rate, normal rhythm GI/Abdominal exam: Present: soft. Absent: tenderness Extremities exam: Present: normal inspection Neurological exam: Present: alert, CN II-XII intact. Absent: motor sensory deficit Expanded Neurological exam: Present: protecting the airway Patient oriented to: Present: person, place. Absent: time Speech: Present: fluid speech Motor strength exam: RUE: 5, LUE: 5, RLE: 5, LLE: 5 Eye Response: (4) open spontaneously Motor Response: (6) obeys commands Verbal Response: (4) confused conversation Psychiatric exam: Present: normal affect, normal mood Skin exam: Present: normal color Course Vital Signs 04/10/23 14:56 Temperature 98.3 F Pulse Rate 129 H Respiratory 20 Rate Blood Pressure 155/98 O2 Sat by Pulse 97 Oximetry EKG Findings - EKG Results: EKG: interpreted by ERMD (PVCs present. Septal Q waves.), sinus rhythm, normal axis, normal ST/T EKG shows: tachycardia Medical Decision Making - Medical Decision Making Was pt. sent in by a medical professional or institution (YVROSE Abel, SIGNAL OPERATOR LINGUIST, urgent care, hospital, or [facility]...) When possible be specific @ -No Did you speak to anyone other than the patient for history (EMS, parent, family, police, friend...)? What history was obtained from this source @ -No Did you review nursing and triage notes (agree or disagree)? Why? @ -I reviewed and agree with nursing and triage notes Were old charts reviewed (outside hosp., previous admission, EMS record, old EKG, old radiological studies, urgent care reports/EKG's, [facility] records)? Report findings @ -No old charts were reviewed Differential Diagnosis (chest pain, altered mental status, abdominal pain women, abdominal pain men, vaginal bleeding, weakness, fever, dyspnea, syncope, headache, dizziness, GI bleed, back pain, seizure, CVA, palpatations, mental health, musculoskeletal)? @ -Differential Altered Mental Status: Hypoglycemia, DKA, hypercapnia, ETOH, overdose, CO poisoning, trauma, myxedema coma, HTN encephalopathy, infection, encephalitis, psychosis, intercranial hemorrhage, hepatic encephalopathy, meningitis, CVA, this is not meant to be an all-inclusive list EKG interpreted by me (3pts min.). @ -As above X-rays interpreted by me (1pt min.). @ -Is x-ray shows no acute process CT interpreted by me (1pt min.). @ -Computed tomography scan of the brain shows prominence of the pituitary gland U/S interpreted by me (1pt. min.). @ -None done What testing was considered but not performed or refused? (CT, X-rays, U/S, labs)? Why? @ -None What meds were considered but not given or refused? Why? @ -None Did you discuss the management of the patient with other professionals (professionals i.e. YVROSE Abel, SIGNAL OPERATOR LINGUIST, lab, RT, psych nurse, medical social worker, associate product manager, teacher, operations officer trust department, wrapper caser)? Give summary @ -Case was discussed with Dr. Antonio, who will admit covered for Dr. Gan Was smoking cessation discussed for >3mins.? @ -No Was critical care preformed (if so, how long)? @ -No Were there social determinants of health that impacted care today? How? (Homelessness, low income, unemployed, alcoholism, drug addiction, transportation, low edu. Level, literacy, decrease access to med. care, prison, rehab)? @ -No Was there de-escalation of care discussed even if they declined (Discuss DNR or withdrawal of care, Hospice)? DNR status @ -No What co-morbidities impacted this encounter? (DM, HTN, Smoking, COPD, CAD, Cancer, CVA, ARF, Chemo, Hep., AIDS, mental health diagnosis, sleep apnea, morbid obesity)? @ -None Was patient admitted / discharged? Hospital course, mention meds given and route, prescriptions, significant lab abnormalities, going to OR and other pertinent info. @ -Patient does not feel comfortable with discharge home. Patient presents with change in mental status. Family is not available and patient states he lives on his own. A felipe does not feel he is able to take care of himself. Patient does have tachycardia of unclear origin. Patient will be admitted. Admission orders were written. Undiagnosed new problem with uncertain prognosis? @ -No Drug Therapy requiring intensive monitoring for toxicity (Heparin, Nitro, Insulin, Cardizem)? @ -No Were any procedures done? @ -No Diagnosis/symptom? @ -Altered mental status, tachycardia Acute, or Chronic, or Acute on Chronic? @ -Acute, acute Uncomplicated (without systemic symptoms) or Complicated (systemic symptoms)? @ -default Side effects of treatment? @ -No Exacerbation, Progression, or Severe Exacerbation? @ -No Poses a threat to life or bodily function? How? (Chest pain, USA, SC, pneumonia, PE, COPD, DKA, ARF, appy, cholecystitis, CVA, Diverticulitis, Homicidal, Suicidal, threat to staff... and all critical care pts) @ -No - Lab Data Result diagrams: 04/10/23 17:20 04/10/23 17:20 Lab Results 04/10/23 04/10/23 04/10/23 Range/Units 17:20 17:20 17:20 WBC 10.1 (3.8-10.6) k/uL RBC 4.91 (4.30-5.90) m/uL Hgb 11.3 L (13.0-17.5) gm/dL Hct 37.7 L (39.0-53.0) % MCV 76.7 L (80.0-100.0) fL MCH 23.0 L (25.0-35.0) pg MCHC 30.0 L (31.0-37.0) g/dL RDW 14.4 (11.5-15.5) % Plt Count 322 (150-450) k/uL MPV 7.1 Neutrophils % 85 % Lymphocytes % 7 % Monocytes % 5 % Eosinophils % 0 % Basophils % 1 % Neutrophils # 8.6 H (1.3-7.7) k/uL Lymphocytes # 0.8 L (1.0-4.8) k/uL Monocytes # 0.5 (0-1.0) k/uL Eosinophils # 0.0 (0-0.7) k/uL Basophils # 0.1 (0-0.2) k/uL Hypochromasia Marked PT 10.2 (10.0-12.5) sec INR 0.9 (<1.2) APTT 21.4 L (22.0-30.0) sec Sodium (137-145) mmol/L Potassium (3.5-5.1) mmol/L Chloride (98-107) mmol/L Carbon Dioxide (22-30) mmol/L Anion Gap mmol/L BUN (9-20) mg/dL Creatinine (0.66-1.25) mg/dL Est GFR (CKD-EPI)AfAm (>60 ml/min/1.73 sqM) Est GFR (CKD-EPI)NonAf (>60 ml/min/1.73 sqM) Glucose (74-99) mg/dL POC Glucose (mg/dL) (70-110) mg/dL POC Glu Collar Trimmer ID Calcium (8.4-10.2) mg/dL Total Bilirubin (0.2-1.3) mg/dL AST (17-59) U/L ALT (4-49) U/L Alkaline Phosphatase (38-126) U/L Troponin I (0.000-0.034) ng/mL Total Protein (6.3-8.2) g/dL Albumin (3.5-5.0) g/dL Urine Color Urine Appearance (Clear) Urine pH (5.0-8.0) Ur Specific Neely (1.001-1.035) Urine Protein (Negative) Urine Glucose (UA) (Negative) Urine Ketones (Negative) Urine Blood (Negative) Urine Nitrite (Negative) Urine Bilirubin (Negative) Urine Urobilinogen (<2.0) mg/dL Ur Leukocyte Esterase (Negative) Urine RBC (0-5) /hpf Urine WBC (0-5) /hpf Hyaline Casts (0-2) /lpf Urine Mucus (None) /hpf Urine Opiates Screen Detected H (NotDetected) Ur Oxycodone Screen Not Detected (NotDetected) Urine Methadone Screen Not Detected (NotDetected) Ur Barbiturates Screen Not Detected (NotDetected) U Tricyclic Antidepress Not Detected (NotDetected) Ur Phencyclidine Scrn Not Detected (NotDetected) Ur Amphetamines Screen Not Detected (NotDetected) U Methamphetamines Scrn Not Detected (NotDetected) U Benzodiazepines Scrn Detected H (NotDetected) Urine Cocaine Screen Not Detected (NotDetected) U Marijuana (THC) Screen Not Detected (NotDetected) Ur Drug Screen Comment SEE COMMENT Serum Alcohol mg/dL 04/10/23 04/10/23 04/10/23 Range/Units 17:20 17:20 17:20 WBC (3.8-10.6) k/uL RBC (4.30-5.90) m/uL Hgb (13.0-17.5) gm/dL Hct (39.0-53.0) % MCV (80.0-100.0) fL MCH (25.0-35.0) pg MCHC (31.0-37.0) g/dL RDW (11.5-15.5) % Plt Count (150-450) k/uL MPV Neutrophils % % Lymphocytes % % Monocytes % % Eosinophils % % Basophils % % Neutrophils # (1.3-7.7) k/uL Lymphocytes # (1.0-4.8) k/uL Monocytes # (0-1.0) k/uL Eosinophils # (0-0.7) k/uL Basophils # (0-0.2) k/uL Hypochromasia PT (10.0-12.5) sec INR (<1.2) APTT (22.0-30.0) sec Sodium 133 L (137-145) mmol/L Potassium 5.2 H (3.5-5.1) mmol/L Chloride 89 L (98-107) mmol/L Carbon Dioxide 34 H (22-30) mmol/L Anion Gap 10 mmol/L BUN 18 (9-20) mg/dL Creatinine 0.76 (0.66-1.25) mg/dL Est GFR (CKD-EPI)AfAm >90 (>60 ml/min/1.73 sqM) Est GFR (CKD-EPI)NonAf 88 (>60 ml/min/1.73 sqM) Glucose 98 (74-99) mg/dL POC Glucose (mg/dL) (70-110) mg/dL POC Glu Collar Trimmer ID Calcium 9.4 (8.4-10.2) mg/dL Total Bilirubin 1.1 (0.2-1.3) mg/dL AST 41 (17-59) U/L ALT 17 (4-49) U/L Alkaline Phosphatase 54 (38-126) U/L Troponin I 0.013 (0.000-0.034) ng/mL Total Protein 6.9 (6.3-8.2) g/dL Albumin 4.1 (3.5-5.0) g/dL Urine Color Light Yellow Urine Appearance Clear (Clear) Urine pH 5.0 (5.0-8.0) Ur Specific Neely 1.018 (1.001-1.035) Urine Protein Negative (Negative) Urine Glucose (UA) Trace H (Negative) Urine Ketones Negative (Negative) Urine Blood Negative (Negative) Urine Nitrite Negative (Negative) Urine Bilirubin Negative (Negative) Urine Urobilinogen <2.0 (<2.0) mg/dL Ur Leukocyte Esterase Trace H (Negative) Urine RBC 2 (0-5) /hpf Urine WBC 3 (0-5) /hpf Hyaline Casts 6 H (0-2) /lpf Urine Mucus Rare H (None) /hpf Urine Opiates Screen (NotDetected) Ur Oxycodone Screen (NotDetected) Urine Methadone Screen (NotDetected) Ur Barbiturates Screen (NotDetected) U Tricyclic Antidepress (NotDetected) Ur Phencyclidine Scrn (NotDetected) Ur Amphetamines Screen (NotDetected) U Methamphetamines Scrn (NotDetected) U Benzodiazepines Scrn (NotDetected) Urine Cocaine Screen (NotDetected) U Marijuana (THC) Screen (NotDetected) Ur Drug Screen Comment Serum Alcohol <10 mg/dL 04/10/23 Range/Units 17:57 WBC (3.8-10.6) k/uL RBC (4.30-5.90) m/uL Hgb (13.0-17.5) gm/dL Hct (39.0-53.0) % MCV (80.0-100.0) fL MCH (25.0-35.0) pg MCHC (31.0-37.0) g/dL RDW (11.5-15.5) % Plt Count (150-450) k/uL MPV Neutrophils % % Lymphocytes % % Monocytes % % Eosinophils % % Basophils % % Neutrophils # (1.3-7.7) k/uL Lymphocytes # (1.0-4.8) k/uL Monocytes # (0-1.0) k/uL Eosinophils # (0-0.7) k/uL Basophils # (0-0.2) k/uL Hypochromasia PT (10.0-12.5) sec INR (<1.2) APTT (22.0-30.0) sec Sodium (137-145) mmol/L Potassium (3.5-5.1) mmol/L Chloride (98-107) mmol/L Carbon Dioxide (22-30) mmol/L Anion Gap mmol/L BUN (9-20) mg/dL Creatinine (0.66-1.25) mg/dL Est GFR (CKD-EPI)AfAm (>60 ml/min/1.73 sqM) Est GFR (CKD-EPI)NonAf (>60 ml/min/1.73 sqM) Glucose (74-99) mg/dL POC Glucose (mg/dL) 118 H (70-110) mg/dL POC Glu Collar Trimmer ID Whitney Morales Calcium (8.4-10.2) mg/dL Total Bilirubin (0.2-1.3) mg/dL AST (17-59) U/L ALT (4-49) U/L Alkaline Phosphatase (38-126) U/L Troponin I (0.000-0.034) ng/mL Total Protein (6.3-8.2) g/dL Albumin (3.5-5.0) g/dL Urine Color Urine Appearance (Clear) Urine pH (5.0-8.0) Ur Specific Neely (1.001-1.035) Urine Protein (Negative) Urine Glucose (UA) (Negative) Urine Ketones (Negative) Urine Blood (Negative) Urine Nitrite (Negative) Urine Bilirubin (Negative) Urine Urobilinogen (<2.0) mg/dL Ur Leukocyte Esterase (Negative) Urine RBC (0-5) /hpf Urine WBC (0-5) /hpf Hyaline Casts (0-2) /lpf Urine Mucus (None) /hpf Urine Opiates Screen (NotDetected) Ur Oxycodone Screen (NotDetected) Urine Methadone Screen (NotDetected) Ur Barbiturates Screen (NotDetected) U Tricyclic Antidepress (NotDetected) Ur Phencyclidine Scrn (NotDetected) Ur Amphetamines Screen (NotDetected) U Methamphetamines Scrn (NotDetected) U Benzodiazepines Scrn (NotDetected) Urine Cocaine Screen (NotDetected) U Marijuana (THC) Screen (NotDetected) Ur Drug Screen Comment Serum Alcohol mg/dL Disposition Clinical Impression: Altered mental status, Sinus tachycardia Disposition: ADMITTED IP TO THIS [facility] Is patient prescribed a controlled substance at d/c from ED?: No Referrals: Keven Cardona MD [Primary Care Provider] - 1-2 days Time of Disposition: 18:46
[2023-04-10 17:28] LABS: Basophils # (A) 0.1 k/uL (0-0.2); Basophils % (A) 1 %; Eosinophils % (A) 0 %; HCT 37.7 % (39.0-53.0); HGB 11.3 gm/dL (13.0-17.5); Hypochromasia Marked; Lymphocytes # (A) 0.8 k/uL (1.0-4.8); Lymphocytes % (A) 7 %; MCV 76.7 fL (80.0-100.0); Mean Platelet Volume 7.1; Monocytes # (A) 0.5 k/uL (0-1.0); Monocytes % (A) 5 %; Neutrophils # (A) 8.6 k/uL (1.3-7.7); Neutrophils % (A) 85 %; Platelet Count 322 k/uL (150-450); RBC 4.91 m/uL (4.30-5.90); RDW 14.4 % (11.5-15.5); WBC 10.1 k/uL (3.8-10.6)
[2023-04-10 17:34] LABS: Appearance,Urine Clear (Clear); Bilirubin,Urine Negative (Negative); Blood,Urine Negative (Negative); Color,Urine Light Yellow; Glucose,Urine (UA) Trace (Negative); Hyaline Casts,Urine 6 /lpf (0-2); Ketones,Urine Negative (Negative); Leukocyte Esterase,Urine Trace (Negative); Mucus,Urine Rare /hpf; Nitrite,Urine Negative (Negative); Protein,Urine Negative (Negative); RBC,Urine 2 /hpf (0-5); Specific Gravity,Urine 1.018 (1.001-1.035); Urobilinogen,Urine <2.0 mg/dL (<2.0); WBC,Urine 3 /hpf (0-5)
--- NOTE | 2023-04-10 17:35 | XR ---
EXAMINATION TYPE: XR chest 2V DATE OF EXAM: 04/10/2023 COMPARISON: 06/12/2022 HISTORY: 78-year-old male confusion, altered mental status TECHNIQUE: AP and lateral views FINDINGS: Heart normal size. Atherosclerotic arch calcifications. Epicardial fat pad adjacent to the cardiac ap ex. Some strandy atelectasis in the right base. Hyperinflation. No consolidation or pleural effusion. 3. Levels of vertebroplasty change mid thoracic spine. IMPRESSION: COPD and chronic changes. No acute process seen.
[2023-04-10 17:38] LABS: Amphetamine Screen,Urine Not Detected (NotDetected); Barbiturate Screen,Urine Not Detected (NotDetected); Benzodiazepines Screen,Urine Detected (NotDetected); Cocaine Screen,Urine Not Detected (NotDetected); Methadone Screen, Urine Not Detected (NotDetected); Opiate Screen,Urine Detected (NotDetected); Oxycodone Screen, Urine Not Detected (NotDetected); Phencyclidine Screen,Urine Not Detected (NotDetected); Tricyclic Antidepressant,Urine Not Detected (NotDetected); Urn Cannabinoid Scrn Not Detected (NotDetected)
[2023-04-10 17:41] LABS: ALT 17 U/L (4-49); AST 41 U/L (17-59); African American GFR (CKD) >90 (>60 ml/min/1.73 sqM); Albumin 4.1 g/dL (3.5-5.0); Alcohol <10 mg/dL; Alkaline Phosphatase 54 U/L (38-126); Anion Gap 10 mmol/L; Blood Urea Nitrogen 18 mg/dL (9-20); Calcium 9.4 mg/dL (8.4-10.2); Carbon Dioxide 34 mmol/L (22-30); Chloride 89 mmol/L (98-107); Glucose 98 mg/dL (74-99); Non-African American GFR(CKD) 88 (>60 ml/min/1.73 sqM); Sodium 133 mmol/L (137-145); Total Bilirubin 1.1 mg/dL (0.2-1.3); Total Protein 6.9 g/dL (6.3-8.2)
[2023-04-10 17:43] LABS: INR 0.9 (<1.2); Prothrombin Time 10.2 sec (10.0-12.5)
[2023-04-10 17:54] LABS: Potassium 5.2 mmol/L (3.5-5.1)
--- NOTE | 2023-04-10 17:55 | CT ---
EXAMINATION TYPE: CT brain wo con DATE OF EXAM: 04/10/2023 COMPARISON: 12/14/2014 HISTORY: 78-year-old male confusion, AMS. Increased confusion and agitation. TECHNIQUE: Examination was done in axial plane without intravenous contrast. Coronal and sagittal r econstructions performed. CT DLP: 1132.4 mGycm Automated exposure control for dose reduction was used. FINDINGS: There is no evidence of acute intracranial hemorrhage, acute ischemic changes, mass, mass-effect, or extra-axial fluid collection. There is no effacement of cerebral sulci or basal subarachnoid cister ns. There is no hydrocephalus. There is no midline shift. Augustine-white matter distinction is preserv ed. Atherosclerotic calcifications throughout the carotid siphons. Prominent underlying pituitary gland measuring up to 1 cm craniocaudal versus 7 mm, previously. Leftward nasal septal deviation. Trace mucosal thickening ethmoid air cells. Mastoid air cells well p neumatized. Orbits and globes are intact. IMPRESSION: 1. Increasing soft tissue prominence to the pituitary gland now measuring 1 cm versus 7 mm, previousl y. Follow-up outpatient contrast-enhanced pituitary MRI to exclude an underlying lesion. 2. Otherwise, no acute intracranial abnormality seen.
[2023-04-10 17:58] LABS: Glucose,Whole Blood 118 mg/dL (70-110)
[2023-04-10 18:34] LABS: Partial Thromboplastin Time 21.4 sec (22.0-30.0)
[2023-04-10] MEDS ORDERED: NALOXONE 0.4 MG/ML 1 ML VIAL IV PRN (18:46)
[2023-04-10 19:07] LABS: ABG Base Excess 14.1 mmol/L; ABG HCO3 38 mmol/L (21-25); ABG Oxygen Saturation 94.7 % (94-97); ABG PCO2 55 mmHg (35-45); ABG PH 7.45 (7.35-7.45); ABG PO2 66 mmHg (83-108); ABG TCO2 40 mmol/L (19-24); Allen Test Performed? Yes
[2023-04-10] MEDS ORDERED: LORazepam 2 MG/ML INJ IV STA (19:23)
[2023-04-10] MEDS: SODIUM CHLORIDE 0.9% 1,000 ML IV SCH (20:18)
[2023-04-10] MEDS: PANTOPRAZOLE 40 MG TABLET PO SCH (21:44)
[2023-04-11] MEDS: LORATADINE 10 MG TAB PO SCH (08:02)
[2023-04-11] MEDS: LORazepam 0.5 MG TAB PO PRN ×2 (08:02→18:18)
[2023-04-11] MEDS: PANTOPRAZOLE 40 MG TABLET PO SCH ×2 (08:02→16:56)
[2023-04-11] MEDS ORDERED: risperiDONE 0.5 MG TAB PO STA (08:14)
[2023-04-11] MEDS: IPRATROPIUM-ALBUTEROL 3 ML NEB INHALATION SCH ×5 (09:27→19:41)
[2023-04-11] MEDS ORDERED: ACETAMINOPHEN TAB 325 MG TAB PO PRN (10:21)
[2023-04-11] MEDS ORDERED: ONDANSETRON ODT 4 MG TAB PO PRN (10:21)
[2023-04-11] MEDS ORDERED: predniSONE 10 MG TAB PO SCH (10:30)
[2023-04-11] MEDS: SODIUM CHLORIDE 0.9% 1,000 ML IV SCH (10:51)
[2023-04-11] MEDS: THEOPHYLLINE 24 HOUR 400 MG CAP.ER.24H PO SCH (11:32)
[2023-04-11] MEDS: NAPROXEN 250 MG TAB PO SCH ×2 (11:32→21:31)
[2023-04-11] MEDS: ENOXAPARIN 40 MG/0.4 ML SYRINGE SQ SCH (11:33)
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
[2023-04-11] MEDS: MORPHINE CONC SOLN 10mg/0.5mL ORAL SYRG PO SCH ×2 (14:03→16:25)
[2023-04-11 14:57] LABS: Basophils # (A) 0.11 X 10*3/uL (0.00-0.10); Basophils % (A) 1.1 %; Eosinophils # (A) 0.27 X 10*3/uL (0.04-0.35); Eosinophils % (A) 2.7 %; HCT 39.8 % (39.6-50.0); HGB 10.8 g/dL (13.0-17.0); Lymphocytes # (A) 1.51 X 10*3/uL (0.90-5.00); Lymphocytes % (A) 15.3 %; MCH 21.7 pg (27.0-32.0); MCHC 27.1 g/dL (32.0-37.0); MCV 80.1 FL (80.0-97.0); Mean Platelet Volume 9.5 FL (9.5-12.2); Monocytes # (A) 0.75 X 10*3/uL (0.20-1.00); Monocytes % (A) 7.6 %; NRBC Per 100 WBC 0 X 10*3/uL (0.00-0.01); Neutrophils # (A) 7.23 X 10*3/uL (1.80-7.70); Platelet Count 348 X 10*3/uL (140-440); RBC 4.97 X 10*6/uL (4.40-5.60); RDW 14.6 % (11.5-14.5)
[2023-04-11 15:19] LABS: ALT 13 U/L (10-49); AST 16 U/L (14-35); Albumin 4.1 g/dL (3.8-4.9); Albumin/Globulin Ratio 2.16 Ratio (1.60-3.17); Alkaline Phosphatase 71 U/L (41-126); BUN/Creat Ratio 12.33 Ratio (12.00-20.00); Blood Urea Nitrogen 11.1 mg/dL (9.0-27.0); Calcium 9.9 mg/dL (8.7-10.3); Carbon Dioxide 34.3 mmol/L (21.6-31.8); Chloride 99 mmol/L (96-109); Globulin 1.9 g/dL (1.6-3.3); Glucose 116 mg/dL (70-110); Sodium 142 mmol/L (135-145); Total Bilirubin 0.4 mg/dL (0.3-1.2)
--- NOTE | 2023-04-11 15:24 | P.HPIM ---
History of Present Illness H&P Date: 04/11/23 Chief Complaint: Increasing confusion This is a very pleasant 78-year-old patient who follows with Dr. Cardona. Chronic stable medical conditions include GERD, CAD with prior GA, arthritis, GERD, home oxygen 2 L. end-stage COPD baseline short of breath Patient was sent to the ER apparently increasing confusion. Patient this morning is able to answer questions. Short of breath. Patient lives with his significant other Emelyn. Patient has been enrolled into hospice outpatient. Under [facility]. Patient's significant other once assisted living with hospice. Otherwise patient is able to tolerate her diet. Baseline short of breath. On the conversation. Review of systems: GEN.: Tired, EYES: None HEENT: None NECK: None RESPIRATORY: As above CARDIOVASCULAR: None GASTROINTESTINAL: None GENITOURINARY: None MUSCULOSKELETAL: Joint pains LYMPHATICS: None HEMATOLOGICAL: None PSYCHIATRY: anxious NEUROLOGICAL: None Past medical history to include: End-stage COPD, home oxygen , GERD, GA, arthritis and currently enrolled into hospice Social history: Lives with the partner Jalyn Smoked a pack a day for about 53 years stopped about 2013. 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 Family history: Diabetes Physical examination: VITAL SIGNS: 97.1, 122, 18, 1:30/80, 91% on 4 L GENERAL: BMI 25.8, up in bed short of breath EYES: Pupils equal. Conjunctiva normal. HEENT: External appearance of nose and ears normal, oral cavity grossly normal. NECK: JVD not raised; masses not palpable. HEART: First and second heart sounds are normal; no edema. LUNGS: Respiratory rate increased, decreased breath sounds, prolonged expiration and wheezing. Accessory muscles of working, not able to speak in full sentences ABDOMEN: Soft, nontender, liver spleen not palpable, no masses palpable. PSYCH: Alert and oriented x3; mood and affect anxious MUSCULOSKELETAL:No Clubbing/cyanosis;muscles-grossly intact NEUROLOGICAL: Cranial nerves grossly intact; no facial asymmetry, power and sensation grossly intact. LYMPHATICS: No lymph nodes palpable in the axilla and neck INVESTIGATIONS, reviewed in the clinical context: 04/11/2023: White count 19 globin 10.8 platelets 348 Troponin I 0.019, 0.017 ABG pH 7.45 pCO2 55 pO2 66 EKG tracing personally reviewed by ia-sinus tachycardia. P pulmonale Chest x-ray film personally reviewed by me-hyperinflation Assessment and plan: -Acute severe COPD exacerbation in a prior smoker, chronically steroid dependent: : DuoNeb, IV Solu-Medrol, theophylline -Acute on Chronic hypoxic hypercapnic respiratory failure secondary to COPD: Home oxygen 2 L -Sinus tachycardia from uncontrolled respiratory status and patient being on theophylline. Lopressor -chronic medical debility from underlying COPD -Anxiety Lexapro -CAD with a prior history of GA , Pravachol aspirin -GERD Omeprazole -Chronic low back pain from arthritis Methocarbamol, -DO NOT RESUSCITATE [patient was hospice before coming in. Looking for hospice placement with assisted living] Social work is involved in looking at assisted living/a brace with hospice. Medications reviewed. Discussed with patient. Past Medical History Past Medical History: COPD, CVA/TIA, GERD/Reflux, Myocardial Infarction (GA), Pneumonia Additional Past Medical History / Comment(s): back problems - pulled lumbar muscles (40years ago), Ct abdomen 12/04 for abdominal pain Last Myocardial Infarction Date:: 2011 History of Any Multi-Drug Resistant Organisms: None Reported Past Surgical History: Back Surgery Additional Past Surgical History / Comment(s): left index finger surgery Past Anesthesia/Blood Transfusion Reactions: No Reported Reaction Past Psychological History: Anxiety, Depression Smoking Status: Former smoker Past Alcohol Use History: None Reported Past Drug Use History: None Reported - Past Family History Mother Family Medical History: Diabetes Mellitus Medications and Allergies Home Medications Medication Instructions Recorded Confirmed Type Albuterol Inhaler [Ventolin Hfa 2 puff INHALATION RT-Q4H 12/14/14 04/10/23 History Inhaler] Theophylline 24 Hour [Gurmeet-24] 400 mg PO DAILY 08/07/18 04/10/23 History Acetaminophen Tab [Tylenol] 650 mg PO Q6H PRN 03/31/23 04/10/23 History Fluticasone Nasal [place] [Flonase 1 spr EA NOSTRIL DAILY 03/31/23 04/10/23 History Nasal [place]] Furosemide [Lasix] 40 mg PO DAILY 03/31/23 04/10/23 History Lactulose 10 - 20 gm PO DAILY PRN 03/31/23 04/10/23 History Loratadine 10 mg PO DAILY 03/31/23 04/10/23 History Naproxen [Naprosyn] 500 mg PO BID 03/31/23 04/10/23 History Omeprazole 20 mg PO BID 03/31/23 04/10/23 History Ondansetron Odt [Zofran ODT] 4 mg PO Q6H PRN 03/31/23 04/10/23 History predniSONE 10 mg PO DAILY 03/31/23 04/10/23 History Ipratropium-Albuterol Nebulize 3 ml INHALATION RT-QID each 04/03/23 04/10/23 Rx [Duoneb 0.5 mg-3 mg/3 ml Soln] LORazepam [Ativan] 0.5 mg PO Q4H PRN #12 tab 04/03/23 04/10/23 Rx Morphine Sulfate [Morphine Sulfate 10 mg PO Q4H #10 ml 04/03/23 04/10/23 Rx Oral Soln Concentrate] Allergies Allergy/AdvReac Type Severity Reaction Status Date / Time atorvastatin AdvReac nausea, Verified 04/10/23 18:54 stomach pain, vomiting metoprolol [From Toprol XL] AdvReac nausea, Verified 04/10/23 18:54 stomach pain, vomiting Physical Exam Vitals: Vital Signs Temp Pulse Pulse Resp BP BP Pulse Ox 04/11/23 09:49 157/78 04/11/23 09:34 96 04/11/23 08:44 130/80 04/11/23 08:38 97.1 F L 122 H 18 178/100 91 L 04/11/23 08:00 102 H 04/11/23 04:11 98 20 146/98 96 04/11/23 00:51 81 18 112/81 96 04/10/23 21:07 115 H 20 98 Intake and Output 04/11/23 04/11/23 04/11/23 06:59 14:59 22:59 Intake Total 240 Output Total 600 450 Balance -600 -210 Intake: Oral 240 Output: Urine 600 450 Straight 600 Other: Voiding Method Urinal # Voids 2 Results CBC & Chem 7: 04/11/23 08:53 04/10/23 17:20 Labs: Abnormal Lab Results - Last 24 Hours (Table) 04/10/23 04/10/23 04/10/23 Range/Units 17:20 17:20 17:20 Hgb 11.3 L (13.0-17.5) gm/dL Hct 37.7 L (39.0-53.0) % MCV 76.7 L (80.0-100.0) fL MCH 23.0 L (25.0-35.0) pg MCHC 30.0 L (31.0-37.0) g/dL RDW (11.5-14.5) % Neutrophils # 8.6 H (1.3-7.7) k/uL Lymphocytes # 0.8 L (1.0-4.8) k/uL Basophils # (0.00-0.10) X 10*3/uL APTT 21.4 L (22.0-30.0) sec ABG pCO2 (35-45) mmHg ABG pO2 (83-108) mmHg ABG HCO3 (21-25) mmol/L ABG Total CO2 (19-24) mmol/L Sodium (137-145) mmol/L Potassium (3.5-5.1) mmol/L Chloride (98-107) mmol/L Carbon Dioxide (22-30) mmol/L POC Glucose (mg/dL) (70-110) mg/dL Urine Glucose (UA) (Negative) Ur Leukocyte Esterase (Negative) Hyaline Casts (0-2) /lpf Urine Mucus (None) /hpf Urine Opiates Screen Detected H (NotDetected) U Benzodiazepines Scrn Detected H (NotDetected) 04/10/23 04/10/23 04/10/23 Range/Units 17:20 17:20 17:57 Hgb (13.0-17.5) gm/dL Hct (39.0-53.0) % MCV (80.0-100.0) fL MCH (25.0-35.0) pg MCHC (31.0-37.0) g/dL RDW (11.5-14.5) % Neutrophils # (1.3-7.7) k/uL Lymphocytes # (1.0-4.8) k/uL Basophils # (0.00-0.10) X 10*3/uL APTT (22.0-30.0) sec ABG pCO2 (35-45) mmHg ABG pO2 (83-108) mmHg ABG HCO3 (21-25) mmol/L ABG Total CO2 (19-24) mmol/L Sodium 133 L (137-145) mmol/L Potassium 5.2 H (3.5-5.1) mmol/L Chloride 89 L (98-107) mmol/L Carbon Dioxide 34 H (22-30) mmol/L POC Glucose (mg/dL) 118 H (70-110) mg/dL Urine Glucose (UA) Trace H (Negative) Ur Leukocyte Esterase Trace H (Negative) Hyaline Casts 6 H (0-2) /lpf Urine Mucus Rare H (None) /hpf Urine Opiates Screen (NotDetected) U Benzodiazepines Scrn (NotDetected) 04/10/23 04/11/23 Range/Units 19:04 08:53 Hgb 10.8 L (13.0-17.5) gm/dL Hct (39.0-53.0) % MCV (80.0-100.0) fL MCH 21.7 L (25.0-35.0) pg MCHC 27.1 L (31.0-37.0) g/dL RDW 14.6 H (11.5-14.5) % Neutrophils # (1.3-7.7) k/uL Lymphocytes # (1.0-4.8) k/uL Basophils # 0.11 H (0.00-0.10) X 10*3/uL APTT (22.0-30.0) sec ABG pCO2 55 H (35-45) mmHg ABG pO2 66 L (83-108) mmHg ABG HCO3 38 H (21-25) mmol/L ABG Total CO2 40 H (19-24) mmol/L Sodium (137-145) mmol/L Potassium (3.5-5.1) mmol/L Chloride (98-107) mmol/L Carbon Dioxide (22-30) mmol/L POC Glucose (mg/dL) (70-110) mg/dL Urine Glucose (UA) (Negative) Ur Leukocyte Esterase (Negative) Hyaline Casts (0-2) /lpf Urine Mucus (None) /hpf Urine Opiates Screen (NotDetected) U Benzodiazepines Scrn (NotDetected)
--- NOTE | 2023-04-11 16:52 | P.CRDCN ---
History of Present Illness History of present illness: HISTORY OF PRESENT ILLNESS: This is a 78-year-old male with a past medical history significant for COPD. Patient has been in hospice care for end stage COPD and recently hospice nurse had increased dose of Morphine to help with his breathing. Significant other noted some increase in confusion and eventually EMS was called. Patient had some increased confusion again overnight and therefore was given Ativan and Risperdal and appeared much calmer this morning. Denies any chest pain or SOB. Cardiology was consulted for tachycardia. EKG shows sinus tachycardia with HR 124, normal access, right atrial enlargement. On tele sinus rhythm with HR's 90-130. * Echocardiogram completed 11/16/21 reveals ejection fraction 55-60%, mild MR, mild TR REVIEW OF SYSTEMS: At the time of my exam: CONSTITUTIONAL: Denies fever or chills. HEENT: Denies blurred vision, vision changes, or eye pain. Denies hemoptysis CARDIOVASCULAR: Denies chest pain. Denies orthopnea. Denies PND. Denies palp itations RESPIRATORY: Denies shortness of breath. GASTROINTESTINAL: Denies abdominal pain. Denies nausea or vomiting. HEMATOLOGIC: Denies bleeding disorders. GENITOURINARY: Denies any blood in urine. SKIN: Denies pruitis. Denies rash. PHYSICAL EXAM: VITAL SIGNS: Reviewed. GENERAL: Well-developed in no acute distress. HEENT: Head is normocephalic. Pupils are equal, round. Sclerae anicteric. Mucous membranes of the mouth are moist. Neck supple. No JVD or thyromegaly LUNGS: Respirations even and unlabored. Lungs diminished. HEART: Regular rate and rhythm. S1 and S2 heard. ABDOMEN: Soft. Nondistended. Nontender. EXTREMITIES: Normal range of motion. No clubbing or cyanosis. Peripheral pu lses intact. No lower extremity edema NEUROLOGIC: Awake and alert. ASSESSMENT: Sinus tachycardia, likely reactive to delirium, SOB Altered mental status, likely related to increased Morphine dose outpt End stage COPD, in hospice Previous tobacco abuse, since quit PLAN: Tachycardia appears sinus with no arrhythmia or Afib noted. Strong possibility of MAT with end stage COPD however have not seen MAT. No significant HF evidence. Main presentation appears related to delirium, possibly medication effect and end stage COPD. Treat underlying source of tachycardia (anxiety, hypoxia) and would avoid Beta blockers. No further recs from a cardiology standpoint, please call with questions. Past Medical History Past Medical History: COPD, CVA/TIA, GERD/Reflux, Myocardial Infarction ([place]), Pneumonia Additional Past Medical History / Comment(s): back problems - pulled lumbar muscles (40years ago), Ct abdomen 12/04 for abdominal pain Last Myocardial Infarction Date:: 2011 History of Any Multi-Drug Resistant Organisms: None Reported Past Surgical History: Back Surgery Additional Past Surgical History / Comment(s): left index finger surgery Past Anesthesia/Blood Transfusion Reactions: No Reported Reaction Past Psychological History: Anxiety, Depression Smoking Status: Former smoker Past Alcohol Use History: None Reported Past Drug Use History: None Reported - Past Family History Mother Family Medical History: Diabetes Mellitus Medications and Allergies Home Medications Medication Instructions Recorded Confirmed Type Albuterol Inhaler [Ventolin Hfa 2 puff INHALATION RT-Q4H 12/14/14 04/10/23 History Inhaler] Theophylline 24 Hour [[place]-24] 400 mg PO DAILY 08/07/18 04/10/23 History Acetaminophen Tab [Tylenol] 650 mg PO Q6H PRN 03/31/23 04/10/23 History Fluticasone Nasal [place] [Flonase 1 spr EA NOSTRIL DAILY 03/31/23 04/10/23 History Nasal [place]] Furosemide [Lasix] 40 mg PO DAILY 03/31/23 04/10/23 History Lactulose 10 - 20 gm PO DAILY PRN 03/31/23 04/10/23 History Loratadine 10 mg PO DAILY 03/31/23 04/10/23 History Naproxen [Naprosyn] 500 mg PO BID 03/31/23 04/10/23 History Omeprazole 20 mg PO BID 03/31/23 04/10/23 History Ondansetron Odt [Zofran ODT] 4 mg PO Q6H PRN 03/31/23 04/10/23 History predniSONE 10 mg PO DAILY 03/31/23 04/10/23 History Ipratropium-Albuterol Nebulize 3 ml INHALATION RT-QID each 04/03/23 04/10/23 Rx [Duoneb 0.5 mg-3 mg/3 ml Soln] LORazepam [Ativan] 0.5 mg PO Q4H PRN #12 tab 04/03/23 04/10/23 Rx Morphine Sulfate [Morphine Sulfate 10 mg PO Q4H #10 ml 04/03/23 04/10/23 Rx Oral Soln Concentrate] Allergies Allergy/AdvReac Type Severity Reaction Status Date / Time atorvastatin AdvReac nausea, Verified 04/10/23 18:54 stomach pain, vomiting metoprolol [From Toprol XL] AdvReac nausea, Verified 04/10/23 18:54 stomach pain, vomiting Physical Exam Vitals: Vital Signs Temp Pulse Pulse Resp BP BP Pulse Ox 04/11/23 16:26 87 04/11/23 15:00 97.2 F L 95 18 151/87 100 04/11/23 09:49 157/78 04/11/23 09:34 96 04/11/23 08:44 130/80 04/11/23 08:38 97.1 F L 122 H 18 178/100 91 L 04/11/23 08:00 102 H 04/11/23 04:11 98 20 146/98 96 04/11/23 00:51 81 18 112/81 96 04/10/23 21:07 115 H 20 98 Intake and Output 04/11/23 04/11/23 04/11/23 06:59 14:59 22:59 Intake Total 480 Output Total 600 450 Balance -600 30 Intake: Oral 480 Output: Urine 600 450 Straight 600 Other: Voiding Method Urinal # Voids 2 Results 04/11/23 08:53 04/11/23 08:53 Cardiac Enzymes 04/10/23 04/10/23 04/10/23 Range/Units 17:20 17:20 20:44 AST 41 (17-59) U/L Troponin I 0.013 0.019 (0.000-0.034) ng/mL 04/10/23 04/11/23 Range/Units 23:53 08:53 AST 16 (17-59) U/L Troponin I 0.017 (0.000-0.034) ng/mL Coagulation 04/10/23 Range/Units 17:20 PT 10.2 (10.0-12.5) sec APTT 21.4 L (22.0-30.0) sec CBC 04/10/23 04/11/23 Range/Units 17:20 08:53 WBC 10.1 9.90 (3.8-10.6) k/uL RBC 4.91 4.97 (4.30-5.90) m/uL Hgb 11.3 L 10.8 L (13.0-17.5) gm/dL Hct 37.7 L 39.8 (39.0-53.0) % Plt Count 322 348 (150-450) k/uL Comprehensive Metabolic Panel 04/10/23 04/11/23 Range/Units 17:20 08:53 Sodium 133 L 142 (137-145) mmol/L Potassium 5.2 H 5.0 (3.5-5.1) mmol/L Chloride 89 L 99 (98-107) mmol/L Carbon Dioxide 34 H 34.3 H (22-30) mmol/L BUN 18 11.1 (9-20) mg/dL Creatinine 0.76 0.9 (0.66-1.25) mg/dL Glucose 98 116 H (74-99) mg/dL Calcium 9.4 9.9 (8.4-10.2) mg/dL AST 41 16 (17-59) U/L ALT 17 13 (4-49) U/L Alkaline Phosphatase 54 71 (38-126) U/L Total Protein 6.9 6.0 L (6.3-8.2) g/dL Albumin 4.1 4.1 (3.5-5.0) g/dL Current Medications Generic Name Dose Route Start Last Admin Trade Name Freq PRN Reason Stop Dose Admin Acetaminophen 650 mg 04/11/23 10:21 Acetaminophen Tab 325 Mg Tab PO Q6H PRN Fever and/ or Pain Albuterol Sulfate 2 puff 04/11/23 12:00 Albuterol Hfa Inhaler INHALATION RT-Q4H BRANDI Albuterol/Ipratropium 3 ml 04/11/23 16:00 04/11/23 16:25 Ipratropium-Albuterol 3 Ml Neb INHALATION 3 ml RT-Q4H BRANDI Administration Enoxaparin Sodium 40 mg 04/11/23 10:30 04/11/23 11:33 Enoxaparin 40 Mg/0.4 Ml Syringe SQ 40 mg DAILY BRANDI Administration Loratadine 10 mg 04/11/23 09:00 04/11/23 08:02 Loratadine 10 Mg Tab PO 10 mg DAILY BRANDI Administration Lorazepam 0.5 mg 04/10/23 20:48 04/11/23 08:02 Lorazepam 0.5 Mg Tab PO 0.5 mg Q4H PRN Administration Anxiety Methylprednisolone Sodium Succinate 40 mg 04/11/23 16:00 Methylprednisolone Sod Succi 40 Mg/Ml 1 Ml Vial IV Q8HR BRANDI Morphine Sulfate 10 mg 04/11/23 12:00 04/11/23 16:25 Morphine Conc Soln 10mg/0.5ml Oral Syrg PO Not Given Q4HR BRANDI Naloxone HCl 0.2 mg 04/10/23 18:46 Naloxone 0.4 Mg/Ml 1 Ml Vial IV Q2M PRN Opioid Reversal Naproxen 500 mg 04/11/23 10:30 04/11/23 11:32 Naproxen 250 Mg Tab PO 500 mg BID BRANDI Administration Ondansetron HCl 4 mg 04/11/23 10:21 Ondansetron Odt 4 Mg Tab PO Q6H PRN Nausea And Vomiting Pantoprazole Sodium 40 mg 04/10/23 21:00 04/11/23 08:02 Pantoprazole 40 Mg Tablet PO 40 mg AC-BID BRANDI Administration Risperidone 1 mg 04/11/23 21:00 Risperidone 1 Mg Tab PO HS BRANDI Theophylline 400 mg 04/11/23 10:30 04/11/23 11:32 Theophylline 24 Hour 400 Mg Cap.Er.24h PO 400 mg DAILY BRANDI Administration Intake and Output 04/11/23 04/11/23 04/11/23 06:59 14:59 22:59 Intake Total 480 Output Total 600 450 Balance -600 30 Intake: Oral 480 Output: Urine 600 450 Straight 600 Other: Voiding Method Urinal # Voids 2 04/11/23 08:53 04/11/23 08:53
[2023-04-11] MEDS: methylPREDNISolone SOD SUCCI 40 MG/ML 1 ML VIAL IV SCH (16:55)
[2023-04-11 19:10] LABS: T4, Free (Free Thyroxine) 1.53 ng/dL (0.80-1.80)
[2023-04-11] MEDS: MORPHINE ORAL SOLN 10 MG/5 ML CUP PO SCH (21:29)
[2023-04-11] MEDS: risperiDONE 1 MG TAB PO SCH ×2 (21:31→21:32)
[2023-04-11] MEDS: ALBUTEROL HFA INHALER INHALATION SCH (21:40)
[2023-04-12] MEDS: MORPHINE ORAL SOLN 10 MG/5 ML CUP PO SCH ×5 (00:46→12:17)
[2023-04-12] MEDS: methylPREDNISolone SOD SUCCI 40 MG/ML 1 ML VIAL IV SCH ×2 (00:47→09:34)
[2023-04-12] MEDS: IPRATROPIUM-ALBUTEROL 3 ML NEB INHALATION SCH ×4 (01:18→11:25)
[2023-04-12] MEDS: LORazepam 0.5 MG TAB PO PRN (03:06)
[2023-04-12] MEDS: ALBUTEROL HFA INHALER INHALATION SCH ×2 (03:50→10:42)
[2023-04-12 08:50] VITALS: BP 142/81; TEMP 97.8
[2023-04-12 11:02] VITALS: RESP 22
[2023-04-12 11:52] VITALS: PULSE 90
[2023-04-12] MEDS: ENOXAPARIN 40 MG/0.4 ML SYRINGE SQ SCH (12:13)
[2023-04-12] MEDS: LORATADINE 10 MG TAB PO SCH (12:13)
[2023-04-12] MEDS: PANTOPRAZOLE 40 MG TABLET PO SCH (12:13)
[2023-04-12] MEDS: THEOPHYLLINE 24 HOUR 400 MG CAP.ER.24H PO SCH (12:14)
[2023-04-12] MEDS: NAPROXEN 250 MG TAB PO SCH (12:24)
--- NOTE | 2023-04-12 12:35 | P.DS ---
Providers Date of admission: 04/10/23 18:48 Expected date of discharge: 04/12/23 Attending physician: Isra Antonio Consults: 04/10/23 18:46 Consult Physician Routine Consulting Provider: Mehrdad Veras Consult Reason/Comments: ams Do you want consulting provider notified?: Yes Primary care physician: Keven Cardona [facility] Course: Chief Complaint: Increasing confusion This is a very pleasant 78-year-old patient who follows with Dr. Cardona. Chronic stable medical conditions include GERD, CAD with prior IA, arthritis, GERD, home oxygen 2 L. end-stage COPD baseline short of breath Patient was sent to the ER apparently increasing confusion. Patient this morning is able to answer questions. Short of breath. Patient lives with his significant other Emelyn. Patient has been enrolled into hospice outpatient. Under [facility]. Patient's significant other once assisted living with hospice. Otherwise patient is able to tolerate her diet. Baseline short of breath. On the conversation. 04/12/2023: Admitted with COPD exacerbation. Doing better. Has been accepted into hospice at [facility]. Discussed with patient. Discussed with healthcare social worker. Breathing is a bit better. We'll discharge on prednisone taper Past medical history to include: End-stage COPD, home oxygen , GERD, [place], arthritis and currently enrolled into hospice Social history: Lives with the partner Jalyn Smoked a pack a day for about 53 years stopped about 2013. 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 Family history: Diabetes Physical examination: VITAL SIGNS: 94, 22, 100% on 4 L GENERAL: BMI 25.8, up in a chair, breathing better EYES: Pupils equal. Conjunctiva normal. HEENT: External appearance of nose and ears normal, oral cavity grossly normal. NECK: JVD not raised; masses not palpable. HEART: First and second heart sounds are normal; no edema. LUNGS: Respiratory rate increased, decreased breath sounds, prolonged expira tion and wheezing. ABDOMEN: Soft, nontender, liver spleen not palpable, no masses palpable. PSYCH: Alert and oriented x3; mood and affect anxious MUSCULOSKELETAL:No Clubbing/cyanosis;muscles-grossly intact INVESTIGATIONS, reviewed in the clinical context: 04/11/2023: White count 19 globin 10.8 platelets 348 Troponin I 0.019, 0.017 ABG pH 7.45 pCO2 55 pO2 66 EKG tracing personally reviewed by me-sinus tachycardia. P pulmonale Chest x-ray film personally reviewed by me-hyperinflation Assessment and plan: -Acute severe COPD exacerbation in a prior smoker, chronically steroid depende nt: Better: DuoNeb, IV Solu-Medrol, theophylline Discharge on prednisone taper -Acute delirium on presentation from COPD exacerbation and hypoxia: Better -Acute on Chronic hypoxic hypercapnic respiratory failure secondary to COPD: Home oxygen 2 L -Sinus tachycardia from uncontrolled respiratory status and patient being on theophylline. Lopressor -chronic medical debility from underlying COPD -Anxiety Lexapro -CAD with a prior history of [place] , Pravachol aspirin -GERD Omeprazole -Chronic low back pain from arthritis Methocarbamol, -DO NOT RESUSCITATE [patient was hospice before coming in. Looking for hospice placement with assisted living] Disposition: Hospice at [facility] Past Medical History Past Medical History: COPD, CVA/TIA, GERD/Reflux, Myocardial Infarction ([place]), Pneumonia Additional Past Medical History / Comment(s): back problems - pulled lumbar muscles (40years ago), Ct abdomen 12/04 for abdominal pain Last Myocardial Infarction Date:: 2011 History of Any Multi-Drug Resistant Organisms: None Reported Past Surgical History: Back Surgery Additional Past Surgical History / Comment(s): left index finger surgery Past Anesthesia/Blood Transfusion Reactions: No Reported Reaction Past Psychological History: Anxiety, Depression Smoking Status: Former smoker Past Alcohol Use History: None Reported Past Drug Use History: None Reported - Past Family History Mother Family Medical History: Diabetes Mellitus Plan - Discharge Summary Discharge Rx Participant: No New Discharge Prescriptions: New risperiDONE [RisperDAL] 1 mg PO HS tab predniSONE 10 mg PO DAILY #30 tab Continue Albuterol Inhaler [Ventolin Hfa Inhaler] 2 puff INHALATION RT-Q4H Theophylline 24 Hour [[place]-24] 400 mg PO DAILY Acetaminophen Tab [Tylenol] 650 mg PO Q6H PRN PRN Reason: Fever And/ Or Pain Omeprazole 20 mg PO BID Lactulose 10 - 20 gm PO DAILY PRN PRN Reason: Constipation LORazepam [Ativan] 0.5 mg PO Q4H PRN #12 tab PRN Reason: Anxiety Ipratropium-Albuterol Nebulize [Duoneb 0.5 mg-3 mg/3 ml Soln] 3 ml INHALATION RT-QID each Ondansetron Odt [Zofran ODT] 4 mg PO Q6H PRN PRN Reason: Nausea And Vomiting Naproxen [Naprosyn] 500 mg PO BID Loratadine 10 mg PO DAILY Morphine Sulfate [Morphine Sulfate Oral Soln Concentrate] 10 mg PO Q4H #10 ml Discontinued predniSONE 10 mg PO DAILY Furosemide [Lasix] 40 mg PO DAILY Fluticasone Nasal [place] [Flonase Nasal [place]] 1 spr EA NOSTRIL DAILY Discharge Medication List Albuterol Inhaler [Ventolin Hfa Inhaler] 2 puff INHALATION RT-Q4H 12/14/14 [History] Theophylline 24 Hour [[place]-24] 400 mg PO DAILY 08/07/18 [History] Acetaminophen Tab [Tylenol] 650 mg PO Q6H PRN 03/31/23 [History] Lactulose 10 - 20 gm PO DAILY PRN 03/31/23 [History] Loratadine 10 mg PO DAILY 03/31/23 [History] Naproxen [Naprosyn] 500 mg PO BID 03/31/23 [History] Omeprazole 20 mg PO BID 03/31/23 [History] Ondansetron Odt [Zofran ODT] 4 mg PO Q6H PRN 03/31/23 [History] Ipratropium-Albuterol Nebulize [Duoneb 0.5 mg-3 mg/3 ml Soln] 3 ml INHALATION RT-QID each 04/03/23 [Rx] LORazepam [Ativan] 0.5 mg PO Q4H PRN #12 tab 04/03/23 [Rx] Morphine Sulfate [Morphine Sulfate Oral Soln Concentrate] 10 mg PO Q4H #10 ml 04/03/23 [Rx] predniSONE 10 mg PO DAILY #30 tab 04/12/23 [Rx] risperiDONE [RisperDAL] 1 mg PO HS tab 04/12/23 [Rx] Follow up Appointment(s)/Referral(s): Keven Cardona MD [Primary Care Provider] - 1-2 days
== END 2023-04-12 13:56 | disposition hospice, home (50) ==
LOC: EC 14:52 → 6NMEDSUR 18:48
PROVIDERS: ADMIT Hospitalist; ATTEND Hospitalist
DX: R41.82 Altered mental status, unspecified (principal); F03.93 Unspecified dementia, unspecified severity, with mood disturbance; F10.20 Alcohol dependence, uncomplicated; F17.210 Nicotine dependence, cigarettes, uncomplicated; F29 Unspecified psychosis not due to a substance or known physiological condition; F32.A Depression, unspecified; G03.9 Meningitis, unspecified; G89.29 Other chronic pain; H00.019 Hordeolum externum unspecified eye, unspecified eyelid; I11.9 Hypertensive heart disease without heart failure; I25.10 Atherosclerotic heart disease of native coronary artery without angina pectoris; I25.2 Old myocardial infarction; J96.21 Acute and chronic respiratory failure with hypoxia; Z83.3 Family history of diabetes mellitus; Z79.899 Other long term (current) drug therapy; Z79.52 Long term (current) use of systemic steroids
CPT/HCPCS: 96376; 96372 ×2; 96375; 96361; 96374; 99285; 51798; 36415; 94640 ×4; 36600; 94760 ×2; 93005; 84439; 84481; 80053 ×2; 82805; 83735; 84443; 84484; 85025 ×2; 85610; 85730; 81001; 80306; 71046; 70450; G0378 ×3; G0480; J2060; J2920 ×2; J1650 ×2; J7512; 80320